=== PATIENT | male | born 1955 | race Caucasian/White ===

== ENCOUNTER 2016-10-10 14:49 | Emergency (ER) | payer MEDICARE, OTHER ==
[2016-10-10 14:50] VITALS: BMI 30.2
--- NOTE | 2016-10-10 15:25 | C.PDOC ---
History Of Present Illness 60 y/o male presents to the ED with complains of sudden onset lightheadedness and feeling like he needed to sleep today. Pt states he had eaten lunch, egg salad and iced tea and went to pray when symptoms onset. Pt denies associated chest pain, palpitations, visual disturbance, diaphoresis, nausea, vomiting, SOB or any other complaints. Pt feels better on arrival to ED but still has some dizziness. He is a dialysis patient and states that his last dialysis was 2 days ago. He did miss todays appointment due to transportation difficulty. Time Seen by Provider: 10/10/16 14:56 Chief Complaint (Nursing): Dizziness/Lightheaded History Per: Patient History/Exam Limitations: no limitations Onset/Duration Of Symptoms: Hrs Current Symptoms Are (Timing): Better Activity At Onset Of Symptoms: Sitting Fall Associated With With Symptoms: No Severity: Mild Recent travel outside of the [place]: No Past Medical History Reviewed: Historical Data, Nursing Documentation, Vital Signs Vital Signs: Last Vital Signs Temp 97.5 F L 10/10/16 14:59 Pulse 72 10/10/16 16:50 Resp 18 10/10/16 16:50 BP 175/81 H 10/10/16 16:50 Pulse Ox 99 10/10/16 18:24 - Medical History PMH: Anemia, CHF, Diabetes, Fractures (left leg 2 yrs ago), Gastritis, HTN, Hypercholesterolemia, End Stage Renal Disease (MWF), Chronic Kidney Disease - [facility] Procedures APPLICATION OF SPLINT (03/15/14) CATARAC PHACOEMULS/ASPIR (03/08/15) DIALYSIS ARTERIOVENOSTOM (06/21/14) EXCIS DEBRIDE OF WOUND, INFECT, OR BURN (06/21/14) HEMODIALYSIS (06/21/14) HOME MANAGEMENT TREATMENT USING ASSIST EQUIPMENT (08/15/16) INSERT LENS AT CATAR EXT (03/08/15) NONEXCIS DEBRID OF WOUND, INFECT, OR BURN (06/21/14) OTHER SKIN & SUBQ I D (06/21/14) PACKED CELL TRANSFUSION (06/21/14) PERFORMANCE OF URINARY FILTRATION, MULTIPLE (08/13/16) THERAPEUTIC EXERCISE TREATMENT OF MUSCULOSK LOW BACK/LE (08/15/16) VENOUS CATHETERIZATION FOR RENAL DIALYSIS (06/21/14) Family History: States: Unknown Family Hx - Social History Hx Tobacco Use: No Hx Alcohol Use: No Hx Substance Use: No - Immunization History Hx Tetanus Toxoid Vaccination: No Hx Influenza Vaccination: No Hx Pneumococcal Vaccination: No Review Of Systems Except As Marked, All Systems Reviewed And Found Negative. Constitutional: Negative for: Fever, Sweats Cardiovascular: Negative for: Chest Pain, Palpitations Respiratory: Negative for: Shortness of Breath Gastrointestinal: Negative for: Nausea, Vomiting Neurological: Positive for: Dizziness Physical Exam - Physical Exam Appears: Non-toxic, No Acute Distress Skin: Warm, Dry, No Rash Head: Atraumatic, Normacephalic Ear(s): Bilateral: Normal Neck: Normal ROM, Supple Chest: Symmetrical Cardiovascular: Rhythm Regular, No Murmur Respiratory: Normal Breath Sounds, No Rales, No Rhonchi, No Wheezing Gastrointestinal/Abdominal: Soft Extremity: Normal ROM Extremity: Bilateral: Atraumatic Neurological/Psych: Oriented x3, Normal Speech, Normal Cognition, Normal Cranial Nerves, Normal Motor, Normal Sensation, Other (no carotid bruit) ED Course And Treatment - Laboratory Results Result Diagrams: 10/10/16 17:23 10/10/16 17:23 Lab Interpretation: Abnormal (Mild anemia with Hgb 9.4, Hct 28.1, BUN 76,Cr 11.5 , HCO3 18, blood sugar 147.) ECG: Interpreted By Sd ECG Rhythm: Sinus Rhythm ECG Interpretation: Normal Rate From EC O2 Sat by Pulse Oximetry: 99 (on room air) Pulse Ox Interpretation: Normal - CT Scan/US CT head Other Rad Studies (CT/US): Read By Radiologist, Radiology Report Reviewed CT/US Interpretation: PROCEDURE: CT HEAD WITHOUT CONTRAST. HISTORY: R/O Bleed. COMPARISON: 09/27/2016. TECHNIQUE: Axial computed tomography images were obtained through the head/brain without intravenous contrast. Radiation dose: Total exam DLP = 1004.29 mGy-cm. FINDINGS: HEMORRHAGE: No intracranial hemorrhage. BRAIN: No mass effect or edema.No CT evidence of acute territorial infarct. Patchy and confluent hypodensities throughout the bilateral cerebral hemispheric white matter are most likely from chronic small vessel ischemic changes. VENTRICLES: Unremarkable. No hydrocephalus. CALVARIUM: Unremarkable. PARANASAL SINUSES: Unremarkable as visualized. No significant inflammatory changes. MASTOID AIR CELLS: Unremarkable as visualized. No inflammatory changes. OTHER FINDINGS: None. IMPRESSION: No CT evidence of acute intracranial hemorrhage or acute territorial infarct. Acute infarction may be CT occult within first 24 hours. If a focal deficit persists, consider followup CT or MRI for further evaluation. Other findings as above. Progress Note: Plan: CT head, EKG, labs, UA. Orthostatic vital signs normal without evidence of orthostasis. Reevaluation Time: 18:19 Reassessment Condition: Improved (Patient resting quietly. No continued dizziness.) - Physician Consult Information Time Consulting Physician Contacted: 18:19 Physician Contacted: Chino Carlos Outcome Of Conversation: Case discussed with Dr Kwon, patient does not require admission at this time. She advises he call the dialysis center tomorrow for a short treatment and then get his usual treatment on Saturday. Disposition Counseled Patient/Family Regarding: Studies Performed, Diagnosis, Need For Followup - Disposition Referrals: Chino Carlos MD [Staff Provider] - Disposition: HOME/ ROUTINE Disposition Time: 20:05 Condition: STABLE Additional Instructions: Call the dialysis center tomorrow for a short treatment and then go to your normal treatment on Saturday. It is extremely important that you are compliant with your dialysis sessions. Instructions: Lightheadedness (ED) - Clinical Impression Clinical Impression: Lightheadedness, ESRD (end stage renal disease) on dialysis - Scribe Statement The provider has reviewed the documentation as recorded by the Brenda Walker Provider Attestation: All medical record entries made by the Brenda were at my direction and personally dictated by me. I have reviewed the chart and agree that the record accurately reflects my personal performance of the history, physical exam, medical decision making, and the department course for this patient. I have also personally directed, reviewed, and agree with the discharge instructions and disposition.
--- NOTE | 2016-10-10 16:07 | CT ---
PROCEDURE: CT HEAD WITHOUT CONTRAST. HISTORY: R/O Bleed COMPARISON: 09/27/2016 TECHNIQUE: Axial computed tomography images were obtained through the head/brain without intravenous contrast. Radiation dose: Total exam DLP = 1004.29 mGy-cm. FINDINGS: HEMORRHAGE: No intracranial hemorrhage. BRAIN: No mass effect or edema.No CT evidence of acute territorial infarct. Patchy and confluent hypodensities throughout the bilateral cerebral hemispheric white matter are most likely from chronic small vessel ischemic changes. VENTRICLES: Unremarkable. No hydrocephalus. CALVARIUM: Unremarkable. PARANASAL SINUSES: Unremarkable as visualized. No significant inflammatory changes. MASTOID AIR CELLS: Unremarkable as visualized. No inflammatory changes. OTHER FINDINGS: None. IMPRESSION: No CT evidence of acute intracranial hemorrhage or acute territorial infarct. Acute infarction may be CT occult within first 24 hours. If a focal deficit persists, consider followup CT or MRI for further evaluation. Other findings as above.
[2016-10-10 17:29] LABS: BASO % 1.1 % (0.0-2.0); EOS # 0.3 K/uL (0.0-0.7); EOS % 6.1 % (0.0-4.0); HEMATOCRIT 28.1 % (35.0-51.0); LYMPH # 0.8 K/uL (1.0-4.3); LYMPH % 17.5 % (20.0-40.0); MEAN CORPUSCULAR HEMOGLOBIN 29.2 pg (27.0-31.0); MEAN CORPUSCULAR HGB CONC 33.3 g/dL (33.0-37.0); MEAN PLATELET VOLUME 6.7 fL (7.2-11.7); MONO # 0.3 K/uL (0.0-0.8); MONO % 7.3 % (0.0-10.0); NRBC % 0.1 % (0.0-2.0); WHITE BLOOD COUNT 4.4 K/uL (4.8-10.8)
[2016-10-10 17:32] LABS: MEAN CELL VOLUME 87.7 fL (80.0-94.0)
[2016-10-10 17:48] LABS: ALB/GLOB RATIO 1.3 (1.0-2.1); BILIRUBIN,TOTAL 0.6 mg/dL (0.2-1.3); CALCIUM 8.8 mg/dl (8.6-10.4)
[2016-10-10 17:49] LABS: MAGNESIUM 2.2 mg/dL (1.6-2.3)
[2016-10-10 17:57] LABS: POTASSIUM 4.9 mmol/L (3.6-5.2)
[2016-10-10 20:24] VITALS: BP 170/93; PULSE 74; RESP 20; TEMP 97.9; O2SAT 97
--- NOTE | 2016-10-11 16:12 | CARD ---
APPROVED REPORT EKG Measurement Heart [id number] <Conclusion> Normal sinus rhythm Normal ECG
== END 2016-10-10 21:09 | disposition home or self-care (01) ==
LOC: C.ER 14:49
DX: I12.0 Hypertensive chronic kidney disease with stage 5 chronic kidney disease or end stage renal disease (principal); E11.22 Type 2 diabetes mellitus with diabetic chronic kidney disease; N18.6 End stage renal disease; Z99.2 Dependence on renal dialysis; R42 Dizziness and giddiness

== ENCOUNTER 2016-10-11 16:25 | Observation (INO) | payer MEDICARE, OTHER ==
[2016-10-11 16:25] VITALS: BMI 30.2
--- NOTE | 2016-10-11 16:45 | C.PDOC ---
History Of Present Illness 60 yo male, hx of esrd, on hd, mwf, presents with "dizziness". pt reports missed hd m and w. pt states feels "dizzy" and weak. no fevers, c/o of pain, abd pain, n/v/d, adams Time Seen by Provider: 10/11/16 16:27 Chief Complaint (Nursing): Dizziness/Lightheaded Past Medical History Reviewed: Historical Data, Nursing Documentation, Vital Signs Vital Signs: Last Vital Signs Temp 98.5 F 10/12/16 08:02 Pulse 72 10/12/16 08:02 Resp 20 10/12/16 08:02 BP 164/75 H 10/12/16 08:02 Pulse Ox 96 10/12/16 08:02 - Medical History PMH: Anemia, CHF, Diabetes, Fractures (left leg 2 yrs ago), Gastritis, HTN, Hypercholesterolemia, End Stage Renal Disease (MWF), Chronic Kidney Disease - [facility] Procedures APPLICATION OF SPLINT (03/15/14) CATARAC PHACOEMULS/ASPIR (03/08/15) DIALYSIS ARTERIOVENOSTOM (06/21/14) EXCIS DEBRIDE OF WOUND, INFECT, OR BURN (06/21/14) HEMODIALYSIS (06/21/14) HOME MANAGEMENT TREATMENT USING ASSIST EQUIPMENT (08/15/16) INSERT LENS AT CATAR EXT (03/08/15) NONEXCIS DEBRID OF WOUND, INFECT, OR BURN (06/21/14) OTHER SKIN & SUBQ I D (06/21/14) PACKED CELL TRANSFUSION (06/21/14) PERFORMANCE OF URINARY FILTRATION, MULTIPLE (08/13/16) THERAPEUTIC EXERCISE TREATMENT OF MUSCULOSK LOW BACK/LE (08/15/16) VENOUS CATHETERIZATION FOR RENAL DIALYSIS (06/21/14) Family History: States: Unknown Family Hx - Social History Hx Tobacco Use: No Hx Alcohol Use: No Hx Substance Use: No - Immunization History Hx Tetanus Toxoid Vaccination: No Hx Influenza Vaccination: No Hx Pneumococcal Vaccination: No Review Of Systems Neurological: Positive for: Dizziness Physical Exam - Physical Exam Appears: Well, No Acute Distress Skin: Normal Color, Warm, Dry Eye(s): bilateral: Normal Inspection, PERRL, EOMI Nose: Normal Throat: Normal Neck: Normal Cardiovascular: Rhythm Regular Respiratory: Normal Breath Sounds Gastrointestinal/Abdominal: Normal Exam Back: Normal Inspection Extremity: Normal ROM, No Swelling ED Course And Treatment - Laboratory Results Result Diagrams: 10/11/16 18:38 10/11/16 18:38 O2 Sat by Pulse Oximetry: 96 Medical Decision Making Medical Decision Making: case discussed with dr santamaria. will arrange for hd today. 530: pt will receive hd. dr juan accepts for obs. results of labs imaging deferred to inpt, security installation technician calling for pt Disposition - Disposition Disposition: HOSPITALIZED Disposition Time: 17:54 Condition: FAIR - Clinical Impression Clinical Impression: ESRD (end stage renal disease) on dialysis, Dizziness
[2016-10-11 18:42] LABS: BASO % 0.9 % (0.0-2.0); EOS # 0.2 K/uL (0.0-0.7); EOS % 4.6 % (0.0-4.0); HEMATOCRIT 28.8 % (35.0-51.0); LYMPH % 22.1 % (20.0-40.0); MEAN CELL VOLUME 87.6 fL (80.0-94.0); MEAN CORPUSCULAR HEMOGLOBIN 29.2 pg (27.0-31.0); MEAN CORPUSCULAR HGB CONC 33.4 g/dL (33.0-37.0); MONO # 0.3 K/uL (0.0-0.8); NRBC % 0.1 % (0.0-2.0); RED CELL DISTRIBUTION WIDTH 19.5 % (11.5-14.5); WHITE BLOOD COUNT 4.5 K/uL (4.8-10.8)
[2016-10-11 18:48] LABS: ALB/GLOB RATIO 1.2 (1.0-2.1); TOTAL PROTEIN 7.3 g/dL (6.3-8.3)
[2016-10-11 18:49] LABS: CALCIUM 9.1 mg/dl (8.6-10.4)
[2016-10-11 19:00] LABS: INR 1.1
[2016-10-11 19:01] LABS: TROPONIN I 0.032 ng/mL (0.00-0.120)
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
--- NOTE | 2016-10-12 10:38 | RAD ---
HISTORY: Missed 2 hemodialysis sessions COMPARISON: 09/27/2016. FINDINGS: LUNGS: Hazy opacity in the lung bases. Mild increased pulmonary vascular congestion. PLEURA: Bilateral pleural effusions right greater than left. CARDIOVASCULAR: Enlarged cardiomediastinal silhouette. OSSEOUS STRUCTURES: The osseous structures demonstrate degenerative changes. VISUALIZED UPPER ABDOMEN: Upper abdomen is suboptimally evaluated. OTHER FINDINGS: None. IMPRESSION: Bilateral pleural effusions right greater than left. Mild pulmonary vascular congestion.
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
[2016-10-12 16:47] VITALS: BP 123/68; PULSE 74; RESP 20; TEMP 98.2; O2SAT 97
--- NOTE | 2016-10-12 18:10 | CP.PCM.DIS ---
Provider - Provider Date of Admission: 10/11/16 17:05 Attending physician: Aquiles Hoyos MD Consults: Nephro - Terrance Time Spent in preparation of Discharge (in minutes): 29 Hospital Course - Lab Results Lab Results: Most Recent Lab Values WBC 4.5 K/uL (4.8-10.8) L 10/11/16 18:38 RBC 3.29 Mil/uL (4.40-5.90) L 10/11/16 18:38 Hgb 9.6 g/dL (12.0-18.0) L 10/11/16 18:38 Hct 28.8 % (35.0-51.0) L 10/11/16 18:38 MCV 87.6 fL (80.0-94.0) 10/11/16 18:38 MCH 29.2 pg (27.0-31.0) 10/11/16 18:38 MCHC 33.4 g/dL (33.0-37.0) 10/11/16 18:38 RDW 19.5 % (11.5-14.5) H 10/11/16 18:38 Plt Count 187 K/uL (130-400) 10/11/16 18:38 MPV 7.0 fL (7.2-11.7) L 10/11/16 18:38 Neut % (Auto) 65.4 % (50.0-75.0) 10/11/16 18:38 Lymph % (Auto) 22.1 % (20.0-40.0) 10/11/16 18:38 [place] % (Auto) 7.0 % (0.0-10.0) 10/11/16 18:38 Eos % (Auto) 4.6 % (0.0-4.0) H 10/11/16 18:38 Baso % (Auto) 0.9 % (0.0-2.0) 10/11/16 18:38 Neut # 3.0 K/uL (1.8-7.0) 10/11/16 18:38 Lymph # 1.0 K/uL (1.0-4.3) 10/11/16 18:38 [place] # 0.3 K/uL (0.0-0.8) 10/11/16 18:38 Eos # 0.2 K/uL (0.0-0.7) 10/11/16 18:38 Baso # 0.0 K/uL (0.0-0.2) 10/11/16 18:38 PT 12.7 SECONDS (9.7-12.2) H 10/11/16 18:38 INR 1.1 10/11/16 18:38 APTT 34 SECONDS (21-34) 10/11/16 18:38 Sodium 141 mmol/L (132-148) 10/11/16 18:38 Potassium 5.0 mmol/L (3.6-5.2) 10/11/16 18:38 Chloride 98 mmol/L (98-107) 10/11/16 18:38 Carbon Dioxide 17 mmol/L (22-30) L 10/11/16 18:38 Anion Gap 31 (10-20) H 10/11/16 18:38 BUN 83 mg/dL (9-20) H 10/11/16 18:38 Creatinine 12.9 MG/DL (0.8-1.5) H* 10/11/16 18:38 Est GFR ( Amer) 5 10/11/16 18:38 Est GFR (Non-Af Amer) 4 10/11/16 18:38 POC Glucose (mg/dL) 148 mg/dL (65-110) H 10/11/16 19:46 Random Glucose 125 mg/dL (75-110) H 10/11/16 18:38 Calcium 9.1 mg/dl (8.6-10.4) 10/11/16 18:38 Total Bilirubin 1.0 mg/dL (0.2-1.3) 10/11/16 18:38 AST 7 U/L (17-59) L D 10/11/16 18:38 ALT 14 U/L (21-72) L D 10/11/16 18:38 Alkaline Phosphatase 67 U/L (38-126) 10/11/16 18:38 Troponin I 0.0320 ng/mL (0.00-0.120) 10/11/16 18:38 Total Protein 7.3 g/dL (6.3-8.3) 10/11/16 18:38 Albumin 4.0 g/dL (3.5-5.0) 10/11/16 18:38 Globulin 3.3 gm/dL (2.2-3.9) 10/11/16 18:38 Albumin/Globulin Ratio 1.2 (1.0-2.1) 10/11/16 18:38 - Hospital Course Hospital Course: On hospital admission This is a 60 yo M with PMH significant for Anemia, CHF, Diabetes, Fractures ( left leg 2 yrs ago), Gastritis, HTN, Hypercholesterolemia, End Stage Renal Disease (MWF) and Chronic Kidney Disease that presented to the ED with chief complaint of dizziness. Pt states that he missed his M/W dialysis and that this dizziness is normal for when he misses dialysis. He describes the dizziness as more of a light headedness. Pt denies any other symptoms. Denies any fevers, chills, chest pain, sob, palpitations, nausea, vomiting, diarrhea or pedal edema. Dr santamaria consulted from the ED and pt is to go to dialysis tonight. Hospital course Pt admitted for urgent dialysis. Pt went for dialysis on night of admission. Pt tolerated HD well and woke up feeling asymptomatic. Pt is MWF schedule and so had HD again and was cleared by nephro for discharge home On hospital discharge Pt medically stable for discharge. Instructed to resume taking all home medications except insulin, which he was instructed to discontinue by a primary care physician. Diagnoses Dizziness ESRD on dialysis Hypertension Diabetes mellitus This is a summary of the patient's hospital course, for further details please see the EMR Discharge Exam - Head Exam Head Exam: ATRAUMATIC, NORMOCEPHALIC - Eye Exam Eye Exam: Normal appearance Pupil Exam: PERRL - Respiratory Exam Respiratory Exam: Clear to PA & Lateral, UNREMARKABLE - Cardiovascular Exam Cardiovascular Exam: +S1, +S2 - GI/Abdominal Exam GI & Abdominal Exam: Normal Bowel Sounds, Unremarkable - Neurological Exam Neurological exam: Alert, Oriented x3 - Skin Skin Exam: Dry, Warm Discharge Plan - Follow Up Plan Condition: FAIR Disposition: HOME/ ROUTINE Instructions: Heart Failure (DC), Hemodialysis (DC), Dizziness (GEN) Referrals: Chino Santamaria MD [Staff Provider] -
--- NOTE | 2016-10-14 09:14 | CARD ---
APPROVED REPORT EKG Measurement Heart [id number] <Conclusion> Normal sinus rhythm Normal ECG
[2016-10-15] MEDS ORDERED: Epoetin Alfa 10,000 unit/ml Dialysis IV SCH (09:00)
[2016-10-16] MEDS ORDERED: Influenza Virus Vaccine 45 mcg/0.5 ml Syr IM ONE (10:30)
[2016-10-16] MEDS ORDERED: Pneumococcal 23-Valent Vaccine IM ONE (10:30)
== END 2016-10-12 17:49 | disposition home or self-care (01) ==
LOC: C.ER 16:25 → C.9E 17:05 → C.3T 17:35
PROVIDERS: ADMIT Internal Medicine Nephrology; ATTEND Internal Medicine Nephrology
DX: R42 Dizziness and giddiness (principal); I13.2 Hypertensive heart and chronic kidney disease with heart failure and with stage 5 chronic kidney disease, or end stage renal disease; E11.22 Type 2 diabetes mellitus with diabetic chronic kidney disease; N18.6 End stage renal disease; I50.9 Heart failure, unspecified; Z99.2 Dependence on renal dialysis; Z79.4 Long term (current) use of insulin; Z91.15 Patient's noncompliance with renal dialysis; E78.00 Pure hypercholesterolemia, unspecified; N25.81 Secondary hyperparathyroidism of renal origin; Z87.891 Personal history of nicotine dependence
CPT/HCPCS: 36415; 71010; 80053; 82948; 84484; 85025; 85610; 85730; 93005; 99285; G0257; G0378

== ENCOUNTER 2016-10-25 18:07 | Inpatient (IN) | payer MEDICARE, OTHER ==
[2016-10-25 18:16] VITALS: BMI 24.3
--- NOTE | 2016-10-25 18:21 | C.PDOC ---
History Of Present Illness 61 y/o male presents to ED with complaint of left hand pain for 1 hour, described as similar sensation to last stroke in July 2014. Patient states that pain has been getting better, noting it was initially at 8/10 and now 4/ 10. Denies headache, visual changes, nausea, vomiting, chest pain, SOB, weakness , numbness, or other associated symptoms. Time Seen by Provider: 10/25/16 18:15 Chief Complaint (Nursing): Weakness/Neurological Deficit History Per: Patient History/Exam Limitations: no limitations Onset/Duration Of Symptoms: Hrs Current Symptoms Are (Timing): Better Seizure Or Post-ictal Symptoms: None Fall Associated With With Symptoms: No Severity: Mild Pain Scale Rating Of: 4 Past Medical History Reviewed: Historical Data, Nursing Documentation, Vital Signs Vital Signs: Last Vital Signs Temp 97.9 F 10/25/16 22:30 Pulse 62 10/25/16 22:30 Resp 21 10/25/16 22:30 BP 155/70 H 10/25/16 22:30 Pulse Ox 96 10/25/16 22:30 - Medical History PMH: Anemia, CHF, Diabetes, Fractures (left leg 2 yrs ago), Gastritis, HTN, Hypercholesterolemia, End Stage Renal Disease (MWF), Chronic Kidney Disease, TIA - [facility] Procedures APPLICATION OF SPLINT (03/15/14) CATARAC PHACOEMULS/ASPIR (03/08/15) DIALYSIS ARTERIOVENOSTOM (06/21/14) EXCIS DEBRIDE OF WOUND, INFECT, OR BURN (06/21/14) HEMODIALYSIS (06/21/14) HOME MANAGEMENT TREATMENT USING ASSIST EQUIPMENT (08/15/16) INSERT LENS AT CATAR EXT (03/08/15) NONEXCIS DEBRID OF WOUND, INFECT, OR BURN (06/21/14) OTHER SKIN & SUBQ I D (06/21/14) PACKED CELL TRANSFUSION (06/21/14) PERFORMANCE OF URINARY FILTRATION, MULTIPLE (08/13/16) THERAPEUTIC EXERCISE TREATMENT OF MUSCULOSK LOW BACK/LE (08/15/16) VENOUS CATHETERIZATION FOR RENAL DIALYSIS (06/21/14) Family History: States: Unknown Family Hx - Social History Hx Tobacco Use: No Hx Alcohol Use: No Hx Substance Use: No - Immunization History Hx Tetanus Toxoid Vaccination: No Hx Influenza Vaccination: No Hx Pneumococcal Vaccination: No Review Of Systems Except As Marked, All Systems Reviewed And Found Negative. Constitutional: Negative for: Fever, Chills Cardiovascular: Negative for: Chest Pain Respiratory: Negative for: Shortness of Breath Gastrointestinal: Negative for: Vomiting Musculoskeletal: Positive for: Hand Pain (left ) Neurological: Negative for: Weakness, Numbness Physical Exam - Physical Exam Appears: Non-toxic, No Acute Distress Skin: Normal Color, Warm, Dry Head: Atraumatic, Normacephalic Neck: Supple Chest: Symmetrical Cardiovascular: Rhythm Regular Respiratory: Normal Breath Sounds, No Rales, No Rhonchi, No Wheezing Gastrointestinal/Abdominal: Soft, No Tenderness Back: Normal Inspection Extremity: Normal ROM, No Tenderness, Capillary Refill (< 2 sec. ), Other ( moving all extremities w/o difficulty) Extremity: Bilateral: Atraumatic Pulses: Left Radial: Normal, Right Radial: Normal Neurological/Psych: Oriented x3, Normal Speech, Normal Cognition, Normal Motor, Normal Sensation, Normal Reflexes ED Course And Treatment - Laboratory Results Result Diagrams: 10/25/16 19:02 10/25/16 19:02 Lab Interpretation: Abnormal (ESRD on HD, normal K+, trop 0.150H) ECG: Interpreted By Me ECG Rhythm: Sinus Rhythm ECG Interpretation: Normal Rate From EC O2 Sat by Pulse Oximetry: 97 (RA) Pulse Ox Interpretation: Normal - Radiology CXR: Interpreted by Me CXR Interpretation: Yes: No Acute Disease - Other Rad head CT X-Ray: Interpreted by Me, Read By Radiologist (neg) Progress Note: CT Head, EKG, CxR, bloodwork ordered and reviewed. Reevaluation Time: 19:30 Reassessment Condition: Improved (chest discomfort resolved) - Physician Consult Information Outcome Of Conversation: 1929: chest discomfort resolved. 1944: d/w Dr. Real - Hospitalist covering Dr. Rachel Chow's pts- ok to Tele Obs. Medical Decision Making Medical Decision Making: L arm discomfort is prob anginal equivalent, + trop, s/s resolved, normal EKG ESRD on HD- Dr. Carlos, M/W/F- due tomorrow (sat) Disposition Doctor Will See Patient In The: Hospital Counseled Patient/Family Regarding: Studies Performed, Diagnosis - Disposition Disposition: HOSPITALIZED Disposition Time: 19:54 Condition: GOOD - Clinical Impression Clinical Impression: Angina at rest, Troponin I above reference range - Scribe Statement The provider has reviewed the documentation as recorded by the Sparkleibnikky Denis Provider Scribe Attestation: All medical record entries made by the Brenda were at my direction and personally dictated by me. I have reviewed the chart and agree that the record accurately reflects my personal performance of the history, physical exam, medical decision making, and the department course for this patient. I have also personally directed, reviewed, and agree with the discharge instructions and disposition.
[2016-10-25 19:13] LABS: POTASSIUM 4.5 mmol/L (3.6-5.2)
[2016-10-25 19:15] LABS: ALB/GLOB RATIO 1.3 (1.0-2.1); BILIRUBIN,TOTAL 0.9 mg/dL (0.2-1.3); CALCIUM 8.7 mg/dl (8.6-10.4)
[2016-10-25 19:18] LABS: BASO # 0.1 K/uL (0.0-0.2); BASO % 1.1 % (0.0-2.0); EOS # 0.2 K/uL (0.0-0.7); EOS % 3.5 % (0.0-4.0); HEMATOCRIT 35.1 % (35.0-51.0); LYMPH # 1.2 K/uL (1.0-4.3); MEAN CELL VOLUME 90.8 fL (80.0-94.0); MEAN CORPUSCULAR HEMOGLOBIN 29.9 pg (27.0-31.0); MEAN CORPUSCULAR HGB CONC 32.9 g/dL (33.0-37.0); MEAN PLATELET VOLUME 7.5 fL (7.2-11.7); MONO # 0.4 K/uL (0.0-0.8); MONO % 7.6 % (0.0-10.0); NRBC % 0.1 % (0.0-2.0); RED CELL DISTRIBUTION WIDTH 18.1 % (11.5-14.5); WHITE BLOOD COUNT 5.4 K/uL (4.8-10.8)
[2016-10-25 19:25] LABS: INR 1.1
[2016-10-25 19:29] LABS: TROPONIN I 0.15 ng/mL (0.00-0.120)
[2016-10-25] MEDS ORDERED: Enoxaparin 40 mg Syringe SC STA (19:40)
[2016-10-25] MEDS ORDERED: Nitroglycerin 2% Ointment Foilpak UD TOP STA (19:44)
[2016-10-25] MEDS ORDERED: Nitroglycerin 2% Ointment Foilpak UD TOP ONE (20:05)
[2016-10-25] MEDS ORDERED: Enoxaparin 80 mg Syringe ONE (20:06)
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
[2016-10-26 04:00] LABS: BASO % 0.4 % (0.0-2.0); EOS # 0.2 K/uL (0.0-0.7); EOS % 4.8 % (0.0-4.0); HEMATOCRIT 28.3 % (35.0-51.0); LYMPH # 1.1 K/uL (1.0-4.3); LYMPH % 31.9 % (20.0-40.0); MEAN CORPUSCULAR HEMOGLOBIN 29.5 pg (27.0-31.0); MEAN CORPUSCULAR HGB CONC 32.4 g/dL (33.0-37.0); MEAN PLATELET VOLUME 7.1 fL (7.2-11.7); MONO # 0.3 K/uL (0.0-0.8); MONO % 8.6 % (0.0-10.0); RED CELL DISTRIBUTION WIDTH 17.9 % (11.5-14.5); WHITE BLOOD COUNT 3.5 K/uL (4.8-10.8)
[2016-10-26 04:02] LABS: POTASSIUM 4.4 mmol/L (3.6-5.2)
[2016-10-26 04:03] LABS: INR 1.2
[2016-10-26 04:04] LABS: ALB/GLOB RATIO 1.1 (1.0-2.1); BILIRUBIN,TOTAL 0.6 mg/dL (0.2-1.3); TOTAL PROTEIN 6.4 g/dL (6.3-8.3)
[2016-10-26 04:36] LABS: THYROID STIMULATING HORMONE 3.48 mIU/L (0.46-4.68)
[2016-10-26] MEDS ORDERED: (Novolin R) Insulin Human Regular 100 units/ml vial SC SCH (07:30)
[2016-10-26] MEDS: (Novolin R) Insulin Human Regular 100 units/ml vial SC SCH ×4 (07:40→22:05)
--- NOTE | 2016-10-26 07:50 | CT ---
PROCEDURE: CT HEAD WITHOUT CONTRAST. HISTORY: transient L hand weak/pain, h/o CVA with same COMPARISON: Comparison is made to the previous study dated 10/10/2016 TECHNIQUE: Axial computed tomography images were obtained through the head/brain without intravenous contrast. This CT exam was performed using one or more of the following dose reduction techniques: Automated exposure control, adjustment of the mA and/or kV according to patient size, and/or use of iterative reconstruction technique. Radiation dose: Total exam DLP = 970.5 mGy-cm. FINDINGS: HEMORRHAGE: No intracranial hemorrhage. BRAIN: No mass effect or edema. Mild atrophy and [id number]-efdmlzki chronic microvascular white matter ischemic disease are again seen. Again seen are small foci of hypodensity/encephalomalacia at the right basal ganglia suspicious for chronic lacunar infarcts. VENTRICLES: Unremarkable. No hydrocephalus. CALVARIUM: Unremarkable. PARANASAL SINUSES: Unremarkable as visualized. No significant inflammatory changes. MASTOID AIR CELLS: Unremarkable as visualized. No inflammatory changes. OTHER FINDINGS: None. IMPRESSION: No evidence of acute intracranial hemorrhage territorial infarct mass effect or midline shift. Re- demonstration of small foci of encephalomalacia at the right basal ganglia likely represent chronic lacunar infarct. If clinically warranted further assessment by MRI may be obtained. Mild atrophy and aslf-fk-cbnhnlsk chronic microvascular white matter ischemic disease. Preliminary report was submitted by [facility].
--- NOTE | 2016-10-26 08:20 | RAD ---
HISTORY: L arm weak COMPARISON: Comparison is made to the previous study dated 10/11/2016 FINDINGS: LUNGS: Persistent heterogeneous opacity at the right lower lung and to a less degree at the left lower lung. Prominent lung markings suspicious for pulmonary congestion. PLEURA: Right pleural effusion. CARDIOVASCULAR: The cardiac silhouette is prominent in size. OSSEOUS STRUCTURES: No significant abnormalities. VISUALIZED UPPER ABDOMEN: Normal. OTHER FINDINGS: None. IMPRESSION: Persistent reticular and reticulonodular opacities at the lower lobes right more than left associated with right pleural effusion. Nicolaides for CHF or fluid overload.
[2016-10-26] MEDS: Pantoprazole 40 mg EC Tab PO SCH (09:55)
[2016-10-26] MEDS ORDERED: Enoxaparin 40 mg Syringe SC SCH (10:00)
[2016-10-26] MEDS ORDERED: Enoxaparin 80 mg Syringe SC SCH (10:00)
--- NOTE | 2016-10-26 12:01 | CP.PCM.CON ---
History of Present Illness - History of Present Illness History of Present Illness: 61 Y/O MALE ADMITTED WITH SEVERE LUE PAIN X 5 HOURS. PT STATES THE PAIN GOES FROM THE LEFT SHOULDER DOWN TO THE HAND IT IS SHARP IN NATURE, LASTS HOURS ON END AND RESOLVES WITH ASA AT HOME. IT IS WORSE WITH PALPATION AND OR MOVEMENT OF LUE. DENIES LEFT CHEST OR LEFT NECK INVOLVEMENT. NO SOB OR PALP OR N/V ASSOCIATED. PT STATES HE HAD 2 CVA'S IN PAST BOTH TIMES HE HAD SYNCOPE. LAST ONE WAS DIAGNOSED AT [facility] [place]. HE STATES THAT AFTER HIS 2ND STROKE HE BEGAN HAVING THIS LUE PAIN. IT IS SPORADIC. DENIES WEAKNESS IN ARM. HAS A AV FISTULA IN ARM FOR HD, PLACED 1 YEAR AGO. PULSES NORMAL IN ARM, NO SWELLING OR ERYTHEMA. Review of Systems - Constitutional Constitutional: absent: As Per HPI, Anorexia, Chills, Daytime Sleepiness, Excessive Sweating, Fatigue, Fever, Frequent Falls, Headache, Increased Appetite , Lethargy, Malaise, Night Sweats, Snoring, Sleep Apnea, Weight Gain, Weight Loss, Weakness, Other - EENT Eyes: absent: As Per HPI, Blind Spots, Blurred Vision, Change in Vision, Decreased Night Vision, Diplopia, Discharge, Dry Eye, Exophthalmos, Floaters, Irritation, Itchy Eyes, Loss of Peripheral Vision, Pain, Photophobia, Requires Corrective Lenses, Sees Flashes, Spots in Vision, Tunnel Vision, Other Visual Disturbances, Loss of Vision, Other Ears: absent: As Per HPI, Decreased Hearing, Ear Discharge, Ear Pain, Tinnitus, Abnormal Hearing, Disequilibrium, Dizziness, Other Nose/Mouth/Throat: absent: As Per HPI, Epistaxis, Nasal Congestion, Nasal Discharge, Nasal Obstruction, Nasal Trauma, Nose Pain, Post Nasal Drip, Sinus Pain, Sinus Pressure, Bleeding Gums, Change in Voice, Dental Pain, Dry Mouth, Dysphagia, Halitosis, Hoarsness, Lip Swelling, Mouth Lesions, Mouth Pain, Odynophagia, Sore Throat, Throat Swelling, Tongue Swelling, Facial Pain, Neck Pain, Neck Mass, Other - Cardiovascular Cardiovascular: absent: As Per HPI, Acrocyanosis, Chest Pain, Chest Pain at Rest , Chest Pain with Activity, Claudication, Diaphoresis, Dyspnea, Dyspnea on Exertion, Edema, Irregular Heart Rhythm, Pain Radiating to Arm/Neck/Jaw, Leg Edema, Leg Ulcers, Lightheadedness, Orthopnea, Palpitations, Paroxysmal Nocturnal Dyspnea, Pedal Edema, Radiating Pain, Rapid Heart Rate, Slow Heart Rate, Syncope, Other - Respiratory Respiratory: absent: As Per HPI, Cough, Dyspnea, Hemoptysis, Dyspnea on Exertion , Wheezing, Snoring, Stridor, Pain on Inspiration, Chest Congestion, Excessive Mucous Production, Change in Mucous Color, Pain with Coughing, Other - Gastrointestinal Gastrointestinal: absent: As Per HPI, Abdominal Pain, Belching, Bloating, Change in Bowel Habits, Change in Stool Character, Coffee Ground Emesis, Constipation, Cramping, Diarrhea, Dyspepsia, Dysphagia, Early Satiety, Excessive Flatus, Fecal Incontinence, Heartburn, Hematemesis, Hematochezia, Loose Stools, Melena, Nausea, Odynophagia, Temesmus, Vomiting, Other - Genitourinary Genitourinary: absent: As Per HPI, Change in Urinary Stream, Difficulty Urinating, Dysuria, Flank Pain, Hematuria, Pyuria, Nocturia, Urinary Incontinence, Urinary Frequency, Urinary Hesitance, Urinary Urgency, Voiding Freq/Small Amts, Freq UTI, Hx Renal/Bladder Calculi, Hx /Renal Surgery, Bladder Distension, Other - Musculoskeletal Musculoskeletal: Other Additional comments: LUE PAIN. - Integumentary Integumentary: Wounds Additional comments: B/L LE WOUNDS INDICATIVE OF A FALL. ALSO OLD SCARS B/L LE SECONDARY TO PREVIOUS INFECTION. - Neurological Neurological: absent: As Per HPI, Abnormal Gait, Abnormal Hearing, Abnormal Movements, Abnormal Speech, Behavioral Changes, Burning Sensations, Confusion, Convulsions, Disequilibrium, Dizziness, Numbness, Focal Weakness, Frequent Falls , Headaches, Lack of Coordination, Loss of Vision, Memory Loss, Paresthesias, Radicular Pain, Restless Legs, Sensory Deficit, Syncope, Tingling, Tremor, Vertigo, Weakness, Other Visual Disturbances, Other - Psychiatric Psychiatric: absent: As Per HPI, Abnormal Sleep Pattern, Anhedonia, Anxiety, Auditory Hallucinations, Behavioral Changes, Change in Appetite, Change in Libido, Confusion, Depression, Difficulty Concentrating, Hallucinations, Homicidal Ideation, Hopelessness, Irritability, Memory Loss, Mood Swings, Panic Attacks, Paranoia, Suicidal Ideation, Visual Hallucinations, Tactile Hallucinations, Other - Endocrine Endocrine: absent: As Per HPI, Change in Body Appearance, Change in Libido, Cold Intolorance, Deepening of Voice, Excessive Sweating, Fatigue, Flushing, Heat Intolorance, Increase in Ring/Shoe/Hat Size, Palpitations, Polydipsia, Polyphagia, Polyuria, Other - Hematologic/Lymphatic Hematologic: absent: As Per HPI, Easy Bleeding, Easy Bruising, Lymphadenopathy, Other Past Patient History - Infectious Disease Hx of Infectious Diseases: None - Tetanus Immunizations Tetanus Immunization: Unknown - Past Medical History & Family History Past Medical History?: Yes - Past Social History Smoking Status: Former Smoker Alcohol: None Drugs: Denies - CARDIAC Hx Cardiac Disorders: No Hx Angina: No Hx Congestive Heart Failure: Yes Hx Hypercholesterolemia: Yes Hx Hypertension: Yes - PULMONARY Hx Asthma: No Hx Bronchitis: No Hx Chronic Obstructive Pulmonary Disease (COPD): No Hx Emphysema: No Hx Pneumonia: No Hx Pulmonary Embolism: No Hx Sleep Apnea: No - NEUROLOGICAL Hx Transient Ischemic Attacks (TIA): Yes - HEENT Hx HEENT Problems: Yes Hx Blind: No Hx Cataracts: Yes Hx Deafness: No Hx Difficulty Chewing: No Hx Epistaxis: No Hx Glaucoma: No Hx Macular Degeneration: No - RENAL Hx Chronic Kidney Disease: Yes Hx Dialysis: Yes - ENDOCRINE/METABOLIC Hx Diabetes Mellitus Type 2: Yes Hx Hyperthyroidism: No Hx Hypothyroidism: No - HEMATOLOGICAL/ONCOLOGICAL Hx Anemia: Yes - INTEGUMENTARY Hx Dermatological Problems: No Hx Basil Cell: No Hx Kwok: No Hx Cellulitis: No Hx Eczema: No Hx Melanoma: No Hx Psoriasis: No Hx Squamous Cell: No Other/Comment: noted with scars/dark dry spots over body - MUSCULOSKELETAL/RHEUMATOLOGICAL Hx Falls: Yes Hx Fractures: Yes (left leg 2 yrs ago) - GASTROINTESTINAL Hx Gastritis: Yes Hx Gastroesophageal Reflux: Yes - GENITOURINARY/GYNECOLOGICAL Hx Sexually Transmitted Disorders: No - PSYCHIATRIC Hx Substance Use: No - SURGICAL HISTORY Hx Appendectomy: No Hx Arteriovenous Shunt: Yes Hx Carotid Endarterectomy: No Hx Cholecystectomy: No Hx Coronary Artery Bypass Graft: No Hx Coronary Stent: No Hx Tonsillectomy: No - ANESTHESIA Hx Anesthesia: Yes Hx Anesthesia Reactions: No Hx Malignant Hyperthermia: No Meds Allergies/Adverse Reactions: Allergies Allergy/AdvReac Type Severity Reaction Status Date / Time Penicillins Allergy RASH Verified 10/10/16 15:01 - Medications Medications: Current Medications Amlodipine Besylate (Norvasc) 10 mg PO DAILY [facility] Aspirin (Aspirin Chewable) 81 mg PO DAILY [facility] Last Admin: 10/26/16 09:55 Dose: 81 mg Clopidogrel Bisulfate (Plavix) 75 mg PO DAILY [facility] Last Admin: 10/26/16 09:55 Dose: 75 mg Hydralazine HCl (Apresoline) 50 mg PO Q8 [facility] Last Admin: 10/26/16 06:42 Dose: 50 mg Insulin Human Regular (Novolin R) [address] [facility] PRN Reason: Protocol Last Admin: 10/26/16 07:40 Dose: Not Given Isosorbide Mononitrate (Imdur) 60 mg PO DAILY [facility] Labetalol HCl (Trandate) 100 mg PO Q8H [facility] Last Admin: 10/26/16 06:42 Dose: 100 mg Levetiracetam (Keppra) 500 mg PO BID [facility] Last Admin: 10/26/16 09:55 Dose: 500 mg Losartan Potassium (Cozaar) 25 mg PO DAILY [facility] Pantoprazole Sodium (Protonix Ec Tab) 40 mg PO DAILY [facility] Last Admin: 10/26/16 09:55 Dose: 40 mg Rosuvastatin Calcium (Crestor) 20 mg PO [facility] Sitagliptin Phosphate (Januvia) 25 mg PO DAILY [facility] Last Admin: 10/26/16 09:55 Dose: 25 mg Physical Exam - Constitutional Appears: Non-toxic, No Acute Distress - Head Exam Head Exam: ATRAUMATIC, NORMAL INSPECTION, NORMOCEPHALIC - Eye Exam Eye Exam: EOMI, Normal appearance, PERRL Pupil Exam: NORMAL ACCOMODATION, PERRL - ENT Exam ENT Exam: Mucous Membranes Moist, Normal Exam - Neck Exam Neck exam: Positive for: Normal Inspection - Respiratory Exam Respiratory Exam: Clear to Auscultation Bilateral, NORMAL BREATHING PATTERN - Cardiovascular Exam Cardiovascular Exam: Diastolic murmur, REGULAR RHYTHM, +S1, +S2, Systolic Murmur. absent: Bradycardia, Tachycardia, Clicks, Gallop, Irregular Rhythm, JVD , RRR, Rubs, +S4 - GI/Abdominal Exam GI & Abdominal Exam: Normal Bowel Sounds, Soft - Rectal Exam Rectal Exam: Deferred, NORMAL INSPECTION - Extremities Exam Extremities exam: Positive for: full ROM, normal capillary refill. Negative for : calf tenderness, joint swelling, normal inspection, pedal edema, tenderness, pedal pulses present Additional comments: B/L LE SCARS - Back Exam Back exam: NORMAL INSPECTION - Neurological Exam Neurological exam: Alert, CN II-XII Intact, Oriented x3, Reflexes Normal - Psychiatric Exam Psychiatric exam: Normal Affect, Normal Mood - Skin Skin Exam: Dry, Intact, Normal Color, Warm Additional comments: ABOVE Results - Vital Signs Recent Vital Signs: Last Vital Signs Temp 98.3 F 10/26/16 10:57 Pulse 67 10/26/16 10:57 Resp 16 10/26/16 10:57 BP 154/75 H 10/26/16 10:57 Pulse Ox 97 10/26/16 10:57 - Labs Result Diagrams: 10/26/16 03:50 10/26/16 03:50 Labs: Laboratory Results - last 24 hr 10/26/16 10/26/16 10/26/16 03:50 07:16 07:41 WBC 3.5 L RBC 3.11 L Hgb 9.2 L D Hct 28.3 L MCV 91.0 MCH 29.5 MCHC 32.4 L RDW 17.9 H Plt Count 169 MPV 7.1 L Neut % (Auto) 54.3 Lymph % (Auto) 31.9 [place] % (Auto) 8.6 Eos % (Auto) 4.8 H Baso % (Auto) 0.4 Neut # 1.9 Lymph # 1.1 [place] # 0.3 Eos # 0.2 Baso # 0.0 PT 13.3 H INR 1.2 APTT 39 H D Sodium 140 Potassium 4.4 Chloride 98 Carbon Dioxide 27 Anion Gap 20 BUN 46 H Creatinine 6.9 H Est GFR ( Amer) 10 Est GFR (Non-Af Amer) 8 POC Glucose (mg/dL) 119 H Random Glucose 181 H Hemoglobin A1c 4.7 Calcium 8.0 L Total Bilirubin 0.6 AST 8 L D ALT 18 L D Alkaline Phosphatase 52 Total Creatine Kinase 49 L 47 L CK-MB (Mass) 1.26 1.26 Troponin I, Quant 0.1140 0.1130 Total Protein 6.4 Albumin 3.4 L D Globulin 3.0 Albumin/Globulin Ratio 1.1 TSH 3rd Generation 3.48 Blood Type Antibody Screen 10/26/16 10:57 WBC RBC Hgb Hct MCV MCH MCHC RDW Plt Count MPV Neut % (Auto) Lymph % (Auto) [place] % (Auto) Eos % (Auto) Baso % (Auto) Neut # Lymph # [place] # Eos # Baso # PT INR APTT Sodium Potassium Chloride Carbon Dioxide Anion Gap BUN Creatinine Est GFR ( Amer) Est GFR (Non-Af Amer) POC Glucose (mg/dL) Random Glucose Hemoglobin A1c Calcium Total Bilirubin AST ALT Alkaline Phosphatase Total Creatine Kinase CK-MB (Mass) Troponin I, Quant Total Protein Albumin Globulin Albumin/Globulin Ratio TSH 3rd Generation Blood Type A POSITIVE Antibody Screen Negative - EKG Data EKG Interpreted by: Myself EKG shows normal: Sinus rhythm, ST-T waves - EKG Data EKG comments: NONSPEC TWAVE FLATTENING Assessment & Plan (1) Troponin I above reference range Status: Acute (2) ESRD (end stage renal disease) on dialysis Status: Chronic (3) HTN (hypertension) Status: Chronic (4) Hyperlipidemia Status: Chronic (5) TIA (transient ischemic attack) Status: Chronic (6) Type 2 diabetes mellitus with diabetic nephropathy Status: Chronic (7) Left upper arm pain Status: Acute (8) Left shoulder pain Status: Acute - Assessment and Plan (Free Text) Plan: LUE PAIN DOES NOT APPEAR CARDIAC IN NATURE. WOULD CONSIDER LUE VASCULAR DISEASE, AV FISTULA STEAL SYNDROME, OR RADICULOPATHY CERVICAL. LEFT HAD REPERFUSION AND PULSES NML MINIMAL TROP LIKELY DUE TO ESRD GIVEN HX OF CVA X 2 WOULD KEEP PT ON DUAL ANTIPLTS. ADDED DAILY ASA TO HOME PLAVIX ADDED IMDUR 60MG DAILY FOR BP CONTROL AFTER DISCUSSING WITH RESIDENT LAST NIGHT WE ORDERED LUE VASCULAR STUDIES AND CAROTID US TELE MONITOR TO R/O ARRYTHMIA. CHECK VIT D LEVEL START HEPARIN SQ FOR DVT PROPHYLAXIS TOMORROW PT RECIEVED FULL DOSE LOVENOX YESTERDAY IN ER. 70 MIN TOTAL CARE AND EVAL.
--- NOTE | 2016-10-26 14:24 | CP.PCM.CON ---
History of Present Illness - History of Present Illness History of Present Illness: 61 year old male with PMHx of ESRD on HD MWF, HTN, DM, HLD, CVA, anemia, presents to the ED via ambulance for pain in his right hand radiating to his left shoulder. Patient reports he was getting out of prayer at 5 pm when he began to experience 10/10 right hand pain. Pain came on all of a sudden and radiated to left shoulder. Patient reports associated numbness and tingling. He was afraid he was having another stroke. He denies any chest pain now or before. Pain at this time is 1/10 after nitro, ASA and Lovenox given in the ED. He denies any history of heart attacks. He reports having difficulty sleeping over the past couple of nights and feels tired. He denies SOB, changes in vision , diaphoresis, fevers, chills, dizziness, confusion, dysuria, leg or hand swelling. He was at HD yesterday as scheduled. Presented with left arm numbness. Hx as above Due for dialysis now- will arrange TNIs not significant Consult dictated Past Patient History - Infectious Disease Hx of Infectious Diseases: None - Tetanus Immunizations Tetanus Immunization: Unknown - Past Medical History & Family History Past Medical History?: Yes - Past Social History Smoking Status: Former Smoker Alcohol: None Drugs: Denies - CARDIAC Hx Cardiac Disorders: No Hx Angina: No Hx Congestive Heart Failure: Yes Hx Hypercholesterolemia: Yes Hx Hypertension: Yes - PULMONARY Hx Asthma: No Hx Bronchitis: No Hx Chronic Obstructive Pulmonary Disease (COPD): No Hx Emphysema: No Hx Pneumonia: No Hx Pulmonary Embolism: No Hx Sleep Apnea: No - NEUROLOGICAL Hx Transient Ischemic Attacks (TIA): Yes - HEENT Hx HEENT Problems: Yes Hx Blind: No Hx Cataracts: Yes Hx Deafness: No Hx Difficulty Chewing: No Hx Epistaxis: No Hx Glaucoma: No Hx Macular Degeneration: No - RENAL Hx Chronic Kidney Disease: Yes Hx Dialysis: Yes - ENDOCRINE/METABOLIC Hx Diabetes Mellitus Type 2: Yes Hx Hyperthyroidism: No Hx Hypothyroidism: No - HEMATOLOGICAL/ONCOLOGICAL Hx Anemia: Yes - INTEGUMENTARY Hx Dermatological Problems: No Hx Basil Cell: No Hx Kwok: No Hx Cellulitis: No Hx Eczema: No Hx Melanoma: No Hx Psoriasis: No Hx Squamous Cell: No Other/Comment: noted with scars/dark dry spots over body - MUSCULOSKELETAL/RHEUMATOLOGICAL Hx Falls: Yes Hx Fractures: Yes (left leg 2 yrs ago) - GASTROINTESTINAL Hx Gastritis: Yes Hx Gastroesophageal Reflux: Yes - GENITOURINARY/GYNECOLOGICAL Hx Sexually Transmitted Disorders: No - PSYCHIATRIC Hx Substance Use: No - SURGICAL HISTORY Hx Appendectomy: No Hx Arteriovenous Shunt: Yes Hx Carotid Endarterectomy: No Hx Cholecystectomy: No Hx Coronary Artery Bypass Graft: No Hx Coronary Stent: No Hx Tonsillectomy: No - ANESTHESIA Hx Anesthesia: Yes Hx Anesthesia Reactions: No Hx Malignant Hyperthermia: No Meds Allergies/Adverse Reactions: Allergies Allergy/AdvReac Type Severity Reaction Status Date / Time Penicillins Allergy RASH Verified 10/10/16 15:01 - Medications Medications: Current Medications Amlodipine Besylate (Norvasc) 10 mg PO DAILY [facility] Last Admin: 10/26/16 09:55 Dose: Not Given Aspirin (Aspirin Chewable) 81 mg PO DAILY [facility] Last Admin: 10/26/16 09:55 Dose: 81 mg Clopidogrel Bisulfate (Plavix) 75 mg PO DAILY [facility] Last Admin: 10/26/16 09:55 Dose: 75 mg Hydralazine HCl (Apresoline) 50 mg PO Q8 [facility] Last Admin: 10/26/16 13:36 Dose: Not Given Insulin Human Regular (Novolin R) 0 unit SC [facility] PRN Reason: Protocol Last Admin: 10/26/16 13:34 Dose: 3 unit Isosorbide Mononitrate (Imdur) 60 mg PO DAILY [facility] Labetalol HCl (Trandate) 100 mg PO Q8H [facility] Last Admin: 10/26/16 13:37 Dose: Not Given Levetiracetam (Keppra) 500 mg PO BID [facility] Last Admin: 10/26/16 09:55 Dose: 500 mg Losartan Potassium (Cozaar) 25 mg PO DAILY [facility] Last Admin: 10/26/16 09:55 Dose: Not Given Pantoprazole Sodium (Protonix Ec Tab) 40 mg PO DAILY [facility] Last Admin: 10/26/16 09:55 Dose: 40 mg Rosuvastatin Calcium (Crestor) 10 mg PO [facility] Sitagliptin Phosphate (Januvia) 25 mg PO DAILY [facility] Last Admin: 10/26/16 09:55 Dose: 25 mg Results - Vital Signs Recent Vital Signs: Last Vital Signs Temp 98.3 F 10/26/16 10:57 Pulse 67 10/26/16 10:57 Resp 16 10/26/16 10:57 BP 154/75 H 10/26/16 10:57 Pulse Ox 97 10/26/16 10:57 - Labs Result Diagrams: 10/26/16 03:50 10/26/16 03:50 Labs: Laboratory Results - last 24 hr 10/26/16 10/26/16 10/26/16 03:50 07:16 07:41 WBC 3.5 L RBC 3.11 L Hgb 9.2 L D Hct 28.3 L MCV 91.0 MCH 29.5 MCHC 32.4 L RDW 17.9 H Plt Count 169 MPV 7.1 L Neut % (Auto) 54.3 Lymph % (Auto) 31.9 [place] % (Auto) 8.6 Eos % (Auto) 4.8 H Baso % (Auto) 0.4 Neut # 1.9 Lymph # 1.1 [place] # 0.3 Eos # 0.2 Baso # 0.0 PT 13.3 H INR 1.2 APTT 39 H D Sodium 140 Potassium 4.4 Chloride 98 Carbon Dioxide 27 Anion Gap 20 BUN 46 H Creatinine 6.9 H Est GFR ( Amer) 10 Est GFR (Non-Af Amer) 8 POC Glucose (mg/dL) 119 H Random Glucose 181 H Hemoglobin A1c 4.7 Calcium 8.0 L Total Bilirubin 0.6 AST 8 L D ALT 18 L D Alkaline Phosphatase 52 Total Creatine Kinase 49 L 47 L CK-MB (Mass) 1.26 1.26 Troponin I, Quant 0.1140 0.1130 Total Protein 6.4 Albumin 3.4 L D Globulin 3.0 Albumin/Globulin Ratio 1.1 TSH 3rd Generation 3.48 Blood Type Antibody Screen 10/26/16 10/26/16 10:57 12:29 WBC RBC Hgb Hct MCV MCH MCHC RDW Plt Count MPV Neut % (Auto) Lymph % (Auto) [place] % (Auto) Eos % (Auto) Baso % (Auto) Neut # Lymph # [place] # Eos # Baso # PT INR APTT Sodium Potassium Chloride Carbon Dioxide Anion Gap BUN Creatinine Est GFR ( Amer) Est GFR (Non-Af Amer) POC Glucose (mg/dL) 249 H Random Glucose Hemoglobin A1c Calcium Total Bilirubin AST ALT Alkaline Phosphatase Total Creatine Kinase CK-MB (Mass) Troponin I, Quant Total Protein Albumin Globulin Albumin/Globulin Ratio TSH 3rd Generation Blood Type A POSITIVE Antibody Screen Negative
--- NOTE | 2016-10-26 14:52 | CON ---
DATE: 10/26/2016 The patient is a 61-year-old man with a past medical history of end-stage renal disease, been on main tenance hemodialysis for 2-1/2 years. He gets dialyzed 3 times weekly. PAST MEDICAL HISTORY: That of end-stage renal disease, hypertension, diabetes mellitus type 2, diabe tic nephropathy, dyslipidemia, status post cerebrovascular accident and chronic anemia. He presents to the ER with left hand numbness, which radiated down from the shoulder to the hand. He claims that he had a CVA in the past and these were the same symptoms. He is being admitted. Tropo nins so far negative for an acute myocardial infarction. He was given nitro, aspirin, Lovenox in the Emergency Department. REVIEW OF SYSTEMS: He has no dyspnea on exertion, no recent chest pain, no dizziness, no confusion, no new rashes, no visual disturbances, no hearing deficits recently. PAST SURGICAL HISTORY: That of a left arm AV fistula. He denies any cardiac history. Other review of systems are all negative. He does have GI reflux symptoms as well. SOCIAL HISTORY: Negative for smoking, alcohol abuse or illicit drug use. FAMILY HISTORY: Noncontributory. MEDICATIONS: At home included hydralazine, aspirin, losartan, Crestor, isosorbide, Januvia, Keppra, Norvasc, Plavix, Protonix, and labetalol. Not mentioned is he did have a history of seizures. PHYSICAL EXAMINATION: GENERAL: He is a well-developed man, in no acute distress. VITAL SIGNS: Blood pressure when seen 154/75, temperature 98.3, pulse 67, pulse ox is 97% on room ai r. HEENT: Anicteric. Mouth was clear. NECK: No JVD. CHEST: Lung randall were clear. HEART: Regular rhythm, no murmur. ABDOMEN: Soft, benign. No mass or organomegaly. NEUROLOGIC: There was no residual neurological findings. EXTREMITIES: He had a left arm AV fistula with a thrill and bruit. AV fistula appeared intact and i t was patent. There was no peripheral edema. BLOOD WORK: Shows potassium 4.4. Troponins were negative. Creatinine 6.9. Hemoglobin is 9.2. INR is 1.2. He had a chest x-ray, which showed maybe mild CHF, but otherwise negative. IMPRESSION: The patient has end-stage renal disease, mild fluid overload, dialysis noncompliance, hi story of diabetic nephropathy, diabetes mellitus type 2, hypertension, status post cerebrovascular ac cident. PLAN: Will be for immediate dialysis with adequate fluid removal and we will monitor his symptoms of left arm numbness, which is of unclear etiology. We will follow up. Chino Carlos MD cc: [id number] TT: 10/26/2016 14:51:34 Confirmation # [id number] Dictation # [id number]
[2016-10-26 16:08] VITALS: RESP 20
[2016-10-26] MEDS ORDERED: Pneumococcal 23-Valent Vaccine IM ONE (16:22)
[2016-10-26] MEDS ORDERED: Influenza Virus Vaccine 45 mcg/0.5 ml Syr IM ONE (16:22)
[2016-10-26 16:59] LABS: FOLATE 4.4 ng/mL
--- NOTE | 2016-10-26 18:21 | CP.PCM.PN ---
<Haley Tapia - Last Filed: 10/26/16 18:18> Subjective - Date & Time of Evaluation Date of Evaluation: 10/26/16 Time of Evaluation: 10:30 - Subjective Subjective: Internal medicine progress note for Hospitalist -Haley Tapia, PGY-1 Pt S & E at bedside Pt reports Left hand pain resolved, no problems over night except that he had to sleep in the ED. Tolerating a diet. Denies N/V/F/C, SOB, CP, abdominal pain. Admits to stress in his life. Objective - Vital Signs/Intake and Output Vital Signs (last 24 hours): Temp Pulse Resp BP Pulse Ox 98 F 68 20 159/69 H 96 10/26/16 18:01 10/26/16 18:01 10/26/16 18:01 10/26/16 18:01 10/26/16 18:01 - Medications Medications: Current Medications Amlodipine Besylate (Norvasc) 10 mg PO DAILY [facility] Last Admin: 10/26/16 09:55 Dose: Not Given Aspirin (Aspirin Chewable) 81 mg PO DAILY [facility] Last Admin: 10/26/16 09:55 Dose: 81 mg Clopidogrel Bisulfate (Plavix) 75 mg PO DAILY [facility] Last Admin: 10/26/16 09:55 Dose: 75 mg Heparin Sodium (Porcine) (Heparin) 5,000 units SC Q8 [facility] Hydralazine HCl (Apresoline) 50 mg PO Q8 [facility] Last Admin: 10/26/16 13:36 Dose: Not Given Insulin Human Regular (Novolin R) 0 unit SC ACHS [facility] PRN Reason: Protocol Last Admin: 10/26/16 18:09 Dose: Not Given Isosorbide Mononitrate (Imdur) 60 mg PO DAILY [facility] Labetalol HCl (Trandate) 100 mg PO Q8H [facility] Last Admin: 10/26/16 13:37 Dose: Not Given Levetiracetam (Keppra) 500 mg PO BID [facility] Last Admin: 10/26/16 09:55 Dose: 500 mg Losartan Potassium (Cozaar) 25 mg PO DAILY [facility] Last Admin: 10/26/16 09:55 Dose: Not Given Pantoprazole Sodium (Protonix Ec Tab) 40 mg PO DAILY [facility] Last Admin: 10/26/16 09:55 Dose: 40 mg Rosuvastatin Calcium (Crestor) 10 mg PO HS [facility] Sitagliptin Phosphate (Januvia) 25 mg PO DAILY [facility] Last Admin: 10/26/16 09:55 Dose: 25 mg - Labs Labs: 10/26/16 03:50 10/26/16 03:50 PT 13.3 SECONDS (9.7-12.2) H 10/26/16 03:50 INR 1.2 10/26/16 03:50 APTT 39 SECONDS (21-34) H D 10/26/16 03:50 - Constitutional Appears: Non-toxic, No Acute Distress - Head Exam Head Exam: ATRAUMATIC, NORMAL INSPECTION, NORMOCEPHALIC - Eye Exam Eye Exam: EOMI, Normal appearance, PERRL Pupil Exam: NORMAL ACCOMODATION, PERRL - ENT Exam ENT Exam: Mucous Membranes Moist, Normal Exam - Neck Exam Neck Exam: Full ROM, Normal Inspection - Respiratory Exam Respiratory Exam: Clear to Ausculation Bilateral, NORMAL BREATHING PATTERN - Cardiovascular Exam Cardiovascular Exam: REGULAR RHYTHM, +S1, +S2 - GI/Abdominal Exam GI & Abdominal Exam: Soft, Normal Bowel Sounds. absent: Tenderness - Extremities Exam Extremities Exam: Full ROM, Normal Inspection. absent: Pedal Edema, Tenderness Additional comments: LUE w/palpable thrill, audible bruit, non tender, full ROM - Back Exam Back Exam: Full ROM, NORMAL INSPECTION - Neurological Exam Neurological Exam: Alert, Awake, CN II-XII Intact, Oriented x3 - Psychiatric Exam Psychiatric exam: Normal Affect, Normal Mood - Skin Skin Exam: Dry, Intact, Normal Color, Warm Assessment and Plan - Assessment and Plan (Free Text) Assessment: Troponin I above reference range ELIZA: 0.1500, 0.114, 0.113- down trending Lipid Panel: Chol: 149, Tri, LDL:88, HDL:40 Hgb A1C: 4.7 TSH 3.48 Cont home meds: Crestor 20 mg PO HS (Lipitor not on formulary) Aspirin 81 mg PO daily Labetalol 100 mg PO Q8H O2 NC 2L Will hold anticoagulation at this time secondary to history of hemorrhagic stroke. f/u ECHO as per cardio Patient has a normal EF as per most recent ECHO. Status: Acute Cardio following- Imdur started, keep pt on dual antiplt therapy 2/2 hx CVA, started ASA daily, rec vit D level, heparin SC for DVT ppx on 10/27 Anemia Hgb 9.2 from 11.6 Type and crossed Transfuse 1 unit pRBCs FU Iron studies/anemia work up Retic ct 4.6 Fe 44- low TIBC 199- low %sat 22 Ferritin 671 B12 648 Folate 4.4 Left hand pain- Resolved. No trauma. Possible atypical CAD presentation, workup as above. f/u head CT official read. f/u carotid dopplers f/u arterial dupplex of UE Vascular surgery consulted- [place]- R/O Steel syndrome H/O: CVA (cerebrovascular accident) F/u head CT official read. Continue home meds: Plavix 75 mg PO daily BP control: Norvasc 10 mg PO daily Hydralazine 50 mg PO Q8H Labetalol 100 mg PO Q8H Losartan 25 mg PO daily PT/OT Patient has residual weakness and walks with cane. ESRD (end stage renal disease) on dialysis HD MWF FU CXR s/p HD Patient's last HD was Saturday10/24/16. Renal HD diet Nephro following Type 2 diabetes mellitus with diabetic nephropathy Hgb A1C 4.8, 4.7 ISS Resume Januvia 25 mg PO daily Accuchecks ACHS Diabetic renal diet Prophylactic measure Pt received therapeutic LVX in ED Rec to start Hep SQ on 10/27- order in Protonix 40 mg PO daily Dispo PT/OT FU vascular surgery recs Cont HD MWF FU FOB Monitor for bleeding Will recommmend colonoscopy outpatient upon discharge DW attending <Rosemarie Rivera V - Last Filed: 10/30/16 20:30> Objective - Vital Signs/Intake and Output Vital Signs (last 24 hours): Temp Pulse Resp BP Pulse Ox 97.9 F 71 20 155/73 H 95 10/28/16 08:10 10/28/16 08:10 10/28/16 08:10 10/28/16 08:10 10/28/16 08:10 - Labs Labs: 10/28/16 07:30 10/28/16 07:30 PT 13.3 SECONDS (9.7-12.2) H 10/26/16 03:50 INR 1.2 10/26/16 03:50 APTT 32 SECONDS (21-34) D 10/27/16 12:01 Attending/Attestation - Attestation I have personally seen and examined this patient.: Yes I have fully participated in the care of the patient.: Yes I have reviewed all pertinent clinical information, including history, physical exam and plan: Yes Notes (Text): This is a late computer entry for 10/26/16. Patient seen, examined, and case discussed in the ED, awaiting bed on the medical floor. Patient consented for blood products and dialysis, risks and benefits described to the patient who verbalized understanding and signed paperwork. Patient well- known to hospitalist service, history of hemorrhagic CVA, seizure disorder, ESRD , anemia likely chronic of disease, and diabetes. Patient reports he came to the hospital because he had left hand pain with associated numbness early in the morning, and was reminded by a friend to come to the hospital because it can be a symptom of stroke. Patient reports he is compliant on his medications. F/u Nephrology and Cardiology recommendations 1) Assessment/Plan Nonstemi ELIZA: 0.1500 (+) and downtrending Lipid Panel: Chol: 149, Tri, LDL:88, HDL:40 (on statin) Hgb A1C: 4.7 (controlled) TSH 3.48 Cont home meds: Crestor 20 mg PO HS (Lipitor not on formulary) Aspirin 81 mg PO daily Labetalol 100 mg PO Q8H O2 NC 2L Will hold DVT ppx at this time secondary to history of hemorrhagic stroke. f/u ECHO as per cardio Patient has a normal EF as per most recent ECHO. Cardiology (Dr. Nuñez) consulted-->help appreciated-->recommended for Imdur, keep on dual therapy, recommended vitamin D, DVT ppx in the AM 2) Anemia Hgb 9.2 from 11.6 Type and crossed 1 unit of PRBC FU Iron studies/anemia work up Retic ct 4.6 Fe 44- low TIBC 199- low %sat 22 Ferritin 671 B12 648 Folate 4.4 Likely anemia chronic disease secondary to ESRD Patient recommended for outpatient colonoscopy for complete anemia workup since he has not had one. 3) Left hand pain- Resolved. No trauma. Possible atypical CAD presentation, workup as above. f/u head CT official read. f/u carotid dopplers f/u arterial dupplex of UE Vascular surgery consulted- [place]- R/O Steel syndrome 4) H/O: CVA (cerebrovascular accident) F/u head CT official read. Continue home meds: Plavix 75 mg PO daily BP control: Norvasc 10 mg PO daily Hydralazine 50 mg PO Q8H Labetalol 100 mg PO Q8H Losartan 25 mg PO daily started on Imdur per cardiology PT/OT Patient has residual weakness and walks with cane. 5) ESRD (end stage renal disease) on dialysis HD MWF FU CXR s/p HD Patient's last HD was Saturday10/24/16. Renal HD diet Nephrology (Dr. Carlos) on board 6) Type 2 diabetes mellitus with diabetic nephropathy Hgb A1C 4.8, 4.7 ISS Resume Januvia 25 mg PO daily Accuchecks ACHS Diabetic renal diet controlled 5)Prophylactic measure Pt received therapeutic LVX in ED in light of positive troponin Per cardiology, to start Dvt ppxHep SQ on 10/27 GI ppx: Protonix 40 mg PO daily
--- NOTE | 2016-10-27 06:32 | CARD ---
APPROVED REPORT EKG Measurement Heart [id number] <Conclusion> Normal sinus rhythm Nonspecific T wave abnormality Abnormal ECG
[2016-10-27] MEDS: (Novolin R) Insulin Human Regular 100 units/ml vial SC SCH ×3 (07:35→23:13)
--- NOTE | 2016-10-27 07:42 | CP.PCM.PN ---
<Bianca Silver - Last Filed: 10/27/16 13:30> Subjective - Date & Time of Evaluation Date of Evaluation: 10/27/16 Time of Evaluation: 11:00 - Subjective Subjective: PGY1 Medicine Note for Dr. Rivera Patient seen and examined at bedside. Patient had no acute events overnight and continues complaining of left hand pain. Patient denied chest pain, palpitations , SOB, cough, abdominal pain, nausea, vomiting, bowel/bladder complaints, focal weakness. Patient reports hating the [facility] and doesn't want to return. Patient tolerated HD yesterday. Objective - Vital Signs/Intake and Output Vital Signs (last 24 hours): Temp Pulse Resp BP Pulse Ox 97.4 F L 70 20 161/73 H 95 10/26/16 22:05 10/27/16 06:05 10/26/16 22:05 10/27/16 06:05 10/26/16 22:05 Intake and Output: 10/27/16 10/27/16 06:59 18:59 Intake Total 120 Balance 120 - Medications Medications: Current Medications Amlodipine Besylate (Norvasc) 10 mg PO DAILY [facility] Last Admin: 10/26/16 09:55 Dose: Not Given Aspirin (Aspirin Chewable) 81 mg PO DAILY [facility] Last Admin: 10/26/16 09:55 Dose: 81 mg Clopidogrel Bisulfate (Plavix) 75 mg PO DAILY [facility] Last Admin: 10/26/16 09:55 Dose: 75 mg Heparin Sodium (Porcine) (Heparin) 5,000 units SC Q8 [facility] Hydralazine HCl (Apresoline) 50 mg PO Q8 [facility] Last Admin: 10/27/16 05:42 Dose: 50 mg Insulin Human Regular (Novolin R) 0 unit SC [facility] PRN Reason: Protocol Last Admin: 10/26/16 22:05 Dose: Not Given Isosorbide Mononitrate (Imdur) 60 mg PO DAILY [facility] Labetalol HCl (Trandate) 100 mg PO Q8H [facility] Last Admin: 10/27/16 05:42 Dose: 100 mg Levetiracetam (Keppra) 500 mg PO BID [facility] Last Admin: 10/26/16 18:33 Dose: 500 mg Losartan Potassium (Cozaar) 25 mg PO DAILY [facility] Last Admin: 10/26/16 09:55 Dose: Not Given Pantoprazole Sodium (Protonix Ec Tab) 40 mg PO DAILY [facility] Last Admin: 10/26/16 09:55 Dose: 40 mg Pneumococcal Polyvalent Vaccine (Pneumovax 23 Vaccine) 0.5 ml IM .ONCE ONE Stop: 10/28/16 10:01 Rosuvastatin Calcium (Crestor) 10 mg PO HS [facility] Last Admin: 10/26/16 21:56 Dose: 10 mg Sitagliptin Phosphate (Januvia) 25 mg PO DAILY [facility] Last Admin: 10/26/16 09:55 Dose: 25 mg - Labs Labs: 10/26/16 03:50 10/26/16 03:50 PT 13.3 SECONDS (9.7-12.2) H 10/26/16 03:50 INR 1.2 10/26/16 03:50 APTT 39 SECONDS (21-34) H D 10/26/16 03:50 - Constitutional Appears: Non-toxic, No Acute Distress - Head Exam Head Exam: NORMAL INSPECTION - Eye Exam Eye Exam: Normal appearance. absent: Conjunctival injection, Scleral icterus - ENT Exam ENT Exam: Mucous Membranes Moist - Neck Exam Neck Exam: Normal Inspection - Respiratory Exam Respiratory Exam: Clear to Ausculation Bilateral, NORMAL BREATHING PATTERN. absent: Rales, Rhonchi, Wheezes - Cardiovascular Exam Cardiovascular Exam: REGULAR RHYTHM, RRR, +S1, +S2 - GI/Abdominal Exam GI & Abdominal Exam: Soft, Normal Bowel Sounds. absent: Tenderness - Extremities Exam Extremities Exam: absent: Pedal Edema Additional comments: LUE w/palpable thrill, audible bruit, non tender, full ROM - Neurological Exam Neurological Exam: Alert, Awake, Oriented x3 - Psychiatric Exam Psychiatric exam: Normal Affect, Normal Mood - Skin Skin Exam: Dry, Intact, Normal Color, Warm Assessment and Plan - Assessment and Plan (Free Text) Plan: Troponin I above reference range ELIZA: 0.1500, 0.114, 0.113- down trending Lipid Panel: Chol: 149, Tri, LDL:88, HDL:40 Hgb A1C: 4.7 TSH 3.48 Cont home meds: Crestor 10 mg PO HS (Lipitor not on formulary) Aspirin 81 mg PO daily Plavix 75mg PO daily Labetalol 100 mg PO Q8H O2 NC 2L Will hold anticoagulation at this time secondary to history of hemorrhagic stroke. f/u ECHO as per cardio Patient has a normal EF as per most recent ECHO. Status: Acute Cardio following- Imdur started, keep pt on dual antiplt therapy 2/2 hx CVA, started ASA daily, rec vit D level, heparin SC for DVT ppx on 10/27 Anemia Hgb 9.2 from 11.6 Type and crossed Transfuse 1 unit pRBCs FU Iron studies/anemia work up Retic ct 4.6 Fe 44- low TIBC 199- low %sat 22 Ferritin 671 B12 648 Folate 4.4 Left hand pain- Resolved. No trauma. Possible atypical CAD presentation, workup as above. head CT: no evidence of acute intracranial hemorrhage territorial infarct mass effect or midline shift. Redemonstration of small foci of encephalomalacia at the basal ganglia representing chronic lacunar infarct. MIld atrophy and mild- moderate chronic microvascular white matter ischemic disease. f/u carotid dopplers f/u arterial dupplex of UE Vascular surgery consulted- [place]- R/O Steel syndrome H/O: CVA (cerebrovascular accident) head CT: no evidence of acute intracranial hemorrhage territorial infarct mass effect or midline shift. Redemonstration of small foci of encephalomalacia at the basal ganglia representing chronic lacunar infarct. MIld atrophy and mild- moderate chronic microvascular white matter ischemic disease. Continue home meds: Plavix 75 mg PO daily Norvasc 10 mg PO daily Hydralazine 50 mg PO Q8H Labetalol 100 mg PO Q8H Losartan 25 mg PO daily Crestor 10mg PO HS PT/OT Patient has residual weakness and walks with cane. ESRD (end stage renal disease) on dialysis HD MWF FU CXR s/p HD Patient's last HD was Saturday10/24/16. Renal HD diet Nephro following Type 2 diabetes mellitus with diabetic nephropathy Hgb A1C 4.8, 4.7 ISS Resume Januvia 25 mg PO daily Accuchecks ACHS Diabetic renal diet Prophylactic measure Pt received therapeutic LVX in ED Heparin 5000U SC Q8 Protonix 40 mg PO daily PT/OT FU vascular surgery recs Cont HD MWF Monitor for bleeding Will recommend colonoscopy outpatient upon discharge Podiatry consult DW attending Bianca Silver PGY1 <Rosemarie Rivera V - Last Filed: 10/30/16 20:41> Objective - Vital Signs/Intake and Output Vital Signs (last 24 hours): Temp Pulse Resp BP Pulse Ox 97.9 F 71 20 155/73 H 95 10/28/16 08:10 10/28/16 08:10 10/28/16 08:10 10/28/16 08:10 10/28/16 08:10 - Labs Labs: 10/28/16 07:30 10/28/16 07:30 PT 13.3 SECONDS (9.7-12.2) H 10/26/16 03:50 INR 1.2 10/26/16 03:50 APTT 32 SECONDS (21-34) D 10/27/16 12:01 Attending/Attestation - Attestation I have personally seen and examined this patient.: Yes I have fully participated in the care of the patient.: Yes I have reviewed all pertinent clinical information, including history, physical exam and plan: Yes Notes (Text): This is late computer entry for 10/27/16. Patient seen, examined and case discussed with day-time resident. Patient seen this morning. Discussed with cardiology, unlikely patient's left hand pain is cardiac nature, r/o steal syndrome, and possible related cervical radiculopathy. Patient given one time dose of Toradol for pain relief. Patient completed dopplers today. F/u Vascular surgery: unlikely steel syndrome Podiatry consult for poor nail hygiene. 1) Assessment/Plan Nonstemi ELIZA: 0.1500 (+) and downtrending Lipid Panel: Chol: 149, Tri, LDL:88, HDL:40 (on statin) Hgb A1C: 4.7 (controlled) TSH 3.48 Crestor 20 mg PO HS (Lipitor not on formulary) Aspirin 81 mg PO daily Plavix 75mg PO daily Norvasc 10 mg PO daily Hydralazine 50 mg PO Q8H Labetalol 100 mg PO Q8H Losartan 25 mg PO daily Imdur 60mg PO daily O2 NC 2L f/u ECHO as per cardio Patient has a normal EF as per most recent ECHO. Cardiology (Dr. Nuñez) consulted---> on board; help appreciated 2) Anemia Hgb 9.2 from 11.6 Type and crossed 1 unit of PRBC s/p 1 unit of PRBC during dialysis Retic ct 4.6 Fe 44- low TIBC 199- low %sat 22 Ferritin 671 B12 648 Folate 4.4 Likely anemia chronic disease secondary to ESRD Patient recommended for outpatient colonoscopy for complete anemia workup since he has not had one. 3) Left hand pain- Resolved. No trauma. Possible atypical CAD presentation, workup as above. head CT: no evidence of acute intracranial hemorrhage territorial infarct mass effect or midline shift. Redemonstration of small foci of encephalomalacia at the basal ganglia representing chronic lacunar infarct. MIld atrophy and mild- moderate chronic microvascular white matter ischemic disease. f/u carotid dopplers f/u arterial dupplex of UE Vascular surgery consulted- [place]- R/O Steel syndrome 4) H/O: CVA (cerebrovascular accident) head CT: no evidence of acute intracranial hemorrhage territorial infarct mass effect or midline shift. Redemonstration of small foci of encephalomalacia at the basal ganglia representing chronic lacunar infarct. MIld atrophy and mild- moderate chronic microvascular white matter ischemic disease. Continue home meds: Plavix 75 mg PO daily; Aspirin 81mg PO daily BP control: Norvasc 10 mg PO daily Hydralazine 50 mg PO Q8H Labetalol 100 mg PO Q8H Losartan 25 mg PO daily Imdur 60mg PO daily PT/OT Patient has residual weakness and walks with cane. 5) ESRD (end stage renal disease) on dialysis HD MWF FU CXR s/p HD Patient's last HD was Saturday10/24/16. Renal HD diet Nephrology (Dr. Carlos) on board 6) Type 2 diabetes mellitus with diabetic nephropathy Hgb A1C 4.8, 4.7 ISS Resume Januvia 25 mg PO daily Accuchecks ACHS Diabetic renal diet controlled 5)Prophylactic measure Pt received therapeutic LVX in ED on admission in light of positive troponin restart dvt pxx: Hep 5000 units SQ 8 h GI ppx: Protonix 40 mg PO daily PT/OT eval
[2016-10-27] MEDS: Pantoprazole 40 mg EC Tab PO SCH (10:34)
--- NOTE | 2016-10-27 10:57 | CP.PCM.PN ---
Subjective - Date & Time of Evaluation Date of Evaluation: 10/27/16 Time of Evaluation: 09:30 - Subjective Subjective: c/o persistent pain in left hand tolerated HD yesterday no chest pain not sob no nausea no vomiting no rash no focal weakness decreased u/o Objective - Vital Signs/Intake and Output Vital Signs (last 24 hours): Temp Pulse Resp BP Pulse Ox 97.9 F 68 20 156/74 H 94 L 10/27/16 07:58 10/27/16 07:58 10/27/16 07:58 10/27/16 07:58 10/27/16 07:58 Intake and Output: 10/27/16 10/27/16 06:59 18:59 Intake Total 120 Balance 120 - Medications Medications: Current Medications Amlodipine Besylate (Norvasc) 10 mg PO DAILY [facility] Last Admin: 10/27/16 10:34 Dose: 10 mg Aspirin (Aspirin Chewable) 81 mg PO DAILY [facility] Last Admin: 10/27/16 10:34 Dose: 81 mg Clopidogrel Bisulfate (Plavix) 75 mg PO DAILY [facility] Last Admin: 10/27/16 10:34 Dose: 75 mg Heparin Sodium (Porcine) (Heparin) 5,000 units SC Q8 [facility] Hydralazine HCl (Apresoline) 50 mg PO Q8 [facility] Last Admin: 10/27/16 05:42 Dose: 50 mg Insulin Human Regular (Novolin R) 0 unit SC [facility] PRN Reason: Protocol Last Admin: 10/27/16 07:35 Dose: Not Given Isosorbide Mononitrate (Imdur) 60 mg PO DAILY [facility] Last Admin: 10/27/16 10:34 Dose: 60 mg Labetalol HCl (Trandate) 100 mg PO Q8H [facility] Last Admin: 10/27/16 05:42 Dose: 100 mg Levetiracetam (Keppra) 500 mg PO BID [facility] Last Admin: 10/27/16 10:34 Dose: 500 mg Losartan Potassium (Cozaar) 25 mg PO DAILY [facility] Last Admin: 10/27/16 10:34 Dose: 25 mg Pantoprazole Sodium (Protonix Ec Tab) 40 mg PO DAILY [facility] Last Admin: 10/27/16 10:34 Dose: 40 mg Pneumococcal Polyvalent Vaccine (Pneumovax 23 Vaccine) 0.5 ml IM .ONCE ONE Stop: 10/28/16 10:01 Rosuvastatin Calcium (Crestor) 10 mg PO HS [facility] Last Admin: 10/26/16 21:56 Dose: 10 mg Sitagliptin Phosphate (Januvia) 25 mg PO DAILY [facility] Last Admin: 10/27/16 10:34 Dose: 25 mg - Labs Labs: 10/26/16 03:50 10/26/16 03:50 PT 13.3 SECONDS (9.7-12.2) H 10/26/16 03:50 INR 1.2 10/26/16 03:50 APTT 39 SECONDS (21-34) H D 10/26/16 03:50 - Constitutional Appears: Chronically Ill - Head Exam Head Exam: ATRAUMATIC - Eye Exam Eye Exam: EOMI - ENT Exam ENT Exam: Mucous Membranes Moist - Neck Exam Neck Exam: Full ROM. absent: Lymphadenopathy - Respiratory Exam Respiratory Exam: Clear to Ausculation Bilateral. absent: Accessory Muscle Use - Cardiovascular Exam Cardiovascular Exam: REGULAR RHYTHM. absent: Rubs - GI/Abdominal Exam GI & Abdominal Exam: Normal Bowel Sounds. absent: Tenderness - Extremities Exam Extremities Exam: absent: Pedal Edema Assessment and Plan - Assessment and Plan (Free Text) Assessment: ESRD with arm pain, receiving cardiac w/u for cardiology recommendations maint HD to be ordered
--- NOTE | 2016-10-27 12:04 | CP.PCM.PN ---
Subjective - Date & Time of Evaluation Date of Evaluation: 10/27/16 Time of Evaluation: 12:03 - Subjective Subjective: patient does not have steal syndeome had previous stroke strong pulse at wrist Objective - Vital Signs/Intake and Output Vital Signs (last 24 hours): Temp Pulse Resp BP Pulse Ox 97.9 F 68 20 156/74 H 94 L 10/27/16 07:58 10/27/16 07:58 10/27/16 07:58 10/27/16 07:58 10/27/16 07:58 Intake and Output: 10/27/16 10/27/16 06:59 18:59 Intake Total 120 Balance 120 - Medications Medications: Current Medications Amlodipine Besylate (Norvasc) 10 mg PO DAILY [facility] Last Admin: 10/27/16 10:34 Dose: 10 mg Aspirin (Aspirin Chewable) 81 mg PO DAILY [facility] Last Admin: 10/27/16 10:34 Dose: 81 mg Clopidogrel Bisulfate (Plavix) 75 mg PO DAILY [facility] Last Admin: 10/27/16 10:34 Dose: 75 mg Heparin Sodium (Porcine) (Heparin) 5,000 units SC Q8 [facility] Hydralazine HCl (Apresoline) 50 mg PO Q8 [facility] Last Admin: 10/27/16 05:42 Dose: 50 mg Insulin Human Regular (Novolin R) 0 unit SC [facility] PRN Reason: Protocol Last Admin: 10/27/16 11:56 Dose: Not Given Isosorbide Mononitrate (Imdur) 60 mg PO DAILY [facility] Last Admin: 10/27/16 10:34 Dose: 60 mg Labetalol HCl (Trandate) 100 mg PO Q8H [facility] Last Admin: 10/27/16 05:42 Dose: 100 mg Levetiracetam (Keppra) 500 mg PO BID [facility] Last Admin: 10/27/16 10:34 Dose: 500 mg Losartan Potassium (Cozaar) 25 mg PO DAILY [facility] Last Admin: 10/27/16 10:34 Dose: 25 mg Pantoprazole Sodium (Protonix Ec Tab) 40 mg PO DAILY [facility] Last Admin: 10/27/16 10:34 Dose: 40 mg Pneumococcal Polyvalent Vaccine (Pneumovax 23 Vaccine) 0.5 ml IM .ONCE ONE Stop: 10/28/16 10:01 Rosuvastatin Calcium (Crestor) 10 mg PO HS [facility] Last Admin: 10/26/16 21:56 Dose: 10 mg Sitagliptin Phosphate (Januvia) 25 mg PO DAILY [facility] Last Admin: 10/27/16 10:34 Dose: 25 mg - Labs Labs: 10/26/16 03:50 10/26/16 03:50 PT 13.3 SECONDS (9.7-12.2) H 10/26/16 03:50 INR 1.2 10/26/16 03:50 APTT 39 SECONDS (21-34) H D 10/26/16 03:50
[2016-10-27 12:13] LABS: BASO % 1.1 % (0.0-2.0); EOS # 0.2 K/uL (0.0-0.7); EOS % 5.1 % (0.0-4.0); HEMATOCRIT 29.4 % (35.0-51.0); LYMPH # 0.8 K/uL (1.0-4.3); LYMPH % 22.2 % (20.0-40.0); MEAN CELL VOLUME 90.4 fL (80.0-94.0); MEAN CORPUSCULAR HGB CONC 33.2 g/dL (33.0-37.0); MEAN PLATELET VOLUME 7.1 fL (7.2-11.7); MONO # 0.3 K/uL (0.0-0.8); MONO % 8.8 % (0.0-10.0); NRBC % 0.1 % (0.0-2.0); RED CELL DISTRIBUTION WIDTH 17.5 % (11.5-14.5); WHITE BLOOD COUNT 3.6 K/uL (4.8-10.8)
[2016-10-27 12:25] LABS: ALB/GLOB RATIO 1.2 (1.0-2.1); BILIRUBIN,TOTAL 0.6 mg/dL (0.2-1.3); TOTAL PROTEIN 6.4 g/dL (6.3-8.3)
[2016-10-27 12:26] LABS: CALCIUM 7.9 mg/dl (8.6-10.4); PHOSPHOROUS 4.3 mg/dL (2.5-4.5)
[2016-10-27 13:11] LABS: BASO % 1.1 % (0.0-2.0); EOS # 0.2 K/uL (0.0-0.7); HEMATOCRIT 31.2 % (35.0-51.0); LYMPH # 0.8 K/uL (1.0-4.3); LYMPH % 22.5 % (20.0-40.0); MEAN CELL VOLUME 89.9 fL (80.0-94.0); MEAN CORPUSCULAR HEMOGLOBIN 29.6 pg (27.0-31.0); MEAN CORPUSCULAR HGB CONC 32.9 g/dL (33.0-37.0); MEAN PLATELET VOLUME 7.1 fL (7.2-11.7); MONO # 0.3 K/uL (0.0-0.8); MONO % 9.5 % (0.0-10.0); NRBC % 0.1 % (0.0-2.0); RED CELL DISTRIBUTION WIDTH 17.7 % (11.5-14.5); WHITE BLOOD COUNT 3.4 K/uL (4.8-10.8)
[2016-10-27 13:32] LABS: POTASSIUM 4.1 mmol/L (3.6-5.2)
[2016-10-27 13:34] LABS: BILIRUBIN,TOTAL 0.7 mg/dL (0.2-1.3)
[2016-10-27 13:35] LABS: ALB/GLOB RATIO 1.2 (1.0-2.1); CALCIUM 7.8 mg/dl (8.6-10.4); PHOSPHOROUS 4.4 mg/dL (2.5-4.5); TOTAL PROTEIN 6.5 g/dL (6.3-8.3)
--- NOTE | 2016-10-27 21:21 | CP.PCM.PN ---
Subjective - Date & Time of Evaluation Date of Evaluation: 10/27/16 Time of Evaluation: 21:21 - Subjective Subjective: Continued LUE pain. no cp or sob. Objective - Vital Signs/Intake and Output Vital Signs (last 24 hours): Temp Pulse Resp BP Pulse Ox 97.3 F L 67 20 135/69 93 L 10/27/16 16:13 10/27/16 16:25 10/27/16 16:13 10/27/16 16:13 10/27/16 16:25 Intake and Output: 10/27/16 10/28/16 18:59 06:59 Intake Total 450 Balance 450 - Medications Medications: Current Medications Amlodipine Besylate (Norvasc) 10 mg PO DAILY [facility] Last Admin: 10/27/16 10:34 Dose: 10 mg Aspirin (Aspirin Chewable) 81 mg PO DAILY [facility] Last Admin: 10/27/16 10:34 Dose: 81 mg Clopidogrel Bisulfate (Plavix) 75 mg PO DAILY [facility] Last Admin: 10/27/16 10:34 Dose: 75 mg Heparin Sodium (Porcine) (Heparin) 5,000 units SC Q8 [facility] Hydralazine HCl (Apresoline) 50 mg PO Q8 [facility] Last Admin: 10/27/16 13:56 Dose: 50 mg Insulin Human Regular (Novolin R) 0 unit SC [facility] PRN Reason: Protocol Last Admin: 10/27/16 11:56 Dose: Not Given Isosorbide Mononitrate (Imdur) 60 mg PO DAILY [facility] Last Admin: 10/27/16 10:34 Dose: 60 mg Labetalol HCl (Trandate) 100 mg PO Q8H [facility] Last Admin: 10/27/16 13:56 Dose: 100 mg Levetiracetam (Keppra) 500 mg PO BID [facility] Last Admin: 10/27/16 17:22 Dose: 500 mg Losartan Potassium (Cozaar) 25 mg PO DAILY [facility] Last Admin: 10/27/16 10:34 Dose: 25 mg Pantoprazole Sodium (Protonix Ec Tab) 40 mg PO DAILY [facility] Last Admin: 10/27/16 10:34 Dose: 40 mg Pneumococcal Polyvalent Vaccine (Pneumovax 23 Vaccine) 0.5 ml IM .ONCE ONE Stop: 10/28/16 10:01 Rosuvastatin Calcium (Crestor) 10 mg PO [facility] Last Admin: 10/26/16 21:56 Dose: 10 mg Sitagliptin Phosphate (Januvia) 25 mg PO DAILY [facility] Last Admin: 10/27/16 10:34 Dose: 25 mg - Labs Labs: PT 13.3 SECONDS (9.7-12.2) H 10/26/16 03:50 INR 1.2 10/26/16 03:50 APTT 32 SECONDS (21-34) D 10/27/16 12:01 - Constitutional Appears: Well - Head Exam Head Exam: ATRAUMATIC, NORMAL INSPECTION, NORMOCEPHALIC - Eye Exam Eye Exam: EOMI, Normal appearance, PERRL Pupil Exam: NORMAL ACCOMODATION, PERRL - ENT Exam ENT Exam: Mucous Membranes Moist, Normal Exam - Neck Exam Neck Exam: Full ROM, Normal Inspection. absent: Lymphadenopathy - Respiratory Exam Respiratory Exam: Clear to Ausculation Bilateral, NORMAL BREATHING PATTERN - Cardiovascular Exam Cardiovascular Exam: REGULAR RHYTHM, +S1, +S2. absent: Murmur - GI/Abdominal Exam GI & Abdominal Exam: Soft, Normal Bowel Sounds. absent: Tenderness - Extremities Exam Extremities Exam: absent: Joint Swelling, Pedal Edema Additional comments: diffuse scars no edema pulses intact - Neurological Exam Neurological Exam: Alert, Awake, CN II-XII Intact, Oriented x3 - Psychiatric Exam Psychiatric exam: Normal Affect, Normal Mood - Skin Skin Exam: Dry, Intact, Normal Color, Warm Assessment and Plan (1) Troponin I above reference range Status: Acute (2) ESRD (end stage renal disease) on dialysis Status: Chronic (3) HTN (hypertension) Status: Chronic (4) Hyperlipidemia Status: Chronic (5) TIA (transient ischemic attack) Status: Chronic (6) Type 2 diabetes mellitus with diabetic nephropathy Status: Chronic (7) Left upper arm pain Status: Acute (8) Left shoulder pain Status: Acute - Assessment and Plan (Free Text) Plan: lue pain unlikely cardiac. pain is chronic and lasts hours on end. no associated sx. trop levels min elevated secondary to renal failure. ckmb neg. ef is normal. consider alternate etiology for pain continue antiplts. 35 min total care time
[2016-10-28 07:42] LABS: BASO % 0.9 % (0.0-2.0); EOS # 0.2 K/uL (0.0-0.7); EOS % 5.3 % (0.0-4.0); HEMATOCRIT 29.3 % (35.0-51.0); LYMPH # 1.1 K/uL (1.0-4.3); LYMPH % 28.4 % (20.0-40.0); MEAN CELL VOLUME 90.3 fL (80.0-94.0); MEAN CORPUSCULAR HEMOGLOBIN 30.4 pg (27.0-31.0); MEAN CORPUSCULAR HGB CONC 33.6 g/dL (33.0-37.0); MEAN PLATELET VOLUME 7.2 fL (7.2-11.7); MONO # 0.4 K/uL (0.0-0.8); MONO % 9.1 % (0.0-10.0); RED CELL DISTRIBUTION WIDTH 17.1 % (11.5-14.5)
[2016-10-28 07:53] LABS: POTASSIUM 4.2 mmol/L (3.6-5.2)
[2016-10-28 07:55] LABS: ALB/GLOB RATIO 1.2 (1.0-2.1); BILIRUBIN,TOTAL 0.5 mg/dL (0.2-1.3); TOTAL PROTEIN 6.4 g/dL (6.3-8.3)
[2016-10-28 07:56] LABS: CALCIUM 7.8 mg/dl (8.6-10.4); MAGNESIUM 2.1 mg/dL (1.6-2.3)
[2016-10-28 08:14] VITALS: BP 155/73; PULSE 71; TEMP 97.9; O2SAT 95
[2016-10-28] MEDS: (Novolin R) Insulin Human Regular 100 units/ml vial SC SCH ×2 (08:50→12:54)
--- NOTE | 2016-10-28 09:48 | CP.PCM.DIS ---
<Bianca Silver - Last Filed: 10/30/16 09:24> Provider - Provider Date of Admission: 10/27/16 13:07 Attending physician: Rosemarie Rivera DO Primary care physician: Dr. Horton Consults: Dr. Carlos nephrology Dr. Nuñez cardiology Dr. Lopez vascular surgery Dr. Bedoya podiatry Time Spent in preparation of Discharge (in minutes): 45 Hospital Course - Lab Results Lab Results: Most Recent Lab Values WBC 4.0 K/uL (4.8-10.8) L 10/28/16 07:30 RBC 3.25 Mil/uL (4.40-5.90) L 10/28/16 07:30 Hgb 9.9 g/dL (12.0-18.0) L 10/28/16 07:30 Hct 29.3 % (35.0-51.0) L 10/28/16 07:30 MCV 90.3 fL (80.0-94.0) 10/28/16 07:30 MCH 30.4 pg (27.0-31.0) 10/28/16 07:30 MCHC 33.6 g/dL (33.0-37.0) 10/28/16 07:30 RDW 17.1 % (11.5-14.5) H 10/28/16 07:30 Plt Count 179 K/uL (130-400) 10/28/16 07:30 MPV 7.2 fL (7.2-11.7) 10/28/16 07:30 Neut % (Auto) 56.3 % (50.0-75.0) 10/28/16 07:30 Lymph % (Auto) 28.4 % (20.0-40.0) 10/28/16 07:30 [place] % (Auto) 9.1 % (0.0-10.0) 10/28/16 07:30 Eos % (Auto) 5.3 % (0.0-4.0) H 10/28/16 07:30 Baso % (Auto) 0.9 % (0.0-2.0) 10/28/16 07:30 Neut # 2.3 K/uL (1.8-7.0) 10/28/16 07:30 Lymph # 1.1 K/uL (1.0-4.3) 10/28/16 07:30 [place] # 0.4 K/uL (0.0-0.8) 10/28/16 07:30 Eos # 0.2 K/uL (0.0-0.7) 10/28/16 07:30 Baso # 0.0 K/uL (0.0-0.2) 10/28/16 07:30 Differential Comment 10/25/16 19:02 Retic Count 4.6 % (0.5-1.5) H D 10/26/16 15:31 PT 13.3 SECONDS (9.7-12.2) H 10/26/16 03:50 INR 1.2 10/26/16 03:50 APTT 32 SECONDS (21-34) D 10/27/16 12:01 Sodium 138 mmol/L (132-148) 10/28/16 07:30 Potassium 4.2 mmol/L (3.6-5.2) 10/28/16 07:30 Chloride 94 mmol/L (98-107) L 10/28/16 07:30 Carbon Dioxide 26 mmol/L (22-30) 10/28/16 07:30 Anion Gap 23 (10-20) H 10/28/16 07:30 BUN 47 mg/dL (9-20) H 10/28/16 07:30 Creatinine 7.9 MG/DL (0.8-1.5) H* D 10/28/16 07:30 Est GFR ( Amer) 8 10/28/16 07:30 Est GFR (Non-Af Amer) 7 10/28/16 07:30 POC Glucose (mg/dL) 106 mg/dL (65-110) 10/28/16 06:22 Random Glucose 105 mg/dL (75-110) 10/28/16 07:30 Hemoglobin A1c 4.7 % (4.2-6.5) 10/26/16 03:50 Calcium 7.8 mg/dl (8.6-10.4) L 10/28/16 07:30 Phosphorus 5.0 mg/dL (2.5-4.5) H 10/28/16 07:30 Magnesium 2.1 mg/dL (1.6-2.3) 10/28/16 07:30 Iron 44 ug/dL (49-181) L 10/26/16 15:31 TIBC 199 ug/dL (250-450) L 10/26/16 15:31 % Saturation 22 (20-55) 10/26/16 15:31 Ferritin 671.0 ng/mL 10/26/16 15:31 Total Bilirubin 0.5 mg/dL (0.2-1.3) 10/28/16 07:30 AST 10 U/L (17-59) L 10/28/16 07:30 ALT 12 U/L (21-72) L 10/28/16 07:30 Alkaline Phosphatase 59 U/L (38-126) 10/28/16 07:30 Total Creatine Kinase 50 U/L (55-170) L 10/26/16 13:56 CK-MB (Mass) 1.47 ng/mL (0.0-3.38) 10/26/16 13:56 Troponin I 0.1500 ng/mL (0.00-0.120) H* 10/25/16 19:02 Troponin I, Quant 0.1010 ng/mL (0.00-0.120) 10/26/16 13:56 Total Protein 6.4 g/dL (6.3-8.3) 10/28/16 07:30 Albumin 3.6 g/dL (3.5-5.0) 10/28/16 07:30 Globulin 2.8 gm/dL (2.2-3.9) 10/28/16 07:30 Albumin/Globulin Ratio 1.2 (1.0-2.1) 10/28/16 07:30 Triglycerides 63 mg/dL (0-149) 10/25/16 19:02 Cholesterol 149 mg/dL (0-199) 10/25/16 19:02 LDL Cholesterol Direct 88 mg/dL (0-129) 10/25/16 19:02 HDL Cholesterol 40 mg/dL (30-70) 10/25/16 19:02 Vitamin B12 648 pg/mL (239-931) 10/26/16 15:31 Folate 4.4 ng/mL 10/26/16 15:31 TSH 3rd Generation 3.48 mIU/L (0.46-4.68) 10/26/16 03:50 Blood Type A POSITIVE 10/26/16 10:57 Antibody Screen Negative 10/26/16 10:57 - Hospital Course Hospital Course: Upon Admission: 61 year old male with PMHx of ESRD on HD MWF, HTN, DM, HLD, CVA, anemia, presents to the ED via ambulance for pain in his right hand radiating to his left shoulder. Patient reports he was getting out of prayer at 5 pm when he began to experience 10/10 right hand pain. Pain came on all of a sudden and radiated to left shoulder. Patient reports associated numbness and tingling and he was afraid he was having another stroke. Patient reported he did not miss dialysis. Patient was admitted to TELE. Dr. Nuñez cardiology and Dr. Carlos nephrology were consulted. Patient was admitted to rule out LUE vascular disease, AV fistula steal sydrome, or cervical radiculopathy. CT head showed no evidence of acute intracranial hemorrhage territorial infarct mass effect or midline shift. Redemonstration of small foci of encephalomalacia at the basal ganglia representing chronic lacunar infarct. Mild atrophy and mild-moderate chronic microvascular white matter ischemic disease. Patient had an elevated troponin which was deemed likely due to ESRD. Patient's echo was wnl. Patient was anemic likely secondary to chronic disease and was transfused 1U PRBC which improved. Dr. Lopez surgery was consulted regarding the possibility of steal sydnrome, however, patient's left hand perfusion and pulses were wnl and no surgical intervention was necessary. As per cardiology LUE pain was unlikely cardiac. On day of discharge patient was deemed medically stable for discharge. 1) Troponin I above reference range: likely secondary to ESRD. Monitor outpatient 2) Anemia: likely anemia of chronic disease- monitor outpatient 3) Left hand pain: resolved 4) Hx of CVA: continue medications and follow up outpatient 5) ESRD on HD: continue HD schedule 6) Type 2 DM with diabetic nephropathy: continue medications and follow up outpatient Upon Discharge: Patient stable for discharge home as per Dr. Rivera, nephrology Dr. Carlos, cardiology Dr. Nuñez, and vascular surgery Dr. Lopez. Patient to take medications as prescribed: Hydralazine 50mg PO Q8 Disp#90 ASA 81mg po daily Disp#30 Losartan 25mg po daily Disp#30 Imdur 60mg po daily Disp#30 Sitagliptin 25mg po daily Disp#30 Keppra 500mg po BID Disp#60 Lipitor 40mg po QHS Disp#30 Amlodipine 10mg po daily Disp#30 Labetalol 100mg po Q8H Disp#90 Patient is to resume his dialysis schedule of Saturday, Saturday, Saturday. Patient is to follow up with his primary medical doctor, Dr. Horton, within one week of discharge. Patient to also follow up with Dr. Carlos and resume HD schedule //Sat upon discharge. Patient should return to ED if symptoms reoccur or worsen. This was explained to the patient in detail who understands and agrees. Please note this is a discharge summary. For full hospital course please refer to medical records. Discharge Exam - Head Exam Head Exam: NORMAL INSPECTION - Eye Exam Eye Exam: Normal appearance - ENT Exam ENT Exam: Mucous Membranes Moist - Neck Exam Neck exam: Normal Inspection - Respiratory Exam Respiratory Exam: Clear to PA & Lateral, NORMAL BREATHING PATTERN. absent: Accessory Muscle Use, Rales, Rhonchi, Wheezes, Respiratory Distress - Cardiovascular Exam Cardiovascular Exam: REGULAR RHYTHM, RRR, +S1, +S2 - GI/Abdominal Exam GI & Abdominal Exam: Normal Bowel Sounds, Soft. absent: Firm, Tenderness - Extremities Exam Extremities exam: normal capillary refill, normal inspection, pedal pulses present Additional comments: LUE w/palpable thrill, audible bruit, non tender, full ROM - Neurological Exam Neurological exam: Alert, Oriented x3 - Psychiatric Exam Psychiatric exam: Normal Affect, Normal Mood - Skin Skin Exam: Dry, Intact, Normal Color, Warm Discharge Plan - Discharge Medications Prescriptions: RX: hydrALAZINE [Apresoline] 50 mg PO Q8 #90 tab RX: Aspirin [Aspirin Chewable] 81 mg PO DAILY #30 chew RX: Losartan [Cozaar] 25 mg PO DAILY #30 tab RX: Isosorbide Mononitrate [Imdur] 60 mg PO DAILY #30 tab RX: SITagliptin [Januvia] 25 mg PO DAILY #30 tab RX: levETIRAcetam [Keppra] 500 mg PO BID #60 tab RX: Atorvastatin [Lipitor] 40 mg PO HS #30 tab RX: amLODIPine [Norvasc] 10 mg PO DAILY #30 tab RX: Labetalol [Trandate] 100 mg PO Q8H #90 tab - Follow Up Plan Condition: STABLE Disposition: HOME/ ROUTINE Additional Instructions: Patient stable for discharge home as per Dr. Rivera, nephrology Dr. Carlos, cardiology Dr. Nuñez, and vascular surgery Dr. Lopez. Patient to take medications as prescribed: Hydralazine 50mg PO Q8 Disp#90 ASA 81mg po daily Disp#30 Losartan 25mg po daily Disp#30 Imdur 60mg po daily Disp#30 Sitagliptin 25mg po daily Disp#30 Keppra 500mg po BID Disp#60 Lipitor 40mg po QHS Disp#30 Amlodipine 10mg po daily Disp#30 Labetalol 100mg po Q8H Disp#90 Patient is to resume his dialysis schedule of Saturday, Saturday, Saturday. Patient is to follow up with his primary medical doctor, Dr. Horton, within one week of discharge. Patient to also follow up with Dr. Carlos and resume HD schedule //Sat upon discharge. Patient should return to ED if symptoms reoccur or worsen. This was explained to the patient in detail who understands and agrees. <Rosemarie Rivera V - Last Filed: 10/30/16 20:43> Provider - Provider Date of Admission: 10/27/16 13:07 Attending physician: Rosemarie Rivera, Hospital Course - Lab Results Lab Results: Most Recent Lab Values WBC 4.0 K/uL (4.8-10.8) L 10/28/16 07:30 RBC 3.25 Mil/uL (4.40-5.90) L 10/28/16 07:30 Hgb 9.9 g/dL (12.0-18.0) L 10/28/16 07:30 Hct 29.3 % (35.0-51.0) L 10/28/16 07:30 MCV 90.3 fL (80.0-94.0) 10/28/16 07:30 MCH 30.4 pg (27.0-31.0) 10/28/16 07:30 MCHC 33.6 g/dL (33.0-37.0) 10/28/16 07:30 RDW 17.1 % (11.5-14.5) H 10/28/16 07:30 Plt Count 179 K/uL (130-400) 10/28/16 07:30 MPV 7.2 fL (7.2-11.7) 10/28/16 07:30 Neut % (Auto) 56.3 % (50.0-75.0) 10/28/16 07:30 Lymph % (Auto) 28.4 % (20.0-40.0) 10/28/16 07:30 [place] % (Auto) 9.1 % (0.0-10.0) 10/28/16 07:30 Eos % (Auto) 5.3 % (0.0-4.0) H 10/28/16 07:30 Baso % (Auto) 0.9 % (0.0-2.0) 10/28/16 07:30 Neut # 2.3 K/uL (1.8-7.0) 10/28/16 07:30 Lymph # 1.1 K/uL (1.0-4.3) 10/28/16 07:30 [place] # 0.4 K/uL (0.0-0.8) 10/28/16 07:30 Eos # 0.2 K/uL (0.0-0.7) 10/28/16 07:30 Baso # 0.0 K/uL (0.0-0.2) 10/28/16 07:30 Differential Comment 10/25/16 19:02 Retic Count 4.6 % (0.5-1.5) H D 10/26/16 15:31 PT 13.3 SECONDS (9.7-12.2) H 10/26/16 03:50 INR 1.2 10/26/16 03:50 APTT 32 SECONDS (21-34) D 10/27/16 12:01 Sodium 138 mmol/L (132-148) 10/28/16 07:30 Potassium 4.2 mmol/L (3.6-5.2) 10/28/16 07:30 Chloride 94 mmol/L (98-107) L 10/28/16 07:30 Carbon Dioxide 26 mmol/L (22-30) 10/28/16 07:30 Anion Gap 23 (10-20) H 10/28/16 07:30 BUN 47 mg/dL (9-20) H 10/28/16 07:30 Creatinine 7.9 MG/DL (0.8-1.5) H* D 10/28/16 07:30 Est GFR ( Amer) 8 10/28/16 07:30 Est GFR (Non-Af Amer) 7 10/28/16 07:30 POC Glucose (mg/dL) 183 mg/dL (65-110) H 10/28/16 11:25 Random Glucose 105 mg/dL (75-110) 10/28/16 07:30 Hemoglobin A1c 4.7 % (4.2-6.5) 10/26/16 03:50 Calcium 7.8 mg/dl (8.6-10.4) L 10/28/16 07:30 Phosphorus 5.0 mg/dL (2.5-4.5) H 10/28/16 07:30 Magnesium 2.1 mg/dL (1.6-2.3) 10/28/16 07:30 Iron 44 ug/dL (49-181) L 10/26/16 15:31 TIBC 199 ug/dL (250-450) L 10/26/16 15:31 % Saturation 22 (20-55) 10/26/16 15:31 Ferritin 671.0 ng/mL 10/26/16 15:31 Total Bilirubin 0.5 mg/dL (0.2-1.3) 10/28/16 07:30 AST 10 U/L (17-59) L 10/28/16 07:30 ALT 12 U/L (21-72) L 10/28/16 07:30 Alkaline Phosphatase 59 U/L (38-126) 10/28/16 07:30 Total Creatine Kinase 50 U/L (55-170) L 10/26/16 13:56 CK-MB (Mass) 1.47 ng/mL (0.0-3.38) 10/26/16 13:56 Troponin I 0.1500 ng/mL (0.00-0.120) H* 10/25/16 19:02 Troponin I, Quant 0.1010 ng/mL (0.00-0.120) 10/26/16 13:56 Total Protein 6.4 g/dL (6.3-8.3) 10/28/16 07:30 Albumin 3.6 g/dL (3.5-5.0) 10/28/16 07:30 Globulin 2.8 gm/dL (2.2-3.9) 10/28/16 07:30 Albumin/Globulin Ratio 1.2 (1.0-2.1) 10/28/16 07:30 Triglycerides 63 mg/dL (0-149) 10/25/16 19:02 Cholesterol 149 mg/dL (0-199) 10/25/16 19:02 LDL Cholesterol Direct 88 mg/dL (0-129) 10/25/16 19:02 HDL Cholesterol 40 mg/dL (30-70) 10/25/16 19:02 Vitamin B12 648 pg/mL (239-931) 10/26/16 15:31 Folate 4.4 ng/mL 10/26/16 15:31 TSH 3rd Generation 3.48 mIU/L (0.46-4.68) 10/26/16 03:50 Blood Type A POSITIVE 10/26/16 10:57 Antibody Screen Negative 10/26/16 10:57 Attending/Attestation - Attestation I have personally seen and examined this patient.: Yes I have fully participated in the care of the patient.: Yes I have reviewed all pertinent clinical information, including history, physical exam and plan: Yes Notes (Text): This is late computer entry for 10/28/16. Patient seen, examined, and case discussed with day-time resident. Patient denies acute complaints. Patient does not have Steel syndrome per vascular surgery. Patient urged medication compliance and compliance on resume dialysis. Discharge order and discharge instructions discussed with day-resident. Patient medically stable for discharge. This is a summary of patient's hospitalization. Please see EMR for further details.
[2016-10-28] MEDS ORDERED: Pneumococcal 23-Valent Vaccine IM ONE (10:00)
[2016-10-28] MEDS: Pantoprazole 40 mg EC Tab PO SCH (10:05)
--- NOTE | 2016-10-28 12:11 | CP.PCM.CON ---
History of Present Illness - History of Present Illness History of Present Illness: 61 year old male patient was seen at bedside this morning after request for podiatry consultation concerning elongated, dystrophic toenails x10. Patient was resting comfortably in bed at the time of visit. AAO x3. Patient states that he is a diabetic patient and has pain to toenails. Patient denies of any problem to bilateral lower extremities. Patient denies of any N/V/F/C or SOB today Past Patient History - Infectious Disease Hx of Infectious Diseases: None - Tetanus Immunizations Tetanus Immunization: Unknown - Past Medical History & Family History Past Medical History?: Yes - Past Social History Smoking Status: Former Smoker - CARDIAC Hx Cardiac Disorders: No Hx Congestive Heart Failure: Yes Hx Hypercholesterolemia: Yes Hx Hypertension: Yes - PULMONARY Hx Chronic Obstructive Pulmonary Disease (COPD): No - NEUROLOGICAL HX Cerebrovascular Accident: Yes (TIA) - HEENT Hx HEENT Problems: Yes Hx Blind: No Hx Cataracts: Yes Hx Deafness: No Hx Difficulty Chewing: No Hx Epistaxis: No Hx Glaucoma: No Hx Macular Degeneration: No - RENAL Hx Renal Failure: Yes (ESRD, CKD) - ENDOCRINE/METABOLIC Hx Diabetes Mellitus Type 2: Yes Hx Hypothyroidism: No - HEMATOLOGICAL/ONCOLOGICAL Hx Anemia: Yes - INTEGUMENTARY Hx Dermatological Problems: No Hx Basil Cell: No Hx Kwok: No Hx Cellulitis: No Hx Eczema: No Hx Melanoma: No Hx Psoriasis: No Hx Squamous Cell: No Other/Comment: noted with scars/dark dry spots over body - MUSCULOSKELETAL/RHEUMATOLOGICAL Hx Falls: No Hx Fractures: Yes (left leg 2 yrs ago) - GASTROINTESTINAL Hx Gastritis: Yes Hx Gastroesophageal Reflux: Yes - GENITOURINARY/GYNECOLOGICAL Hx Sexually Transmitted Disorders: No - PSYCHIATRIC Hx Substance Use: No - SURGICAL HISTORY Hx Appendectomy: No Hx Arteriovenous Shunt: Yes Hx Carotid Endarterectomy: No Hx Cholecystectomy: No Hx Coronary Artery Bypass Graft: No Hx Coronary Stent: No Hx Tonsillectomy: No - ANESTHESIA Hx Anesthesia: Yes Hx Anesthesia Reactions: No Hx Malignant Hyperthermia: No Meds Home Medications: Home Medication List Medication Instructions Recorded Confirmed Type Aspirin [Aspirin Chewable] 81 mg PO DAILY #30 chew 10/28/16 Rx Atorvastatin [Lipitor] 40 mg PO HS #30 tab 10/28/16 Rx Isosorbide Mononitrate [Imdur] 60 mg PO DAILY #30 tab 10/28/16 Rx Labetalol [Trandate] 100 mg PO Q8H #90 tab 10/28/16 Rx Losartan [Cozaar] 25 mg PO DAILY #30 tab 10/28/16 Rx SITagliptin [Januvia] 25 mg PO DAILY #30 tab 10/28/16 Rx amLODIPine [Norvasc] 10 mg PO DAILY #30 tab 10/28/16 Rx hydrALAZINE [Apresoline] 50 mg PO Q8 #90 tab 10/28/16 Rx levETIRAcetam [Keppra] 500 mg PO BID #60 tab 10/28/16 Rx Allergies/Adverse Reactions: Allergies Allergy/AdvReac Type Severity Reaction Status Date / Time Penicillins Allergy RASH Verified 10/10/16 15:01 - Medications Medications: Current Medications Amlodipine Besylate (Norvasc) 10 mg PO DAILY [facility] Last Admin: 10/28/16 10:05 Dose: 10 mg Aspirin (Aspirin Chewable) 81 mg PO DAILY [facility] Last Admin: 10/28/16 10:05 Dose: 81 mg Clopidogrel Bisulfate (Plavix) 75 mg PO DAILY [facility] Last Admin: 10/28/16 10:05 Dose: 75 mg Heparin Sodium (Porcine) (Heparin) 5,000 units SC Q8 [facility] Last Admin: 10/27/16 21:55 Dose: 5,000 units Hydralazine HCl (Apresoline) 50 mg PO Q8 [facility] Last Admin: 10/28/16 05:42 Dose: 50 mg Insulin Human Regular (Novolin R) 0 unit SC [facility] PRN Reason: Protocol Last Admin: 10/28/16 08:50 Dose: Not Given Isosorbide Mononitrate (Imdur) 60 mg PO DAILY [facility] Last Admin: 10/28/16 10:05 Dose: 60 mg Labetalol HCl (Trandate) 100 mg PO Q8H [facility] Last Admin: 10/28/16 05:41 Dose: Not Given Levetiracetam (Keppra) 500 mg PO BID [facility] Last Admin: 10/28/16 10:05 Dose: 500 mg Losartan Potassium (Cozaar) 25 mg PO DAILY [facility] Last Admin: 10/28/16 10:05 Dose: 25 mg Pantoprazole Sodium (Protonix Ec Tab) 40 mg PO DAILY [facility] Last Admin: 10/28/16 10:05 Dose: 40 mg Rosuvastatin Calcium (Crestor) 10 mg PO HS [facility] Last Admin: 10/27/16 21:55 Dose: 10 mg Sitagliptin Phosphate (Januvia) 25 mg PO DAILY [facility] Last Admin: 10/28/16 10:05 Dose: 25 mg Physical Exam - Constitutional Appears: Well, Non-toxic, No Acute Distress - Extremities Exam Additional comments: Bilateral lower extremities exam DERM: No open wound noted. No erythema is noted. No sign of infection noted. Elongated, dystrophic, mycotic toenails noted to digits x10. VASC: Palpable DP noted bilaterally 2/4, non-palpable DP noted bilaterally. SADDLE [employer]KER less than 3 seconds to all digits noted NEURO: Gross sensation intact ORTHO: No pain on palpation, no pain on passive ROM of B/L ankle, MTPJs. Manual muscle testing 5/5 bilaterally. - Neurological Exam Neurological exam: Alert, Oriented x3 - Psychiatric Exam Psychiatric exam: Normal Affect, Normal Mood - Skin Skin Exam: Normal Color, Warm Results - Vital Signs Recent Vital Signs: Last Vital Signs Temp 97.9 F 10/28/16 08:10 Pulse 71 10/28/16 08:10 Resp 20 10/28/16 08:10 BP 155/73 H 10/28/16 08:10 Pulse Ox 95 10/28/16 08:10 - Labs Result Diagrams: 10/28/16 07:30 10/28/16 07:30 Labs: Laboratory Results - last 24 hr 10/27/16 10/27/16 10/28/16 17:07 21:00 06:22 WBC RBC Hgb Hct MCV MCH MCHC RDW Plt Count MPV Neut % (Auto) Lymph % (Auto) [place] % (Auto) Eos % (Auto) Baso % (Auto) Neut # Lymph # [place] # Eos # Baso # Sodium Potassium Chloride Carbon Dioxide Anion Gap BUN Creatinine Est GFR ( Amer) Est GFR (Non-Af Amer) POC Glucose (mg/dL) 176 H 83 106 Random Glucose Calcium Phosphorus Magnesium Total Bilirubin AST ALT Alkaline Phosphatase Total Protein Albumin Globulin Albumin/Globulin Ratio 10/28/16 10/28/16 07:30 11:25 WBC 4.0 L RBC 3.25 L Hgb 9.9 L Hct 29.3 L MCV 90.3 MCH 30.4 MCHC 33.6 RDW 17.1 H Plt Count 179 MPV 7.2 Neut % (Auto) 56.3 Lymph % (Auto) 28.4 [place] % (Auto) 9.1 Eos % (Auto) 5.3 H Baso % (Auto) 0.9 Neut # 2.3 Lymph # 1.1 [place] # 0.4 Eos # 0.2 Baso # 0.0 Sodium 138 Potassium 4.2 Chloride 94 L Carbon Dioxide 26 Anion Gap 23 H BUN 47 H Creatinine 7.9 H* D Est GFR ( Amer) 8 Est GFR (Non-Af Amer) 7 POC Glucose (mg/dL) 183 H Random Glucose 105 Calcium 7.8 L Phosphorus 5.0 H Magnesium 2.1 Total Bilirubin 0.5 AST 10 L ALT 12 L Alkaline Phosphatase 59 Total Protein 6.4 Albumin 3.6 Globulin 2.8 Albumin/Globulin Ratio 1.2 Assessment & Plan - Assessment and Plan (Free Text) Assessment: 73 year old diabetic male patient presents with elongated, dystrophic, mycotic toenails x10 Plan: Patient was seen, evaluated and treated with all questions and concerns addressed labs and vitals reviewed discussed in detail with Dr. Bedoya Elongated, dystrophic toenails were sharply cut with a large nail nipper up to level of normal length without any incident x10 Patient is stable from podiatry standpoint Podiatry signing off Please re-consult podiatry if any other lower extremity problems occur, thank you
--- NOTE | 2016-10-29 15:15 | CARD ---
APPROVED REPORT EXAM: Two-dimensional and M-mode echocardiogram with Doppler and color Doppler. Other Information Quality : GoodRhythm : INDICATION CVA/TIA Dyspnea dizziness RISK FACTORS Hyperlipidemia Diabetes M-Mode DIMENSIONS RVDd1.62 (2.1-3.2cm)Left Atrium (MM)4.45 (2.5-4.0cm) IVSd1.14 (0.7-1.1cm)Aortic Root3.12 (2.2-3.7cm) LVDd5.49 (4.0-5.6cm)Aortic Cusp Exc.1.76 (1.5-2.0cm) PWd1.11 (0.7-1.1cm)FS (%) 36 % LVDs3.50 (2.0-3.8cm)LVEF (%)65 (>50%) Mitral Valve MV E Jglqgafg066.7cm/sMV A Kwmoobas72.7cm/sE/A ratio2.1 TDI E/Lateral E'0.0E/Medial E'0.0 Tricuspid Valve TR Peak [id number]/sTR Peak Gr.[id number] LEFT VENTRICLE The left ventricle is normal size. There is normal left ventricular wall thickness. The left ventricular function is normal. The left ventricular ejection fraction is within the normal range. There is normal LV segmental wall motion. The left ventricular diastolic function is normal. RIGHT VENTRICLE The right ventricle is normal size. ATRIA The left atrium is mildly dilated. The right atrium size is normal. AORTIC VALVE There is trace aortic regurgitation. MITRAL VALVE Mitral regurgitation is trace. TRICUSPID VALVE There is trace tricuspid regurgitation. <Conclusion> Normal LV systolic function. Dilated LA. Trace AR. Trace MR. Trace TR.
--- NOTE | 2016-11-06 12:26 | CARD ---
APPROVED REPORT EKG Measurement Heart [id number] <Conclusion> Normal sinus rhythm Normal ECG
== END 2016-10-28 14:35 | disposition home or self-care (01) | DRG 682 ==
LOC: C.ER 18:07 → C.9E 19:49 → C.5T 10-26 10:44 → OBSVTOIN 10-27 13:07
PROVIDERS: ADMIT Family Medicine; ATTEND Hospitalist
PROC: 5A1D00Z (ICD-10-PCS; principal; 2016-10-26)
PROC: 30233N1 Transfusion of Nonautologous Red Blood Cells into Peripheral Vein, Percutaneous Approach (ICD-10-PCS; 2016-10-26)
DX: I13.11 Hypertensive heart and chronic kidney disease without heart failure, with stage 5 chronic kidney disease, or end stage renal disease (principal); N18.6 End stage renal disease; E11.21 Type 2 diabetes mellitus with diabetic nephropathy; D63.8 Anemia in other chronic diseases classified elsewhere; R79.89 Other specified abnormal findings of blood chemistry; M25.512 Pain in left shoulder; L60.3 Nail dystrophy; B35.1 Tinea unguium; M79.642 Pain in left hand; Z91.15 Patient's noncompliance with renal dialysis; Z99.2 Dependence on renal dialysis; Z86.73 Personal history of transient ischemic attack (TIA), and cerebral infarction without residual deficits; Z79.4 Long term (current) use of insulin; Z79.82 Long term (current) use of aspirin; Z87.81 Personal history of (healed) traumatic fracture

== ENCOUNTER 2016-10-31 10:32 | Emergency (ER) | payer MEDICARE, OTHER ==
[2016-10-31 10:38] VITALS: BMI 28.6
--- NOTE | 2016-10-31 11:11 | C.PDOC ---
History Of Present Illness 61 y/o male with PMHx of end stage renal disease (on hemodialysis M W F), is brought into the ED by ambulance for shortness of breath since this morning. He states last hemodialysis was Saturday and he is scheduled for hemodialysis at 3pm today. Patient reports that he was too short of breath and did not ant to wait until his scheduled diaylysis this afternoon. He admits to non productive cough. Patient denies chest pain, fever, abdominal pain, nausea/vomiting/ diarrhea. Patient given 3 SL nitro in the field, prior to arrival. Time Seen by Provider: 10/31/16 10:34 Chief Complaint (Nursing): Respiratory Distress History Per: Patient, EMS History/Exam Limitations: no limitations Onset/Duration Of Symptoms: Hrs, Persistent Current Symptoms Are (Timing): Still Present Current Respiratory Medications: See Home Med List Recent travel outside of the [place]: No Past Medical History Reviewed: Historical Data, Nursing Documentation, Vital Signs Vital Signs: Last Vital Signs Temp 98.0 F 10/31/16 13:40 Pulse 69 10/31/16 13:40 Resp 22 10/31/16 13:40 BP 150/98 H 10/31/16 13:40 Pulse Ox 96 10/31/16 13:40 - Medical History PMH: Anemia, CHF, Diabetes, Fractures (left leg 2 yrs ago), Gastritis, HTN, Hypercholesterolemia, End Stage Renal Disease (MWF), Chronic Kidney Disease, TIA Surgical History: No Surg Hx - [facility] Procedures APPLICATION OF SPLINT (03/15/14) CATARAC PHACOEMULS/ASPIR (03/08/15) DIALYSIS ARTERIOVENOSTOM (06/21/14) EXCIS DEBRIDE OF WOUND, INFECT, OR BURN (06/21/14) HEMODIALYSIS (06/21/14) HOME MANAGEMENT TREATMENT USING ASSIST EQUIPMENT (08/15/16) INSERT LENS AT CATAR EXT (03/08/15) NONEXCIS DEBRID OF WOUND, INFECT, OR BURN (06/21/14) OTHER SKIN & SUBQ I D (06/21/14) PACKED CELL TRANSFUSION (06/21/14) PERFORMANCE OF URINARY FILTRATION, MULTIPLE (08/13/16) PERFORMANCE OF URINARY FILTRATION, SINGLE (10/27/16) THERAPEUTIC EXERCISE TREATMENT OF MUSCULOSK LOW BACK/LE (08/15/16) TRANSFUSE NONAUT RED BLOOD CELLS IN PERIPH VEIN, PERC (10/27/16) VENOUS CATHETERIZATION FOR RENAL DIALYSIS (06/21/14) Family History: States: No Known Family Hx - Social History Hx Tobacco Use: No Hx Alcohol Use: No Hx Substance Use: No - Immunization History Hx Tetanus Toxoid Vaccination: No Hx Influenza Vaccination: No Hx Pneumococcal Vaccination: No Review Of Systems Except As Marked, All Systems Reviewed And Found Negative. Constitutional: Negative for: Fever Cardiovascular: Negative for: Chest Pain Respiratory: Positive for: Cough, Shortness of Breath. Negative for: Sputum Gastrointestinal: Negative for: Nausea, Vomiting, Abdominal Pain, Diarrhea Physical Exam - Physical Exam Appears: Non-toxic, No Acute Distress, Other (speaking in full sentences) Skin: Normal Color, Warm, Dry Head: Normacephalic Eye(s): bilateral: Normal Inspection Oral Mucosa: Moist Throat: Normal, No Erythema, No Exudate Neck: Normal, Normal ROM, Supple Chest: Symmetrical Cardiovascular: Rhythm Regular Respiratory: No Accessory Muscle Use, Rales (B/L bases), No Rhonchi, No Wheezing Gastrointestinal/Abdominal: Normal Exam, Bowel Sounds, Soft, No Tenderness Extremity: Normal ROM, No Calf Tenderness, Other (pitting edema of B/L LEs; left upper extremity, AV fistula with palpable thrill) Pulses: Left Dorsalis Pedis: Normal, Right Dorsalis Pedis: Normal Neurological/Psych: Oriented x3 ED Course And Treatment - Laboratory Results Result Diagrams: 10/31/16 11:06 10/31/16 11:06 ECG: Interpreted By Me, Viewed By Me (normal sinus rhythm at 76 bpm, normal axis , no acute ST or T wave changes) O2 Sat by Pulse Oximetry: 93 (ra) Pulse Ox Interpretation: Abnormal - Other Rad Chest X-Ray X-Ray: Viewed By Me, Read By Radiologist Interpretation: Accession No. : [id number]. Patient Name / ID : MARISA Valera / [id number]. Exam Date : 10/31/2016 10:43:16 ( Approved ). Study Comment : Sex / Age : M / 61Y. Creator : Gale Mike MD. Dictator : Gale Mike MD. Janitorial Manager : [place] Machine Operator : Gale Mike MD. Approver2 : Report Date : 10/31/2016 11:22:30. My Comment : . HISTORY: SOB. COMPARISON: Chest x-ray performed 10/25/16. TECHNIQUE: Chest, one view. FINDINGS: LUNGS: Pulmonary venous congestion. Patchy bilateral lower lobe opacities may reflect infection or edema. Small right pleural effusion. No definite pneumothorax. Please note that chest x-ray has limited sensitivity for the detection of pulmonary masses. CARDIOVASCULAR: Cardiomegaly. OSSEOUS STRUCTURES: Degenerative changes. VISUALIZED UPPER ABDOMEN: Unremarkable. OTHER FINDINGS: None. IMPRESSION: Pulmonary venous congestion. Patchy bilateral lower lobe opacities may reflect infection or edema. Small right pleural effusion. Progress Note: Blood work, EKG, CXR ordered and reviewed. Patient still makes urine, IV Lasix ordered. Reevaluation Time: 13:40 Reassessment Condition: Improved (Patient reassessed, states he feels better after meds (IV Lasix in ED and nitro in the field). Patient will be taking taxi to hemodialysis - charge nurse called center and confirmed he is scheduled and that the spot is still available for her. Patient instructed to go to hemodialysis immeidately. He understands he should return to ED if symptoms worsen.) - Physician Consult Information Physician Contacted: Chino Carlos Outcome Of Conversation: Discussed patient with Dr. Carlos, patient needs dialysis but not necessarily admission to hospital. Since he is due for dialysis at 3pm, nurse will call dialysis center in order to send him there. Disposition Counseled Patient/Family Regarding: Studies Performed, Diagnosis, Need For Followup - Disposition Referrals: Chino Carlos MD [Staff Provider] - Rachel Chow MD [Staff Provider] - Disposition: HOME/ ROUTINE Disposition Time: 13:40 Condition: STABLE Print Language: OCCITAN - Clinical Impression Clinical Impression: End-stage renal disease, Fluid overload, ESRD needing dialysis - Scribe Statement The provider has reviewed the documentation as recorded by the Scribe (Mery Low) Provider Attestation: All medical record entries made by the Scribe were at my direction and personally dictated by me. I have reviewed the chart and agree that the record accurately reflects my personal performance of the history, physical exam, medical decision making, and the department course for this patient. I have also personally directed, reviewed, and agree with the discharge instructions and disposition.
[2016-10-31 11:14] LABS: EOS # 0.2 K/uL (0.0-0.7); EOS % 4.5 % (0.0-4.0); HEMATOCRIT 29.9 % (35.0-51.0); LYMPH # 0.8 K/uL (1.0-4.3); LYMPH % 17.9 % (20.0-40.0); MEAN CELL VOLUME 91.8 fL (80.0-94.0); MEAN CORPUSCULAR HEMOGLOBIN 29.5 pg (27.0-31.0); MEAN CORPUSCULAR HGB CONC 32.1 g/dL (33.0-37.0); MEAN PLATELET VOLUME 7.6 fL (7.2-11.7); MONO # 0.3 K/uL (0.0-0.8); MONO % 7.4 % (0.0-10.0); NRBC % 0.1 % (0.0-2.0); RED CELL DISTRIBUTION WIDTH 16.4 % (11.5-14.5); WHITE BLOOD COUNT 4.7 K/uL (4.8-10.8)
--- NOTE | 2016-10-31 11:23 | RAD ---
HISTORY: SOB COMPARISON: Chest x-ray performed 10/25/16 TECHNIQUE: Chest, one view. FINDINGS: LUNGS: Pulmonary venous congestion. Patchy bilateral lower lobe opacities may reflect infection or edema. Small right pleural effusion. No definite pneumothorax. Please note that chest x-ray has limited sensitivity for the detection of pulmonary masses. CARDIOVASCULAR: Cardiomegaly. OSSEOUS STRUCTURES: Degenerative changes. VISUALIZED UPPER ABDOMEN: Unremarkable. OTHER FINDINGS: None. IMPRESSION: Pulmonary venous congestion. Patchy bilateral lower lobe opacities may reflect infection or edema. Small right pleural effusion.
[2016-10-31 11:38] LABS: POTASSIUM 4.5 mmol/L (3.6-5.2)
[2016-10-31 11:40] LABS: BILIRUBIN,TOTAL 0.8 mg/dL (0.2-1.3)
[2016-10-31 11:41] LABS: ALB/GLOB RATIO 1.4 (1.0-2.1); CALCIUM 7.6 mg/dl (8.6-10.4)
[2016-10-31 11:52] LABS: TROPONIN I 0.044 ng/mL (0.00-0.120)
[2016-10-31 13:41] VITALS: BP 150/98; PULSE 69; RESP 22; TEMP 98
--- NOTE | 2016-11-04 09:17 | CARD ---
APPROVED REPORT EKG Measurement Heart [id number] <Conclusion> Normal sinus rhythm Normal ECG
[2016-11-09 17:38] VITALS: O2SAT 93
== END 2016-10-31 14:04 | disposition home or self-care (01) ==
LOC: C.ER 10:32
DX: E87.79 Other fluid overload (principal); I12.0 Hypertensive chronic kidney disease with stage 5 chronic kidney disease or end stage renal disease; N18.6 End stage renal disease; Z99.2 Dependence on renal dialysis
CPT/HCPCS: 71010; 80053; 82550; 82553; 83880; 84484; 85025; 87040; 87149; 87205; 93005; 96374; 99284; J1940

== ENCOUNTER 2016-11-05 07:06 | Emergency (ER) | payer MEDICARE, OTHER ==
[2016-11-05 07:07] VITALS: BMI 28.6
[2016-11-05 07:21] VITALS: RESP 20
--- NOTE | 2016-11-05 07:28 | C.PDOC ---
History Of Present Illness 61-year-old male, PMHx includes Anemia, CHF, Diabetes, Gastritis, Hypertension, Hypercholesterolemia, End Stage Renal Disease (on HD: MWF), and TIA, is brought to the emergency department by EMS, with complaints of shortness of breath. Patient states he woke up at 06:00 this morning with shortness of breath. Patients last hemodialysis was on three days ago, and he is scheduled for 15:00 today. Patient reports that he was too short of breath and he could not wait until this afternoon, resulting in him calling 911. Admits to some chest pain at the time which resolved after aspirin on the field. Denies nausea/vomiting, diarrhea, fever, abdominal pain, or any other associated symptoms. Pt notes "this happens all the time". PT had evaluation for same complaint last week and then again in [facility] a few days ago. Time Seen by Provider: 11/05/16 07:18 Chief Complaint (Nursing): Chest Pain History Per: Patient History/Exam Limitations: no limitations Onset/Duration Of Symptoms: Days Current Symptoms Are (Timing): Still Present Severity: Moderate Past Medical History Reviewed: Historical Data, Nursing Documentation, Vital Signs Vital Signs: Last Vital Signs Temp 98.4 F 11/05/16 10:03 Pulse 74 11/05/16 10:03 Resp 20 11/05/16 10:03 BP 178/77 H 11/05/16 10:03 Pulse Ox 100 11/05/16 10:42 - Medical History PMH: Anemia, CHF, Diabetes, Fractures (left leg 2 yrs ago), Gastritis, HTN, Hypercholesterolemia, End Stage Renal Disease (MWF), Chronic Kidney Disease, TIA - [facility] Procedures APPLICATION OF SPLINT (03/15/14) CATARAC PHACOEMULS/ASPIR (03/08/15) DIALYSIS ARTERIOVENOSTOM (06/21/14) EXCIS DEBRIDE OF WOUND, INFECT, OR BURN (06/21/14) HEMODIALYSIS (06/21/14) HOME MANAGEMENT TREATMENT USING ASSIST EQUIPMENT (08/15/16) INSERT LENS AT CATAR EXT (03/08/15) NONEXCIS DEBRID OF WOUND, INFECT, OR BURN (06/21/14) OTHER SKIN & SUBQ I D (06/21/14) PACKED CELL TRANSFUSION (06/21/14) PERFORMANCE OF URINARY FILTRATION, MULTIPLE (08/13/16) PERFORMANCE OF URINARY FILTRATION, SINGLE (10/27/16) THERAPEUTIC EXERCISE TREATMENT OF MUSCULOSK LOW BACK/LE (08/15/16) TRANSFUSE NONAUT RED BLOOD CELLS IN PERIPH VEIN, PERC (10/27/16) VENOUS CATHETERIZATION FOR RENAL DIALYSIS (06/21/14) Family History: States: Unknown Family Hx - Social History Hx Tobacco Use: No Hx Alcohol Use: No Hx Substance Use: No - Immunization History Hx Tetanus Toxoid Vaccination: No Hx Influenza Vaccination: No Hx Pneumococcal Vaccination: No Review Of Systems Except As Marked, All Systems Reviewed And Found Negative. Constitutional: Negative for: Fever, Chills Cardiovascular: Positive for: Chest Pain. Negative for: Palpitations Respiratory: Positive for: Cough, Shortness of Breath Gastrointestinal: Negative for: Nausea, Vomiting Musculoskeletal: Negative for: Back Pain Skin: Negative for: Rash Neurological: Negative for: Weakness, Numbness, Headache, Dizziness Physical Exam - Physical Exam Appears: Non-toxic, No Acute Distress Skin: Warm, Dry, No Rash Head: Atraumatic, Normacephalic Eye(s): bilateral: Normal Inspection, EOMI Nose: Normal Oral Mucosa: Moist Lips: Normal Appearing Neck: Normal ROM Chest: Symmetrical Cardiovascular: Rhythm Regular Respiratory: No Accessory Muscle Use, Rales (MILD, B/L) Gastrointestinal/Abdominal: Soft, No Tenderness Extremity: Other (AV fistula in RUE w/ palpable thrill) Neurological/Psych: Oriented x3, Normal Speech Gait: Steady ED Course And Treatment - Laboratory Results Result Diagrams: 11/05/16 07:45 11/05/16 07:45 ECG: Interpreted By Me, Viewed By Me ECG Rhythm: Sinus Rhythm ECG Interpretation: No Acute Changes Rate From EC O2 Sat by Pulse Oximetry: 100 Progress Note: Prior Visits. Notes and records from previous visits were reviewed. Patient was seen in ED for similar symptoms on 10/31/16. NO change in CXR since last week. Plan: BNP, CK-MB, CMP, C Phos, Trop I. CBC. Chest X- Ray. O2 via NC. Reassess and Disposition. On re-evaluation, pt notes SOB is baseline. NO worsening symptoms pNo chest pain. Pt feels comfortable going outpt to dialysis. Case discussed and pt evalauted by Dr Abernathy, agreed upon plan and discharge. Case dsicussed with Dr Carlos, who instructs out pt dialysis. Pts PMD, Dr chow, called and message left, no call back. Disposition - Disposition Referrals: Rachel Chow MD [Staff Provider] - Disposition: HOME/ ROUTINE Disposition Time: 09:46 Condition: STABLE Additional Instructions: Go to dialysis today as scheduled! Return to ER if symtpoms persist or worsen. Instructions: Hemodialysis (ED) - Clinical Impression Clinical Impression: Chronic congestive heart failure, ESRD needing dialysis - Scribe Statement The provider has reviewed the documentation as recorded by the Brenda Benitez All medical record entries made by the Scribe were at my direction and personally dictated by me. I have reviewed the chart and agree that the record accurately reflects my personal performance of the history, physical exam, medical decision making, and the department course for this patient. I have also personally directed, reviewed, and agree with the discharge instructions and disposition.
[2016-11-05 07:51] LABS: BASO # 0.1 K/uL (0.0-0.2); BASO % 1.1 % (0.0-2.0); EOS # 0.3 K/uL (0.0-0.7); EOS % 5.7 % (0.0-4.0); LYMPH # 0.9 K/uL (1.0-4.3); LYMPH % 16.5 % (20.0-40.0); MEAN CELL VOLUME 91.8 fL (80.0-94.0); MEAN CORPUSCULAR HEMOGLOBIN 29.7 pg (27.0-31.0); MEAN CORPUSCULAR HGB CONC 32.4 g/dL (33.0-37.0); MEAN PLATELET VOLUME 7.1 fL (7.2-11.7); MONO # 0.4 K/uL (0.0-0.8); MONO % 6.8 % (0.0-10.0); NRBC % 0.1 % (0.0-2.0); RED CELL DISTRIBUTION WIDTH 16.3 % (11.5-14.5); WHITE BLOOD COUNT 5.2 K/uL (4.8-10.8)
[2016-11-05 08:08] LABS: POTASSIUM 4.7 mmol/L (3.6-5.2)
[2016-11-05 08:10] LABS: ALB/GLOB RATIO 1.5 (1.0-2.1); BILIRUBIN,TOTAL 0.5 mg/dL (0.2-1.3); TOTAL PROTEIN 6.5 g/dL (6.3-8.3)
[2016-11-05 08:11] LABS: CALCIUM 7.6 mg/dl (8.6-10.4)
[2016-11-05 08:23] LABS: TROPONIN I 0.028 ng/mL (0.00-0.120)
--- NOTE | 2016-11-05 08:57 | RAD ---
PROCEDURE: CHEST RADIOGRAPH, 1 VIEW HISTORY: SOB COMPARISON: 10/31/2016 FINDINGS: LUNGS: Extensive bibasilar opacity. PLEURA: Small right pleural effusion. No definite left pleural effusion. CARDIOVASCULAR: Normal. OSSEOUS STRUCTURES: No significant abnormalities. VISUALIZED UPPER ABDOMEN: Normal. OTHER FINDINGS: None. IMPRESSION: Bibasilar opacity and small right pleural effusion. Possible pulmonary edema. No significant change from 10/31/2016.
[2016-11-05 10:04] VITALS: BP 178/77; PULSE 74; TEMP 98.4
[2016-11-05 10:43] VITALS: O2SAT 100
== END 2016-11-05 11:40 | disposition home or self-care (01) ==
LOC: C.ER 07:06
DX: I50.9 Heart failure, unspecified (principal); N18.6 End stage renal disease; Z99.2 Dependence on renal dialysis

== ENCOUNTER 2016-11-22 04:30 | Inpatient (IN) | payer MEDICARE, OTHER ==
[2016-11-22 04:31] VITALS: BMI 28.6
--- NOTE | 2016-11-22 05:35 | C.PDOC ---
History Per: Patient <Deidra Velazquez - Last Filed: 11/22/16 06:33> <Dayan Ndiaye - Last Filed: 11/22/16 06:50> <OsbaldoCarlos green - Last Filed: 11/22/16 10:47> Time Seen by Provider: 11/22/16 05:23 Chief Complaint (Nursing): Finger,Hand,&Wrist Past Medical History Reviewed: Historical Data, Nursing Documentation, Vital Signs - Medical History PMH: Anemia, CHF, Diabetes, Fractures (left leg 2 yrs ago), Gastritis, HTN, Hypercholesterolemia, End Stage Renal Disease (MWF), Chronic Kidney Disease, TIA Family History: States: Unknown Family Hx - Social History Hx Tobacco Use: No Hx Alcohol Use: No Hx Substance Use: No - Immunization History Hx Tetanus Toxoid Vaccination: Yes Hx Influenza Vaccination: Yes Hx Pneumococcal Vaccination: Yes <Deidra Velazquez - Last Filed: 11/22/16 06:33> Review Of Systems Except As Marked, All Systems Reviewed And Found Negative. Constitutional: Negative for: Fever, Chills Eyes: Negative for: Vision Change Cardiovascular: Negative for: Chest Pain, Palpitations, Orthopnea, Edema, Light Headedness Respiratory: Negative for: Cough, Shortness of Breath, Wheezing Gastrointestinal: Negative for: Nausea, Vomiting, Diarrhea Musculoskeletal: Positive for: Hand Pain Skin: Negative for: Rash, Lesions Neurological: Negative for: Weakness, Numbness, Altered Mental Status, Headache , Dizziness <Deidra Velazquez - Last Filed: 11/22/16 06:33> Physical Exam - Physical Exam Appears: Non-toxic, No Acute Distress Skin: Normal Color, Warm, No Rash Head: Normacephalic Eye(s): bilateral: PERRL Throat: Normal Neck: Normal ROM, Trachea Midline, Supple Chest: Symmetrical Cardiovascular: Rhythm Regular Respiratory: No Decreased Breath Sounds, No Accessory Muscle Use, No Stridor, No Wheezing Gastrointestinal/Abdominal: Soft, No Tenderness, No Distention, No Guarding Extremity: Normal ROM, No Tenderness, Capillary Refill (less than 2sec), No Deformity, No Swelling Neurological/Psych: Oriented x3, Normal Speech, Normal Motor, Normal Sensation, Normal Reflexes <Deidra Velazquez - Last Filed: 11/22/16 06:33> ED Course And Treatment - Laboratory Results Result Diagrams: 11/22/16 06:19 ECG: Interpreted By Me ECG Rhythm: Sinus Rhythm Interpretation Of ECG: PVC, R BBB, T wave inversion III, aVF. No acute ST/T wave changes. Compared with previous on 11/03/15, appears abnormal. Rate From EC (bpm) O2 Sat by Pulse Oximetry: 94 Pulse Ox Interpretation: Abnormal Progress Note: On re-eval, pt added that he has also chest pain that started tonight. Diagnostics, EKG order. EKG review and appears abnormal compare to previous ones. <Deidra Velazquez - Last Filed: 11/22/16 06:33> - Laboratory Results Result Diagrams: 11/22/16 06:19 <Dayan Ndiaye - Last Filed: 11/22/16 06:50> - Laboratory Results Result Diagrams: 11/22/16 06:19 11/22/16 05:43 <Carlos Christian - Last Filed: 11/22/16 10:47> Disposition Counseled Patient/Family Regarding: Diagnosis, Need For Followup - Disposition Disposition Time: 05:35 <Deidra Velazquez - Last Filed: 11/22/16 06:33> <Dayan Ndiaye - Last Filed: 11/22/16 06:50> - Disposition Disposition Time: 10:45 <Carlos Christian - Last Filed: 11/22/16 10:47> - Disposition Disposition: HOSPITALIZED Condition: STABLE - Clinical Impression Clinical Impression: Chronic pain, Chest pain, Abnormal EKG Physician Patient Turnover Patient Signed Over To: Carlos Christian Handoff Comments: FU LABS, DISPO <Dayan Ndiaye - Last Filed: 11/22/16 06:50> Addendum <Deidra Velazquez - Last Filed: 11/22/16 06:33> <Carlos Christian - Last Filed: 11/22/16 10:47> Addendum: Pt remained stable in the ED Labs neg Ti, K ok, BUN/Creat elevated Todays EKG RBBB, prior NSR Case discussed with dr Rivera, Plan in view of the new changes pt will need observation and another cardiology evaluation (Carlos Christian)
[2016-11-22 06:24] LABS: BASO % 0.2 % (0.0-2.0); EOS # 0.2 K/uL (0.0-0.7); EOS % 5.5 % (0.0-4.0); HEMATOCRIT 38.1 % (35.0-51.0); LYMPH # 1.4 K/uL (1.0-4.3); LYMPH % 32.3 % (20.0-40.0); MEAN CELL VOLUME 88.8 fL (80.0-94.0); MEAN CORPUSCULAR HEMOGLOBIN 29.6 pg (27.0-31.0); MEAN CORPUSCULAR HGB CONC 33.3 g/dL (33.0-37.0); MEAN PLATELET VOLUME 7.8 fL (7.2-11.7); MONO # 0.4 K/uL (0.0-0.8); NRBC % 0.1 % (0.0-2.0); RED CELL DISTRIBUTION WIDTH 14.9 % (11.5-14.5); WHITE BLOOD COUNT 4.3 K/uL (4.8-10.8)
[2016-11-22 06:37] LABS: POTASSIUM 4.5 mmol/L (3.6-5.2)
[2016-11-22 06:39] LABS: ALB/GLOB RATIO 1.4 (1.0-2.1); BILIRUBIN,TOTAL 0.8 mg/dL (0.2-1.3); TOTAL PROTEIN 7.6 g/dL (6.3-8.3)
[2016-11-22 06:40] LABS: CALCIUM 8.3 mg/dl (8.6-10.4); MAGNESIUM 2.3 mg/dL (1.6-2.3)
[2016-11-22 06:50] LABS: TROPONIN I 0.035 ng/mL (0.00-0.120)
--- NOTE | 2016-11-22 08:59 | RAD ---
HISTORY: pain COMPARISON: 11/05/2016 FINDINGS: LUNGS: Moderate venous congestion with prominent bibasilar airspace consolidative changes and small bilateral pleural effusions. PLEURA: As above. CARDIOVASCULAR: Cardiomegaly. OSSEOUS STRUCTURES: No significant abnormalities. VISUALIZED UPPER ABDOMEN: Normal. OTHER FINDINGS: None. IMPRESSION: Moderate venous congestion with prominent bibasilar airspace consolidative changes and small bilateral pleural effusions.
--- NOTE | 2016-11-22 10:59 | CT ---
PROCEDURE: CT HEAD WITHOUT CONTRAST. HISTORY: lethargic, prior hx of stroke COMPARISON: Noncontrast head CT performed 10/25/16, MRI brain without contrast performed 09/27/16 TECHNIQUE: Axial computed tomography images were obtained through the head/brain without intravenous contrast. Radiation dose: Total exam DLP = 1244.01 mGy-cm. This CT exam was performed using one or more of the following dose reduction techniques: Automated exposure control, adjustment of the mA and/or kV according to patient size, and/or use of iterative reconstruction technique. FINDINGS: Streak artifact limits evaluation of the skullbase. HEMORRHAGE: No intracranial hemorrhage. BRAIN: Diffuse atrophy with prominence of the ventricles and sulci noted. No mass effect or edema. Intracranial atherosclerotic calcifications. Mild to moderate scattered periventricular and subcortical white matter hypodensities, which are nonspecific, but often seen with chronic microvascular ischemic disease. Small foci of encephalomalacia within the right basal ganglia compatible with prior ischemia/lacunar infarcts. Subtle hypodensity re-identified within the right thalamus compatible with prior infarction. Please note that MRI with diffusion imaging is more sensitive in the detection of acute ischemic event. VENTRICLES: No hydrocephalus. CALVARIUM: Unremarkable. PARANASAL SINUSES: Unremarkable as visualized. No significant inflammatory changes. MASTOID AIR CELLS: Unremarkable as visualized. No inflammatory changes. OTHER FINDINGS: Partial opacification of the right external auditory canal, likely cerumen. IMPRESSION: Generalized atrophy. Mild to moderate scattered nonspecific white matter changes. Subtle hypodensity re-identified within the right thalamus compatible with prior infarction. Small foci of encephalomalacia within the right basal ganglia compatible with prior ischemia/lacunar infarcts. Please note that MRI with diffusion imaging is more sensitive in the detection of acute ischemic event.
[2016-11-22] MEDS ORDERED: Azithromycin 500 MG in Sodium Chloride 0.9% 250 ML IVPB ONE (11:00)
[2016-11-22] MEDS ORDERED: Aztreonam 2 GM in Sodium Chloride 0.9% 100 ML IVPB ONE (11:00)
--- NOTE | 2016-11-22 11:45 | CON ---
DATE: 11/22/2016 The patient is a 61-year-old man who presents with vague chest pain and upper extremity pain. The pa kimmy olmedo was discharged 2 days ago from [facility]. He has had recurrent admission s weekly. PAST MEDICAL HISTORY: End-stage renal disease, been on maintenance hemodialysis for over 1 year, latrell betic nephropathy, diabetes mellitus type 2, hypertension, status post CVA and secondary hyperparathy roidism. SOCIAL HISTORY: He denies any alcohol abuse, illicit drug use or smoking history. PAST SURGICAL HISTORY: AV fistula. The patient cannot give details of any other history. REVIEW OF SYSTEMS: Could not be obtained. The patient is lethargic and very weak and cannot give an y history. FAMILY HISTORY: Unknown. The history is all obtained from the chart. PHYSICAL EXAMINATION: GENERAL: He is a well-developed, lethargic man, no acute distress. VITAL SIGNS: Blood pressure 158/68, pulse 58, temperature 98.7, pulse ox was 96% on room air. HEENT: He was anicteric. Mouth was clear. NECK: No JVD. LUNG ALBA: Clear anteriorly. HEART: Regular rhythm, no murmur. ABDOMEN: Soft, benign. No mass or organomegaly. EXTREMITIES: No peripheral edema. He had a left upper extremity AV fistula with a bruit. BLOOD WORK: Showed hemoglobin of 12.7, white count 4.3. Creatinine 9.2, calcium 8.3, phosphorus was 6.0. He had a chest x-ray done and the results show moderate congestion, similar to previous findings. He had a CAT scan of the head, which reportedly showed an old CVA, no hemorrhage, nonspecific white mat ter changes. The previous MRI approximately week ago had shown consistent with these findings of an old CVA. IMPRESSION: The patient has mild congestive heart failure, end-stage renal disease, diabetic nephrop athy, hypertension, status post cerebrovascular accident, secondary hyperparathyroidism. He had prev iously been on Coumadin, but is not taking this. That was because of the possible cerebrovascular ac cident, which is unclear whether that was new or not, but it appears to be old. Therefore, the patie nt now just has congestive heart failure, which is moderate and we will arrange for dialysis. Chino Carlos MD cc: [id number] TT: 11/22/2016 11:45:09 Confirmation # [id number] Dictation # [id number]
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
[2016-11-22] MEDS: Saccharomyces Boulardi 250 mg Cap PO SCH (19:02)
[2016-11-23] MEDS: Promethazine/Cod 6.25mg-10mg/5ml Syr UD PO PRN (05:58)
[2016-11-23 08:30] LABS: RBC URINE 2 /hpf (0-3); URINE BILIRUBIN NEGATIVE (NEGATIVE); URINE BLOOD NEGATIVE (NEGATIVE); URINE COLOR Yellow (YELLOW); URINE GLUCOSE (UA) 1+ mg/dL (Normal); URINE KETONE NEGATIVE (NEGATIVE); URINE LEUKOCYTE ESTERASE NEG Leu/uL (Negative); URINE UROBILINOGEN NORMAL mg/dL (0.2-1.0); WBC URINE 1 /hpf (0-5)
[2016-11-23 08:31] LABS: URINE PROTEIN 1+ mg/dL (NEGATIVE)
[2016-11-23 09:24] LABS: THYROID STIMULATING HORMONE 3.43 mIU/L (0.46-4.68)
[2016-11-23] MEDS ORDERED: Azithromycin 500 MG in Sodium Chloride 0.9% 250 ML IVPB SCH (10:00)
[2016-11-23 10:19] LABS: BASO % 1.3 % (0.0-2.0); EOS # 0.2 K/uL (0.0-0.7); EOS % 5.4 % (0.0-4.0); HEMATOCRIT 35.7 % (35.0-51.0); LYMPH # 1.2 K/uL (1.0-4.3); LYMPH % 32.7 % (20.0-40.0); MEAN CELL VOLUME 88.9 fL (80.0-94.0); MEAN CORPUSCULAR HEMOGLOBIN 29.5 pg (27.0-31.0); MEAN CORPUSCULAR HGB CONC 33.2 g/dL (33.0-37.0); MEAN PLATELET VOLUME 7.9 fL (7.2-11.7); MONO # 0.4 K/uL (0.0-0.8); MONO % 9.9 % (0.0-10.0); RED CELL DISTRIBUTION WIDTH 14.7 % (11.5-14.5); WHITE BLOOD COUNT 3.7 K/uL (4.8-10.8)
[2016-11-23 10:25] LABS: POTASSIUM 4.2 mmol/L (3.6-5.2)
[2016-11-23] MEDS: Saccharomyces Boulardi 250 mg Cap PO SCH ×2 (10:26→17:35)
[2016-11-23 10:27] LABS: ALB/GLOB RATIO 1.4 (1.0-2.1); BILIRUBIN,TOTAL 0.7 mg/dL (0.2-1.3); TOTAL PROTEIN 6.8 g/dL (6.3-8.3)
[2016-11-23 10:28] LABS: CALCIUM 8.2 mg/dl (8.6-10.4)
--- NOTE | 2016-11-23 11:29 | CP.PCM.PN ---
<Dale Hickey - Last Filed: 11/23/16 14:47> Subjective - Date & Time of Evaluation Date of Evaluation: 11/23/16 Time of Evaluation: 11:23 - Subjective Subjective: Cardiology Progress Note Dr. Bedoya Patient seen and examined at the bedside. The patient is in no acute distress. No acute events overnight. Nursing staff reports not issues. The patient went for nuclear stress test this morning. Nuclear imaging is pending at this point. The patient tolerated the pharmacologic stress test. The patient denies all cardiopulmonary complaints this morning. 12 point review of systems was completed and returned negative. Objective - Vital Signs/Intake and Output Vital Signs (last 24 hours): Temp Pulse Resp BP Pulse Ox 98.3 F 65 20 160/79 H 98 11/23/16 04:00 11/23/16 04:00 11/23/16 04:00 11/23/16 04:00 11/23/16 04:00 Intake and Output: 11/23/16 11/23/16 06:59 18:59 Intake Total 250 Balance 250 - Medications Medications: Current Medications Amlodipine Besylate (Norvasc) 10 mg PO DAILY [facility] Last Admin: 11/23/16 10:26 Dose: 10 mg Aspirin (Aspirin Chewable) 81 mg PO DAILY [facility] Last Admin: 11/23/16 10:26 Dose: 81 mg Famotidine (Pepcid) 20 mg PO DAILY [facility] Last Admin: 11/23/16 10:26 Dose: 20 mg Hydralazine HCl (Apresoline) 50 mg PO Q8 [facility] Last Admin: 11/23/16 05:54 Dose: 50 mg Aztreonam 1 gm/ Sodium (Chloride) 100 mls @ 200 mls/hr IVPB Q8H [facility] Azithromycin 500 mg/ Sodium (Chloride) 250 mls @ 250 mls/hr IVPB DAILY [facility] Last Admin: 11/23/16 10:31 Dose: 250 mls/hr Isosorbide Mononitrate (Imdur) 60 mg PO DAILY [facility] Last Admin: 11/23/16 10:26 Dose: 60 mg Labetalol HCl (Trandate) 100 mg PO Q8 [facility] Last Admin: 11/23/16 05:55 Dose: 100 mg Levetiracetam (Keppra) 500 mg PO BID [facility] Last Admin: 11/23/16 10:26 Dose: 500 mg Promethazine HCl/Codeine (Phenergan/Codeine Oral Syrup) 5 ml PO Q4 PRN PRN Reason: Cough Last Admin: 11/23/16 05:58 Dose: 5 ml Rosuvastatin Calcium (Crestor) 10 mg PO HS [facility] Last Admin: 11/22/16 22:12 Dose: 10 mg Saccharomyces Boulardii (Florastor) 250 mg PO BID [facility] Last Admin: 11/23/16 10:26 Dose: 250 mg Sitagliptin Phosphate (Januvia) 25 mg PO DAILY [facility] Last Admin: 11/23/16 10:26 Dose: 25 mg - Labs Labs: 11/23/16 10:13 11/23/16 08:29 - Additional Findings Additional findings: - Constitutional Appears: Well, No Acute Distress, Chronically Ill - Head Exam Head Exam: ATRAUMATIC, NORMAL INSPECTION, NORMOCEPHALIC - Eye Exam Eye Exam: EOMI, Normal appearance Pupil Exam: NORMAL ACCOMODATION - ENT Exam ENT Exam: Mucous Membranes Moist - Neck Exam Neck exam: Positive for: Full Rom, Normal Inspection - Respiratory Exam Respiratory Exam: Rales (scattered bibasilar), NORMAL BREATHING PATTERN. absent : Accessory Muscle Use, Chest Wall Tenderness, Clear to Auscultation Bilateral, Rhonchi, Wheezes - Cardiovascular Exam Cardiovascular Exam: REGULAR RHYTHM, RRR, +S1, +S2. absent: Diastolic murmur, Systolic Murmur - GI/Abdominal Exam GI & Abdominal Exam: Normal Bowel Sounds, Soft. absent: Distended, Firm, Guarding, Tenderness - Extremities Exam Extremities exam: Positive for: normal inspection. Negative for: calf tenderness, joint swelling, pedal edema, tenderness - Neurological Exam Neurological exam: Alert, CN II-XII Intact, Oriented x3 - Psychiatric Exam Psychiatric exam: Normal Affect, Normal Mood - Skin Skin Exam: Dry, Intact, Normal Color, Warm Assessment and Plan (1) Atypical chest pain Assessment & Plan: New onset R. bundle branch block Echo ordered- pending Nuclear Stress Test- normal/physiologic response to lexiscan stress test. Nuclear imaging pending. Official read pending Continue current management Troponins Negative x # (0.0350 > 0.0390 > 0.0320) CK-MB negative- 1.36 Continue Aspirin 81mg PO daily Continue Lipitor 40mg PO HS Continue home BP meds to maintain normotension 11/22/2016 EKG - Physiological axis, Normal OH interval, widened QRS duration and prolonged QTc Interval, with new onset Right bundle branch block, and T wave abnormalities. 10/31/16 EKG- normal sinus rhythm physiological axis, normal OH interval and QRS duration, and prolonged QTc interval. 10/25/16 Echo- normal systolic function (EF 65%) and diastolic function. 12/09/15 Echo- normal systolic function 77% EF, grade I relaxation abnormality Case Discussed with Dr. Elke Hickey PGY1 Status: Resolved (2) Abnormal EKG Assessment & Plan: Sinus Rhythm 61bpm with new onset right bundle branch block and inferior lead T wave abnormalities Echo- pending Nuclear Stress Test- imaging pending 11/22/2016 EKG - Physiological axis, Normal OH interval, widened QRS duration and prolonged QTc Interval, with new onset Right bundle branch block, and T wave abnormalities. 10/31/16 EKG- normal sinus rhythm physiological axis, normal OH interval and QRS duration, and prolonged QTc interval. Status: Acute (3) SOB (shortness of breath) Assessment & Plan: O2 via nasal cannula as needed Status: Chronic <Brian Bedoya - Last Filed: 12/21/16 10:47> Objective - Vital Signs/Intake and Output Vital Signs (last 24 hours): Temp Pulse Resp BP Pulse Ox 97.7 F 70 20 156/80 H 97 11/24/16 12:40 11/24/16 12:40 11/24/16 12:40 11/24/16 12:40 11/24/16 12:40 - Labs Labs: 11/24/16 08:01 11/24/16 08:01 Attending/Attestation - Attestation I have personally seen and examined this patient.: Yes I have fully participated in the care of the patient.: Yes I have reviewed all pertinent clinical information, including history, physical exam and plan: Yes Notes (Text): 12/21/16 10:46 Continue meds nuclear pending
--- NOTE | 2016-11-23 12:04 | CARD ---
APPROVED REPORT EKG Measurement Heart [id number] <Conclusion> Sinus rhythm with premature ventricular complexes or fusion complexes Right bundle branch block T wave abnormality, consider inferior ischemia Abnormal ECG
--- NOTE | 2016-11-23 12:25 | RAD ---
HISTORY: possible pneumonia COMPARISON: 11/22/2016 FINDINGS: LUNGS: Right basilar opacity. Slightly improved compared to prior examination. No definite left-sided opacity appreciated. PLEURA: Small right pleural effusion. No evidence of left pleural effusion. No pneumothorax. CARDIOVASCULAR: Normal. OSSEOUS STRUCTURES: No significant abnormalities. VISUALIZED UPPER ABDOMEN: Normal. OTHER FINDINGS: None. IMPRESSION: Right basilar opacity. Small right pleural effusion.
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
--- NOTE | 2016-11-23 13:22 | CP.PCM.PN ---
<Olaf Milian - Last Filed: 11/23/16 23:28> Subjective - Date & Time of Evaluation Date of Evaluation: 11/23/16 Time of Evaluation: 07:00 - Subjective Subjective: 61M who is known to this hospital with pmh of CVA, Seizures, DM, HTN, ESRD brought in by ambulance for left hand pain. Further cardiac and neuro work up did not find any acute pathology consistent with ACS or stroke. There is still concern over his persistent cough and concerning repeat chest xray, which showed right basilar opacity and right pleural effusion. IV antibiotics were continued. Today, he was markedly improved and able to have a complete interview without falling asleep and the pain in his left hand is gone. He denies headache, fever, chills, chest pain difficulty breathing, nausea, vomiting, or diarrhea. Objective - Vital Signs/Intake and Output Vital Signs (last 24 hours): Temp Pulse Resp BP Pulse Ox 98.3 F 64 20 160/79 H 98 11/23/16 04:00 11/23/16 12:30 11/23/16 04:00 11/23/16 04:00 11/23/16 04:00 Intake and Output: 11/23/16 11/23/16 06:59 18:59 Intake Total 250 Balance 250 - Medications Medications: Current Medications Amlodipine Besylate (Norvasc) 10 mg PO DAILY [facility] Last Admin: 11/23/16 10:26 Dose: 10 mg Aspirin (Aspirin Chewable) 81 mg PO DAILY [facility] Last Admin: 11/23/16 10:26 Dose: 81 mg Famotidine (Pepcid) 20 mg PO DAILY [facility] Last Admin: 11/23/16 10:26 Dose: 20 mg Hydralazine HCl (Apresoline) 50 mg PO Q8 [facility] Last Admin: 11/23/16 12:59 Dose: 50 mg Aztreonam 1 gm/ Sodium (Chloride) 100 mls @ 200 mls/hr IVPB Q8H [facility] Azithromycin 500 mg/ Sodium (Chloride) 250 mls @ 250 mls/hr IVPB DAILY [facility] Last Admin: 11/23/16 10:31 Dose: 250 mls/hr Isosorbide Mononitrate (Imdur) 60 mg PO DAILY [facility] Last Admin: 11/23/16 10:26 Dose: 60 mg Labetalol HCl (Trandate) 100 mg PO Q8 [facility] Last Admin: 11/23/16 12:59 Dose: 100 mg Levetiracetam (Keppra) 500 mg PO BID [facility] Last Admin: 11/23/16 10:26 Dose: 500 mg Promethazine HCl/Codeine (Phenergan/Codeine Oral Syrup) 5 ml PO Q4 PRN PRN Reason: Cough Last Admin: 11/23/16 05:58 Dose: 5 ml Rosuvastatin Calcium (Crestor) 10 mg PO HS [facility] Last Admin: 11/22/16 22:12 Dose: 10 mg Saccharomyces Boulardii (Florastor) 250 mg PO BID [facility] Last Admin: 11/23/16 10:26 Dose: 250 mg Sitagliptin Phosphate (Januvia) 25 mg PO DAILY [facility] Last Admin: 11/23/16 10:26 Dose: 25 mg - Labs Labs: 11/23/16 10:13 11/23/16 08:29 - Constitutional Appears: Non-toxic, No Acute Distress - Head Exam Head Exam: ATRAUMATIC, NORMOCEPHALIC - Eye Exam Eye Exam: EOMI - ENT Exam ENT Exam: Mucous Membranes Moist - Neck Exam Neck Exam: Full ROM - Respiratory Exam Respiratory Exam: Clear to Ausculation Bilateral, NORMAL BREATHING PATTERN - Cardiovascular Exam Cardiovascular Exam: RRR, +S1, +S2, Murmur - GI/Abdominal Exam GI & Abdominal Exam: Soft, Normal Bowel Sounds. absent: Tenderness - Extremities Exam Extremities Exam: absent: Joint Swelling, Pedal Edema - Neurological Exam Neurological Exam: Alert, Awake, Oriented x3 - Psychiatric Exam Psychiatric exam: Normal Affect, Normal Mood - Skin Skin Exam: Dry, Intact, Normal Color, Warm Additional comments: healed wounds on legs Assessment and Plan - Assessment and Plan (Free Text) Plan: 1. Left Hand Pain -pulses intact, Str 5/5 bl, dermatomes intact, ROM intact -possibly atypical chest pain -humerous and forearm xray - negative -pt. no longer complained of left hand pain 2. Atypical Chest Pain -EKG: new RBBB in V2,V3 compared to previous -Chelsea x3 negative -CXR mild cardiomegaly w/ moderate venous congestion -risk factors: -Male -HTN -ESRD -Prior CVA -ECHO from 10/25/16 shows normal EF -nuclear stress test completed, will follow up for results 3. Lethargy -hx of CVA's and sepsis -CT Head -No intracranial hemorrhage - (please see full report) -mild to mod scattered non specific white matter changes -Start Crestor 10mg at night -Pt. alert and awake on exam today 4. Cough x3 weeks -CXR mild cardiomegaly w/ moderate venous congestion -repeat CXR - right basilar opacity and right pleural effusion. -Start Azithromycin 500mg in NaCl -Start Aztreonam -Pt. allergic to PCN 5. Hypertension -Start Norvasc 10mg daily -Start Imdur 6. End State Renal Disease on Hemodialysis -Dr. Carlos, nephrology, consulted- help appreciated -Increase UF with HD -increase BP meds -Dialysis consented obtained -Patient to have dialysis today 7. Diabetes -Januvia 25mg, renally dosed 8. History of Seizures -continue keppra 500mg PO BID -seizure precautions 9. Prophylactic measure -Pepcid 20mg PO daily -PT/ OT -Aspirin 81mg PO daily -Seizure precautions <Rosemarie Rivera V - Last Filed: 11/24/16 22:59> Objective - Vital Signs/Intake and Output Vital Signs (last 24 hours): Temp Pulse Resp BP Pulse Ox 97.7 F 70 20 156/80 H 97 11/24/16 12:40 11/24/16 12:40 11/24/16 12:40 11/24/16 12:40 11/24/16 12:40 - Labs Labs: 11/24/16 08:01 11/24/16 08:01 Attending/Attestation - Attestation I have personally seen and examined this patient.: Yes I have fully participated in the care of the patient.: Yes I have reviewed all pertinent clinical information, including history, physical exam and plan: Yes Notes (Text): This is a late computer entry for 11/23/16. Patient seen, examined, and case discussed with day-time resident. Patient seen in between parts of nuclear stress test. Patient reports pain is gone from left arm. Patient is more awake and alert, and reporting cough, productive. Patient due for dialysis tomorrow. Patient to complete stress test this afternoon. Will follow-up when tests are completed. Patient completed radiographs of the arm which showed no fracture. Patient to continue IV antibiotics to cover for hospital acquired pneumonia. Repeat chest xray shows opacity. Patient status changed to inpatient given patient will need IV abx to cover for hospital acquired pneumonia. Assessment/Plan 1. Abnormal EKG Changes * Admit to telemetry * CHELSEA: negative * Cardiology (Dr. Bedoya) correctional medicine physician-->help appreciated * Echocardiogram (10/29/16): Normal LV systolic function, Dilated LA, Trace AR, Trace MR, Trace TR * Risk factors: ESRD, HTN, DM, Male, Prior hx of CVAs * Completed stress tests today-->follow-up results 2. Left-sided hand pain * possible sign of atypical chest pain * Patient has worked up for Steal syndrome in prior hospitalizations. Patient has strong palpable strong. * denies pain today * radiographs negative for fracture 3. Cough * possible hospital acquired pneumonia * Chest xray (11/22) showed moderate venous congestion with prominent bibasilar airspace consolidative changes and small bilateral pleural effusions. * Aztreonam 2gram IV X1, Azithromycin 500mg IV X1 in the ED * Abx: Aztreonam 1gram IV Q 8houts and Azithromycin 500mg IV daily (active since 11/23/16) * Florastor 250mg PO bid * Monitor blood and urine cultures 4. History of Seizures * continue keppra 500mg PO BID * seizure precautions 5. End State Renal Disease on Hemodialysis * Dr. Carlos, nephrology, consulted- help appreciated * Dialysis consented obtained * Completed dialysis yesterday * Patient is on //Sat schedule 6. Hypertension * will continue home medications: * hydralazine 50mg q8h * labetalol 100mg PO Q8h * norvasc 10mg PO daily * Imdur 60mg PO daily * Cozaar 25mg Po daily * will monitor and titrate blood pressure medications * patient received dialysis yesterday * monitor vital signs 7. Diabetes * ISS with accuchecks ACHS * will verify home dose of levemir from patient's pharmacy and continue-->held; patient has been controlled * will continue home medication Januvia 25mg PO daily (renal dosed) * Hgba1c: 4.7 (controlled) 8. Lethargy * CT head (11/22/16) Mild to moderate scattered nonspecific white matter changes. Subtle hypodensity re-identified within the right thalamus compatible with prior infarction. Small foci of encephalomalacia within right basal ganglia compatible with prior ischemia/lacunar infarcts * Aspirin 81mg PO daily * Crestor 10mg POqHS * Blood pressure control: Hydralazine, Labteolol, Norvasc, Imdur, Cozaar 9. Prophylactic measure * Pepcid 20mg PO daily * PT/ OT * Aspirin 81mg PO daily * Seizure precautions
--- NOTE | 2016-11-23 14:46 | RAD ---
PROCEDURE: Radiographs of bilateral humeri. HISTORY: arm pain left COMPARISON: None. FINDINGS: BONES: Right humerus: Normal. No fracture or focal lesion. Left humerus: Normal. No fracture or focal lesion. SOFT TISSUES: Right humerus: Normal. Left humerus: Normal. OTHER FINDINGS: None. IMPRESSION: Normal radiographs of both humeri.
--- NOTE | 2016-11-23 14:47 | RAD ---
PROCEDURE: Bilateral forearm x-ray HISTORY: arm pain COMPARISON: Not available TECHNIQUE: AP and lateral radiographs of the right and left forearm FINDINGS: There is no fracture. There is no lytic or blastic osseous lesion. No soft tissue abnormality is appreciated. IMPRESSION: Normal examination.
[2016-11-23] MEDS: Aztreonam 1 GM in Sodium Chloride 0.9% 100 ML IVPB SCH ×2 (14:56→17:35)
[2016-11-23 17:15] VITALS: RESP 20
[2016-11-24] MEDS: Aztreonam 1 GM in Sodium Chloride 0.9% 100 ML IVPB SCH ×2 (00:41→13:14)
[2016-11-24] MEDS: Promethazine/Cod 6.25mg-10mg/5ml Syr UD PO PRN (02:20)
--- NOTE | 2016-11-24 02:22 | CP.PCM.PN ---
<Delfino Lyons - Last Filed: 11/24/16 02:20> Subjective - Date & Time of Evaluation Date of Evaluation: 11/24/16 Time of Evaluation: 02:20 - Subjective Subjective: PGY-1 Medicine Progress note for Dr. Rivera Patient seen and examined at bedside. No acute vent overnight. Patient is feeling better. Breathing/cough have improved. The pain in his left hand has resolved. Denies headache, fever/chills, cp, sob, abd pain, n/v/d. Objective - Vital Signs/Intake and Output Vital Signs (last 24 hours): Temp Pulse Resp BP Pulse Ox 98.2 F 62 20 126/64 96 11/23/16 23:10 11/23/16 23:10 11/23/16 23:10 11/23/16 23:10 11/23/16 23:10 Intake and Output: 11/23/16 11/24/16 18:59 06:59 Intake Total 520 Output Total 650 Balance -130 - Medications Medications: Current Medications Amlodipine Besylate (Norvasc) 10 mg PO DAILY [facility] Last Admin: 11/23/16 10:26 Dose: 10 mg Aspirin (Aspirin Chewable) 81 mg PO DAILY [facility] Last Admin: 11/23/16 10:26 Dose: 81 mg Famotidine (Pepcid) 20 mg PO DAILY [facility] Last Admin: 11/23/16 10:26 Dose: 20 mg Hydralazine HCl (Apresoline) 50 mg PO Q8 [facility] Last Admin: 11/23/16 21:22 Dose: 50 mg Aztreonam 1 gm/ Sodium (Chloride) 100 mls @ 200 mls/hr IVPB Q8H [facility] Last Admin: 11/24/16 00:41 Dose: 200 mls/hr Azithromycin 500 mg/ Sodium (Chloride) 250 mls @ 250 mls/hr IVPB DAILY [facility] Last Admin: 11/23/16 10:31 Dose: 250 mls/hr Isosorbide Mononitrate (Imdur) 60 mg PO DAILY [facility] Last Admin: 11/23/16 10:26 Dose: 60 mg Labetalol HCl (Trandate) 200 mg PO BID [facility] Last Admin: 11/23/16 17:35 Dose: 200 mg Levetiracetam (Keppra) 500 mg PO BID [facility] Last Admin: 11/23/16 17:36 Dose: 500 mg Promethazine HCl/Codeine (Phenergan/Codeine Oral Syrup) 5 ml PO Q4 PRN PRN Reason: Cough Last Admin: 11/23/16 05:58 Dose: 5 ml Rosuvastatin Calcium (Crestor) 10 mg PO HS [facility] Last Admin: 11/23/16 21:22 Dose: 10 mg Saccharomyces Boulardii (Florastor) 250 mg PO BID [facility] Last Admin: 11/23/16 17:35 Dose: 250 mg Sitagliptin Phosphate (Januvia) 25 mg PO DAILY [facility] Last Admin: 11/23/16 10:26 Dose: 25 mg - Constitutional Appears: Non-toxic, No Acute Distress - Head Exam Head Exam: ATRAUMATIC, NORMOCEPHALIC - Eye Exam Eye Exam: EOMI, Normal appearance Pupil Exam: PERRL - ENT Exam ENT Exam: Mucous Membranes Moist - Neck Exam Neck Exam: Normal Inspection - Respiratory Exam Respiratory Exam: Clear to Ausculation Bilateral, NORMAL BREATHING PATTERN - Cardiovascular Exam Cardiovascular Exam: REGULAR RHYTHM, +S1, +S2 - GI/Abdominal Exam GI & Abdominal Exam: Soft, Normal Bowel Sounds. absent: Tenderness - Extremities Exam Extremities Exam: Normal Capillary Refill. absent: Calf Tenderness - Back Exam Back Exam: absent: CVA tenderness (L), CVA tenderness (R) - Neurological Exam Neurological Exam: Alert, Awake, CN II-XII Intact, Oriented x3 - Psychiatric Exam Psychiatric exam: Normal Affect, Normal Mood - Skin Skin Exam: Dry, Intact, Warm Assessment and Plan - Assessment and Plan (Free Text) Plan: 1. Pneumonia -CXR mild cardiomegaly w/ moderate venous congestion -repeat CXR - right basilar opacity and right pleural effusion. -Start Azithromycin 500mg in NaCl -Start Aztreonam -Pt. allergic to PCN 2. Atypical Chest Pain -EKG: new RBBB in V2,V3 compared to previous -Chelsea x3 negative -CXR mild cardiomegaly w/ moderate venous congestion -risk factors: -Male -HTN -ESRD -Prior CVA -ECHO from 10/25/16 shows normal EF -nuclear stress test completed, will follow up for results 3. Lethargy -hx of CVA's and sepsis -CT Head -No intracranial hemorrhage - (please see full report) -mild to mod scattered non specific white matter changes -Start Crestor 10mg at night -Pt. alert and awake on exam today 4. Left Hand Pain - Resolved -pulses intact, Str 5/5 bl, dermatomes intact, ROM intact -possibly atypical chest pain -humerous and forearm xray - negative -pt. no longer complained of left hand pain 5. Hypertension -Start Norvasc 10mg daily -Start Imdur 6. End State Renal Disease on Hemodialysis -Dr. Carlos, nephrology, consulted- help appreciated -Increase UF with HD -increase BP meds -Dialysis consented obtained -Patient to have dialysis today 7. Diabetes -Januvia 25mg, renally dosed 8. History of Seizures -continue keppra 500mg PO BID -seizure precautions 9. Prophylactic measure -Pepcid 20mg PO daily -PT/ OT -Aspirin 81mg PO daily -Seizure precautions <Roberto Holden H - Last Filed: 11/24/16 08:49> Objective - Vital Signs/Intake and Output Vital Signs (last 24 hours): Temp Pulse Resp BP Pulse Ox 98.6 F 67 20 158/75 H 96 11/24/16 08:35 11/24/16 08:35 11/24/16 08:35 11/24/16 08:35 11/24/16 08:35 Intake and Output: 11/24/16 11/24/16 06:59 18:59 Intake Total 770 Output Total 650 Balance 120 - Medications Medications: Current Medications Amlodipine Besylate (Norvasc) 10 mg PO DAILY [facility] Last Admin: 11/23/16 10:26 Dose: 10 mg Aspirin (Aspirin Chewable) 81 mg PO DAILY [facility] Last Admin: 11/23/16 10:26 Dose: 81 mg Famotidine (Pepcid) 20 mg PO DAILY [facility] Last Admin: 11/23/16 10:26 Dose: 20 mg Hydralazine HCl (Apresoline) 50 mg PO Q8 [facility] Last Admin: 11/24/16 05:21 Dose: 50 mg Aztreonam 1 gm/ Sodium (Chloride) 100 mls @ 200 mls/hr IVPB Q8H [facility] Last Admin: 11/24/16 00:41 Dose: 200 mls/hr Azithromycin 500 mg/ Sodium (Chloride) 250 mls @ 250 mls/hr IVPB DAILY [facility] Last Admin: 11/23/16 10:31 Dose: 250 mls/hr Isosorbide Mononitrate (Imdur) 60 mg PO DAILY [facility] Last Admin: 11/23/16 10:26 Dose: 60 mg Labetalol HCl (Trandate) 200 mg PO BID [facility] Last Admin: 11/23/16 17:35 Dose: 200 mg Levetiracetam (Keppra) 500 mg PO BID [facility] Last Admin: 11/23/16 17:36 Dose: 500 mg Promethazine HCl/Codeine (Phenergan/Codeine Oral Syrup) 5 ml PO Q4 PRN PRN Reason: Cough Last Admin: 11/24/16 02:20 Dose: 5 ml Rosuvastatin Calcium (Crestor) 10 mg PO HS [facility] Last Admin: 11/23/16 21:22 Dose: 10 mg Saccharomyces Boulardii (Florastor) 250 mg PO BID [facility] Last Admin: 11/23/16 17:35 Dose: 250 mg Sitagliptin Phosphate (Januvia) 25 mg PO DAILY [facility] Last Admin: 11/23/16 10:26 Dose: 25 mg - Labs Labs: 11/24/16 08:01 11/24/16 08:01 Attending/Attestation - Attestation I have personally seen and examined this patient.: Yes I have fully participated in the care of the patient.: Yes I have reviewed all pertinent clinical information, including history, physical exam and plan: Yes Notes (Text): 11/24/16 08:45 Medical Attending: Patient was seen and examined by me. Agree with the above note by the resident. The patient explains he feels well. He is S/P stress test yesterday, the results of which are still pending at the moment. He denied having chest pain and denied shortness of breath, denied palpitations. He reports he occasionally has the left hand and arm numbess, which went away. He is for HD later today. He is currently on Azithromycin and Aztreonmam for pneumonia. He wants to go today, however the blood cultures are not 24 hrs yet and the stress test results are not back yet. thank you Roberto Holden
[2016-11-24 08:06] LABS: BASO % 0.7 % (0.0-2.0); EOS # 0.3 K/uL (0.0-0.7); EOS % 7.2 % (0.0-4.0); HEMATOCRIT 34.1 % (35.0-51.0); LYMPH # 1.2 K/uL (1.0-4.3); LYMPH % 31.4 % (20.0-40.0); MEAN CELL VOLUME 88.5 fL (80.0-94.0); MEAN CORPUSCULAR HEMOGLOBIN 29.3 pg (27.0-31.0); MEAN CORPUSCULAR HGB CONC 33.1 g/dL (33.0-37.0); MEAN PLATELET VOLUME 7.8 fL (7.2-11.7); MONO # 0.4 K/uL (0.0-0.8); NRBC % 0.1 % (0.0-2.0); RED CELL DISTRIBUTION WIDTH 14.7 % (11.5-14.5); WHITE BLOOD COUNT 3.9 K/uL (4.8-10.8)
[2016-11-24 08:24] LABS: POTASSIUM 4.5 mmol/L (3.6-5.2)
[2016-11-24 08:26] LABS: ALB/GLOB RATIO 1.4 (1.0-2.1); BILIRUBIN,TOTAL 0.6 mg/dL (0.2-1.3); TOTAL PROTEIN 6.7 g/dL (6.3-8.3)
--- NOTE | 2016-11-24 08:33 | CP.PCM.PN ---
Subjective - Date & Time of Evaluation Date of Evaluation: 11/24/16 Time of Evaluation: 07:50 - Subjective Subjective: No cp tolerating PO Objective - Vital Signs/Intake and Output Vital Signs (last 24 hours): Temp Pulse Resp BP Pulse Ox 98.2 F 80 20 156/78 H 96 11/23/16 23:10 11/24/16 08:00 11/23/16 23:10 11/24/16 05:17 11/23/16 23:10 Intake and Output: 11/24/16 11/24/16 06:59 18:59 Intake Total 770 Output Total 650 Balance 120 - Medications Medications: Current Medications Amlodipine Besylate (Norvasc) 10 mg PO DAILY [facility] Last Admin: 11/23/16 10:26 Dose: 10 mg Aspirin (Aspirin Chewable) 81 mg PO DAILY [facility] Last Admin: 11/23/16 10:26 Dose: 81 mg Famotidine (Pepcid) 20 mg PO DAILY [facility] Last Admin: 11/23/16 10:26 Dose: 20 mg Hydralazine HCl (Apresoline) 50 mg PO Q8 [facility] Last Admin: 11/24/16 05:21 Dose: 50 mg Aztreonam 1 gm/ Sodium (Chloride) 100 mls @ 200 mls/hr IVPB Q8H [facility] Last Admin: 11/24/16 00:41 Dose: 200 mls/hr Azithromycin 500 mg/ Sodium (Chloride) 250 mls @ 250 mls/hr IVPB DAILY [facility] Last Admin: 11/23/16 10:31 Dose: 250 mls/hr Isosorbide Mononitrate (Imdur) 60 mg PO DAILY [facility] Last Admin: 11/23/16 10:26 Dose: 60 mg Labetalol HCl (Trandate) 200 mg PO BID [facility] Last Admin: 11/23/16 17:35 Dose: 200 mg Levetiracetam (Keppra) 500 mg PO BID [facility] Last Admin: 11/23/16 17:36 Dose: 500 mg Promethazine HCl/Codeine (Phenergan/Codeine Oral Syrup) 5 ml PO Q4 PRN PRN Reason: Cough Last Admin: 11/24/16 02:20 Dose: 5 ml Rosuvastatin Calcium (Crestor) 10 mg PO HS [facility] Last Admin: 11/23/16 21:22 Dose: 10 mg Saccharomyces Boulardii (Florastor) 250 mg PO BID [facility] Last Admin: 11/23/16 17:35 Dose: 250 mg Sitagliptin Phosphate (Januvia) 25 mg PO DAILY [facility] Last Admin: 11/23/16 10:26 Dose: 25 mg - Labs Labs: 11/24/16 08:01 11/24/16 08:01 - Constitutional Appears: Well - Head Exam Head Exam: ATRAUMATIC - Eye Exam Eye Exam: Normal appearance - ENT Exam ENT Exam: Mucous Membranes Moist - Respiratory Exam Respiratory Exam: NORMAL BREATHING PATTERN - Cardiovascular Exam Cardiovascular Exam: REGULAR RHYTHM - GI/Abdominal Exam GI & Abdominal Exam: Normal Bowel Sounds - Exam External exam: NORMAL EXTERNAL EXAM - Extremities Exam Extremities Exam: Normal Inspection - Neurological Exam Neurological Exam: Alert, Awake - Psychiatric Exam Psychiatric exam: Normal Affect, Normal Mood - Skin Skin Exam: Dry Assessment and Plan (1) Abnormal EKG Assessment & Plan: nl echo nl enzymes will review nuclear if negative D/C with follow up Status: Acute (2) Chronic congestive heart failure Status: Acute
--- NOTE | 2016-11-24 09:57 | CP.PCM.PN ---
Subjective - Date & Time of Evaluation Date of Evaluation: 11/24/16 Time of Evaluation: 09:55 - Subjective Subjective: feels fine no complaints on dialysis at present ROS- 10 point ROS negative Objective - Vital Signs/Intake and Output Vital Signs (last 24 hours): Temp Pulse Resp BP Pulse Ox 98.6 F 67 20 158/75 H 96 11/24/16 08:35 11/24/16 08:35 11/24/16 08:35 11/24/16 08:35 11/24/16 08:35 Intake and Output: 11/24/16 11/24/16 06:59 18:59 Intake Total 770 Output Total 650 Balance 120 - Medications Medications: Current Medications Amlodipine Besylate (Norvasc) 10 mg PO DAILY [facility] Last Admin: 11/23/16 10:26 Dose: 10 mg Aspirin (Aspirin Chewable) 81 mg PO DAILY [facility] Last Admin: 11/23/16 10:26 Dose: 81 mg Famotidine (Pepcid) 20 mg PO DAILY [facility] Last Admin: 11/23/16 10:26 Dose: 20 mg Hydralazine HCl (Apresoline) 50 mg PO Q8 [facility] Last Admin: 11/24/16 05:21 Dose: 50 mg Aztreonam 1 gm/ Sodium (Chloride) 100 mls @ 200 mls/hr IVPB Q8H [facility] Last Admin: 11/24/16 00:41 Dose: 200 mls/hr Azithromycin 500 mg/ Sodium (Chloride) 250 mls @ 250 mls/hr IVPB DAILY [facility] Last Admin: 11/23/16 10:31 Dose: 250 mls/hr Isosorbide Mononitrate (Imdur) 60 mg PO DAILY [facility] Last Admin: 11/23/16 10:26 Dose: 60 mg Labetalol HCl (Trandate) 200 mg PO BID [facility] Last Admin: 11/23/16 17:35 Dose: 200 mg Levetiracetam (Keppra) 500 mg PO BID [facility] Last Admin: 11/23/16 17:36 Dose: 500 mg Promethazine HCl/Codeine (Phenergan/Codeine Oral Syrup) 5 ml PO Q4 PRN PRN Reason: Cough Last Admin: 11/24/16 02:20 Dose: 5 ml Rosuvastatin Calcium (Crestor) 10 mg PO HS [facility] Last Admin: 11/23/16 21:22 Dose: 10 mg Saccharomyces Boulardii (Florastor) 250 mg PO BID [facility] Last Admin: 11/23/16 17:35 Dose: 250 mg Sitagliptin Phosphate (Januvia) 25 mg PO DAILY [facility] Last Admin: 11/23/16 10:26 Dose: 25 mg - Labs Labs: 11/24/16 08:01 11/24/16 08:01 - Constitutional Appears: Well, Non-toxic - Head Exam Head Exam: ATRAUMATIC, NORMOCEPHALIC - Eye Exam Eye Exam: EOMI, PERRL - ENT Exam ENT Exam: Mucous Membranes Moist - Respiratory Exam Respiratory Exam: Clear to Ausculation Bilateral. absent: Rhonchi, Wheezes - Cardiovascular Exam Cardiovascular Exam: REGULAR RHYTHM, +S1, +S2 - GI/Abdominal Exam GI & Abdominal Exam: Soft. absent: Tenderness - Extremities Exam Extremities Exam: Full ROM. absent: Pedal Edema - Neurological Exam Neurological Exam: Alert, Awake, Oriented x3 - Psychiatric Exam Psychiatric exam: Normal Affect, Normal Mood - Skin Skin Exam: Dry, Warm Assessment and Plan (1) Atypical chest pain Status: Resolved (2) CVA (cerebrovascular accident) Status: Acute (3) Chronic congestive heart failure Status: Acute (4) ESRD needing dialysis Status: Acute (5) Fluid overload Status: Acute - Assessment and Plan (Free Text) Plan: hd today supportive care
[2016-11-24 13:05] VITALS: BP 156/80; PULSE 70; TEMP 97.7; O2SAT 97
[2016-11-24] MEDS: Saccharomyces Boulardi 250 mg Cap PO SCH (13:11)
--- NOTE | 2016-11-24 21:12 | CP.PCM.DIS ---
Provider - Provider Date of Admission: 11/23/16 19:50 Attending physician: Dr. Holden Primary care physician: Clifford Consults: Dr. Bedoya (cardio) Dr. Carlos (nephro) Time Spent in preparation of Discharge (in minutes): 45 Diagnosis - Discharge Diagnosis (1) Chest pain Status: Acute (2) Chronic congestive heart failure Status: Acute (3) ESRD needing dialysis Status: Acute Hospital Course - Lab Results Lab Results: Most Recent Lab Values WBC 3.9 K/uL (4.8-10.8) L 11/24/16 08:01 RBC 3.86 Mil/uL (4.40-5.90) L 11/24/16 08:01 Hgb 11.3 g/dL (12.0-18.0) L 11/24/16 08:01 Hct 34.1 % (35.0-51.0) L 11/24/16 08:01 MCV 88.5 fL (80.0-94.0) 11/24/16 08:01 MCH 29.3 pg (27.0-31.0) 11/24/16 08:01 MCHC 33.1 g/dL (33.0-37.0) 11/24/16 08:01 RDW 14.7 % (11.5-14.5) H 11/24/16 08:01 Plt Count 183 K/uL (130-400) 11/24/16 08:01 MPV 7.8 fL (7.2-11.7) 11/24/16 08:01 Neut % (Auto) 50.7 % (50.0-75.0) 11/24/16 08:01 Lymph % (Auto) 31.4 % (20.0-40.0) 11/24/16 08:01 [place] % (Auto) 10.0 % (0.0-10.0) 11/24/16 08:01 Eos % (Auto) 7.2 % (0.0-4.0) H 11/24/16 08:01 Baso % (Auto) 0.7 % (0.0-2.0) 11/24/16 08:01 Neut # 2.0 K/uL (1.8-7.0) 11/24/16 08:01 Lymph # 1.2 K/uL (1.0-4.3) 11/24/16 08:01 [place] # 0.4 K/uL (0.0-0.8) 11/24/16 08:01 Eos # 0.3 K/uL (0.0-0.7) 11/24/16 08:01 Baso # 0.0 K/uL (0.0-0.2) 11/24/16 08:01 Sodium 138 mmol/L (132-148) 11/24/16 08:01 Potassium 4.5 mmol/L (3.6-5.2) 11/24/16 08:01 Chloride 96 mmol/L (98-107) L 11/24/16 08:01 Carbon Dioxide 20 mmol/L (22-30) L 11/24/16 08:01 Anion Gap 27 (10-20) H 11/24/16 08:01 BUN 60 mg/dL (9-20) H 11/24/16 08:01 Creatinine 8.9 MG/DL (0.8-1.5) H* 11/24/16 08:01 Est GFR ( Amer) 7 11/24/16 08:01 Est GFR (Non-Af Amer) 6 11/24/16 08:01 POC Glucose (mg/dL) 121 mg/dL (65-110) H 11/24/16 11:32 Random Glucose 81 mg/dL (75-110) 11/24/16 08:01 Hemoglobin A1c 4.6 % (4.2-6.5) 11/23/16 08:29 Calcium 8.0 mg/dl (8.6-10.4) L 11/24/16 08:01 Phosphorus 6.0 mg/dL (2.5-4.5) H 11/22/16 05:43 Magnesium 2.3 mg/dL (1.6-2.3) 11/22/16 05:43 Total Bilirubin 0.6 mg/dL (0.2-1.3) 11/24/16 08:01 AST 17 U/L (17-59) D 11/24/16 08:01 ALT 11 U/L (21-72) L D 11/24/16 08:01 Alkaline Phosphatase 55 U/L (38-126) 11/24/16 08:01 Total Creatine Kinase 57 U/L (55-170) 04/27/17 17:30 CK-MB (Mass) 1.21 ng/mL (0.0-3.38) 11/22/16 17:30 Troponin I 0.0350 ng/mL (0.00-0.120) 11/22/16 05:43 Troponin I, Quant 0.0320 ng/mL (0.00-0.120) 11/22/16 17:30 Total Protein 6.7 g/dL (6.3-8.3) 11/24/16 08:01 Albumin 3.9 g/dL (3.5-5.0) 11/24/16 08:01 Globulin 2.8 gm/dL (2.2-3.9) 11/24/16 08:01 Albumin/Globulin Ratio 1.4 (1.0-2.1) 11/24/16 08:01 Triglycerides 66 mg/dL (0-149) 11/23/16 08:29 Cholesterol 101 mg/dL (0-199) 11/23/16 08:29 LDL Cholesterol Direct 51 mg/dL (0-129) 11/23/16 08:29 HDL Cholesterol 33 mg/dL (30-70) 11/23/16 08:29 TSH 3rd Generation 3.43 mIU/L (0.46-4.68) 11/23/16 08:29 Urine Color Yellow (YELLOW) 11/23/16 05:06 Urine Clarity Clear (Clear) 11/23/16 05:06 Urine pH 9.0 (5.0-8.0) 11/23/16 05:06 Ur Specific [place] 1.009 (1.003-1.030) 11/23/16 05:06 Urine Protein 1+ mg/dL (NEGATIVE) H 11/23/16 05:06 Urine Glucose (UA) 1+ mg/dL (Normal) H 11/23/16 05:06 Urine Ketones Negative mg/dL (NEGATIVE) 11/23/16 05:06 Urine Blood Negative (NEGATIVE) 11/23/16 05:06 Urine Nitrate Negative (NEGATIVE) 11/23/16 05:06 Urine Bilirubin Negative (NEGATIVE) 11/23/16 05:06 Urine Urobilinogen Normal mg/dL (0.2-1.0) 11/23/16 05:06 Ur Leukocyte Esterase Neg Tena/uL (Negative) 11/23/16 05:06 Urine WBC (Auto) 1 /hpf (0-5) 11/23/16 05:06 Urine RBC (Auto) 2 /hpf (0-3) 11/23/16 05:06 Ur Squamous Epith Cells 3 /hpf (0-5) 11/23/16 05:06 Ur L.pneumophila Ag Negative (NEGATIVE) 11/23/16 06:00 Mycoplasma pneumon IgM Negative (NEGATIVE) 11/23/16 08:29 - Hospital Course Hospital Course: 61M who is known to this hospital with pmh of CVA, Seizures, DM, HTN, ESRD brought in by ambulance for left hand pain. Patient reported left arm pain, since 2am day of admission, limited between the wrist and the elbow, describes pain as sharp. Patient denies associated chest pain, denied palptiations, shortness of breathe, associated sweats. Patient reported he took his aspirin this morning. Discussed with nephrology, patient recently discharged from [facility] ago, wherein he was treated for possible atrial fibrillation where he was given heparin and coumadin. Patient appeared very lethargic on exam, and given this history, patient ordered for CT head stat, ruled out hemorrhagic stroke. Patient has had multiple strokes in the past including hemorrrhagic stroke this year in Jul. Patient comes in with EKG changes showing RBBB, changed from prior EKG, discussed with ED attending. Consult Dr. Landon (cardiology) for a nuclear stress test. New onset R. bundle branch block diagnosed. Echo ordered. Nuclear Stress Test done and showed normal/physiologic response to lexiscan stress test. Nuclear imaging pending. Official read pending. Patient also reported cough X3 weeks duration, unproductive, non-bloody. Chest xray showed moderate venous congestion with prominent bibasilar airspace consolidative changes and small bilateral pleural effusions. Patient was admitted to telemetry. ELIZA panel ordered and negative. Patient was treated with Aztreonam 1gram IV Q 8hours and Azithromycin 500mg IV daily. Patient was continued on keppra 500mg PO BID for Hx of seizure. Dr. Carlos, nephrology, consulted for ESRD and dialysis. Home medications were restarted for HTN, hydralazine 50mg q8h, labetalol 100mg PO Q8, norvasc 10mg PO daily, Imdur 60mg PO daily, Cozaar 25mg Po daily. For patient's Lethargy, CT head (11/22/16) Mild to moderate scattered nonspecific white matter changes. Subtle hypodensity re-identified within the right thalamus compatible with prior infarction. Small foci of encephalomalacia within right basal ganglia compatible with prior ischemia/lacunar infarcts. Patient was placed n Aspirin 81mg PO daily and Crestor 10mg POqHS Patient left AMA hospital day #3. Risks of leaving AMA explained to patient who was able to make own medical decisions. See chart for full details. Discharge Exam - Head Exam Additional comments: Refused physical exam. Left AMA. Discharge Plan - Follow Up Plan Condition: STABLE Disposition: AGAINST MEDICAL ADVICE
--- NOTE | 2016-11-25 08:28 | CARD ---
APPROVED REPORT Protocol: PHARMACOLOGICAL STRESS Test Type: LEXISCAN Test Indications: CHEST PAIN Medications: LIST SCAN Medical History: CHEST PAIN,CHANGE IN EKG Target HR: 158 bpm Resting ECG: normal Resting Heart Rate: 64 bpm Resting Blood Pressure: 170/60mmHg submaximum (85%): 134 bpm PROCEDURE Pharmacologic stress testing was performed using 0.4mg per 5ml of regadenoson given intravenously over 7-10 seconds. Reversal agent aminophyline 100 mg, given intravenously for Chest Pain. POST EXERCISE Reason for Termination: LEXISCAN COMPLETED Target HR: No Max HR: 64 bpm 47% of Maximum Predicted HR: 158 bpm Exercise duration: 00:30 min:sec, 0 Stage Exercise capacity: 1.0METs Max Blood Pressure: 170/60mmHg Blood Pressure response to exercise: normal resting BP - appropriate response Heart Rate response to exercise: appropriate Chest Pain: No, none Angina index: 0 Arrhythmia: No, none ST Change: No, none Deviation: 0 mm INTERPRETATION Stress EKG Conclusion: NL LEXISCAN NUCLEAR PENDING EXAM: Myocardial Perfusion STRESS/REST Imaging Protocol The imaging protocol used to acquire images was Stress Tc-99m/rest Tc-99m 1 day Stress Spect myocardial perfusion imaging was performed in supine position 38 minutes following the injection of 12.7 mCi of Tc-99 Myoview.. Gated Rest Spect was performed 40 minutes after intravenous 32.6 mCi Tc-99 Myoview injection. The images were gated to evaluate regional wall motion and calculate ventricular ejection fraction.Images were reconstructed using backfilter projection method in short horizontal and verticle long axis. Spect slices were generated. RESTING DATA TLH311.11bcQS5.20L/min ESV45.00mlMyocardial Ubog271.00g Av. Heart Rate66.00bpm EF63.50% STRESS DATA CPV133.10ajIV8.30L/min ESV69.50mlMyocardial Yusq361.00g EF52.50% Regional WT score at stress:2.00 Regional WM score at stress:0.00 Summed WT score at stress:13.50 Av. Heart Rate69.00bpmSummed WM score at stress:11.50 LV Perf. Quant 17 Seg. SSS7.00 17 Seg. SRS6.00 17 Seg. SDS1.00 Stress Defect Extent (% LAD)1.30Rest Defect Extent (% LAD)0.95Rev. Defect Extent (% LAD)0.30 Stress Defect Extent (% LCX)35.00Rest Defect Extent (% LCX)36.90Rev. Defect Extent (% LCX)0.65 Stress Defect Extent (% RCA)0.00Rest Defect Extent (% RCA)0.00Rev. Defect Extent (% RCA)0.00 Stress Defect Extent (% ADRIAN)13.70Rest Defect Extent (% ADRIAN)12.10Rev. Defect Extent (% ADRIAN)2.30 Other Information Quality:Good Overall Exercise Capacity: Normal IMPRESSION Abnormal Myocardial Perfusion exercise stress study Global LV Function: Mildy reduced Stress Test Summary: Normal LV Perfusion Summary: Normal Metabolism/Perfusion Defects: There is a defect in the Apical anterior wall. Reversible/Irreversible: There is a small reversible perfusion/metabolism defect in the Apical anterior wall. Conclusion 1. Cardiac Catheterization recommendation.
[2016-11-25] MEDS ORDERED: Pneumococcal 23-Valent Vaccine IM ONE (10:00)
== END 2016-11-24 14:30 | disposition left against medical advice (07) | DRG 313 ==
LOC: C.ER 04:30 → C.9E 08:38 → C.6T 17:16 → OBSVTOIN 11-23 19:50
PROVIDERS: ADMIT Hospitalist; ATTEND Hospitalist
PROC: 5A1D00Z (ICD-10-PCS; principal; 2016-11-24)
DX: R07.89 Other chest pain (principal); I13.2 Hypertensive heart and chronic kidney disease with heart failure and with stage 5 chronic kidney disease, or end stage renal disease; E11.22 Type 2 diabetes mellitus with diabetic chronic kidney disease; N18.6 End stage renal disease; I50.9 Heart failure, unspecified; I45.10 Unspecified right bundle-branch block; E78.00 Pure hypercholesterolemia, unspecified; R06.02 Shortness of breath; R94.31 Abnormal electrocardiogram [ECG] [EKG]; M79.642 Pain in left hand; G40.909 Epilepsy, unspecified, not intractable, without status epilepticus; Z99.2 Dependence on renal dialysis; Z79.4 Long term (current) use of insulin; Z86.73 Personal history of transient ischemic attack (TIA), and cerebral infarction without residual deficits; Z87.891 Personal history of nicotine dependence

== ENCOUNTER 2016-12-28 18:37 | Inpatient (IN) | payer MEDICARE, OTHER ==
[2016-12-28 18:38] VITALS: BMI 28.6
--- NOTE | 2016-12-28 21:15 | C.PDOC ---
History Of Present Illness 61 y/o male presents to the emergency department with complains of left arm pain and weakness s/p dialysis today. Pt states he went to buy Tylenol at the [email or web address] afterward and had them call an ambulance. BGL [employer]. Pain resolved prior to evaluation. Denies headache, SOB, chest pain, vomiting or any other complaints. Past medical history CVA Time Seen by Provider: 12/28/16 20:34 Chief Complaint (Nursing): Weakness/Neurological Deficit History Per: Patient History/Exam Limitations: no limitations Onset/Duration Of Symptoms: Mins Current Symptoms Are (Timing): Gone Fall Associated With With Symptoms: No Severity: Mild Recent travel outside of the [place]: No - Symptoms Of CVA Recent Head Trauma: No Past Medical History Reviewed: Historical Data, Nursing Documentation, Vital Signs Vital Signs: Last Vital Signs Temp 98.4 F 12/28/16 21:55 Pulse 62 12/28/16 23:19 Resp 20 12/28/16 23:19 BP 140/66 12/28/16 23:19 Pulse Ox 97 12/29/16 00:00 - Medical History PMH: Anemia, CHF, Diabetes, Fractures, Gastritis, HTN, Hypercholesterolemia, End Stage Renal Disease (MWF), Chronic Kidney Disease, TIA - [facility] Procedures APPLICATION OF SPLINT (03/15/14) CATARAC PHACOEMULS/ASPIR (03/08/15) DIALYSIS ARTERIOVENOSTOM (06/21/14) EXCIS DEBRIDE OF WOUND, INFECT, OR BURN (06/21/14) HEMODIALYSIS (06/21/14) HOME MANAGEMENT TREATMENT USING ASSIST EQUIPMENT (08/15/16) INSERT LENS AT CATAR EXT (03/08/15) NONEXCIS DEBRID OF WOUND, INFECT, OR BURN (06/21/14) OTHER SKIN & SUBQ I D (06/21/14) PACKED CELL TRANSFUSION (06/21/14) PERFORMANCE OF URINARY FILTRATION, MULTIPLE (08/13/16) PERFORMANCE OF URINARY FILTRATION, SINGLE (11/23/16) THERAPEUTIC EXERCISE TREATMENT OF MUSCULOSK LOW BACK/LE (08/15/16) TRANSFUSE NONAUT RED BLOOD CELLS IN PERIPH VEIN, PERC (10/27/16) VENOUS CATHETERIZATION FOR RENAL DIALYSIS (06/21/14) Family History: States: Unknown Family Hx - Social History Hx Tobacco Use: No Hx Alcohol Use: No Hx Substance Use: No - Immunization History Hx Tetanus Toxoid Vaccination: Yes Hx Influenza Vaccination: Yes Hx Pneumococcal Vaccination: Yes Review Of Systems Except As Marked, All Systems Reviewed And Found Negative. Constitutional: Negative for: Fever, Chills Cardiovascular: Negative for: Chest Pain Respiratory: Negative for: Shortness of Breath Gastrointestinal: Negative for: Vomiting Musculoskeletal: Positive for: Arm Pain (left arm pain and weakness) Neurological: Negative for: Numbness Physical Exam - Physical Exam Appears: Non-toxic, No Acute Distress Skin: Warm, Dry, No Rash Head: Atraumatic, Normacephalic Neck: Normal, Normal ROM, Supple Chest: Symmetrical Cardiovascular: Rhythm Regular, No Murmur Respiratory: Normal Breath Sounds, No Rales, No Rhonchi, No Wheezing Gastrointestinal/Abdominal: Normal Exam, Soft, No Tenderness Extremity: Normal ROM Extremity: Bilateral: Atraumatic Neurological/Psych: Oriented x3, Normal Speech, No Normal Motor (4/5 strength to left arm and leg), Normal Sensation ED Course And Treatment - Laboratory Results Result Diagrams: 12/28/16 21:17 12/28/16 21:17 Lab Interpretation: Normal (trop neg.) ECG: Interpreted By Ca ECG Rhythm: Sinus Rhythm ECG Interpretation: Normal Rate From EC O2 Sat by Pulse Oximetry: 97 (room air) Pulse Ox Interpretation: Normal - Radiology CXR: Interpreted by Ca CXR Interpretation: Yes: No Acute Disease - Other Rad head CT X-Ray: Read By Radiologist (no acute findings.) Progress Note: Plan: CT head, EKG, labs, CXR, IV fluids, BGL Reevaluation Time: 23:56 Reassessment Condition: Unchanged (remains asymptomatic.) - Physician Consult Information Outcome Of Conversation: 2300: d/w Dr. Hernandez- pt with prior evals for same symptoms with AMA d/c. OK to tele obs. Medical Decision Making Medical Decision Making: ? if L hand/arm pain from HD AV fistula access or referred cardiac pain vs musculoskeletal Mild neurological deficits of L arm/leg are baseline. HD usually 6-10 AM so pt prob not hypotensive immediatly after HD- a typical complaint. Disposition Doctor Will See Patient In The: Hospital Counseled Patient/Family Regarding: Studies Performed, Diagnosis - Disposition Disposition: HOSPITALIZED Disposition Time: 23:59 Condition: GOOD - Clinical Impression Clinical Impression: Near syncope - Scribe Statement The provider has reviewed the documentation as recorded by the Brenda Walker Provider Attestation: All medical record entries made by the Brenda were at my direction and personally dictated by me. I have reviewed the chart and agree that the record accurately reflects my personal performance of the history, physical exam, medical decision making, and the department course for this patient. I have also personally directed, reviewed, and agree with the discharge instructions and disposition.
[2016-12-28 21:20] LABS: BASO % 1.5 % (0.0-2.0); EOS # 0.2 K/uL (0.0-0.7); EOS % 6.9 % (0.0-4.0); HEMATOCRIT 35.9 % (35.0-51.0); LYMPH # 0.8 K/uL (1.0-4.3); LYMPH % 24.3 % (20.0-40.0); MEAN CELL VOLUME 85.8 fL (80.0-94.0); MEAN CORPUSCULAR HEMOGLOBIN 28.6 pg (27.0-31.0); MEAN CORPUSCULAR HGB CONC 33.3 g/dL (33.0-37.0); MEAN PLATELET VOLUME 7.9 fL (7.2-11.7); MONO # 0.3 K/uL (0.0-0.8); MONO % 10.6 % (0.0-10.0); NRBC % 0.1 % (0.0-2.0); RED CELL DISTRIBUTION WIDTH 14.6 % (11.5-14.5); WHITE BLOOD COUNT 3.2 K/uL (4.8-10.8)
[2016-12-28 21:28] LABS: INR 1.2
[2016-12-28 21:34] LABS: POTASSIUM 5.2 mmol/L (3.6-5.2)
[2016-12-28 21:35] LABS: ALB/GLOB RATIO 1.3 (1.0-2.1); BILIRUBIN,TOTAL 0.7 mg/dL (0.2-1.3); CALCIUM 8.5 mg/dl (8.6-10.4); TOTAL PROTEIN 7.6 g/dL (6.3-8.3)
[2016-12-28 21:45] LABS: TROPONIN I 0.02 ng/mL (0.00-0.120)
--- NOTE | 2016-12-28 22:05 | CT ---
EXAM: CT Head Without Intravenous Contrast CLINICAL HISTORY: 61 years old, male; Pain; Other: Left arm tingling; Patient HX: CVA; Additional info: L arm pain, h/o CVA with l arm/leg weak (mild) TECHNIQUE: Axial computed tomography images of the head/brain without intravenous contrast. This CT exam was performed using one or more of the following dose reduction techniques: automated exposure control, adjustment of the mA and/or kV according to patient size, and/or use of iterative reconstruction technique. COMPARISON: CT - HEAD W/O CONTRAST 10/25/2016 7:25:57 PM FINDINGS: Brain: No hemorrhage. No edema. Bilateral white matter changes. This is nonspecific and may include microangiopathic disease, small lacunae of indeterminate chronicity, chronic infarcts and/or encephalomalacia. Old right lacunae. Atrophy. Vascular calcification. Ventricles: No hydrocephalus. Bones: Skull is intact. Sinuses: Trace paranasal sinus mucosal thickening. No acute sinusitis. Mastoid air cells: No mastoid effusion. IMPRESSION: No CT evidence of acute intracranial abnormality. Chronic changes as above. Acute infarcts/early ischemic changes may not be detectable by this modality; MRI is more sensitive in detecting acute ischemia.
[2016-12-28] MEDS ORDERED: Aspirin 325 mg EC Tablets PO STA (22:57)
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
[2016-12-29 07:31] LABS: BASO # 0.1 K/uL (0.0-0.2); BASO % 2.2 % (0.0-2.0); EOS # 0.3 K/uL (0.0-0.7); EOS % 7.1 % (0.0-4.0); HEMATOCRIT 33.8 % (35.0-51.0); LYMPH # 1.4 K/uL (1.0-4.3); LYMPH % 38.8 % (20.0-40.0); MEAN CELL VOLUME 84.6 fL (80.0-94.0); MEAN CORPUSCULAR HEMOGLOBIN 28.4 pg (27.0-31.0); MEAN CORPUSCULAR HGB CONC 33.6 g/dL (33.0-37.0); MEAN PLATELET VOLUME 7.7 fL (7.2-11.7); MONO # 0.3 K/uL (0.0-0.8); MONO % 9.8 % (0.0-10.0); NRBC % 0.1 % (0.0-2.0); WHITE BLOOD COUNT 3.5 K/uL (4.8-10.8)
[2016-12-29] MEDS: (Novolin R) Insulin Human Regular 100 units/ml vial SC SCH ×2 (07:39→12:00)
[2016-12-29 08:10] LABS: POTASSIUM 5.2 mmol/L (3.6-5.2)
[2016-12-29 08:12] LABS: ALB/GLOB RATIO 1.2 (1.0-2.1); BILIRUBIN,TOTAL 0.6 mg/dL (0.2-1.3); CALCIUM 8.2 mg/dl (8.6-10.4); TOTAL PROTEIN 6.9 g/dL (6.3-8.3)
[2016-12-29 08:13] LABS: MAGNESIUM 2.3 mg/dL (1.6-2.3)
--- NOTE | 2016-12-29 15:01 | CP.PCM.DIS ---
Provider - Provider Date of Admission: 12/29/16 00:04 Attending physician: Dr. Trenton Hernandez Consults: Cardio- Dr. Bedoya Time Spent in preparation of Discharge (in minutes): 45 Hospital Course - Lab Results Lab Results: Most Recent Lab Values WBC 3.5 K/uL (4.8-10.8) L 12/29/16 07:11 RBC 4.00 Mil/uL (4.40-5.90) L 12/29/16 07:11 Hgb 11.3 g/dL (12.0-18.0) L 12/29/16 07:11 Hct 33.8 % (35.0-51.0) L 12/29/16 07:11 MCV 84.6 fL (80.0-94.0) 12/29/16 07:11 MCH 28.4 pg (27.0-31.0) 12/29/16 07:11 MCHC 33.6 g/dL (33.0-37.0) 12/29/16 07:11 RDW 15.0 % (11.5-14.5) H 12/29/16 07:11 Plt Count 195 K/uL (130-400) 12/29/16 07:11 MPV 7.7 fL (7.2-11.7) 12/29/16 07:11 Neut % (Auto) 42.1 % (50.0-75.0) L 12/29/16 07:11 Lymph % (Auto) 38.8 % (20.0-40.0) 12/29/16 07:11 [place] % (Auto) 9.8 % (0.0-10.0) 12/29/16 07:11 Eos % (Auto) 7.1 % (0.0-4.0) H 12/29/16 07:11 Baso % (Auto) 2.2 % (0.0-2.0) H 12/29/16 07:11 Neut # 1.5 K/uL (1.8-7.0) L 12/29/16 07:11 Lymph # 1.4 K/uL (1.0-4.3) 12/29/16 07:11 [place] # 0.3 K/uL (0.0-0.8) 12/29/16 07:11 Eos # 0.3 K/uL (0.0-0.7) 12/29/16 07:11 Baso # 0.1 K/uL (0.0-0.2) 12/29/16 07:11 PT 13.2 SECONDS (9.7-12.2) H 12/28/16 21:17 INR 1.2 12/28/16 21:17 APTT 35 SECONDS (21-34) H 12/28/16 21:17 Sodium 136 mmol/L (132-148) 12/29/16 07:11 Potassium 5.2 mmol/L (3.6-5.2) 12/29/16 07:11 Chloride 95 mmol/L (98-107) L 12/29/16 07:11 Carbon Dioxide 28 mmol/L (22-30) 12/29/16 07:11 Anion Gap 18 (10-20) 12/29/16 07:11 BUN 42 mg/dL (9-20) H 12/29/16 07:11 Creatinine 6.7 MG/DL (0.8-1.5) H 12/29/16 07:11 Est GFR ( Amer) 10 12/29/16 07:11 Est GFR (Non-Af Amer) 8 12/29/16 07:11 POC Glucose (mg/dL) 101 mg/dL (65-110) 12/29/16 11:29 Random Glucose 87 mg/dL (75-110) 12/29/16 07:11 Hemoglobin A1c 5.5 % (4.2-6.5) 12/28/16 21:17 Calcium 8.2 mg/dl (8.6-10.4) L 12/29/16 07:11 Phosphorus 4.0 mg/dL (2.5-4.5) 12/29/16 07:11 Magnesium 2.3 mg/dL (1.6-2.3) 12/29/16 07:11 Total Bilirubin 0.6 mg/dL (0.2-1.3) 12/29/16 07:11 AST 20 U/L (17-59) 12/29/16 07:11 ALT 17 U/L (21-72) L 12/29/16 07:11 Alkaline Phosphatase 64 U/L (38-126) 12/29/16 07:11 Total Creatine Kinase 56 U/L (55-170) 12/29/16 14:05 CK-MB (Mass) 1.45 ng/mL (0.0-3.38) 12/29/16 14:05 Troponin I 0.0200 ng/mL (0.00-0.120) 12/28/16 21:17 Troponin I, Quant 0.0190 ng/mL (0.00-0.120) 12/29/16 14:05 NT-Pro-B Natriuret Pep 43696 pg/mL (0-900) H 12/28/16 21:17 Total Protein 6.9 g/dL (6.3-8.3) 12/29/16 07:11 Albumin 3.8 g/dL (3.5-5.0) 12/29/16 07:11 Globulin 3.1 gm/dL (2.2-3.9) 12/29/16 07:11 Albumin/Globulin Ratio 1.2 (1.0-2.1) 12/29/16 07:11 Triglycerides 65 mg/dL (0-149) 12/28/16 21:17 Cholesterol 123 mg/dL (0-199) 12/28/16 21:17 LDL Cholesterol Direct 66 mg/dL (0-129) 12/28/16 21:17 HDL Cholesterol 36 mg/dL (30-70) 12/28/16 21:17 - Hospital Course Hospital Course: As per admission documentation: HPI - 61M who is known to this hospital with pmh of CVA, Seizures, DM, HTN, ESRD brought in by ambulance for left hand pain which he stated started after dialysis today. HE says he always gets this pain in his pain after dialysis but he came in because he stated "I thought I was having a stroke". On his last admission EKG ordered in the ED demonstrated a new RBBB and chest xray showed cardiomegaly with prominent bibasilar airspace consolidation changes small BL pleural effusions. Due to the pt's significant past medical history he was admitted for further workup. He had a stress test done which was abnormal and a cardiac cath was recommended. Patient left AMA before receiving these results. Today he said he did not know these results but stated "I do not need a cardiac cath". Pt. only complained of his left hand pain which had resolved when we examined him and denied headache, fever, chills, chest pain, or difficulty breathing. He denies numbness or tingling,. He has residual left sided weakness from a previous stroke. Patient was admitted to rule out ACS. ROMIs are negative x 3. Patient was seen by cardiology, jeffery Galaviz to be discharged for followup. Patient is refusing cardiac cath at this time but has agreed to followup. Similarly, patient has agreed to followup with his vascular surgeon to evaluate the AV fistula for possible steal syndrome. Patient reported resolution of all symptoms. Patient is to followup with his PMD . Discharge Exam - Head Exam Head Exam: ATRAUMATIC, NORMAL INSPECTION - Eye Exam Pupil Exam: NORMAL ACCOMODATION, PERRL - ENT Exam ENT Exam: Mucous Membranes Moist - Respiratory Exam Respiratory Exam: Clear to PA & Lateral, NORMAL BREATHING PATTERN, UNREMARKABLE. absent: Rales, Rhonchi, Wheezes - Cardiovascular Exam Cardiovascular Exam: REGULAR RHYTHM, +S1, +S2 - GI/Abdominal Exam GI & Abdominal Exam: Normal Bowel Sounds, Soft. absent: Distended, Firm, Tenderness - Extremities Exam Extremities exam: normal capillary refill, pedal pulses present - Neurological Exam Neurological exam: Alert, CN II-XII Intact, Oriented x3 - Psychiatric Exam Psychiatric exam: Normal Affect, Normal Mood - Skin Skin Exam: Dry, Intact, Normal Color, Warm Discharge Plan - Follow Up Plan Condition: GOOD Disposition: HOME/ ROUTINE Instructions: Near Syncope (ED) Additional Instructions: Please discharge patient home, as per Dr. Hernandez. Patient is to continue home medications as instructed. Patient is to followup with his PMD in 1 week. Patient has agreed to followup with his buttonhole marker for discussions for a cardiac cath and his vascular surgeon for evaluation of his AV fistula for steal syndrome. If symptoms worsen, patient is to return to the hospital for further evaluation and treatment. Referrals: Brian Bedoya MD [Staff Provider] - Anatoly Lopez Jr., MD [Staff Provider] -
[2016-12-29 16:42] VITALS: BP 149/74; PULSE 60; RESP 20; TEMP 98.2; O2SAT 99
--- NOTE | 2016-12-29 19:49 | RAD ---
HISTORY: adm COMPARISON: Comparison chest dated 11/23/2016 FINDINGS: LUNGS: Right lower lobe infiltrate again noted. Small right-sided effusion. Poor inspiration with low lung volumes and crowded bronchovascular markings. Questionable left basilar atelectasis PLEURA: No apparent pneumothorax. CARDIOVASCULAR: Cardiomegaly. OSSEOUS STRUCTURES: No significant abnormalities. VISUALIZED UPPER ABDOMEN: Normal. OTHER FINDINGS: None. IMPRESSION: Right lower lobe infiltrate again noted. Small right-sided effusion. Poor inspiration with low lung volumes and crowded bronchovascular markings. Questionable left basilar atelectasis
== END 2016-12-29 16:30 | disposition home or self-care (01) | DRG 555 ==
LOC: C.ER 18:37 → C.6T 23:45 → OBSVTOIN 12-29 00:04
PROVIDERS: ADMIT Internal Medicine; ATTEND Internal Medicine
DX: M79.642 Pain in left hand (principal); N18.6 End stage renal disease; R53.1 Weakness; I13.2 Hypertensive heart and chronic kidney disease with heart failure and with stage 5 chronic kidney disease, or end stage renal disease; E11.22 Type 2 diabetes mellitus with diabetic chronic kidney disease; I69.354 Hemiplegia and hemiparesis following cerebral infarction affecting left non-dominant side; E78.00 Pure hypercholesterolemia, unspecified; E78.5 Hyperlipidemia, unspecified; I50.9 Heart failure, unspecified; Z79.899 Other long term (current) drug therapy; Z82.49 Family history of ischemic heart disease and other diseases of the circulatory system; Z83.3 Family history of diabetes mellitus; Z87.891 Personal history of nicotine dependence; Z99.2 Dependence on renal dialysis

== ENCOUNTER 2017-01-04 22:01 | Observation (INO) | payer MEDICARE, OTHER ==
[2017-01-04 22:02] VITALS: BMI 28.6
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
[2017-01-05 05:16] VITALS: O2SAT 98
[2017-01-05 05:55] VITALS: BP 137/69; PULSE 80; RESP 20; TEMP 98
== END 2017-01-05 05:15 | disposition home or self-care (01) ==
LOC: C.ER 22:01 → C.9OBSV 01-05 00:57
PROVIDERS: ADMIT Emergency Medicine; ATTEND Emergency Medicine
DX: M79.602 Pain in left arm (principal); E11.22 Type 2 diabetes mellitus with diabetic chronic kidney disease; I12.0 Hypertensive chronic kidney disease with stage 5 chronic kidney disease or end stage renal disease; N18.6 End stage renal disease; Z99.2 Dependence on renal dialysis; E78.00 Pure hypercholesterolemia, unspecified
CPT/HCPCS: 99284; G0378

== ENCOUNTER 2017-01-08 00:26 | Inpatient (IN) | payer MEDICARE, OTHER ==
[2017-01-08 00:27] VITALS: BMI 28.6
--- NOTE | 2017-01-08 01:18 | C.PDOC ---
History Of Present Illness Patient presents to the ER with a complaint of dizziness. Patient had dialysis today as scheduled every Saturday, Saturday and Saturday; after he went to the candy store, had some candy and felt dizzy afterwards. Patient reports he slipped and fell to the floor, states people helped him up. Patient remembers the incident and is currently speaking in complete sentences. Denies chest pain , palpitations, SOB or LOC. Time Seen by Provider: 01/08/17 01:17 Chief Complaint (Nursing): Dizziness/Lightheaded History Per: Patient History/Exam Limitations: no limitations Onset/Duration Of Symptoms: Hrs Current Symptoms Are (Timing): Still Present Activity At Onset Of Symptoms: Standing Associated Symptoms Preceding Syncopal Episode: Lightheadedness, Vertigo Seizure Or Post-ictal Symptoms: None Fall Associated With With Symptoms: Yes, No Injury As Result Of Fall Recent travel outside of the [place]: No - Symptoms Of CVA Associated Symptoms: denies: Impaired Speech, Seizure Activity, New Vision Deficit(Left), New Vision Deficit(Right), Decreased Ability To Walk, New Confusion, Other Recent Aspirin Use: Unknown Current Coumadin Use?: Unknown Recent Head Trauma: No Past Medical History Reviewed: Historical Data, Nursing Documentation, Vital Signs Vital Signs: Last Vital Signs Temp 98.8 F 01/08/17 05:00 Pulse 65 01/08/17 05:00 Resp 14 01/08/17 05:00 BP 139/67 01/08/17 05:00 Pulse Ox 97 01/08/17 05:00 - Medical History PMH: Anemia, CHF, Diabetes, Fractures, Gastritis, HTN, Hypercholesterolemia, End Stage Renal Disease (MWF), Chronic Kidney Disease, TIA - [facility] Procedures APPLICATION OF SPLINT (03/15/14) CATARAC PHACOEMULS/ASPIR (03/08/15) DIALYSIS ARTERIOVENOSTOM (06/21/14) EXCIS DEBRIDE OF WOUND, INFECT, OR BURN (06/21/14) HEMODIALYSIS (06/21/14) HOME MANAGEMENT TREATMENT USING ASSIST EQUIPMENT (08/15/16) INSERT LENS AT CATAR EXT (03/08/15) NONEXCIS DEBRID OF WOUND, INFECT, OR BURN (06/21/14) OTHER SKIN & SUBQ I D (06/21/14) PACKED CELL TRANSFUSION (06/21/14) PERFORMANCE OF URINARY FILTRATION, MULTIPLE (08/13/16) PERFORMANCE OF URINARY FILTRATION, SINGLE (11/23/16) THERAPEUTIC EXERCISE TREATMENT OF MUSCULOSK LOW BACK/LE (08/15/16) TRANSFUSE NONAUT RED BLOOD CELLS IN PERIPH VEIN, PERC (10/27/16) VENOUS CATHETERIZATION FOR RENAL DIALYSIS (06/21/14) Family History: States: No Known Family Hx - Social History Hx Tobacco Use: No Hx Alcohol Use: Yes (12 yrs ago) Hx Substance Use: No - Immunization History Hx Tetanus Toxoid Vaccination: Yes Hx Influenza Vaccination: Yes Hx Pneumococcal Vaccination: Yes Review Of Systems Constitutional: Negative for: Fever, Chills Eyes: Negative for: Redness ENT: Negative for: Throat Pain Cardiovascular: Negative for: Chest Pain, Palpitations Respiratory: Negative for: Shortness of Breath Gastrointestinal: Negative for: Nausea, Vomiting, Abdominal Pain Genitourinary: Negative for: Dysuria Musculoskeletal: Negative for: Back Pain Skin: Negative for: Rash, Lesions, Jaundice Neurological: Positive for: Dizziness. Negative for: Weakness Psych: Negative for: Anxiety Physical Exam - Physical Exam Appears: Non-toxic Skin: Warm, Dry Head: Normacephalic Oral Mucosa: Moist Neck: Trachea Midline, Supple Chest: Symmetrical, No Tenderness Cardiovascular: Rhythm Regular, No Murmur Respiratory: No Rales, No Rhonchi, No Wheezing Gastrointestinal/Abdominal: Soft, No Tenderness Back: No CVA Tenderness Extremity: No Pedal Edema, Other (Dialysis graft to left arm with good thrill and bruit) Extremity: Bilateral: Atraumatic Neurological/Psych: Oriented x3, Normal Speech, Normal Cognition Gait: With Assistance (Walk with cane) ED Course And Treatment - Laboratory Results Result Diagrams: 01/08/17 01:36 01/08/17 01:36 ECG: Interpreted By Me, Viewed By Me ECG Rhythm: Sinus Rhythm (66), R BBB, ST/T Changes (inf lat slioghly changed fom 12/29/16), Nonspecific Changes O2 Sat by Pulse Oximetry: 95 (Room air) Pulse Ox Interpretation: Normal - Radiology CXR: Interpreted by Me, Viewed By Me CXR Interpretation: Yes: Cardiomegaly, Other (mild increased vasc changes, poor inspiratio, ?rll infiltrate all unchanged form 12/28/16) Progress Note: Head CT w/o contrast, EKG, blood work and CXR ordered. Disposition Discussed With Dr.: Gloria Giron Comment: accepted the pt on his service and took over the care at 5:41 AM Doctor Will See Patient In The: Hospital Counseled Patient/Family Regarding: Studies Performed, Diagnosis - Disposition Disposition: HOSPITALIZED Disposition Time: 01:17 Condition: FAIR - POA Present On Arrival: None - Clinical Impression Clinical Impression: Near syncope, ST segment changes on electrocardiogram - Scribe Statement The provider has reviewed the documentation as recorded by the Scribe Rayray Del Valle All medical record entries made by the Scribe were at my direction and personally dictated by me. I have reviewed the chart and agree that the record accurately reflects my personal performance of the history, physical exam, medical decision making, and the department course for this patient. I have also personally directed, reviewed, and agree with the discharge instructions and disposition. Decision To Admit - Pt Status Changed To: Hospital Disposition Of: Observation - . Bed Request Type: Telemetry Admitting Physician: Gloria Giron Patient Diagnosis: Near syncope, ST segment changes on electrocardiogram
[2017-01-08 01:39] LABS: BASO # 0.1 K/uL (0.0-0.2); EOS # 0.2 K/uL (0.0-0.7); MEAN CORPUSCULAR HGB CONC 33.4 g/dL (33.0-37.0); NRBC % 0.1 % (0.0-2.0); RED CELL DISTRIBUTION WIDTH 15.3 % (11.5-14.5)
[2017-01-08 01:53] LABS: BASO % 1.4 % (0.0-2.0); EOS % 4.8 % (0.0-4.0); HEMATOCRIT 31.9 % (35.0-51.0); LYMPH # 1.4 K/uL (1.0-4.3); LYMPH % 29.4 % (20.0-40.0); MEAN CELL VOLUME 84.1 fL (80.0-94.0); MEAN CORPUSCULAR HEMOGLOBIN 28.1 pg (27.0-31.0); MEAN PLATELET VOLUME 7.4 fL (7.2-11.7); MONO # 0.5 K/uL (0.0-0.8); MONO % 11.1 % (0.0-10.0); WHITE BLOOD COUNT 4.9 K/uL (4.8-10.8)
[2017-01-08 01:56] LABS: CHLORIDE 95 mmol/L (98-107); POTASSIUM 4.5 mmol/L (3.6-5.2); SODIUM 139 mmol/L (132-148)
[2017-01-08 01:58] LABS: ALB/GLOB RATIO 1.3 (1.0-2.1); ALKALINE PHOSPHATASE 59 U/L (38-126); AST/SGOT 24 U/L (17-59); BILIRUBIN,TOTAL 0.9 mg/dL (0.2-1.3); BLOOD UREA NITROGEN 41 mg/dL (9-20); CARBON DIOXIDE 27 mmol/L (22-30); GFR AFRICAN-AMERICAN 10; TOTAL PROTEIN 7.4 g/dL (6.3-8.3)
[2017-01-08 01:59] LABS: ALT/SGPT 17 U/L (21-72); CALCIUM 8.3 mg/dl (8.6-10.4); GLUCOSE,RANDOM 155 mg/dL (75-110)
[2017-01-08 02:03] LABS: INR 1.3
--- NOTE | 2017-01-08 07:28 | CT ---
PROCEDURE: CT HEAD WITHOUT CONTRAST. HISTORY: R/O Bleed/dizziness. Headache. COMPARISON: None available. TECHNIQUE: Axial computed tomography images were obtained through the head/brain without intravenous contrast. Radiation dose: Total exam DLP = 968 mGy-cm. This CT exam was performed using one or more of the following dose reduction techniques: Automated exposure control, adjustment of the mA and/or kV according to patient size, and/or use of iterative reconstruction technique. FINDINGS: HEMORRHAGE: No intracranial hemorrhage. BRAIN: No mass effect or edema. Scattered focal lucencies in the subcortical and periventricular white matter suggestive for chronic microvascular ischemic change. Focal area of low attenuation in the right periventricular white matter at the junction of the gutierrez radiata and basal ganglia measuring approximately 1 centimeter which may be the sequelae of a prior infarct versus lacunar infarct versus the sequelae of demyelination versus additional etiology. This is unchanged since the prior study. VENTRICLES: Unremarkable. No hydrocephalus. CALVARIUM: Unremarkable. PARANASAL SINUSES: Unremarkable as visualized. No significant inflammatory changes. MASTOID AIR CELLS: Unremarkable as visualized. No inflammatory changes. OTHER FINDINGS: None. IMPRESSION: No acute intracranial abnormality. Chronic microvascular ischemic change. Focal area of low attenuation in the right periventricular white matter at the junction of the gutierrez radiata and basal ganglia measuring approximately 1 centimeter which may be the sequelae of a prior infarct versus lacunar infarct versus sequela of demyelination versus additional etiology. This is unchanged since prior study. If focal neurologic deficit persists, consider MRI. These findings were preliminarily reported at 2:12 a.m. on 01/08/[address] Shalom Rosas of [facility].
[2017-01-08] MEDS: (Novolin R) Insulin Human Regular 100 units/ml vial SC SCH ×4 (08:47→23:47)
[2017-01-08] MEDS ORDERED: Sevelamer Carb 0.8 gm/Packet PO SCH (10:00)
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
[2017-01-08] MEDS: Sevelamer Carb 0.8 gm/Packet PO SCH ×2 (14:43→17:19)
--- NOTE | 2017-01-08 15:07 | RAD ---
HISTORY: SOB COMPARISON: Chest x-ray performed 12/28/16 TECHNIQUE: Chest, one view. FINDINGS: Examination limited by habitus. LUNGS: Small bilateral pleural effusions and associated lower lobe atelectasis/ infiltrates. Biapical pleural thickening. No definite pneumothorax. Please note that chest x-ray has limited sensitivity for the detection of pulmonary masses. CARDIOVASCULAR: Cardiomegaly. OSSEOUS STRUCTURES: Degenerative changes of the spine. VISUALIZED UPPER ABDOMEN: Unremarkable. OTHER FINDINGS: None. IMPRESSION: Small bilateral pleural effusions and associated lower lobe atelectasis/ infiltrates. Biapical pleural thickening. Cardiomegaly.
[2017-01-08] MEDS ORDERED: LACOSAMIDE 50 MG PO SCH ×2 (22:00)
[2017-01-09] MEDS: (Novolin R) Insulin Human Regular 100 units/ml vial SC SCH ×4 (07:41→21:40)
[2017-01-09] MEDS: Sevelamer Carb 0.8 gm/Packet PO SCH ×3 (08:13→17:05)
--- NOTE | 2017-01-09 11:32 | CP.PCM.PN ---
Subjective - Date & Time of Evaluation Date of Evaluation: 01/09/17 Time of Evaluation: 11:30 - Subjective Subjective: D/W PT THE DIFFERENT OPTIONS OF TREATMENT OF CAD. PT HAS AGREED FOR CARDIAC CATH D/W PT IN DETAIL ALL THE COMPLICATION PT SIGHNED INFORMED CONSENT Objective - Vital Signs/Intake and Output Vital Signs (last 24 hours): Temp Pulse Resp BP Pulse Ox 98.1 F 63 18 127/71 96 01/08/17 23:23 01/09/17 06:40 01/08/17 23:23 01/09/17 06:40 01/08/17 23:23 Intake and Output: 01/08/17 01/09/17 23:59 11:59 Intake Total 200 Balance 200 - Medications Medications: Current Medications Acetaminophen (Tylenol 325mg Tab) 650 mg PO Q6 PRN PRN Reason: Pain, moderate (4-7) Last Admin: 01/08/17 17:18 Dose: 650 mg Amlodipine Besylate (Norvasc) 10 mg PO DAILY [facility] Last Admin: 01/09/17 09:32 Dose: 10 mg Aspirin (Aspirin Chewable) 81 mg PO DAILY [facility] Last Admin: 01/09/17 09:35 Dose: Not Given Heparin Sodium (Porcine) (Heparin) 5,000 units SC Q12 [facility] Last Admin: 01/08/17 21:41 Dose: 5,000 units Home Med (Lacosamide [Vimpat]) 50 mg PO HS [facility] Hydralazine HCl (Apresoline) 50 mg PO Q8 [facility] Last Admin: 01/09/17 05:58 Dose: 50 mg Insulin Human Regular (Novolin R) 0 unit SC ACHS [facility] PRN Reason: Protocol Last Admin: 01/09/17 07:41 Dose: Not Given Isosorbide Mononitrate (Imdur) 60 mg PO DAILY [facility] Last Admin: 01/09/17 09:32 Dose: 60 mg Labetalol HCl (Trandate) 100 mg PO Q8H [facility] Last Admin: 01/09/17 06:51 Dose: 100 mg Levetiracetam (Keppra) 500 mg PO BID [facility] Last Admin: 01/09/17 09:32 Dose: 500 mg Losartan Potassium (Cozaar) 25 mg PO DAILY [facility] Last Admin: 01/09/17 09:32 Dose: 25 mg Rosuvastatin Calcium (Crestor) 20 mg PO HS [facility] Last Admin: 01/08/17 21:40 Dose: 20 mg Sevelamer Carbonate (Renvela) 0.8 gm PO TIDCC [facility] Last Admin: 01/09/17 08:13 Dose: 0.8 gm Sitagliptin Phosphate (Januvia) 25 mg PO DAILY [facility] Last Admin: 01/09/17 09:32 Dose: 25 mg - Labs Labs: PT 14.4 SECONDS (9.7-12.2) H 01/08/17 01:36 INR 1.3 01/08/17 01:36 APTT 33 SECONDS (21-34) 01/08/17 01:36
[2017-01-09] MEDS ORDERED: (Novolin R) Insulin Human Regular 100 units/ml vial SC ONE (13:00)
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
[2017-01-09] MEDS ORDERED: Dextrose 50% SYRINGE Inj (50 ml) ONE (15:08)
[2017-01-09] MEDS ORDERED: Iodixanol 320 MG/ML 100 ML BOTTLE IV ONE (16:04)
[2017-01-09] MEDS ORDERED: Nitroglycerin 50mg in D5W 50 MG/250 ML BOTTLE IV ONE (16:06)
--- NOTE | 2017-01-09 18:47 | CARDCATH ---
PROCEDURE DATE: 01/09/2017 The patient was admitted for atypical chest pain. The patient has renal failure on hemodialysis. Pr eviously, patient was admitted a month ago and had a positive IV Lexiscan Myoview in the apical regio n, anterolateral. The patient underwent a left heart catheterization, left heart catheterization was done through the right femoral artery and Angio-Seal was used post cath. A Benny was used for rig ht and left and pigtail for LV angiogram. Left main is a short vessel gives a large LAD. In the mid LAD, there is a long segment of sign ificant blockage of about 85%. The first diagonal, at the takeoff, there is a lesion and also in the mid there is a lesion about 80-85%. The circumflex has about 30-40% in the main trunk lesion. The OM appears normal. Right coronary is slightly atherosclerotic, but no definite lesions, and which is dominant. On LV gram, the EF appears normal, but the apex appears to be hypokinetic. ASSESSMENT: Two-vessel disease with one significant LAD main trunk and also its branch of diagonal, with normal left ventricular ejection fraction with a mild hypokinetic apex. PLAN: We will discuss with interventional cardiology for possible angioplasty stenting of the LAD. Gloria Giron MD cc: [id number] TT: 01/09/2017 18:46:19 [email or web address]
--- NOTE | 2017-01-09 19:21 | CON ---
DATE: 01/09/2017 HISTORY OF PRESENT ILLNESS: The patient is a 61-year-old man [facility] and near syncope. He had dialysis today and is scheduled every Saturday, Saturday, . After he got out of dialysis, he felt dizzy, had a near syncopal episode, found on floor. He had no definite loss of consciousness. He denied chest pain. No dyspnea or present palpitations. Because of his symptoms and possibly EKG changes, he is scheduled for cardiac catheterization now. H e will have dialysis arranged as needed post cardiac catheterization. PAST MEDICAL HISTORY: End-stage renal disease, diabetes mellitus 2, diabetic nephropathy, secondary hyperparathyroidism, hypertension, history of calciphylaxis, status post CVA. PAST SURGICAL HISTORY: AV fistula. MEDICATIONS: Include hydralazine, aspirin, losartan, isosorbide, Keppra, he does have a history of s eizures as well, amlodipine, insulin, labetalol. FAMILY HISTORY: Noncontributory. SOCIAL HISTORY: Negative for smoking, alcohol abuse or illicit drug use. REVIEW OF SYSTEMS: The patient has also been dizzy. After his CVA, he has been unsteady. He has an unsteady gait, but no recent syncope and no recent chest pain. He has dyspnea on exertion 2-3 block s. No new rashes, no visual disturbances, hearing deficits. Other review of systems were negative. PHYSICAL EXAMINATION: GENERAL: He is a well-developed man in no acute distress when seen. VITAL SIGNS: Blood pressure 131/80, temperature 97.7, pulse 88, pulse ox is 97% on room air. HEENT: He is anicteric. Mouth was clear. NECK: No JVD. LUNGS: Lung randall were clear. HEART: Regular rhythm, no murmur. ABDOMEN: Soft, benign. No mass or organomegaly. EXTREMITIES: No peripheral edema. He had upper extremity fistula in place. LABORATORY DATA: Blood work, his last blood sugar was 118. His BUN is 41, creatinine 7.1, calcium 8 .3. Troponins available are negative. Chest x-ray did not show any congestive heart failure. IMPRESSION: Near syncope, end-stage renal disease, diabetic nephropathy, secondary hyperparathyroidi sm, history of cerebrovascular accident. PLAN: Will be for cardiac cath and will do dialysis as needed. Chino Carlos MD cc: [id number] TT: 01/09/2017 19:21:26 Confirmation # [id number] Dictation # [id number] rn
[2017-01-10] MEDS: (Novolin R) Insulin Human Regular 100 units/ml vial SC SCH ×4 (07:44→18:51)
[2017-01-10] MEDS: Sevelamer Carb 0.8 gm/Packet PO SCH ×3 (08:00→18:56)
[2017-01-10 09:07] LABS: HEMATOCRIT 31.1 % (35.0-51.0); MEAN CELL VOLUME 84.1 fL (80.0-94.0); MEAN CORPUSCULAR HEMOGLOBIN 28.6 pg (27.0-31.0); MEAN PLATELET VOLUME 7.5 fL (7.2-11.7); RED CELL DISTRIBUTION WIDTH 15.5 % (11.5-14.5); WHITE BLOOD COUNT 4.8 K/uL (4.8-10.8)
[2017-01-10 09:49] LABS: POTASSIUM 4.7 mmol/L (3.6-5.2)
[2017-01-10 09:51] LABS: BILIRUBIN,TOTAL 0.5 mg/dL (0.2-1.3); TOTAL PROTEIN 6.7 g/dL (6.3-8.3)
[2017-01-10 09:52] LABS: CALCIUM 7.9 mg/dl (8.6-10.4); PHOSPHOROUS 4.3 mg/dL (2.5-4.5)
--- NOTE | 2017-01-10 10:04 | CP.PCM.PN ---
Subjective - Date & Time of Evaluation Date of Evaluation: 01/10/17 Time of Evaluation: 10:01 - Subjective Subjective: s/p cardiac cath- await results s/p dialysis 01/09 Feels better- no CPs, SOB, n, v,d, fevers, chills Objective - Vital Signs/Intake and Output Vital Signs (last 24 hours): Temp Pulse Resp BP Pulse Ox 98.3 F 69 18 149/69 95 01/10/17 08:00 01/10/17 08:00 01/10/17 08:00 01/10/17 08:00 01/10/17 08:00 Intake and Output: 01/10/17 01/10/17 06:59 18:59 Intake Total 240 Balance 240 - Medications Medications: Current Medications Acetaminophen (Tylenol 325mg Tab) 650 mg PO Q6 PRN PRN Reason: Pain, moderate (4-7) Last Admin: 01/08/17 17:18 Dose: 650 mg Amlodipine Besylate (Norvasc) 10 mg PO DAILY [facility] Last Admin: 01/10/17 09:43 Dose: Not Given Aspirin (Aspirin Chewable) 81 mg PO DAILY [facility] Last Admin: 01/10/17 09:38 Dose: 81 mg Heparin Sodium (Porcine) (Heparin) 5,000 units SC Q12 [facility] Last Admin: 01/10/17 09:38 Dose: 5,000 units Home Med (Lacosamide [Vimpat]) 50 mg PO HS [facility] Hydralazine HCl (Apresoline) 50 mg PO Q8 [facility] Last Admin: 01/10/17 06:07 Dose: Not Given Insulin Human Regular (Novolin R) 0 unit SC ACHS [facility] PRN Reason: Protocol Last Admin: 01/10/17 07:44 Dose: Not Given Isosorbide Mononitrate (Imdur) 60 mg PO DAILY [facility] Last Admin: 01/10/17 09:43 Dose: Not Given Labetalol HCl (Trandate) 100 mg PO Q8H [facility] Last Admin: 01/10/17 06:07 Dose: Not Given Levetiracetam (Keppra) 500 mg PO BID [facility] Last Admin: 01/10/17 09:38 Dose: 500 mg Losartan Potassium (Cozaar) 25 mg PO DAILY [facility] Last Admin: 01/10/17 09:43 Dose: Not Given Rosuvastatin Calcium (Crestor) 10 mg PO HS [facility] Last Admin: 01/09/17 21:16 Dose: 10 mg Sevelamer Carbonate (Renvela) 0.8 gm PO TIDCC [facility] Last Admin: 01/10/17 08:00 Dose: 0.8 gm Sitagliptin Phosphate (Januvia) 25 mg PO DAILY [facility] Last Admin: 01/10/17 09:38 Dose: 25 mg - Labs Labs: 01/10/17 08:54 PT 14.4 SECONDS (9.7-12.2) H 01/08/17 01:36 INR 1.3 01/08/17 01:36 APTT 33 SECONDS (21-34) 01/08/17 01:36 - Constitutional Appears: No Acute Distress, Chronically Ill - Head Exam Head Exam: ATRAUMATIC, NORMAL INSPECTION - Eye Exam Eye Exam: EOMI, Normal appearance - Neck Exam Neck Exam: Normal Inspection. absent: Tenderness - Respiratory Exam Respiratory Exam: Clear to Ausculation Bilateral, NORMAL BREATHING PATTERN - Cardiovascular Exam Cardiovascular Exam: REGULAR RHYTHM, +S1 - GI/Abdominal Exam GI & Abdominal Exam: Soft. absent: Tenderness - Extremities Exam Extremities Exam: Pedal Edema. absent: Tenderness - Neurological Exam Neurological Exam: Alert, CN II-XII Intact - Skin Skin Exam: Dry, Warm Assessment and Plan (1) Near syncope Status: Acute (2) ST segment changes on electrocardiogram Status: Acute (3) CVA (cerebrovascular accident) Status: Acute (4) Calciphylaxis Status: Acute (5) ESRD needing dialysis Status: Acute (6) Type 2 diabetes mellitus with diabetic nephropathy Status: Chronic - Assessment and Plan (Free Text) Plan: Dialysis MWF Same dialysis, meds otherwise Await cardio recs
[2017-01-10 11:00] LABS: ALB/GLOB RATIO 1.1 (1.0-2.1)
--- NOTE | 2017-01-10 13:27 | CP.PCM.PN ---
Subjective - Date & Time of Evaluation Date of Evaluation: 01/10/17 Time of Evaluation: 13:26 - Subjective Subjective: left arm pain CATH : SIGNIFICANT LAD/DIAG DISEASE . WILL NEED STENT DR. SANTA ON BOARD RENAL STATUS STABLE GROIN STABLE Objective - Vital Signs/Intake and Output Vital Signs (last 24 hours): Temp Pulse Resp BP Pulse Ox 98.3 F 69 18 149/69 95 01/10/17 08:00 01/10/17 08:00 01/10/17 08:00 01/10/17 08:00 01/10/17 08:00 Intake and Output: 01/10/17 01/10/17 11:59 23:59 Intake Total 240 Balance 240 - Medications Medications: Current Medications Acetaminophen (Tylenol 325mg Tab) 650 mg PO Q6 PRN PRN Reason: Pain, moderate (4-7) Last Admin: 01/08/17 17:18 Dose: 650 mg Amlodipine Besylate (Norvasc) 10 mg PO DAILY [facility] Last Admin: 01/10/17 09:43 Dose: Not Given Aspirin (Aspirin Chewable) 81 mg PO DAILY [facility] Last Admin: 01/10/17 09:38 Dose: 81 mg Heparin Sodium (Porcine) (Heparin) 5,000 units SC Q12 [facility] Last Admin: 01/10/17 09:38 Dose: 5,000 units Home Med (Lacosamide [Vimpat]) 50 mg PO [facility] Hydralazine HCl (Apresoline) 50 mg PO Q8 [facility] Last Admin: 01/10/17 06:07 Dose: Not Given Insulin Human Regular (Novolin R) 0 unit SC ACHS [facility] PRN Reason: Protocol Last Admin: 01/10/17 12:11 Dose: Not Given Isosorbide Mononitrate (Imdur) 60 mg PO DAILY [facility] Last Admin: 01/10/17 09:43 Dose: Not Given Labetalol HCl (Trandate) 100 mg PO Q8H [facility] Last Admin: 01/10/17 06:07 Dose: Not Given Levetiracetam (Keppra) 500 mg PO BID [facility] Last Admin: 01/10/17 09:38 Dose: 500 mg Losartan Potassium (Cozaar) 25 mg PO DAILY [facility] Last Admin: 01/10/17 09:43 Dose: Not Given Rosuvastatin Calcium (Crestor) 10 mg PO HS [facility] Last Admin: 01/09/17 21:16 Dose: 10 mg Sevelamer Carbonate (Renvela) 0.8 gm PO TIDCC [facility] Last Admin: 01/10/17 08:00 Dose: 0.8 gm Sitagliptin Phosphate (Januvia) 25 mg PO DAILY [facility] Last Admin: 01/10/17 09:38 Dose: 25 mg - Labs Labs: 01/10/17 08:54 01/10/17 08:54 PT 14.4 SECONDS (9.7-12.2) H 01/08/17 01:36 INR 1.3 01/08/17 01:36 APTT 33 SECONDS (21-34) 01/08/17 01:36
[2017-01-11 08:51] LABS: HEMATOCRIT 30.1 % (35.0-51.0); MEAN CELL VOLUME 85.1 fL (80.0-94.0); MEAN CORPUSCULAR HEMOGLOBIN 28.7 pg (27.0-31.0); MEAN CORPUSCULAR HGB CONC 33.8 g/dL (33.0-37.0); MEAN PLATELET VOLUME 7.4 fL (7.2-11.7); RED CELL DISTRIBUTION WIDTH 15.1 % (11.5-14.5); WHITE BLOOD COUNT 4.5 K/uL (4.8-10.8)
[2017-01-11 08:52] LABS: INR 1.2
[2017-01-11 09:49] LABS: CALCIUM 8.2 mg/dl (8.6-10.4)
[2017-01-11] MEDS: (Novolin R) Insulin Human Regular 100 units/ml vial SC SCH ×4 (10:07→22:50)
[2017-01-11] MEDS: Sevelamer Carb 0.8 gm/Packet PO SCH ×3 (10:07→22:50)
--- NOTE | 2017-01-11 13:35 | CP.PCM.PN ---
Subjective - Date & Time of Evaluation Date of Evaluation: 01/11/17 Time of Evaluation: 13:34 - Subjective Subjective: PT IS IN [facility] FOR [facility]GIOPLASTY AND STENT NO CP D/W WITH INT. CARD Objective - Vital Signs/Intake and Output Vital Signs (last 24 hours): Temp Pulse Resp BP Pulse Ox 98 F 64 20 150/75 97 01/11/17 08:00 01/11/17 08:09 01/11/17 08:00 01/11/17 08:00 01/11/17 08:00 Intake and Output: 01/11/17 01/11/17 11:59 23:59 Intake Total 240 Balance 240 - Medications Medications: Current Medications Acetaminophen (Tylenol 325mg Tab) 650 mg PO Q6 PRN PRN Reason: Pain, moderate (4-7) Last Admin: 01/10/17 21:50 Dose: 650 mg Amlodipine Besylate (Norvasc) 10 mg PO DAILY [facility] Last Admin: 01/11/17 10:08 Dose: 10 mg Aspirin (Aspirin Chewable) 81 mg PO DAILY [facility] Last Admin: 01/11/17 10:08 Dose: 81 mg Heparin Sodium (Porcine) (Heparin) 5,000 units SC Q12 [facility] Last Admin: 01/11/17 10:09 Dose: Not Given Home Med (Lacosamide [Vimpat]) 50 mg PO [facility] Hydralazine HCl (Apresoline) 50 mg PO Q8 [facility] Last Admin: 01/11/17 05:16 Dose: Not Given Insulin Human Regular (Novolin R) 0 unit SC ACHS [facility] PRN Reason: Protocol Last Admin: 01/11/17 10:07 Dose: Not Given Isosorbide Mononitrate (Imdur) 60 mg PO DAILY [facility] Last Admin: 01/11/17 11:20 Dose: 60 mg Labetalol HCl (Trandate) 100 mg PO Q8H [facility] Last Admin: 01/11/17 10:07 Dose: 100 mg Levetiracetam (Keppra) 500 mg PO BID [facility] Last Admin: 01/10/17 18:56 Dose: 500 mg Losartan Potassium (Cozaar) 25 mg PO DAILY [facility] Last Admin: 01/11/17 11:20 Dose: 25 mg Rosuvastatin Calcium (Crestor) 10 mg PO HS [facility] Last Admin: 01/10/17 21:52 Dose: 10 mg Sevelamer Carbonate (Renvela) 0.8 gm PO TIDCC [facility] Last Admin: 01/11/17 10:07 Dose: Not Given Sitagliptin Phosphate (Januvia) 25 mg PO DAILY [facility] Last Admin: 01/11/17 10:09 Dose: Not Given - Labs Labs: 01/11/17 08:36 01/11/17 08:36 PT 13.7 SECONDS (9.7-12.2) H 01/11/17 08:36 INR 1.2 01/11/17 08:36 APTT 33 SECONDS (21-34) 01/08/17 01:36
--- NOTE | 2017-01-11 14:40 | CP.PCM.PN ---
Subjective - Date & Time of Evaluation Date of Evaluation: 01/11/17 Time of Evaluation: 14:38 - Subjective Subjective: Patient s/p Successful LAD intervention with [facility] after 6pm tonight HD tonight DAP for 1 year ASA 81, Statins and B blockers for life OP follow up with Dr. Giron for cardiology Thank you Objective - Vital Signs/Intake and Output Vital Signs (last 24 hours): Temp Pulse Resp BP Pulse Ox 98 F 64 20 150/75 97 01/11/17 08:00 01/11/17 08:09 01/11/17 08:00 01/11/17 08:00 01/11/17 08:00 Intake and Output: 01/11/17 01/11/17 06:59 18:59 Intake Total 240 Balance 240 - Medications Medications: Current Medications Acetaminophen (Tylenol 325mg Tab) 650 mg PO Q6 PRN PRN Reason: Pain, moderate (4-7) Last Admin: 01/10/17 21:50 Dose: 650 mg Amlodipine Besylate (Norvasc) 10 mg PO DAILY [facility] Last Admin: 01/11/17 10:08 Dose: 10 mg Aspirin (Aspirin Chewable) 81 mg PO DAILY [facility] Last Admin: 01/11/17 10:08 Dose: 81 mg Heparin Sodium (Porcine) (Heparin) 5,000 units SC Q12 [facility] Last Admin: 01/11/17 10:09 Dose: Not Given Home Med (Lacosamide [Vimpat]) 50 mg PO HS [facility] Hydralazine HCl (Apresoline) 50 mg PO Q8 [facility] Last Admin: 01/11/17 14:27 Dose: Not Given Insulin Human Regular (Novolin R) 0 unit SC [facility] PRN Reason: Protocol Last Admin: 01/11/17 11:30 Dose: Not Given Isosorbide Mononitrate (Imdur) 60 mg PO DAILY [facility] Last Admin: 01/11/17 11:20 Dose: 60 mg Labetalol HCl (Trandate) 100 mg PO Q8H [facility] Last Admin: 01/11/17 14:28 Dose: Not Given Levetiracetam (Keppra) 500 mg PO BID [facility] Last Admin: 01/10/17 18:56 Dose: 500 mg Losartan Potassium (Cozaar) 25 mg PO DAILY [facility] Last Admin: 01/11/17 11:20 Dose: 25 mg Rosuvastatin Calcium (Crestor) 10 mg PO HS [facility] Last Admin: 01/10/17 21:52 Dose: 10 mg Sevelamer Carbonate (Renvela) 0.8 gm PO TIDCC [facility] Last Admin: 01/11/17 14:28 Dose: Not Given Sitagliptin Phosphate (Januvia) 25 mg PO DAILY [facility] Last Admin: 01/11/17 10:09 Dose: Not Given - Labs Labs: 01/11/17 08:36 01/11/17 08:36 PT 13.7 SECONDS (9.7-12.2) H 01/11/17 08:36 INR 1.2 01/11/17 08:36 APTT 33 SECONDS (21-34) 01/08/17 01:36
--- NOTE | 2017-01-11 15:31 | CP.PCM.PN ---
Subjective - Date & Time of Evaluation Date of Evaluation: 01/11/17 Time of Evaluation: 15:29 - Subjective Subjective: s/p cardiac cath- [facility] in [facility] For dialysis now Weak post procedure, no new complaint Objective - Vital Signs/Intake and Output Vital Signs (last 24 hours): Temp Pulse Resp BP Pulse Ox 98 F 64 20 150/75 97 01/11/17 08:00 01/11/17 08:09 01/11/17 08:00 01/11/17 08:00 01/11/17 08:00 Intake and Output: 01/11/17 01/11/17 06:59 18:59 Intake Total 240 Balance 240 - Medications Medications: Current Medications Acetaminophen (Tylenol 325mg Tab) 650 mg PO Q6 PRN PRN Reason: Pain, moderate (4-7) Last Admin: 01/10/17 21:50 Dose: 650 mg Amlodipine Besylate (Norvasc) 10 mg PO DAILY [facility] Last Admin: 01/11/17 10:08 Dose: 10 mg Aspirin (Aspirin Chewable) 81 mg PO DAILY [facility] Last Admin: 01/11/17 10:08 Dose: 81 mg Clopidogrel Bisulfate (Plavix) 75 mg PO DAILY [facility] Heparin Sodium (Porcine) (Heparin) 5,000 units SC Q12 [facility] Last Admin: 01/11/17 10:09 Dose: Not Given Home Med (Lacosamide [Vimpat]) 50 mg PO HS [facility] Hydralazine HCl (Apresoline) 50 mg PO Q8 [facility] Last Admin: 01/11/17 14:27 Dose: Not Given Insulin Human Regular (Novolin R) 0 unit SC ACHS [facility] PRN Reason: Protocol Last Admin: 01/11/17 11:30 Dose: Not Given Isosorbide Mononitrate (Imdur) 60 mg PO DAILY [facility] Last Admin: 01/11/17 11:20 Dose: 60 mg Labetalol HCl (Trandate) 100 mg PO Q8H [facility] Last Admin: 01/11/17 14:28 Dose: Not Given Levetiracetam (Keppra) 500 mg PO BID [facility] Last Admin: 01/10/17 18:56 Dose: 500 mg Losartan Potassium (Cozaar) 25 mg PO DAILY [facility] Last Admin: 01/11/17 11:20 Dose: 25 mg Rosuvastatin Calcium (Crestor) 10 mg PO HS [facility] Last Admin: 01/10/17 21:52 Dose: 10 mg Sevelamer Carbonate (Renvela) 0.8 gm PO TIDCC [facility] Last Admin: 01/11/17 14:28 Dose: Not Given Sitagliptin Phosphate (Januvia) 25 mg PO DAILY [facility] Last Admin: 01/11/17 10:09 Dose: Not Given - Labs Labs: 01/11/17 08:36 01/11/17 08:36 PT 13.7 SECONDS (9.7-12.2) H 01/11/17 08:36 INR 1.2 01/11/17 08:36 APTT 33 SECONDS (21-34) 01/08/17 01:36 - Constitutional Appears: No Acute Distress, Chronically Ill - Head Exam Head Exam: ATRAUMATIC, NORMAL INSPECTION - Eye Exam Eye Exam: EOMI, Normal appearance - Neck Exam Neck Exam: Normal Inspection. absent: Tenderness - Respiratory Exam Respiratory Exam: Clear to Ausculation Bilateral, NORMAL BREATHING PATTERN - Cardiovascular Exam Cardiovascular Exam: REGULAR RHYTHM, +S1 - GI/Abdominal Exam GI & Abdominal Exam: Soft. absent: Tenderness - Extremities Exam Extremities Exam: Normal Inspection. absent: Tenderness - Neurological Exam Neurological Exam: Awake, CN II-XII Intact - Skin Skin Exam: Dry, Warm Assessment and Plan (1) Near syncope Status: Acute (2) ST segment changes on electrocardiogram Status: Acute (3) CVA (cerebrovascular accident) Status: Acute (4) Calciphylaxis Status: Acute (5) ESRD needing dialysis Status: Acute (6) Type 2 diabetes mellitus with diabetic nephropathy Status: Chronic - Assessment and Plan (Free Text) Plan: s/p cardiac cath Dialysis to follow Same meds- adjusted by cardio post cath
[2017-01-12] MEDS: (Novolin R) Insulin Human Regular 100 units/ml vial SC SCH ×4 (07:41→23:54)
[2017-01-12] MEDS: Sevelamer Carb 0.8 gm/Packet PO SCH ×3 (08:46→17:51)
--- NOTE | 2017-01-12 09:49 | CP.PCM.PN ---
Subjective - Date & Time of Evaluation Date of Evaluation: 01/12/17 Time of Evaluation: 08:30 - Subjective Subjective: s/p stent no chest pain or sob no headache no rash no nausea no sinus tenderness no increased thirst tolerated HD last night possible d/c today Objective - Vital Signs/Intake and Output Vital Signs (last 24 hours): Temp Pulse Resp BP Pulse Ox 97.6 F 76 17 152/72 H 95 01/12/17 07:15 01/12/17 07:15 01/12/17 07:15 01/12/17 07:15 01/12/17 07:15 Intake and Output: 01/12/17 01/12/17 06:59 18:59 Intake Total 360 Balance 360 - Medications Medications: Current Medications Acetaminophen (Tylenol 325mg Tab) 650 mg PO Q6 PRN PRN Reason: Pain, moderate (4-7) Last Admin: 01/10/17 21:50 Dose: 650 mg Amlodipine Besylate (Norvasc) 10 mg PO DAILY [facility] Last Admin: 01/11/17 10:08 Dose: 10 mg Aspirin (Aspirin Chewable) 81 mg PO DAILY [facility] Last Admin: 01/11/17 10:08 Dose: 81 mg Clopidogrel Bisulfate (Plavix) 75 mg PO DAILY [facility] Heparin Sodium (Porcine) (Heparin) 5,000 units SC Q12 [facility] Last Admin: 01/11/17 22:49 Dose: Not Given Home Med (Lacosamide [Vimpat]) 50 mg PO HS [facility] Hydralazine HCl (Apresoline) 50 mg PO Q8 [facility] Last Admin: 01/12/17 05:38 Dose: 50 mg Insulin Human Regular (Novolin R) 0 unit SC [facility] PRN Reason: Protocol Last Admin: 01/12/17 07:41 Dose: Not Given Isosorbide Mononitrate (Imdur) 60 mg PO DAILY [facility] Last Admin: 01/11/17 11:20 Dose: 60 mg Labetalol HCl (Trandate) 100 mg PO Q8H [facility] Last Admin: 01/12/17 05:38 Dose: 100 mg Levetiracetam (Keppra) 500 mg PO BID [facility] Last Admin: 01/10/17 18:56 Dose: 500 mg Losartan Potassium (Cozaar) 25 mg PO DAILY [facility] Last Admin: 01/11/17 11:20 Dose: 25 mg Rosuvastatin Calcium (Crestor) 10 mg PO HS [facility] Last Admin: 01/11/17 22:49 Dose: 10 mg Sevelamer Carbonate (Renvela) 0.8 gm PO TIDCC [facility] Last Admin: 01/12/17 08:46 Dose: 0.8 gm Sitagliptin Phosphate (Januvia) 25 mg PO DAILY [facility] Last Admin: 01/11/17 10:09 Dose: Not Given - Labs Labs: 01/11/17 08:36 01/11/17 08:36 PT 13.7 SECONDS (9.7-12.2) H 01/11/17 08:36 INR 1.2 01/11/17 08:36 APTT 33 SECONDS (21-34) 01/08/17 01:36 - Constitutional Appears: Non-toxic - Head Exam Head Exam: ATRAUMATIC - Eye Exam Eye Exam: EOMI - ENT Exam ENT Exam: Mucous Membranes Moist - Neck Exam Neck Exam: Full ROM. absent: Lymphadenopathy - Respiratory Exam Respiratory Exam: absent: Accessory Muscle Use, Chest Wall Tenderness - Cardiovascular Exam Cardiovascular Exam: REGULAR RHYTHM. absent: Rubs - GI/Abdominal Exam GI & Abdominal Exam: Soft. absent: Tenderness - Extremities Exam Extremities Exam: absent: Pedal Edema Assessment and Plan - Assessment and Plan (Free Text) Assessment: esrd post cardiac stent on HD schedule stable from Renal for discharge
[2017-01-12 11:35] LABS: HEMATOCRIT 28.8 % (35.0-51.0); MEAN CELL VOLUME 84.4 fL (80.0-94.0); MEAN CORPUSCULAR HEMOGLOBIN 28.3 pg (27.0-31.0); MEAN CORPUSCULAR HGB CONC 33.5 g/dL (33.0-37.0); MEAN PLATELET VOLUME 7.6 fL (7.2-11.7); RED CELL DISTRIBUTION WIDTH 15.5 % (11.5-14.5); WHITE BLOOD COUNT 4.4 K/uL (4.8-10.8)
[2017-01-12 11:48] LABS: POTASSIUM 4.6 mmol/L (3.6-5.2)
--- NOTE | 2017-01-12 14:35 | CP.PCM.DIS ---
Provider - Provider Date of Admission: 01/08/17 05:52 Attending physician: Gloria Giron MD Time Spent in preparation of Discharge (in minutes): 30 Hospital Course - Lab Results Lab Results: Most Recent Lab Values WBC 4.4 K/uL (4.8-10.8) L 01/12/17 11:26 RBC 3.41 Mil/uL (4.40-5.90) L 01/12/17 11:26 Hgb 9.6 g/dL (12.0-18.0) L 01/12/17 11:26 Hct 28.8 % (35.0-51.0) L 01/12/17 11:26 MCV 84.4 fL (80.0-94.0) 01/12/17 11:26 MCH 28.3 pg (27.0-31.0) 01/12/17 11:26 MCHC 33.5 g/dL (33.0-37.0) 01/12/17 11:26 RDW 15.5 % (11.5-14.5) H 01/12/17 11:26 Plt Count 160 K/uL (130-400) 01/12/17 11:26 MPV 7.6 fL (7.2-11.7) 01/12/17 11:26 Neut % (Auto) 53.3 % (50.0-75.0) 01/08/17 01:36 Lymph % (Auto) 29.4 % (20.0-40.0) 01/08/17 01:36 Butler % (Auto) 11.1 % (0.0-10.0) H 01/08/17 01:36 Eos % (Auto) 4.8 % (0.0-4.0) H 01/08/17 01:36 Baso % (Auto) 1.4 % (0.0-2.0) 01/08/17 01:36 Neut # 2.6 K/uL (1.8-7.0) 01/08/17 01:36 Lymph # 1.4 K/uL (1.0-4.3) 01/08/17 01:36 Butler # 0.5 K/uL (0.0-0.8) 01/08/17 01:36 Eos # 0.2 K/uL (0.0-0.7) 01/08/17 01:36 Baso # 0.1 K/uL (0.0-0.2) 01/08/17 01:36 PT 13.7 SECONDS (9.7-12.2) H 01/11/17 08:36 INR 1.2 01/11/17 08:36 APTT 33 SECONDS (21-34) 01/08/17 01:36 Sodium 134 mmol/L (132-148) 01/12/17 11:26 Potassium 4.6 mmol/L (3.6-5.2) 01/12/17 11:26 Chloride 95 mmol/L (98-107) L 01/12/17 11:26 Carbon Dioxide 27 mmol/L (22-30) 01/12/17 11:26 Anion Gap 17 (10-20) 01/12/17 11:26 BUN 33 mg/dL (9-20) H 01/12/17 11:26 Creatinine 6.8 MG/DL (0.8-1.5) H 01/12/17 11:26 Est GFR ( Amer) 10 01/12/17 11:26 Est GFR (Non-Af Amer) 8 01/12/17 11:26 POC Glucose (mg/dL) 111 mg/dL (65-110) H 01/12/17 11:31 Random Glucose 121 mg/dL (75-110) H 01/12/17 11:26 Calcium 8.0 mg/dl (8.6-10.4) L 01/12/17 11:26 Phosphorus 4.3 mg/dL (2.5-4.5) 01/10/17 08:54 Total Bilirubin 0.5 mg/dL (0.2-1.3) 01/10/17 08:54 AST 13 U/L (17-59) L D 01/10/17 08:54 ALT 22 U/L (21-72) 01/10/17 08:54 Alkaline Phosphatase 65 U/L (38-126) 01/10/17 08:54 Total Creatine Kinase 73 U/L (55-170) 01/09/17 06:24 CK-MB (Mass) 1.36 ng/mL (0.0-3.38) 01/09/17 06:24 Troponin I 0.0310 ng/mL (0.00-0.120) 01/08/17 04:45 Troponin I, Quant 0.0250 ng/mL (0.00-0.120) 01/09/17 06:24 Total Protein 6.7 g/dL (6.3-8.3) 01/10/17 08:54 Albumin 3.4 g/dL (3.5-5.0) L 01/10/17 08:54 Globulin 3.2 gm/dL (2.2-3.9) 01/10/17 08:54 Albumin/Globulin Ratio 1.1 (1.0-2.1) 01/10/17 08:54 Serum Ketones Negative (NEGATIVE) 01/08/17 01:36 - Hospital Course Hospital Course: PT PRESENTED TO ER WITH CP RADIATING TO LEFT ARM FOR FEW HRS PT HAD RBBB WITH NEG TNI 1ST SET PAST HIST. IN 11/12 PT WAS ADMITTED WITH CP AND DIZZINESS AND NEW RBBB. HAD IV LEXISCAN AND SHOWED SCAR IN DISTAL FAWN-LATERAL WITH MILD REPERFUSSION. PT WAS DISCHARGED WITHOUT ANY FURTHER W/U HAS CRF ON HD TNI WERE NEG PT UNDERWENT CARD. CATH SHOWED SIG. MID LAD AND DIAG WITH MILD ATHEROSLEROTIC RCA/CX. EF WAS 50 % [facility] ST[facility] AFTER DIALYSIS D/C , LEFE STYLE INSTRUCTIONS GIVEN TO PREVENT FURTHER PROGRESSION OF CAD Discharge Exam - Head Exam Head Exam: ATRAUMATIC Discharge Plan - Follow Up Plan Condition: FAIR Disposition: HOME/ ROUTINE
[2017-01-12 16:48] VITALS: RESP 20
[2017-01-12] MEDS ORDERED: POLYETHYLENE GLYCOL 3350 17 GM/Dose PACKET PO ONE (21:45)
[2017-01-13] MEDS: (Novolin R) Insulin Human Regular 100 units/ml vial SC SCH ×4 (07:24→22:25)
[2017-01-13] MEDS: Sevelamer Carb 0.8 gm/Packet PO SCH ×3 (07:52→17:21)
[2017-01-13 08:46] LABS: BASO # 0.1 K/uL (0.0-0.2); BASO % 1.2 % (0.0-2.0); EOS # 0.3 K/uL (0.0-0.7); EOS % 5.4 % (0.0-4.0); HEMATOCRIT 31.1 % (35.0-51.0); LYMPH # 1.3 K/uL (1.0-4.3); MEAN CELL VOLUME 85.2 fL (80.0-94.0); MEAN CORPUSCULAR HEMOGLOBIN 28.5 pg (27.0-31.0); MEAN CORPUSCULAR HGB CONC 33.5 g/dL (33.0-37.0); MEAN PLATELET VOLUME 7.9 fL (7.2-11.7); MONO # 0.5 K/uL (0.0-0.8); MONO % 7.7 % (0.0-10.0); NRBC % 0.1 % (0.0-2.0); RED CELL DISTRIBUTION WIDTH 15.6 % (11.5-14.5)
--- NOTE | 2017-01-13 14:29 | CP.PCM.PN ---
Subjective - Date & Time of Evaluation Date of Evaluation: 01/13/17 Time of Evaluation: 14:27 - Subjective Subjective: AT THE TIME OF DISCHARGE ,PT CLAIMS HE HAS WEAKNESS AND CAN NOT WALK HAS OLD INJURY IN LEG WILL HOLD D/C EVALUATE PHY THERAPY ANN Objective - Vital Signs/Intake and Output Vital Signs (last 24 hours): Temp Pulse Resp BP Pulse Ox 98.6 F 74 20 146/69 95 01/13/17 07:00 01/13/17 08:00 01/13/17 07:00 01/13/17 07:00 01/13/17 07:00 Intake and Output: 01/13/17 01/13/17 11:59 23:59 Output Total 200 Balance -200 - Medications Medications: Current Medications Acetaminophen (Tylenol 325mg Tab) 650 mg PO Q6 PRN PRN Reason: Pain, moderate (4-7) Last Admin: 01/13/17 14:04 Dose: 650 mg Amlodipine Besylate (Norvasc) 10 mg PO DAILY [facility] Last Admin: 01/13/17 10:12 Dose: 10 mg Aspirin (Aspirin Chewable) 81 mg PO DAILY [facility] Last Admin: 01/13/17 10:12 Dose: 81 mg Clopidogrel Bisulfate (Plavix) 75 mg PO DAILY [facility] Last Admin: 01/13/17 10:12 Dose: 75 mg Heparin Sodium (Porcine) (Heparin) 5,000 units SC Q12 [facility] Last Admin: 01/13/17 10:13 Dose: 5,000 units Home Med (Lacosamide [Vimpat]) 50 mg PO HS [facility] Hydralazine HCl (Apresoline) 50 mg PO Q8 [facility] Last Admin: 01/13/17 14:04 Dose: 50 mg Insulin Human Regular (Novolin R) 0 unit SC ACHS [facility] PRN Reason: Protocol Last Admin: 01/13/17 12:49 Dose: 2 unit Isosorbide Mononitrate (Imdur) 60 mg PO DAILY [facility] Last Admin: 01/13/17 10:12 Dose: 60 mg Labetalol HCl (Trandate) 100 mg PO Q8H [facility] Last Admin: 01/13/17 14:04 Dose: 100 mg Levetiracetam (Keppra) 500 mg PO BID [facility] Last Admin: 01/13/17 10:15 Dose: 500 mg Losartan Potassium (Cozaar) 25 mg PO DAILY [facility] Last Admin: 01/13/17 10:12 Dose: 25 mg Rosuvastatin Calcium (Crestor) 10 mg PO HS [facility] Last Admin: 01/12/17 22:05 Dose: 10 mg Sevelamer Carbonate (Renvela) 0.8 gm PO TIDCC [facility] Last Admin: 01/13/17 12:49 Dose: 0.8 gm Sitagliptin Phosphate (Januvia) 25 mg PO DAILY [facility] Last Admin: 01/13/17 10:12 Dose: 25 mg - Labs Labs: 01/13/17 08:22 01/12/17 11:26 PT 13.7 SECONDS (9.7-12.2) H 01/11/17 08:36 INR 1.2 01/11/17 08:36 APTT 33 SECONDS (21-34) 01/08/17 01:36
[2017-01-14] MEDS: Sevelamer Carb 0.8 gm/Packet PO SCH ×3 (08:40→17:47)
[2017-01-14] MEDS: (Novolin R) Insulin Human Regular 100 units/ml vial SC SCH ×3 (08:48→17:19)
--- NOTE | 2017-01-14 11:04 | CP.PCM.PN ---
Subjective - Date & Time of Evaluation Date of Evaluation: 01/14/17 Time of Evaluation: 11:04 - Subjective Subjective: seen on hd stable no complaints Objective - Vital Signs/Intake and Output Vital Signs (last 24 hours): Temp Pulse Resp BP Pulse Ox 97.8 F 69 20 131/66 97 01/14/17 09:15 01/14/17 09:15 01/14/17 09:15 01/14/17 10:15 01/14/17 07:44 - Medications Medications: Current Medications Acetaminophen (Tylenol 325mg Tab) 650 mg PO Q6 PRN PRN Reason: Pain, moderate (4-7) Last Admin: 01/14/17 07:01 Dose: 650 mg Amlodipine Besylate (Norvasc) 10 mg PO DAILY [facility] Last Admin: 01/13/17 10:12 Dose: 10 mg Aspirin (Aspirin Chewable) 81 mg PO DAILY [facility] Last Admin: 01/13/17 10:12 Dose: 81 mg Clopidogrel Bisulfate (Plavix) 75 mg PO DAILY [facility] Last Admin: 01/13/17 10:12 Dose: 75 mg Heparin Sodium (Porcine) (Heparin) 5,000 units SC Q12 [facility] Last Admin: 01/13/17 22:15 Dose: 5,000 units Home Med (Lacosamide [Vimpat]) 50 mg PO HS [facility] Hydralazine HCl (Apresoline) 50 mg PO Q8 [facility] Last Admin: 01/14/17 06:56 Dose: 50 mg Insulin Human Regular (Novolin R) 0 unit SC ACHS [facility] PRN Reason: Protocol Last Admin: 01/14/17 08:48 Dose: Not Given Isosorbide Mononitrate (Imdur) 60 mg PO DAILY [facility] Last Admin: 01/13/17 10:12 Dose: 60 mg Labetalol HCl (Trandate) 100 mg PO Q8H [facility] Last Admin: 01/14/17 06:56 Dose: 100 mg Levetiracetam (Keppra) 500 mg PO BID [facility] Last Admin: 01/13/17 17:21 Dose: 500 mg Losartan Potassium (Cozaar) 25 mg PO DAILY [facility] Last Admin: 01/13/17 10:12 Dose: 25 mg Rosuvastatin Calcium (Crestor) 10 mg PO HS [facility] Last Admin: 01/13/17 22:15 Dose: 10 mg Sevelamer Carbonate (Renvela) 0.8 gm PO TIDCC [facility] Last Admin: 01/13/17 17:21 Dose: 0.8 gm Sitagliptin Phosphate (Januvia) 25 mg PO DAILY [facility] Last Admin: 01/13/17 10:12 Dose: 25 mg - Labs Labs: 01/13/17 08:22 01/12/17 11:26 PT 13.7 SECONDS (9.7-12.2) H 01/11/17 08:36 INR 1.2 01/11/17 08:36 APTT 33 SECONDS (21-34) 01/08/17 01:36 - Constitutional Appears: Non-toxic, No Acute Distress, Chronically Ill - Head Exam Head Exam: NORMAL INSPECTION - Eye Exam Eye Exam: Normal appearance - ENT Exam ENT Exam: Mucous Membranes Moist, Normal Exam, TM's Normal Bilaterally - Neck Exam Neck Exam: Normal Inspection - Respiratory Exam Respiratory Exam: Clear to Ausculation Bilateral, NORMAL BREATHING PATTERN - Cardiovascular Exam Cardiovascular Exam: REGULAR RHYTHM, RRR - GI/Abdominal Exam GI & Abdominal Exam: Distended, Soft, Normal Bowel Sounds - Extremities Exam Extremities Exam: Normal Inspection Assessment and Plan (1) Near syncope Status: Acute (2) CVA (cerebrovascular accident) Status: Acute (3) Chest pain Status: Acute (4) End-stage renal disease Status: Acute - Assessment and Plan (Free Text) Assessment: esrd post cardiac stent on HD schedule stable from Renal for discharge
--- NOTE | 2017-01-14 12:46 | CP.PCM.PN ---
Subjective - Date & Time of Evaluation Date of Evaluation: 01/14/17 Time of Evaluation: 12:45 - Subjective Subjective: PT FOR ANN CARDIAC STATUS STABLE Objective - Vital Signs/Intake and Output Vital Signs (last 24 hours): Temp Pulse Resp BP Pulse Ox 97.8 F 69 20 146/72 97 01/14/17 09:15 01/14/17 09:15 01/14/17 09:15 01/14/17 11:45 01/14/17 07:44 - Medications Medications: Current Medications Acetaminophen (Tylenol 325mg Tab) 650 mg PO Q6 PRN PRN Reason: Pain, moderate (4-7) Last Admin: 01/14/17 07:01 Dose: 650 mg Amlodipine Besylate (Norvasc) 10 mg PO DAILY [facility] Last Admin: 01/14/17 11:57 Dose: Not Given Aspirin (Aspirin Chewable) 81 mg PO DAILY [facility] Last Admin: 01/13/17 10:12 Dose: 81 mg Clopidogrel Bisulfate (Plavix) 75 mg PO DAILY [facility] Last Admin: 01/13/17 10:12 Dose: 75 mg Heparin Sodium (Porcine) (Heparin) 5,000 units SC Q12 [facility] Last Admin: 01/14/17 11:57 Dose: Not Given Home Med (Lacosamide [Vimpat]) 50 mg PO HS [facility] Hydralazine HCl (Apresoline) 50 mg PO Q8 [facility] Last Admin: 01/14/17 06:56 Dose: 50 mg Insulin Human Regular (Novolin R) 0 unit SC ACHS [facility] PRN Reason: Protocol Last Admin: 01/14/17 11:57 Dose: Not Given Isosorbide Mononitrate (Imdur) 60 mg PO DAILY [facility] Last Admin: 01/14/17 11:57 Dose: Not Given Labetalol HCl (Trandate) 100 mg PO Q8H [facility] Last Admin: 01/14/17 06:56 Dose: 100 mg Levetiracetam (Keppra) 500 mg PO BID [facility] Last Admin: 01/13/17 17:21 Dose: 500 mg Losartan Potassium (Cozaar) 25 mg PO DAILY [facility] Last Admin: 01/14/17 11:56 Dose: Not Given Rosuvastatin Calcium (Crestor) 10 mg PO HS [facility] Last Admin: 01/13/17 22:15 Dose: 10 mg Sevelamer Carbonate (Renvela) 0.8 gm PO TIDCC [facility] Last Admin: 01/13/17 17:21 Dose: 0.8 gm Sitagliptin Phosphate (Januvia) 25 mg PO DAILY [facility] Last Admin: 01/14/17 11:57 Dose: Not Given - Labs Labs: 01/13/17 08:22 01/12/17 11:26 PT 13.7 SECONDS (9.7-12.2) H 01/11/17 08:36 INR 1.2 01/11/17 08:36 APTT 33 SECONDS (21-34) 01/08/17 01:36
--- NOTE | 2017-01-14 16:23 | CP.PCM.PN ---
Subjective - Date & Time of Evaluation Date of Evaluation: 01/14/17 Time of Evaluation: 16:11 - Subjective Subjective: 61 Y/O MALE SEEN AND EXAMINED TODAY BY DR DELGADO, WITH PMHX CVA, ESRD, ON HD, ADMITTED FOR NEAR SYNCOPE, CVA, CHEST PAIN, ESRD, PT AAOX3, DENIES ANY CP, SOB, RESP EASY AND UNLABORED. NAD. PT CLEARED FOR D/C PER DR DELGADO, CONTINUE HOME MEDS AND HD SCHEDULE. Objective - Vital Signs/Intake and Output Vital Signs (last 24 hours): Temp Pulse Resp BP Pulse Ox 96.7 F L 71 20 147/73 98 01/14/17 12:45 01/14/17 12:45 01/14/17 12:45 01/14/17 12:45 01/14/17 12:45 - Medications Medications: Current Medications Acetaminophen (Tylenol 325mg Tab) 650 mg PO Q6 PRN PRN Reason: Pain, moderate (4-7) Last Admin: 01/14/17 07:01 Dose: 650 mg Amlodipine Besylate (Norvasc) 10 mg PO DAILY [facility] Last Admin: 01/14/17 11:57 Dose: Not Given Aspirin (Aspirin Chewable) 81 mg PO DAILY [facility] Last Admin: 01/13/17 10:12 Dose: 81 mg Clopidogrel Bisulfate (Plavix) 75 mg PO DAILY [facility] Last Admin: 01/13/17 10:12 Dose: 75 mg Heparin Sodium (Porcine) (Heparin) 5,000 units SC Q12 [facility] Last Admin: 01/14/17 11:57 Dose: Not Given Home Med (Lacosamide [Vimpat]) 50 mg PO [facility] Hydralazine HCl (Apresoline) 50 mg PO Q8 [facility] Last Admin: 01/14/17 14:05 Dose: Not Given Insulin Human Regular (Novolin R) 0 unit SC ACHS [facility] PRN Reason: Protocol Last Admin: 01/14/17 11:57 Dose: Not Given Isosorbide Mononitrate (Imdur) 60 mg PO DAILY [facility] Last Admin: 01/14/17 11:57 Dose: Not Given Labetalol HCl (Trandate) 100 mg PO Q8H [facility] Last Admin: 01/14/17 15:31 Dose: Not Given Levetiracetam (Keppra) 500 mg PO BID [facility] Last Admin: 01/14/17 10:10 Dose: Not Given Losartan Potassium (Cozaar) 25 mg PO DAILY [facility] Last Admin: 01/14/17 11:56 Dose: Not Given Rosuvastatin Calcium (Crestor) 10 mg PO HS [facility] Last Admin: 01/13/17 22:15 Dose: 10 mg Sevelamer Carbonate (Renvela) 0.8 gm PO TIDCC [facility] Last Admin: 01/14/17 12:05 Dose: Not Given Sitagliptin Phosphate (Januvia) 25 mg PO DAILY [facility] Last Admin: 01/14/17 11:57 Dose: Not Given - Labs Labs: 01/13/17 08:22 01/12/17 11:26 PT 13.7 SECONDS (9.7-12.2) H 01/11/17 08:36 INR 1.2 01/11/17 08:36 APTT 33 SECONDS (21-34) 01/08/17 01:36
[2017-01-14 16:24] VITALS: BP 152/68; PULSE 74; TEMP 98; O2SAT 97
[2017-01-14] MEDS ORDERED: guaiFENesin 100 mg/5 ml Syrup UD PO STA (16:52)
--- NOTE | 2017-01-16 09:12 | CARD ---
APPROVED REPORT EKG Measurement Heart [id number] <Conclusion> Poor data quality, interpretation may be adversely affected Normal sinus rhythm Right bundle branch block Abnormal ECG
== END 2017-01-14 19:45 | DRG 246 ==
LOC: C.ER 00:26 → C.5T 05:39 → OBSVTOIN 05:52 → C.6T 01-12 06:24
PROVIDERS: ADMIT Internal Medicine Cardiovascular Disease; ATTEND Internal Medicine Cardiovascular Disease
PROC: 4A023N7 Measurement of Cardiac Sampling and Pressure, Left Heart, Percutaneous Approach (ICD-10-PCS; principal; 2017-01-09)
PROC: B2151ZZ Fluoroscopy of Left Heart using Low Osmolar Contrast (ICD-10-PCS; 2017-01-09)
PROC: B2111ZZ Fluoroscopy of Multiple Coronary Arteries using Low Osmolar Contrast (ICD-10-PCS; 2017-01-09)
PROC: 027034Z Dilation of Coronary Artery, One Artery with Drug-eluting Intraluminal Device, Percutaneous Approach (ICD-10-PCS; 2017-01-11)
PROC: 5A1D60Z (ICD-10-PCS; 2017-01-11)
DX: I25.110 Atherosclerotic heart disease of native coronary artery with unstable angina pectoris (principal); N18.6 End stage renal disease; I24.9 Acute ischemic heart disease, unspecified; I12.0 Hypertensive chronic kidney disease with stage 5 chronic kidney disease or end stage renal disease; I25.84 Coronary atherosclerosis due to calcified coronary lesion; E11.22 Type 2 diabetes mellitus with diabetic chronic kidney disease; R55 Syncope and collapse; Z99.2 Dependence on renal dialysis; Z79.4 Long term (current) use of insulin

== ENCOUNTER 2017-04-06 16:06 | Inpatient (IN) | payer MEDICARE, OTHER ==
[2017-04-06 16:06] VITALS: BMI 28.6
[2017-04-06 16:40] LABS: BASO # 0.1 K/uL (0.0-0.2); BASO % 1.5 % (0.0-2.0); EOS # 0.1 K/uL (0.0-0.7); EOS % 2.7 % (0.0-4.0); LYMPH # 1.1 K/uL (1.0-4.3); LYMPH % 19.8 % (20.0-40.0); MEAN CELL VOLUME 88.8 fL (80.0-94.0); MEAN CORPUSCULAR HEMOGLOBIN 30.7 pg (27.0-31.0); MEAN CORPUSCULAR HGB CONC 34.6 g/dL (33.0-37.0); MEAN PLATELET VOLUME 6.9 fL (7.2-11.7); MONO # 0.5 K/uL (0.0-0.8); MONO % 8.5 % (0.0-10.0); NRBC % 0.1 % (0.0-2.0); RED CELL DISTRIBUTION WIDTH 13.1 % (11.5-14.5); WHITE BLOOD COUNT 5.4 K/uL (4.8-10.8)
[2017-04-06 16:46] LABS: INR 1.4
--- NOTE | 2017-04-06 16:47 | C.PDOC ---
History Of Present Illness 61 y/o male hx of CAD, HTN, Hyperlipidemia, Renal disease with hemodialysis patient presents to the ED c/o chest pain that started 2 hours ago at the [facility]. The pain has improved and is now radiating down to the left arm. The patient denies fever, chills, cough, shortness of breathe and no further complaints. Time Seen by Provider: 04/06/17 16:18 Chief Complaint (Nursing): Chest Pain History Per: Patient History/Exam Limitations: no limitations Onset/Duration Of Symptoms: Hrs Current Symptoms Are (Timing): Still Present Past Medical History Reviewed: Historical Data, Nursing Documentation, Vital Signs Vital Signs: Last Vital Signs Temp 97.8 F 04/06/17 16:13 Pulse 66 04/06/17 16:13 Resp BP 129/54 L 04/06/17 16:13 Pulse Ox 99 04/06/17 17:15 - Medical History PMH: Anemia, CHF, Diabetes, Fractures, Gastritis, HTN, Hypercholesterolemia, End Stage Renal Disease (MWF), Chronic Kidney Disease, TIA Surgical History: Coronary Stent (12/2016) - [facility] Procedures APPLICATION OF SPLINT (03/15/14) CATARAC PHACOEMULS/ASPIR (03/08/15) DIALYSIS ARTERIOVENOSTOM (06/21/14) DILATION OF 1 COR ART WITH DRUG-ELUT INTRA, PERC APPROACH (01/08/17) EXCIS DEBRIDE OF WOUND, INFECT, OR BURN (06/21/14) FLUOROSCOPY OF LEFT HEART USING LOW OSMOLAR CONTRAST (01/08/17) FLUOROSCOPY OF MULT COR ART USING L OSM CONTRAST (01/08/17) HEMODIALYSIS (06/21/14) HOME MANAGEMENT TREATMENT USING ASSIST EQUIPMENT (08/15/16) INSERT LENS AT CATAR EXT (03/08/15) MEASURE OF CARDIAC SAMPL & PRESSURE, L HEART, PERC APPROACH (01/08/17) NONEXCIS DEBRID OF WOUND, INFECT, OR BURN (06/21/14) OTHER SKIN & SUBQ I D (06/21/14) PACKED CELL TRANSFUSION (06/21/14) PERFORMANCE OF URINARY FILTRATION, MULTIPLE (01/08/17) PERFORMANCE OF URINARY FILTRATION, SINGLE (11/23/16) THERAPEUTIC EXERCISE TREATMENT OF MUSCULOSK LOW BACK/LE (08/15/16) TRANSFUSE NONAUT RED BLOOD CELLS IN PERIPH VEIN, PERC (10/27/16) VENOUS CATHETERIZATION FOR RENAL DIALYSIS (06/21/14) Family History: States: Unknown Family Hx - Social History Hx Tobacco Use: No Hx Alcohol Use: Yes (12 yrs ago) Hx Substance Use: No - Immunization History Hx Tetanus Toxoid Vaccination: Yes Hx Influenza Vaccination: Yes Hx Pneumococcal Vaccination: Yes Review Of Systems Except As Marked, All Systems Reviewed And Found Negative. Constitutional: Negative for: Fever, Chills Cardiovascular: Positive for: Chest Pain. Negative for: Palpitations Respiratory: Negative for: Cough, Shortness of Breath Gastrointestinal: Negative for: Nausea, Vomiting Physical Exam - Physical Exam Appears: Non-toxic, No Acute Distress Skin: Warm, Dry Head: Atraumatic, Normacephalic Oral Mucosa: Moist Neck: Supple Gastrointestinal/Abdominal: Soft, No Tenderness, No Guarding, No Rebound Extremity: Normal ROM, Capillary Refill (<2sec.) Neurological/Psych: Oriented x3, Normal Speech, Normal Cognition Gait: Steady ED Course And Treatment - Laboratory Results Result Diagrams: 04/06/17 16:26 04/06/17 16:26 ECG Rhythm: Sinus Rhythm (67) O2 Sat by Pulse Oximetry: 99 (RA) Progress Note: The patient received EKG, bloodwork, IV fluids ,and a Chest X- ray. Medical Decision Making Medical Decision Making: cp r/o acs - pt already got asa. ekg no changes. pain free. cxr shows atelecatsis vs infiltrate (Stable since 01/12). pt afebrile no leukocytsis. no cough, defered managment to inpt. dr agustin accepts Disposition - Disposition Disposition: HOSPITALIZED Disposition Time: 17:14 Condition: STABLE - Clinical Impression Clinical Impression: Chest pain - Scribe Statement The provider has reviewed the documentation as recorded by the Scribe Kori Grant All medical record entries made by the Sparkleibnikky were at my direction and personally dictated by me. I have reviewed the chart and agree that the record accurately reflects my personal performance of the history, physical exam, medical decision making, and the department course for this patient. I have also personally directed, reviewed, and agree with the discharge instructions and disposition. Decision To Admit - Pt Status Changed To: Hospital Disposition Of: Observation - . Bed Request Type: Telemetry Admitting Physician: Umair Harmon Patient Diagnosis: Chest pain
[2017-04-06 16:52] LABS: ALB/GLOB RATIO 1.4 (1.0-2.1); BILIRUBIN,TOTAL 0.4 mg/dL (0.2-1.3); CALCIUM 9.2 mg/dl (8.6-10.4); POTASSIUM 4.7 mmol/L (3.6-5.2); TOTAL PROTEIN 6.8 g/dL (6.3-8.3)
[2017-04-06 17:02] LABS: TROPONIN I 0.02 ng/mL (0.00-0.120)
--- NOTE | 2017-04-06 17:39 | RAD ---
PROCEDURE: CHEST RADIOGRAPH, 1 VIEW HISTORY: chest pain COMPARISON: 01/08/2017 FINDINGS: LUNGS: Patchy right basilar opacity, similar to prior examination. Rule out pneumonia. There is minimal hazy left perihilar opacity as well. PLEURA: Small right pleural effusion. No left pleural effusion. No pneumothorax. CARDIOVASCULAR: Normal. OSSEOUS STRUCTURES: No significant abnormalities. VISUALIZED UPPER ABDOMEN: Normal. OTHER FINDINGS: None. IMPRESSION: Right basilar opacity. Minimal hazy left perihilar opacity. Rule out pneumonia. Small right pleural effusion.
[2017-04-06] MEDS: (Novolin R) Insulin Human Regular 100 units/ml vial SC SCH (21:57)
[2017-04-07] MEDS: Sevelamer Carb 0.8 gm/Packet PO SCH ×3 (09:43→17:31)
[2017-04-07] MEDS: (Novolin R) Insulin Human Regular 100 units/ml vial SC SCH ×4 (09:43→21:31)
--- NOTE | 2017-04-07 13:11 | CP.PCM.PN ---
Subjective - Date & Time of Evaluation Date of Evaluation: 04/07/17 Time of Evaluation: 12:00 - Subjective Subjective: H&P dictated #[id number] Objective - Vital Signs/Intake and Output Vital Signs (last 24 hours): Temp Pulse Resp BP Pulse Ox 98.3 F 68 20 150/75 98 04/07/17 07:45 04/07/17 07:45 04/07/17 07:45 04/07/17 07:45 04/07/17 07:45 Intake and Output: 04/07/17 04/07/17 06:59 18:59 Intake Total 150 Balance 150 - Medications Medications: Current Medications Acetaminophen (Tylenol 325mg Tab) 650 mg PO Q6 PRN PRN Reason: Pain, moderate (4-7) Amlodipine Besylate (Norvasc) 10 mg PO DAILY [facility] Last Admin: 04/07/17 09:42 Dose: 10 mg Aspirin (Aspirin Chewable) 81 mg PO DAILY [facility] Last Admin: 04/07/17 09:42 Dose: 81 mg Clopidogrel Bisulfate (Plavix) 75 mg PO DAILY [facility] Last Admin: 04/07/17 09:46 Dose: 75 mg Hydralazine HCl (Apresoline) 50 mg PO Q8 [facility] Last Admin: 04/07/17 06:19 Dose: 50 mg Insulin Human Regular (Novolin R) 1 unit SC ACHS [facility] PRN Reason: Protocol Last Admin: 04/07/17 09:43 Dose: Not Given Isosorbide Mononitrate (Imdur) 60 mg PO DAILY [facility] Last Admin: 04/07/17 09:42 Dose: 60 mg Labetalol HCl (Trandate) 100 mg PO Q8H [facility] Last Admin: 04/07/17 04:20 Dose: 100 mg Levetiracetam (Keppra) 500 mg PO BID [facility] Last Admin: 04/07/17 09:43 Dose: 500 mg Losartan Potassium (Cozaar) 25 mg PO DAILY [facility] Last Admin: 04/07/17 09:42 Dose: 25 mg Rosuvastatin Calcium (Crestor) 20 mg PO HS [facility] Last Admin: 04/06/17 21:25 Dose: 20 mg Sevelamer Carbonate (Renvela) 0.8 gm PO TID [facility] Last Admin: 04/07/17 09:43 Dose: 0.8 gm Sitagliptin Phosphate (Januvia) 25 mg PO DAILY [facility] Last Admin: 04/07/17 09:42 Dose: 25 mg - Labs Labs: PT 15.6 SECONDS (9.7-12.2) H 04/06/17 16:45 INR 1.4 04/06/17 16:45 APTT 33 SECONDS (21-34) 04/06/17 16:45
--- NOTE | 2017-04-07 16:34 | CP.PCM.CON ---
History of Present Illness - History of Present Illness History of Present Illness: 61 y/o male hx of CAD, HTN, Hyperlipidemia, Renal disease with hemodialysis patient presents to the ED c/o chest pain that started 2 hours ago at the [facility]. The pain has improved and is now radiating down to the left arm. The patient denies fever, chills, cough, shortness of breathe and no further complaints. Last HD on Saturday. No chest pain at present. Past Patient History - Infectious Disease Hx of Infectious Diseases: None - Tetanus Immunizations Tetanus Immunization: Unknown - Past Medical History & Family History Past Medical History?: Yes - Past Social History Smoking Status: Former Smoker - CARDIAC Hx Congestive Heart Failure: Yes Hx Hypercholesterolemia: Yes Hx Hypertension: Yes - PULMONARY Hx Respiratory Disorders: No Hx Lung Cancer: No Hx Pulmonary Edema: No Hx Respiratory Aspiration: No Hx Respiratory Tract Infection: No Hx Tuberculosis: No - NEUROLOGICAL Hx Transient Ischemic Attacks (TIA): Yes - HEENT Hx HEENT Problems: Yes Hx Cataracts: Yes - RENAL Hx Chronic Kidney Disease: Yes - ENDOCRINE/METABOLIC Hx Endocrine Disorders: Yes Hx Diabetes Mellitus Type 2: Yes - HEMATOLOGICAL/ONCOLOGICAL Hx Anemia: Yes - INTEGUMENTARY Other/Comment: noted with scars/dark dry spots over body - MUSCULOSKELETAL/RHEUMATOLOGICAL Hx Falls: No - GASTROINTESTINAL Hx Gastritis: Yes - GENITOURINARY/GYNECOLOGICAL Hx Genitourinary Disorders: No - PSYCHIATRIC Hx Substance Use: No - SURGICAL HISTORY Hx Coronary Stent: Yes (12/2016) - ANESTHESIA Hx Anesthesia: Yes Hx Anesthesia Reactions: No Hx Malignant Hyperthermia: No Meds Allergies/Adverse Reactions: Allergies Allergy/AdvReac Type Severity Reaction Status Date / Time Penicillins Allergy Mild RASH Verified 01/08/17 00:30 - Medications Medications: Current Medications Acetaminophen (Tylenol 325mg Tab) 650 mg PO Q6 PRN PRN Reason: Pain, moderate (4-7) Amlodipine Besylate (Norvasc) 10 mg PO DAILY [facility] Last Admin: 04/07/17 09:42 Dose: 10 mg Aspirin (Aspirin Chewable) 81 mg PO DAILY [facility] Last Admin: 04/07/17 09:42 Dose: 81 mg Clopidogrel Bisulfate (Plavix) 75 mg PO DAILY [facility] Last Admin: 04/07/17 09:46 Dose: 75 mg Hydralazine HCl (Apresoline) 50 mg PO Q8 [facility] Last Admin: 04/07/17 13:37 Dose: 50 mg Insulin Human Regular (Novolin R) 0 unit SC ACHS [facility] PRN Reason: Protocol Isosorbide Mononitrate (Imdur) 60 mg PO DAILY [facility] Last Admin: 04/07/17 09:42 Dose: 60 mg Labetalol HCl (Trandate) 100 mg PO Q8H [facility] Last Admin: 04/07/17 13:37 Dose: 100 mg Levetiracetam (Keppra) 500 mg PO BID [facility] Last Admin: 04/07/17 09:43 Dose: 500 mg Losartan Potassium (Cozaar) 25 mg PO DAILY [facility] Last Admin: 04/07/17 09:42 Dose: 25 mg Rosuvastatin Calcium (Crestor) 20 mg PO HS [facility] Last Admin: 04/06/17 21:25 Dose: 20 mg Sevelamer Carbonate (Renvela) 0.8 gm PO TID [facility] Last Admin: 04/07/17 13:37 Dose: 0.8 gm Sitagliptin Phosphate (Januvia) 25 mg PO DAILY [facility] Last Admin: 04/07/17 09:42 Dose: 25 mg Physical Exam - Constitutional Appears: No Acute Distress - Head Exam Head Exam: ATRAUMATIC - Eye Exam Eye Exam: EOMI - ENT Exam ENT Exam: Mucous Membranes Moist - Neck Exam Neck exam: Positive for: Full Rom. Negative for: Lymphadenopathy - Respiratory Exam Respiratory Exam: Clear to Auscultation Bilateral. absent: Accessory Muscle Use - Cardiovascular Exam Cardiovascular Exam: REGULAR RHYTHM. absent: Rubs - GI/Abdominal Exam GI & Abdominal Exam: Normal Bowel Sounds. absent: Rebound - Extremities Exam Extremities exam: Negative for: pedal edema - Neurological Exam Neurological exam: Alert, Oriented x3 Results - Vital Signs Recent Vital Signs: Last Vital Signs Temp 98.3 F 04/07/17 07:45 Pulse 70 04/07/17 15:56 Resp 20 04/07/17 07:45 BP 150/75 04/07/17 07:45 Pulse Ox 98 04/07/17 07:45 - Labs Result Diagrams: 04/06/17 16:26 04/06/17 16:26 Labs: Laboratory Results - last 24 hr 04/06/17 04/06/17 04/07/17 20:35 21:56 03:56 POC Glucose (mg/dL) 106 Troponin I 0.0280 0.0300 04/07/17 04/07/17 04/07/17 06:32 11:28 13:53 POC Glucose (mg/dL) 90 159 H Troponin I 0.0210 Assessment & Plan - Assessment and Plan (Free Text) Assessment: esrd cad atypical chest pain, romi_ cardiology f/u HD in am via [facility] wants to switch to [facility]
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
--- NOTE | 2017-04-07 22:08 | HP ---
CHIEF COMPLAINT: Eleanor dizzy with left-sided chest pain and hand pain radiating to the left while he was at a [employer] yesterday. HISTORY OF PRESENT ILLNESS: The patient is a 61-year-old male with past medical history of hypertension; hyperlipidemia; diabetes mellitus; end-stage renal disease, on hemodialysis since 2013; coronary artery disease, status post LAD stent placement in December [address] Lassiter, has been following up with Dr. Yazan Cruz and Dr. Carlos for renal, came into the ED, brought by EMS for chest pain and left arm pain lasting for 2 hours prior to arrival. As per the patient, he was in a [employer] yesterday, he felt very dizzy associated with left-sided chest pain and hand pain and tingling with mild shortness of breath, pain. He did not have any nausea or vomiting, but very dizzy, lightheaded. He went to the pharmacy, took Tylenol, he felt better for a little while and then the pain came back on and was continuous at which point, the patient called 911 and the patient was brought into the ED. In the ED, the patient received aspirin and nitroglycerin with which his symptoms improved and the patient is being admitted for further management. When I examined, he denies any headache, dizziness. Denies any chest pain, shortness of breath, or wheezing. Denies nausea, vomiting, abdominal pain, diarrhea or constipation. Denies any other urinary complaints. Denies any leg pains or leg cramps. PAST MEDICAL HISTORY: As described hypertension; hyperlipidemia; coronary artery disease, status post stent placement; end-stage renal disease, on hemodialysis. PAST SURGICAL HISTORY: Stent placement. FAMILY HISTORY: Mother from coronary artery disease. PERSONAL HISTORY: He lives alone, he is , no children. SOCIAL HISTORY: He is an ex-smoker, smoked 1 pack per day until 2001, quit for 15 years. Denies any alocohol or drug abuse. ALLERGIES: HE IS ALLERGIC TO PENICILLIN, DEVELOPED RASH. HOME MEDICATIONS: Include Keppra 500 mg p.o. b.i.d., hydralazine 50 p.o. q. 8 hours, famotidine 10 mg daily, Renvela 800 mg p.o. t.i.d., Januvia 25 mg daily, Cozaar 25 mg daily, Vimpat 50 mg p.o. at bedtime, Labetalol 100 mg p.o. q. 8 hours, Imdur 60 mg daily, Plavix 75 mg daily, Lipitor 40 mg at bedtime, aspirin mg daily and Tylenol as needed. REVIEW OF SYSTEMS: As described in history of present illness. PHYSICAL EXAMINATION GENERAL: A middle-aged male lying in bed, in no acute distress. VITAL SIGNS: Blood pressure 150/75, pulse 68, respirations 20, temperature 98.3 degrees Fahrenheit, and O2 saturations 98% on room air. HEENT: Pupils are equal, round and reactive to light and accommodation. Extraocular muscles are intact. No icterus. Positive pallor. No oral thrush. No pharyngeal congestion. NECK: Supple. No JVD. LUNGS: Bilateral vesicular breath sounds. No wheezing. No rhonchi. CARDIOVASCULAR SYSTEM: S1 and S2 present, regular. ABDOMEN: Soft and nontender. Bowel sounds present. No guarding. No rigidity. No rebound tenderness noted. CENTRAL NERVOUS SYSTEM: Alert, awake, and oriented x3. No focal deficits noted. EXTREMITIES: No edema. Palpable peripheral pulses. LABORATORY DATA: Labs done from ED; WBC 5.4, hemoglobin 10.4, hematocrit 30, and platelets 232. PT 15.6, INR 1.4, PTT 33. Sodium 144, potassium 4.7, chloride 94, bicarbonate 33, BUN 44, creatinine 7.8, glucose 106, calcium 9.2. Total bilirubin 0.4, AST 13, ALT 25, alkaline phosphatase 70, cardiac enzymes x3 negative, total protein 6.8, albumin 3.9. Chest x-ray, right basilar opacity, minimal hazy left perihilar opacity, small right pleural effusion. EKG consistent with normal sinus rhythm at 67 beats per minute, no acute ST-T changes. ASSESSMENT AND PLAN: Middle-aged male with history of hypertension; diabetes mellitus; hyperlipidemia; end-stage renal disease, on hemodialysis since 2013, three times a week Saturday, Saturday, Saturday, last dialysis treatment was last Saturday; coronary artery disease, status post stent placement to left anterior descending in December 2014, admitted for chest pain with left arm pain associated with dizziness and mild shortness of breath. 1. Left-sided chest pain in a patient with multiple risk factors, rule out acute coronary syndrome, rule out restenosis of the stent. 2. End-stage renal disease, on hemodialysis 3 times a week, Saturday, Saturday, Saturday. 3. Hypertension. 4. Diabetes mellitus. 5. Hyperlipidemia. The patient is on Keppra for unclear etiology. PLAN: The patient is being admitted to telemetry, serial cardiac enzymes were done, negative. EKG, no acute changes. Echo was ordered. We will obtain cardiology consult with Dr. Lassiter, who had seen the patient earlier and did the stenting. I will continue with his home medications. We will obtain renal consult with Dr. Carlos for hemodialysis in a.m. Repeat labs in a.m. We will request health and social care teacher as the patient is claiming that he does not have a placed to go. We will repeat labs in the morning. We will add further recommendation as his clinical course progresses. Umair Harmon MD
[2017-04-08] MEDS: (Novolin R) Insulin Human Regular 100 units/ml vial SC SCH ×4 (07:00→22:30)
[2017-04-08 07:53] LABS: BASO # 0.1 K/uL (0.0-0.2); BASO % 2.7 % (0.0-2.0); EOS # 0.2 K/uL (0.0-0.7); EOS % 5.8 % (0.0-4.0); HEMATOCRIT 32.6 % (35.0-51.0); LYMPH % 25.2 % (20.0-40.0); MEAN CELL VOLUME 89.8 fL (80.0-94.0); MEAN CORPUSCULAR HGB CONC 34.5 g/dL (33.0-37.0); MONO # 0.3 K/uL (0.0-0.8); MONO % 8.1 % (0.0-10.0); RED CELL DISTRIBUTION WIDTH 13.5 % (11.5-14.5); WHITE BLOOD COUNT 4.1 K/uL (4.8-10.8)
[2017-04-08 08:31] LABS: POTASSIUM 5.1 mmol/L (3.6-5.2)
[2017-04-08 08:33] LABS: BILIRUBIN,TOTAL 0.6 mg/dL (0.2-1.3)
[2017-04-08 08:34] LABS: ALB/GLOB RATIO 1.4 (1.0-2.1); CALCIUM 9.3 mg/dl (8.6-10.4)
[2017-04-08 08:46] LABS: THYROID STIMULATING HORMONE 4.15 mIU/L (0.46-4.68)
[2017-04-08] MEDS ORDERED: Aminophylline 25 mg/ml Inj ONE (08:54)
[2017-04-08] MEDS: Sevelamer Carb 0.8 gm/Packet PO SCH ×3 (10:08→18:08)
--- NOTE | 2017-04-08 12:44 | CARD ---
APPROVED REPORT EKG Measurement Heart [id number] CA 160P30 [id number] <Conclusion> Sinus rhythm with fusion complexes Otherwise normal ECG
--- NOTE | 2017-04-08 13:17 | CP.PCM.PN ---
Subjective - Date & Time of Evaluation Date of Evaluation: 04/08/17 Time of Evaluation: 12:30 - Subjective Subjective: Progress note dictated #[id number] Objective - Vital Signs/Intake and Output Vital Signs (last 24 hours): Temp Pulse Resp BP Pulse Ox 98.8 F 66 20 142/70 97 04/07/17 23:31 04/08/17 00:00 04/07/17 23:31 04/08/17 04:44 04/07/17 23:31 Intake and Output: 04/08/17 04/08/17 06:59 18:59 Intake Total 50 Output Total 200 Balance -150 - Medications Medications: Current Medications Acetaminophen (Tylenol 325mg Tab) 650 mg PO Q6 PRN PRN Reason: Pain, moderate (4-7) Last Admin: 04/07/17 23:58 Dose: 650 mg Amlodipine Besylate (Norvasc) 10 mg PO DAILY [facility] Last Admin: 04/08/17 10:07 Dose: 10 mg Aspirin (Aspirin Chewable) 81 mg PO DAILY [facility] Last Admin: 04/08/17 10:07 Dose: 81 mg Clopidogrel Bisulfate (Plavix) 75 mg PO DAILY [facility] Last Admin: 04/08/17 10:07 Dose: 75 mg Hydralazine HCl (Apresoline) 50 mg PO Q8 [facility] Last Admin: 04/08/17 06:22 Dose: 50 mg Insulin Human Regular (Novolin R) 0 unit SC [facility] PRN Reason: Protocol Last Admin: 04/08/17 12:16 Dose: Not Given Isosorbide Mononitrate (Imdur) 60 mg PO DAILY [facility] Last Admin: 04/08/17 10:07 Dose: 60 mg Labetalol HCl (Trandate) 100 mg PO Q8H [facility] Last Admin: 04/08/17 12:45 Dose: Not Given Levetiracetam (Keppra) 500 mg PO BID [facility] Last Admin: 04/08/17 10:07 Dose: 500 mg Losartan Potassium (Cozaar) 25 mg PO DAILY [facility] Last Admin: 04/08/17 10:07 Dose: 25 mg Rosuvastatin Calcium (Crestor) 20 mg PO HS [facility] Last Admin: 04/07/17 21:14 Dose: 20 mg Sevelamer Carbonate (Renvela) 0.8 gm PO TID [facility] Last Admin: 04/08/17 10:08 Dose: Not Given Sitagliptin Phosphate (Januvia) 25 mg PO DAILY [facility] Last Admin: 04/08/17 10:08 Dose: Not Given - Labs Labs: 04/08/17 07:45 04/08/17 07:45 PT 15.6 SECONDS (9.7-12.2) H 04/06/17 16:45 INR 1.4 04/06/17 16:45 APTT 33 SECONDS (21-34) 04/06/17 16:45
--- NOTE | 2017-04-08 13:53 | CP.PCM.PN ---
Subjective - Date & Time of Evaluation Date of Evaluation: 04/08/17 Time of Evaluation: 13:50 - Subjective Subjective: undergoing nuclear stress test less CPs earlier no n, v, d, f, chill, SOB Objective - Vital Signs/Intake and Output Vital Signs (last 24 hours): Temp Pulse Resp BP Pulse Ox 98.8 F 66 20 142/70 97 04/07/17 23:31 04/08/17 00:00 04/07/17 23:31 04/08/17 04:44 04/07/17 23:31 Intake and Output: 04/08/17 04/08/17 06:59 18:59 Intake Total 50 Output Total 200 Balance -150 - Medications Medications: Current Medications Acetaminophen (Tylenol 325mg Tab) 650 mg PO Q6 PRN PRN Reason: Pain, moderate (4-7) Last Admin: 04/07/17 23:58 Dose: 650 mg Amlodipine Besylate (Norvasc) 10 mg PO DAILY [facility] Last Admin: 04/08/17 10:07 Dose: 10 mg Aspirin (Aspirin Chewable) 81 mg PO DAILY [facility] Last Admin: 04/08/17 10:07 Dose: 81 mg Clopidogrel Bisulfate (Plavix) 75 mg PO DAILY [facility] Last Admin: 04/08/17 10:07 Dose: 75 mg Hydralazine HCl (Apresoline) 50 mg PO Q8 [facility] Last Admin: 04/08/17 06:22 Dose: 50 mg Insulin Human Regular (Novolin R) 0 unit SC ACHS [facility] PRN Reason: Protocol Last Admin: 04/08/17 12:16 Dose: Not Given Isosorbide Mononitrate (Imdur) 60 mg PO DAILY [facility] Last Admin: 04/08/17 10:07 Dose: 60 mg Labetalol HCl (Trandate) 100 mg PO Q8H [facility] Last Admin: 04/08/17 12:45 Dose: Not Given Levetiracetam (Keppra) 500 mg PO BID [facility] Last Admin: 04/08/17 10:07 Dose: 500 mg Losartan Potassium (Cozaar) 25 mg PO DAILY [facility] Last Admin: 04/08/17 10:07 Dose: 25 mg Rosuvastatin Calcium (Crestor) 20 mg PO HS [facility] Last Admin: 04/07/17 21:14 Dose: 20 mg Sevelamer Carbonate (Renvela) 0.8 gm PO TID [facility] Last Admin: 04/08/17 10:08 Dose: Not Given Sitagliptin Phosphate (Januvia) 25 mg PO DAILY [facility] Last Admin: 04/08/17 10:08 Dose: Not Given - Labs Labs: 04/08/17 07:45 04/08/17 07:45 PT 15.6 SECONDS (9.7-12.2) H 04/06/17 16:45 INR 1.4 04/06/17 16:45 APTT 33 SECONDS (21-34) 04/06/17 16:45 - Constitutional Appears: No Acute Distress, Chronically Ill - Head Exam Head Exam: ATRAUMATIC, NORMAL INSPECTION - Eye Exam Eye Exam: EOMI, Normal appearance - Neck Exam Neck Exam: Normal Inspection. absent: Tenderness - Respiratory Exam Respiratory Exam: Clear to Ausculation Bilateral, NORMAL BREATHING PATTERN - Cardiovascular Exam Cardiovascular Exam: REGULAR RHYTHM, +S1 - GI/Abdominal Exam GI & Abdominal Exam: Soft. absent: Tenderness - Extremities Exam Extremities Exam: Normal Inspection. absent: Tenderness - Neurological Exam Neurological Exam: Alert, CN II-XII Intact - Skin Skin Exam: Dry, Warm Assessment and Plan (1) Chest pain Status: Acute (2) Chronic congestive heart failure Status: Acute (3) End-stage renal disease Status: Acute (4) Fluid overload Status: Acute - Assessment and Plan (Free Text) Plan: Stress test Dialysis MWF Same meds
--- NOTE | 2017-04-08 16:52 | CARD ---
APPROVED REPORT Protocol: PHARMACOLOGICAL STRESS Test Type: LEXISCAN Test Indications: CHEST PAIN Medications: LIST SCAN Medical History: CHEST PAIN Target HR: 158 bpm Resting ECG: normal Resting Heart Rate: 64 bpm Resting Blood Pressure: 130/60mmHg submaximum (85%): 134 bpm TEST SUMMARY [id number]/60.0. INFUSIONDOSE 100:300.00.01.063/.0. [id number]/60.0. PROCEDURE Pharmacologic stress testing was performed using 0.4mg per 5ml of regadenoson given intravenously over 7-10 seconds. POST EXERCISE Reason for Termination: Lexiscan protocol completed Target HR: No Max HR: 63 bpm 47% of Maximum Predicted HR: 158 bpm Exercise duration: 00:30 min:sec, 0 Stage Exercise capacity: 1.0METs Max Blood Pressure: 130/60mmHg Blood Pressure response to exercise: normal resting BP - appropriate response Heart Rate response to exercise: appropriate Chest Pain: No, none Angina index: 0 Arrhythmia: No, none ST Change: No, none Deviation: 0 mm INTERPRETATION Stress EKG Conclusion: Nuclear report to follow EXAM: Myocardial Perfusion REST/STRESS Imaging Protocol The imaging protocol used to acquire images was Rest Tc-99m/stress Tc-99m 1 day Rest Spect myocardial perfusion imaging was performed in supine position 45 minutes following the injection of 13.1 mCi of Tc-99 Myoview. Gated Stress Spect was performed 45 minutes after intravenous 32.3 mCi Tc-99 Myoview injection. The images were gated to evaluate regional wall motion and calculate ventricular ejection fraction.Images were reconstructed using backfilter projection method in short horizontal and verticle long axis. Spect slices were generated. RESTING DATA CYY923.34ylQC5.80L/min ESV63.00mlMyocardial Yglh438.00g Av. Heart Rate65.00bpm EF54.00% STRESS DATA NXA597.77rjBJ9.60L/min ESV43.00mlMyocardial Cbyv253.00g EF69.00% Regional WT score at stress:1.00 Regional WM score at stress:0.00 Summed WT score at stress:8.00 Av. Heart Rate68.00bpmSummed WM score at stress:2.00 LV Perf. Quant 17 Seg. SSS13.00 17 Seg. SRS5.00 17 Seg. SDS8.00 Stress Defect Extent (% LAD)27.50Rest Defect Extent (% LAD)0.00Rev. Defect Extent (% LAD)25.00 Stress Defect Extent (% LCX)53.80Rest Defect Extent (% LCX)37.50Rev. Defect Extent (% LCX)42.50 Stress Defect Extent (% RCA)1.10Rest Defect Extent (% RCA)0.00Rev. Defect Extent (% RCA)0.00 Stress Defect Extent (% ADRIAN)29.80Rest Defect Extent (% ADRIAN)10.20Rev. Defect Extent (% ADRIAN)25.00 Other Information Quality:Good IMPRESSION Abnormal Myocardial Perfusion exercise stress study Left Ventricle LV Size/Shape: The left ventricle is normal size. LV Function:Left ventricle systolic function is normal. The Ejection Fraction is >55%. Conclusion 1. There is moderate to large sized reversible anterior and lateral perfusion defect suggestive of stress induced ischemia. Recommend Cardiac cath
--- NOTE | 2017-04-08 23:59 | PN ---
SUBJECTIVE: The patient is seen and examined in stress lab. The patient denies any headache, dizziness. Denies any chest pain, shortness of breath, or wheezing. Denies any nausea, vomiting, abdominal pain, diarrhea, or constipation. Denies any urinary complaint. Denies any leg pains or leg cramps. Denies any other neurologic symptoms. PHYSICAL EXAMINATION: GENERAL: Middle-aged male lying in bed, in no acute distress. VITAL SIGNS: Blood pressure 142/70, pulse 94, respirations 66, temperature 98.8 degrees Fahrenheit, O2 sat 97% on room air. HEENT: Pupils equal, round, and reacting to light and accommodation. Extraocular muscles intact. No icterus. No pallor. No oral thrush. No pharyngeal congestion. No nasal congestion. NECK: Supple, no JVD. No thyromegaly. CHEST: Moving equally bilaterally on respiration. LUNGS: Bilateral vesicular breath sounds. No wheezing. No rhonchi. CARDIOVASCULAR: S1 and S2 present, regular. ABDOMEN: Soft, nontender. Bowel sounds present. No guarding. No rigidity. No rebound tenderness noted. CENTRAL NERVOUS SYSTEM: Alert, awake, oriented x3. No focal deficits noted. EXTREMITIES: No edema. Palpable peripheral pulses. MEDICATIONS: Include Tylenol as needed, Norvasc 10 mg daily, aspirin 81 mg daily, Plavix 75 mg daily, hydralazine 50 mg p.o. q. 8 hours, Imdur 60 mg daily, labetalol 100 mg daily, Keppra 500 mg p.o. b.i.d, losartan 25 mg p.o. daily, Crestor 20 mg p.o. at bedtime, Renvela 0.8 g p.o. t.i.d., Januvia 25 mg daily. LABORATORY DATA: Labs from this morning, WBC 4.1, hemoglobin 11.2, hematocrit 32.6, platelets 327. Sodium 139, potassium 5.1, chloride 95, bicarbonate 25, BUN 80, creatinine 10.6, glucose 99, hemoglobin A1c 4.8, calcium 9.3. Total bilirubin 0.6, AST 9, ALT 17, alkaline phosphatase 82. Triglycerides 72, cholesterol 89, LDL 47, HDL 30. TSH 4.15. Stress test results pending. ASSESSMENT AND PLAN: Middle-aged male with hypertension; hyperlipidemia; coronary artery disease, status post stent placement; end-stage renal disease, on hemodialysis 3 times a week, Saturday, Saturday, Saturday; admitted for chest pain. The patient was seen by cardiology, scheduled for stress test, cardiac enzymes negative, no new EKG changes. Stress test results are pending. The patient is evaluated by renal. He is scheduled for dialysis today. If the patient's stress test is negative and cleared by cardiology, after the patient receives hemodialysis, the patient may be discharged home. The patient is cleared by licensed clinical social worker. Advised the patient to follow up with primary medical doctor, follow up with cardiology and follow up with renal as outpatient for dialysis services. Advised the patient to come to emergency department if any recurrent symptoms. Umair Harmon MD
[2017-04-09] MEDS: (Novolin R) Insulin Human Regular 100 units/ml vial SC SCH ×4 (07:23→21:55)
[2017-04-09] MEDS: Sevelamer Carb 0.8 gm/Packet PO SCH ×3 (09:15→18:08)
--- NOTE | 2017-04-09 11:26 | CP.PCM.PN ---
Subjective - Date & Time of Evaluation Date of Evaluation: 04/09/17 Time of Evaluation: 11:10 - Subjective Subjective: Progress note dictated #[id number] Objective - Vital Signs/Intake and Output Vital Signs (last 24 hours): Temp Pulse Resp BP Pulse Ox 97.7 F 75 20 153/77 H 98 04/09/17 08:03 04/09/17 08:03 04/09/17 08:03 04/09/17 08:03 04/09/17 08:03 Intake and Output: 04/09/17 04/09/17 06:59 18:59 Intake Total 250 Output Total 100 Balance 150 - Medications Medications: Current Medications Acetaminophen (Tylenol 325mg Tab) 650 mg PO Q6 PRN PRN Reason: Pain, moderate (4-7) Last Admin: 04/08/17 19:42 Dose: 650 mg Amlodipine Besylate (Norvasc) 10 mg PO DAILY [facility] Last Admin: 04/09/17 09:14 Dose: 10 mg Aspirin (Aspirin Chewable) 81 mg PO DAILY [facility] Last Admin: 04/09/17 09:14 Dose: 81 mg Clopidogrel Bisulfate (Plavix) 75 mg PO DAILY [facility] Last Admin: 04/09/17 09:14 Dose: 75 mg Heparin Sodium (Porcine) (Heparin) 5,000 units SC Q12 [facility] Last Admin: 04/09/17 09:17 Dose: Not Given Hydralazine HCl (Apresoline) 50 mg PO Q8 [facility] Last Admin: 04/09/17 05:37 Dose: 50 mg Insulin Human Regular (Novolin R) 0 unit SC ACHS [facility] PRN Reason: Protocol Last Admin: 04/09/17 11:12 Dose: Not Given Isosorbide Mononitrate (Imdur) 60 mg PO DAILY [facility] Last Admin: 04/09/17 09:14 Dose: 60 mg Labetalol HCl (Trandate) 100 mg PO Q8H [facility] Last Admin: 04/09/17 03:35 Dose: 100 mg Levetiracetam (Keppra) 500 mg PO BID [facility] Last Admin: 04/09/17 09:14 Dose: 500 mg Losartan Potassium (Cozaar) 25 mg PO DAILY [facility] Last Admin: 04/09/17 09:14 Dose: 25 mg Rosuvastatin Calcium (Crestor) 20 mg PO HS [facility] Last Admin: 04/08/17 23:46 Dose: 20 mg Sevelamer Carbonate (Renvela) 0.8 gm PO TID [facility] Last Admin: 04/09/17 09:15 Dose: Not Given Sitagliptin Phosphate (Januvia) 25 mg PO DAILY [facility] Last Admin: 04/09/17 09:14 Dose: Not Given - Labs Labs: PT 15.6 SECONDS (9.7-12.2) H 04/06/17 16:45 INR 1.4 04/06/17 16:45 APTT 33 SECONDS (21-34) 04/06/17 16:45
--- NOTE | 2017-04-09 11:36 | CP.PCM.PN ---
Subjective - Date & Time of Evaluation Date of Evaluation: 04/09/17 Time of Evaluation: 11:35 - Subjective Subjective: seen and examined denies any chest pain for cardiac cath today Objective - Vital Signs/Intake and Output Vital Signs (last 24 hours): Temp Pulse Resp BP Pulse Ox 97.7 F 75 20 153/77 H 98 04/09/17 08:03 04/09/17 08:03 04/09/17 08:03 04/09/17 08:03 04/09/17 08:03 Intake and Output: 04/09/17 04/09/17 06:59 18:59 Intake Total 250 Output Total 100 Balance 150 - Medications Medications: Current Medications Acetaminophen (Tylenol 325mg Tab) 650 mg PO Q6 PRN PRN Reason: Pain, moderate (4-7) Last Admin: 04/08/17 19:42 Dose: 650 mg Amlodipine Besylate (Norvasc) 10 mg PO DAILY [facility] Last Admin: 04/09/17 09:14 Dose: 10 mg Aspirin (Aspirin Chewable) 81 mg PO DAILY [facility] Last Admin: 04/09/17 09:14 Dose: 81 mg Clopidogrel Bisulfate (Plavix) 75 mg PO DAILY [facility] Last Admin: 04/09/17 09:14 Dose: 75 mg Heparin Sodium (Porcine) (Heparin) 5,000 units SC Q12 [facility] Last Admin: 04/09/17 09:17 Dose: Not Given Hydralazine HCl (Apresoline) 50 mg PO Q8 [facility] Last Admin: 04/09/17 05:37 Dose: 50 mg Insulin Human Regular (Novolin R) 0 unit SC ACHS [facility] PRN Reason: Protocol Last Admin: 04/09/17 11:12 Dose: Not Given Isosorbide Mononitrate (Imdur) 60 mg PO DAILY [facility] Last Admin: 04/09/17 09:14 Dose: 60 mg Labetalol HCl (Trandate) 100 mg PO Q8H [facility] Last Admin: 04/09/17 03:35 Dose: 100 mg Levetiracetam (Keppra) 500 mg PO BID [facility] Last Admin: 04/09/17 09:14 Dose: 500 mg Losartan Potassium (Cozaar) 25 mg PO DAILY [facility] Last Admin: 04/09/17 09:14 Dose: 25 mg Rosuvastatin Calcium (Crestor) 20 mg PO HS [facility] Last Admin: 04/08/17 23:46 Dose: 20 mg Sevelamer Carbonate (Renvela) 0.8 gm PO TID [facility] Last Admin: 04/09/17 09:15 Dose: Not Given Sitagliptin Phosphate (Januvia) 25 mg PO DAILY [facility] Last Admin: 04/09/17 09:14 Dose: Not Given - Labs Labs: PT 15.6 SECONDS (9.7-12.2) H 04/06/17 16:45 INR 1.4 04/06/17 16:45 APTT 33 SECONDS (21-34) 04/06/17 16:45 - Constitutional Appears: Non-toxic, No Acute Distress - Head Exam Head Exam: NORMAL INSPECTION - Eye Exam Eye Exam: Normal appearance - ENT Exam ENT Exam: Mucous Membranes Moist, Normal Exam - Neck Exam Neck Exam: Normal Inspection - Respiratory Exam Respiratory Exam: Clear to Ausculation Bilateral, NORMAL BREATHING PATTERN - Cardiovascular Exam Cardiovascular Exam: REGULAR RHYTHM, RRR - GI/Abdominal Exam GI & Abdominal Exam: Soft, Normal Bowel Sounds - Extremities Exam Extremities Exam: Normal Inspection Assessment and Plan (1) Chest pain Status: Acute (2) CVA (cerebrovascular accident) Status: Acute (3) ESRD needing dialysis Status: Acute (4) HTN (hypertension) Status: Chronic - Assessment and Plan (Free Text) Assessment: maintain hd mwf
[2017-04-09] MEDS ORDERED: Midazolam 2 MG/2 ML VIAL ONE (15:44)
[2017-04-09] MEDS ORDERED: Iodixanol 320 MG/ML 100 ML BOTTLE IV ONE (15:45)
--- NOTE | 2017-04-09 17:30 | CARD ---
APPROVED REPORT EKG Measurement Heart [id number] [id number] <Conclusion> Normal sinus rhythm Normal ECG
--- NOTE | 2017-04-10 01:41 | PN ---
DATE: 04/09/2017 SUBJECTIVE: The patient was seen and examined at bedside this morning. The patient is lying in bed, in no acute distress, offers no new complaints. PHYSICAL EXAMINATION: VITAL SIGNS: Blood pressure 153/77, pulse 75, respirations 20, temperature 97.7 degrees Fahrenheit, and O2 sat 99% on room air. HEENT: Pupils are equal, round, and reacting to light and accommodation. Extraocular muscles intact. No icterus. No pallor. No oral thrush. No pharyngeal congestion. NECK: Supple. No JVD. No thyromegaly. CHEST: Moving equally bilaterally on respiration. LUNGS: Bilateral vesicular breath sounds. No wheezing. No rhonchi. CARDIOVASCULAR: S1 and S2 present and regular. ABDOMEN: Soft and nontender. Bowel sounds present. No guarding. No rigidity. No rebound tenderness noted. CENTRAL NERVOUS SYSTEM: Alert, awake and oriented x3. No focal deficits noted. EXTREMITIES: No edema. MEDICATIONS: Include Tylenol as needed, Norvasc 10 mg daily, aspirin 81 mg daily, Plavix 75 mg daily, heparin 5000 units subcu q. 12 hours, hydralazine 50 mg p.o. q. 8 hours, Imdur 60 mg daily, labetalol 100 mg p.o. q. 8 hours, Keppra 500 mg b.i.d., Cozaar 25 mg daily, Crestor 20 mg p.o. at bedtime, Renvela 0.8 mg daily, Januvia 25 mg daily. LABORATORY DATA: Accu-Chek 136, 107, 140, 150. ASSESSMENT AND PLAN: Middle-aged male with history of coronary artery disease, status post stent placement; hypertension; hyperlipidemia; end-stage renal disease, on hemodialysis; diabetes mellitus; admitted for chest pain, underwent stress test which was abnormal. The patient is scheduled for cath today. We will follow up with Cardiology for further cardiac care. The patient received HD yesterday and suppose to get hemodialysis tomorrow if cleared by Cardiology. After the procedure, we will plan discharging patient after the hemodialysis tomorrow. Umair Harmon MD [facility] # [id number]
--- NOTE | 2017-04-10 05:45 | CP.PCM.PN ---
Subjective - Date & Time of Evaluation Date of Evaluation: 04/08/17 Time of Evaluation: 17:40 - Subjective Subjective: Patient with abonrmal stress test For cath in am Objective - Vital Signs/Intake and Output Vital Signs (last 24 hours): Temp Pulse Resp BP Pulse Ox 98.2 F 88 20 144/64 96 04/10/17 04:10 04/10/17 04:10 04/10/17 04:10 04/10/17 04:10 04/10/17 04:10 Intake and Output: 04/09/17 04/10/17 18:59 06:59 Intake Total 10 240 Balance 10 240 - Medications Medications: Current Medications Acetaminophen (Tylenol 325mg Tab) 650 mg PO Q6 PRN PRN Reason: Pain, moderate (4-7) Last Admin: 04/08/17 19:42 Dose: 650 mg Amlodipine Besylate (Norvasc) 10 mg PO DAILY [facility] Last Admin: 04/09/17 09:14 Dose: 10 mg Aspirin (Aspirin Chewable) 81 mg PO DAILY [facility] Last Admin: 04/09/17 09:14 Dose: 81 mg Benzonatate (Tessalon Perles) 100 mg PO Q6 PRN PRN Reason: Cough Last Admin: 04/09/17 22:28 Dose: 100 mg Clopidogrel Bisulfate (Plavix) 75 mg PO DAILY [facility] Last Admin: 04/09/17 09:14 Dose: 75 mg Heparin Sodium (Porcine) (Heparin) 5,000 units SC Q12 [facility] Last Admin: 04/09/17 22:27 Dose: 5,000 units Hydralazine HCl (Apresoline) 50 mg PO Q8 [facility] Last Admin: 04/09/17 22:27 Dose: 50 mg Insulin Human Regular (Novolin R) 0 unit SC ACHS [facility] PRN Reason: Protocol Last Admin: 04/09/17 21:55 Dose: Not Given Isosorbide Mononitrate (Imdur) 60 mg PO DAILY [facility] Last Admin: 04/09/17 09:14 Dose: 60 mg Labetalol HCl (Trandate) 100 mg PO Q8H [facility] Last Admin: 04/10/17 04:32 Dose: 100 mg Levetiracetam (Keppra) 500 mg PO BID [facility] Last Admin: 04/09/17 18:08 Dose: 500 mg Losartan Potassium (Cozaar) 25 mg PO DAILY [facility] Last Admin: 04/09/17 09:14 Dose: 25 mg Rosuvastatin Calcium (Crestor) 20 mg PO HS [facility] Last Admin: 04/09/17 22:27 Dose: 20 mg Sevelamer Carbonate (Renvela) 0.8 gm PO TID [facility] Last Admin: 04/09/17 18:08 Dose: 0.8 gm Sitagliptin Phosphate (Januvia) 25 mg PO DAILY [facility] Last Admin: 04/09/17 09:14 Dose: Not Given - Labs Labs: PT 15.6 SECONDS (9.7-12.2) H 04/06/17 16:45 INR 1.4 04/06/17 16:45 APTT 33 SECONDS (21-34) 04/06/17 16:45
--- NOTE | 2017-04-10 05:47 | CP.PCM.PN ---
Subjective - Date & Time of Evaluation Date of Evaluation: 04/09/17 Time of Evaluation: 17:20 - Subjective Subjective: Patient s/p cath Severe LAD disease 95% stenosis For PCI on in [facility] ASA, Plavix, Statins and B blockers Objective - Vital Signs/Intake and Output Vital Signs (last 24 hours): Temp Pulse Resp BP Pulse Ox 98.2 F 88 20 135/68 96 04/10/17 04:10 04/10/17 04:10 04/10/17 04:10 04/10/17 05:45 04/10/17 04:10 Intake and Output: 04/09/17 04/10/17 18:59 06:59 Intake Total 10 240 Balance 10 240 - Medications Medications: Current Medications Acetaminophen (Tylenol 325mg Tab) 650 mg PO Q6 PRN PRN Reason: Pain, moderate (4-7) Last Admin: 04/08/17 19:42 Dose: 650 mg Amlodipine Besylate (Norvasc) 10 mg PO DAILY [facility] Last Admin: 04/09/17 09:14 Dose: 10 mg Aspirin (Aspirin Chewable) 81 mg PO DAILY [facility] Last Admin: 04/09/17 09:14 Dose: 81 mg Benzonatate (Tessalon Perles) 100 mg PO Q6 PRN PRN Reason: Cough Last Admin: 04/09/17 22:28 Dose: 100 mg Clopidogrel Bisulfate (Plavix) 75 mg PO DAILY [facility] Last Admin: 04/09/17 09:14 Dose: 75 mg Heparin Sodium (Porcine) (Heparin) 5,000 units SC Q12 [facility] Last Admin: 04/09/17 22:27 Dose: 5,000 units Hydralazine HCl (Apresoline) 50 mg PO Q8 [facility] Last Admin: 04/10/17 05:44 Dose: 50 mg Insulin Human Regular (Novolin R) 0 unit SC ACHS [facility] PRN Reason: Protocol Last Admin: 04/09/17 21:55 Dose: Not Given Isosorbide Mononitrate (Imdur) 60 mg PO DAILY [facility] Last Admin: 04/09/17 09:14 Dose: 60 mg Labetalol HCl (Trandate) 100 mg PO Q8H [facility] Last Admin: 04/10/17 04:32 Dose: 100 mg Levetiracetam (Keppra) 500 mg PO BID [facility] Last Admin: 04/09/17 18:08 Dose: 500 mg Losartan Potassium (Cozaar) 25 mg PO DAILY [facility] Last Admin: 04/09/17 09:14 Dose: 25 mg Rosuvastatin Calcium (Crestor) 20 mg PO HS [facility] Last Admin: 04/09/17 22:27 Dose: 20 mg Sevelamer Carbonate (Renvela) 0.8 gm PO TID [facility] Last Admin: 04/09/17 18:08 Dose: 0.8 gm Sitagliptin Phosphate (Januvia) 25 mg PO DAILY [facility] Last Admin: 04/09/17 09:14 Dose: Not Given - Labs Labs: PT 15.6 SECONDS (9.7-12.2) H 04/06/17 16:45 INR 1.4 04/06/17 16:45 APTT 33 SECONDS (21-34) 04/06/17 16:45
[2017-04-10] MEDS: (Novolin R) Insulin Human Regular 100 units/ml vial SC SCH ×4 (07:34→21:42)
[2017-04-10 07:48] LABS: BASO # 0.1 K/uL (0.0-0.2); BASO % 1.3 % (0.0-2.0); EOS # 0.2 K/uL (0.0-0.7); EOS % 4.3 % (0.0-4.0); HEMATOCRIT 29.2 % (35.0-51.0); LYMPH % 23.8 % (20.0-40.0); MEAN CELL VOLUME 88.5 fL (80.0-94.0); MEAN CORPUSCULAR HEMOGLOBIN 31.8 pg (27.0-31.0); MEAN PLATELET VOLUME 7.1 fL (7.2-11.7); MONO # 0.4 K/uL (0.0-0.8); RED CELL DISTRIBUTION WIDTH 13.7 % (11.5-14.5); WHITE BLOOD COUNT 4.3 K/uL (4.8-10.8)
[2017-04-10 08:12] LABS: POTASSIUM 5.1 mmol/L (3.6-5.2)
[2017-04-10 08:15] LABS: CALCIUM 8.5 mg/dl (8.6-10.4)
[2017-04-10] MEDS: Sevelamer Carb 0.8 gm/Packet PO SCH ×4 (09:02→18:48)
--- NOTE | 2017-04-10 10:23 | CP.PCM.PN ---
Subjective - Date & Time of Evaluation Date of Evaluation: 04/10/17 Time of Evaluation: 10:20 - Subjective Subjective: Progress note dictated #[id number] Objective - Vital Signs/Intake and Output Vital Signs (last 24 hours): Temp Pulse Resp BP Pulse Ox 98.8 F 70 20 151/68 H 98 04/10/17 07:58 04/10/17 07:58 04/10/17 07:58 04/10/17 07:58 04/10/17 07:58 Intake and Output: 04/10/17 04/10/17 06:59 18:59 Intake Total 480 Output Total 100 Balance 380 - Medications Medications: Current Medications Acetaminophen (Tylenol 325mg Tab) 650 mg PO Q6 PRN PRN Reason: Pain, moderate (4-7) Last Admin: 04/08/17 19:42 Dose: 650 mg Amlodipine Besylate (Norvasc) 10 mg PO DAILY [facility] Last Admin: 04/10/17 09:01 Dose: 10 mg Aspirin (Aspirin Chewable) 81 mg PO DAILY [facility] Last Admin: 04/10/17 09:01 Dose: 81 mg Benzonatate (Tessalon Perles) 100 mg PO Q6 PRN PRN Reason: Cough Last Admin: 04/09/17 22:28 Dose: 100 mg Clopidogrel Bisulfate (Plavix) 75 mg PO DAILY [facility] Last Admin: 04/10/17 09:01 Dose: 75 mg Heparin Sodium (Porcine) (Heparin) 5,000 units SC Q12 [facility] Last Admin: 04/10/17 09:02 Dose: 5,000 units Hydralazine HCl (Apresoline) 50 mg PO Q8 [facility] Last Admin: 04/10/17 05:44 Dose: 50 mg Insulin Human Regular (Novolin R) 0 unit SC ACHS [facility] PRN Reason: Protocol Last Admin: 04/10/17 07:34 Dose: Not Given Isosorbide Mononitrate (Imdur) 60 mg PO DAILY [facility] Last Admin: 04/10/17 09:02 Dose: 60 mg Labetalol HCl (Trandate) 100 mg PO Q8H [facility] Last Admin: 04/10/17 04:32 Dose: 100 mg Levetiracetam (Keppra) 500 mg PO BID [facility] Last Admin: 04/10/17 09:01 Dose: 500 mg Losartan Potassium (Cozaar) 25 mg PO DAILY [facility] Last Admin: 04/10/17 09:01 Dose: 25 mg Rosuvastatin Calcium (Crestor) 20 mg PO HS [facility] Last Admin: 04/09/17 22:27 Dose: 20 mg Sevelamer Carbonate (Renvela) 0.8 gm PO TID [facility] Last Admin: 04/10/17 09:02 Dose: 0.8 gm Sitagliptin Phosphate (Januvia) 25 mg PO DAILY [facility] Last Admin: 04/10/17 09:01 Dose: 25 mg - Labs Labs: 04/10/17 07:40 04/10/17 07:40 PT 15.6 SECONDS (9.7-12.2) H 04/06/17 16:45 INR 1.4 04/06/17 16:45 APTT 33 SECONDS (21-34) 04/06/17 16:45
--- NOTE | 2017-04-10 15:54 | CP.PCM.PN ---
Subjective - Date & Time of Evaluation Date of Evaluation: 04/10/17 Time of Evaluation: 15:15 - Subjective Subjective: tolerated HD today, 2 kg uf no chest pain for transfer for PCI in am no sob, wearing nasal cannula no changes in urination no rash no headache no fever appetite good no abdominal pain muscle aches - Objective - Vital Signs/Intake and Output Vital Signs (last 24 hours): Temp Pulse Resp BP Pulse Ox 98 F 95 H 18 113/54 L 96 04/10/17 09:50 04/10/17 13:25 04/10/17 09:50 04/10/17 13:25 04/10/17 13:25 Intake and Output: 04/10/17 04/10/17 06:59 18:59 Intake Total 480 Output Total 100 Balance 380 - Medications Medications: Current Medications Acetaminophen (Tylenol 325mg Tab) 650 mg PO Q6 PRN PRN Reason: Pain, moderate (4-7) Last Admin: 04/08/17 19:42 Dose: 650 mg Amlodipine Besylate (Norvasc) 10 mg PO DAILY [facility] Last Admin: 04/10/17 09:01 Dose: 10 mg Aspirin (Aspirin Chewable) 81 mg PO DAILY [facility] Last Admin: 04/10/17 09:01 Dose: 81 mg Benzonatate (Tessalon Perles) 100 mg PO Q6 PRN PRN Reason: Cough Last Admin: 04/09/17 22:28 Dose: 100 mg Clopidogrel Bisulfate (Plavix) 75 mg PO DAILY [facility] Last Admin: 04/10/17 09:01 Dose: 75 mg Heparin Sodium (Porcine) (Heparin) 5,000 units SC Q12 [facility] Last Admin: 04/10/17 09:02 Dose: 5,000 units Hydralazine HCl (Apresoline) 50 mg PO Q8 [facility] Last Admin: 04/10/17 14:42 Dose: 50 mg Insulin Human Regular (Novolin R) 0 unit SC ACHS [facility] PRN Reason: Protocol Last Admin: 04/10/17 12:05 Dose: Not Given Isosorbide Mononitrate (Imdur) 60 mg PO DAILY [facility] Last Admin: 04/10/17 09:02 Dose: 60 mg Labetalol HCl (Trandate) 100 mg PO Q8H [facility] Last Admin: 04/10/17 11:05 Dose: Not Given Levetiracetam (Keppra) 500 mg PO BID [facility] Last Admin: 04/10/17 09:01 Dose: 500 mg Losartan Potassium (Cozaar) 25 mg PO DAILY [facility] Last Admin: 04/10/17 09:01 Dose: 25 mg Rosuvastatin Calcium (Crestor) 20 mg PO HS [facility] Last Admin: 04/09/17 22:27 Dose: 20 mg Sevelamer Carbonate (Renvela) 0.8 gm PO TID [facility] Last Admin: 04/10/17 14:42 Dose: 0.8 gm Sitagliptin Phosphate (Januvia) 25 mg PO DAILY [facility] Last Admin: 04/10/17 09:01 Dose: 25 mg - Labs Labs: 04/10/17 07:40 04/10/17 07:40 PT 15.6 SECONDS (9.7-12.2) H 04/06/17 16:45 INR 1.4 04/06/17 16:45 APTT 33 SECONDS (21-34) 04/06/17 16:45 - Constitutional Appears: Non-toxic, No Acute Distress - Eye Exam Eye Exam: EOMI - ENT Exam ENT Exam: Mucous Membranes Dry, Mucous Membranes Moist - Neck Exam Neck Exam: Full ROM. absent: Lymphadenopathy - Respiratory Exam Respiratory Exam: NORMAL BREATHING PATTERN. absent: Accessory Muscle Use - GI/Abdominal Exam GI & Abdominal Exam: Soft. absent: Tenderness - Extremities Exam Extremities Exam: absent: Pedal Edema - Neurological Exam Neurological Exam: Alert, Oriented x3 Assessment and Plan - Assessment and Plan (Free Text) Assessment: esrd cad for pci in am maint HD director social for homelessness
--- NOTE | 2017-04-10 22:52 | PN ---
DATE: 04/10/2017 SUBJECTIVE: The patient was seen and examined at bedside this morning. The patient is undergoing hemodialysis, offers no new complaints. PHYSICAL EXAMINATION: GENERAL: On examination, middle-aged male in no acute distress. VITAL SIGNS: Blood pressure 113/54, pulse 95, respirations 20, temperature 98 degrees Fahrenheit, O2 sats 98% on room air. HEENT: Pupils equal, round and reacting to light and accommodation. Extraocular muscles intact. No icterus. No pallor. No oral thrush. No pharyngeal congestion. NECK: Supple. No JVD. LUNGS: Bilateral vesicular breath sounds. No wheezing. No rhonchi. CARDIOVASCULAR SYSTEM: S1 and S2 present, regular. ABDOMEN: Soft, nontender. Bowel sounds present. No guarding. No rigidity. No rebound tenderness noted. CENTRAL NERVOUS SYSTEM: Alert, awake, oriented x3. No focal deficits noted. EXTREMITIES: No edema. Palpable peripheral pulses. MEDICATIONS: Include Tylenol, Norvasc 10 mg daily, aspirin 81 mg daily, Tessalon 100 mg p.o. q. 6 hours p.r.n., Plavix 75 mg daily, hydralazine 50 mg p.o. q. 8 hours, Imdur 60 mg daily, labetalol 100 mg p.o. q. 8 hours, Keppra 500 mg p.o. b.i.d., Cozaar 25 mg daily, Crestor 20 mg at bedtime, Renvela 0.8 mg p.o. t.i.d., Januvia 25 mg p.o. daily. LABORATORY DATA: Labs from this morning; WBC 4.3, hemoglobin 10.5, hematocrit 39.2, platelets 224. Sodium 140, potassium 5.1, chloride 97, bicarb 26, BUN 51, creatinine 8, glucose 98, calcium 8.5. ASSESSMENT AND PLAN: Middle-aged male with history of hypertension; hyperlipidemia; diabetes mellitus; coronary artery disease, status post left anterior descending stent placement; admitted with chest pain; found to be having abnormal stress test, status post cardiac catheterization consistent with 95% stenosis of left anterior descending. He is scheduled for percutaneous coronary intervention at [facility] for tomorrow. The patient is undergoing hemodialysis today. We will continue with his current blood pressure medications. We will follow up with cardiology after the procedure is done. Umair Harmon MD [facility] # [id number]
--- NOTE | 2017-04-10 23:29 | CP.PCM.PN ---
Subjective - Date & Time of Evaluation Date of Evaluation: 04/10/17 Time of Evaluation: 16:20 - Subjective Subjective: Patient seen and evaluated For PCI tomorrow Objective - Vital Signs/Intake and Output Vital Signs (last 24 hours): Temp Pulse Resp BP Pulse Ox 98.2 F 71 20 140/62 95 04/10/17 15:00 04/10/17 22:00 04/10/17 15:00 04/10/17 22:00 04/10/17 15:00 Intake and Output: 04/10/17 04/11/17 18:59 06:59 Intake Total 350 360 Balance 350 360 - Medications Medications: Current Medications Acetaminophen (Tylenol 325mg Tab) 650 mg PO Q6 PRN PRN Reason: Pain, moderate (4-7) Last Admin: 04/10/17 22:01 Dose: 650 mg Amlodipine Besylate (Norvasc) 10 mg PO DAILY [facility] Last Admin: 04/10/17 09:01 Dose: 10 mg Aspirin (Aspirin Chewable) 81 mg PO DAILY [facility] Last Admin: 04/10/17 09:01 Dose: 81 mg Benzonatate (Tessalon Perles) 100 mg PO Q6 PRN PRN Reason: Cough Last Admin: 04/09/17 22:28 Dose: 100 mg Clopidogrel Bisulfate (Plavix) 75 mg PO DAILY [facility] Last Admin: 04/10/17 09:01 Dose: 75 mg Heparin Sodium (Porcine) (Heparin) 5,000 units SC Q12 [facility] Last Admin: 04/10/17 22:01 Dose: 5,000 units Hydralazine HCl (Apresoline) 50 mg PO Q8 [facility] Last Admin: 04/10/17 22:01 Dose: 50 mg Insulin Human Regular (Novolin R) 0 unit SC ACHS [facility] PRN Reason: Protocol Last Admin: 04/10/17 21:42 Dose: Not Given Isosorbide Mononitrate (Imdur) 60 mg PO DAILY [facility] Last Admin: 04/10/17 09:02 Dose: 60 mg Labetalol HCl (Trandate) 100 mg PO Q8H [facility] Last Admin: 04/10/17 18:48 Dose: 100 mg Levetiracetam (Keppra) 500 mg PO BID [facility] Last Admin: 04/10/17 18:48 Dose: 500 mg Losartan Potassium (Cozaar) 25 mg PO DAILY [facility] Last Admin: 04/10/17 09:01 Dose: 25 mg Rosuvastatin Calcium (Crestor) 20 mg PO HS [facility] Last Admin: 04/10/17 22:01 Dose: 20 mg Sevelamer Carbonate (Renvela) 0.8 gm PO TID [facility] Last Admin: 04/10/17 18:48 Dose: 0.8 gm Sitagliptin Phosphate (Januvia) 25 mg PO DAILY [facility] Last Admin: 04/10/17 09:01 Dose: 25 mg - Labs Labs: 04/10/17 07:40 04/10/17 07:40 PT 15.6 SECONDS (9.7-12.2) H 04/06/17 16:45 INR 1.4 04/06/17 16:45 APTT 33 SECONDS (21-34) 04/06/17 16:45
[2017-04-11] MEDS: (Novolin R) Insulin Human Regular 100 units/ml vial SC SCH (09:39)
[2017-04-11] MEDS: Sevelamer Carb 0.8 gm/Packet PO SCH (09:40)
--- NOTE | 2017-04-11 11:37 | CP.PCM.PN ---
Subjective - Date & Time of Evaluation Date of Evaluation: 04/11/17 Time of Evaluation: 11:30 - Subjective Subjective: Patient was taken to [place] for cardiac cath this am. Objective - Vital Signs/Intake and Output Vital Signs (last 24 hours): Temp Pulse Resp BP Pulse Ox 97.5 F L 72 20 133/65 96 04/11/17 08:18 04/11/17 08:18 04/11/17 08:18 04/11/17 08:18 04/11/17 08:18 Intake and Output: 04/11/17 04/11/17 06:59 18:59 Intake Total 410 Output Total 200 Balance 210 - Medications Medications: Current Medications Acetaminophen (Tylenol 325mg Tab) 650 mg PO Q6 PRN PRN Reason: Pain, moderate (4-7) Last Admin: 04/10/17 22:01 Dose: 650 mg Amlodipine Besylate (Norvasc) 10 mg PO DAILY [facility] Last Admin: 04/11/17 09:32 Dose: Not Given Aspirin (Aspirin Chewable) 81 mg PO DAILY [facility] Last Admin: 04/11/17 09:31 Dose: Not Given Benzonatate (Tessalon Perles) 100 mg PO Q6 PRN PRN Reason: Cough Last Admin: 04/09/17 22:28 Dose: 100 mg Clopidogrel Bisulfate (Plavix) 75 mg PO DAILY [facility] Last Admin: 04/11/17 09:39 Dose: Not Given Heparin Sodium (Porcine) (Heparin) 5,000 units SC Q12 [facility] Last Admin: 04/11/17 09:31 Dose: Not Given Hydralazine HCl (Apresoline) 50 mg PO Q8 [facility] Last Admin: 04/11/17 06:01 Dose: 50 mg Insulin Human Regular (Novolin R) 0 unit SC ACHS [facility] PRN Reason: Protocol Last Admin: 04/11/17 09:39 Dose: Not Given Isosorbide Mononitrate (Imdur) 60 mg PO DAILY [facility] Last Admin: 04/11/17 09:31 Dose: Not Given Labetalol HCl (Trandate) 100 mg PO Q8H [facility] Last Admin: 04/11/17 03:31 Dose: 100 mg Levetiracetam (Keppra) 500 mg PO BID [facility] Last Admin: 04/11/17 09:32 Dose: Not Given Losartan Potassium (Cozaar) 25 mg PO DAILY [facility] Last Admin: 04/11/17 09:31 Dose: Not Given Rosuvastatin Calcium (Crestor) 20 mg PO HS [facility] Last Admin: 04/10/17 22:01 Dose: 20 mg Sevelamer Carbonate (Renvela) 0.8 gm PO TID [facility] Last Admin: 04/11/17 09:40 Dose: Not Given Sitagliptin Phosphate (Januvia) 25 mg PO DAILY [facility] Last Admin: 04/11/17 09:32 Dose: Not Given - Labs Labs: 04/10/17 07:40 04/10/17 07:40 PT 15.6 SECONDS (9.7-12.2) H 04/06/17 16:45 INR 1.4 04/06/17 16:45 APTT 33 SECONDS (21-34) 04/06/17 16:45 Assessment and Plan - Assessment and Plan (Free Text) Assessment: Middle aged male with CAD, S/P cath for LAD with JOSE, HTN,DM2,Hyperlipidemia, ESRD on HD admitted for chest pain, found to be having abnormal stress test and abnormal cath c/w restenosis of LAD stent. For PCI of LAD at [facility] today. Follow up with cardiology after the procedure. FOr HD in AM. If hemo dynamically stable, plan D/C home tomorrow after HD. Continue with current meds as ordered.
--- NOTE | 2017-04-11 19:32 | CP.PCM.PN ---
Subjective - Date & Time of Evaluation Date of Evaluation: 04/11/17 Time of Evaluation: 19:30 - Subjective Subjective: Patient s/p LAD Drug eluting stent Uneventful Resume diet Ambulate HD tomorrow check labs ASA/Statins.MORRO I and b blockers for life Plavic for one year F/U with for cardiology Objective - Vital Signs/Intake and Output Vital Signs (last 24 hours): Temp Pulse Resp BP Pulse Ox 97.5 F L 72 20 133/65 96 04/11/17 08:18 04/11/17 08:18 04/11/17 08:18 04/11/17 08:18 04/11/17 08:18 - Medications Medications: Current Medications Acetaminophen (Tylenol 325mg Tab) 650 mg PO Q6 PRN PRN Reason: Pain, moderate (4-7) Last Admin: 04/10/17 22:01 Dose: 650 mg Amlodipine Besylate (Norvasc) 10 mg PO DAILY [facility] Last Admin: 04/11/17 09:32 Dose: Not Given Aspirin (Aspirin Chewable) 81 mg PO DAILY [facility] Last Admin: 04/11/17 09:31 Dose: Not Given Benzonatate (Tessalon Perles) 100 mg PO Q6 PRN PRN Reason: Cough Last Admin: 04/09/17 22:28 Dose: 100 mg Clopidogrel Bisulfate (Plavix) 75 mg PO DAILY [facility] Last Admin: 04/11/17 09:39 Dose: Not Given Heparin Sodium (Porcine) (Heparin) 5,000 units SC Q12 [facility] Last Admin: 04/11/17 09:31 Dose: Not Given Hydralazine HCl (Apresoline) 50 mg PO Q8 [facility] Last Admin: 04/11/17 06:01 Dose: 50 mg Insulin Human Regular (Novolin R) 0 unit SC ACHS [facility] PRN Reason: Protocol Last Admin: 04/11/17 09:39 Dose: Not Given Isosorbide Mononitrate (Imdur) 60 mg PO DAILY [facility] Last Admin: 04/11/17 09:31 Dose: Not Given Labetalol HCl (Trandate) 100 mg PO Q8H [facility] Last Admin: 04/11/17 03:31 Dose: 100 mg Levetiracetam (Keppra) 500 mg PO BID [facility] Last Admin: 04/11/17 09:32 Dose: Not Given Losartan Potassium (Cozaar) 25 mg PO DAILY [facility] Last Admin: 04/11/17 09:31 Dose: Not Given Rosuvastatin Calcium (Crestor) 20 mg PO HS [facility] Last Admin: 04/10/17 22:01 Dose: 20 mg Sevelamer Carbonate (Renvela) 0.8 gm PO TID [facility] Last Admin: 04/11/17 09:40 Dose: Not Given Sitagliptin Phosphate (Januvia) 25 mg PO DAILY [facility] Last Admin: 04/11/17 09:32 Dose: Not Given - Labs Labs: 04/10/17 07:40 04/10/17 07:40 PT 15.6 SECONDS (9.7-12.2) H 04/06/17 16:45 INR 1.4 04/06/17 16:45 APTT 33 SECONDS (21-34) 04/06/17 16:45
--- NOTE | 2017-04-11 20:08 | CP.PCM.PN ---
Subjective - Date & Time of Evaluation Date of Evaluation: 04/11/17 Time of Evaluation: 20:07 - Subjective Subjective: PT. IS S/P JOSE IN LAD FEW MONTHS AGO PT HAD STENT IN LAD STABLE CR 8, FOR DIALYSIS IN AM Objective - Vital Signs/Intake and Output Vital Signs (last 24 hours): Temp Pulse Resp BP Pulse Ox 97.5 F L 72 20 133/65 96 04/11/17 08:18 04/11/17 08:18 04/11/17 08:18 04/11/17 08:18 04/11/17 08:18 Intake and Output: 04/11/17 04/11/17 11:59 23:59 Intake Total 50 Output Total 200 Balance -150 - Medications Medications: Current Medications Acetaminophen (Tylenol 325mg Tab) 650 mg PO Q6 PRN PRN Reason: Pain, moderate (4-7) Last Admin: 04/10/17 22:01 Dose: 650 mg Amlodipine Besylate (Norvasc) 10 mg PO DAILY [facility] Last Admin: 04/11/17 09:32 Dose: Not Given Aspirin (Aspirin Chewable) 81 mg PO DAILY [facility] Last Admin: 04/11/17 09:31 Dose: Not Given Benzonatate (Tessalon Perles) 100 mg PO Q6 PRN PRN Reason: Cough Last Admin: 04/09/17 22:28 Dose: 100 mg Clopidogrel Bisulfate (Plavix) 75 mg PO DAILY [facility] Last Admin: 04/11/17 09:39 Dose: Not Given Heparin Sodium (Porcine) (Heparin) 5,000 units SC Q12 [facility] Last Admin: 04/11/17 09:31 Dose: Not Given Hydralazine HCl (Apresoline) 50 mg PO Q8 [facility] Last Admin: 04/11/17 06:01 Dose: 50 mg Insulin Human Regular (Novolin R) 0 unit SC ACHS [facility] PRN Reason: Protocol Last Admin: 04/11/17 09:39 Dose: Not Given Isosorbide Mononitrate (Imdur) 60 mg PO DAILY [facility] Last Admin: 04/11/17 09:31 Dose: Not Given Labetalol HCl (Trandate) 100 mg PO Q8H [facility] Last Admin: 04/11/17 03:31 Dose: 100 mg Levetiracetam (Keppra) 500 mg PO BID [facility] Last Admin: 04/11/17 09:32 Dose: Not Given Losartan Potassium (Cozaar) 25 mg PO DAILY [facility] Last Admin: 04/11/17 09:31 Dose: Not Given Rosuvastatin Calcium (Crestor) 20 mg PO HS [facility] Last Admin: 04/10/17 22:01 Dose: 20 mg Sevelamer Carbonate (Renvela) 0.8 gm PO TID [facility] Last Admin: 04/11/17 09:40 Dose: Not Given Sitagliptin Phosphate (Januvia) 25 mg PO DAILY [facility] Last Admin: 04/11/17 09:32 Dose: Not Given - Labs Labs: 04/10/17 07:40 04/10/17 07:40 PT 15.6 SECONDS (9.7-12.2) H 04/06/17 16:45 INR 1.4 04/06/17 16:45 APTT 33 SECONDS (21-34) 04/06/17 16:45
[2017-04-12 06:43] LABS: HEMATOCRIT 30.4 % (35.0-51.0); MEAN CELL VOLUME 88.3 fL (80.0-94.0); MEAN CORPUSCULAR HEMOGLOBIN 31.4 pg (27.0-31.0); MEAN CORPUSCULAR HGB CONC 35.5 g/dL (33.0-37.0); MEAN PLATELET VOLUME 6.8 fL (7.2-11.7); RED CELL DISTRIBUTION WIDTH 13.7 % (11.5-14.5); WHITE BLOOD COUNT 3.6 K/uL (4.8-10.8)
[2017-04-12 06:52] LABS: POTASSIUM 4.7 mmol/L (3.6-5.2)
[2017-04-12] MEDS: (Novolin R) Insulin Human Regular 100 units/ml vial SC SCH ×4 (07:45→22:08)
[2017-04-12] MEDS: Sevelamer Carb 0.8 gm/Packet PO SCH ×3 (10:00→18:06)
--- NOTE | 2017-04-12 10:59 | CP.PCM.PN ---
Subjective - Date & Time of Evaluation Date of Evaluation: 04/12/17 Time of Evaluation: 10:30 - Subjective Subjective: Progress note dictated #[id number] Objective - Vital Signs/Intake and Output Vital Signs (last 24 hours): Temp Pulse Resp BP Pulse Ox 97.6 F 70 16 140/68 97 04/12/17 09:22 04/12/17 09:22 04/12/17 09:22 04/12/17 10:00 04/12/17 09:15 Intake and Output: 04/12/17 04/12/17 06:59 18:59 Output Total 100 Balance -100 - Medications Medications: Current Medications Acetaminophen (Tylenol 325mg Tab) 650 mg PO Q6 PRN PRN Reason: Pain, moderate (4-7) Last Admin: 04/10/17 22:01 Dose: 650 mg Amlodipine Besylate (Norvasc) 10 mg PO DAILY [facility] Last Admin: 04/11/17 09:32 Dose: Not Given Aspirin (Aspirin Chewable) 81 mg PO DAILY [facility] Last Admin: 04/11/17 09:31 Dose: Not Given Benzonatate (Tessalon Perles) 100 mg PO Q6 PRN PRN Reason: Cough Last Admin: 04/09/17 22:28 Dose: 100 mg Clopidogrel Bisulfate (Plavix) 75 mg PO DAILY [facility] Last Admin: 04/11/17 09:39 Dose: Not Given Hydralazine HCl (Apresoline) 50 mg PO Q8 [facility] Last Admin: 04/12/17 06:40 Dose: 50 mg Insulin Human Regular (Novolin R) 0 unit SC [facility] PRN Reason: Protocol Last Admin: 04/11/17 09:39 Dose: Not Given Isosorbide Mononitrate (Imdur) 60 mg PO DAILY [facility] Last Admin: 04/11/17 09:31 Dose: Not Given Labetalol HCl (Trandate) 100 mg PO Q8H [facility] Last Admin: 04/12/17 04:27 Dose: 100 mg Levetiracetam (Keppra) 500 mg PO BID [facility] Last Admin: 04/11/17 09:32 Dose: Not Given Losartan Potassium (Cozaar) 25 mg PO DAILY [facility] Last Admin: 04/11/17 09:31 Dose: Not Given Rosuvastatin Calcium (Crestor) 20 mg PO HS [facility] Last Admin: 04/10/17 22:01 Dose: 20 mg Sevelamer Carbonate (Renvela) 0.8 gm PO TID [facility] Last Admin: 04/11/17 09:40 Dose: Not Given Sitagliptin Phosphate (Januvia) 25 mg PO DAILY [facility] Last Admin: 04/11/17 09:32 Dose: Not Given - Labs Labs: 04/12/17 06:28 04/12/17 06:28 PT 15.6 SECONDS (9.7-12.2) H 04/06/17 16:45 INR 1.4 04/06/17 16:45 APTT 33 SECONDS (21-34) 04/06/17 16:45
--- NOTE | 2017-04-12 14:19 | CP.PCM.CON ---
History of Present Illness - History of Present Illness History of Present Illness: COMPREHENSIVE HISTORY & PHYSICAL EXAM HPI PT WAS ADMITTED WITH TYPICAL CP . W/U SHOWED REVERSIBLE PERFUSION DEFECT ON IV LEXISCAN AND CATH SHOWED IN-STENT STENOSIS IN LAD LAD STENT WAS RESTENTED WITH CAROL III FLOW PAST HIST. CRF ON HD HTN HAD STENT DONE IN [place] IN11/12 PERSONAL HIST: Smoking. N Alcohol. N Allergy N Travel_- . FAMILY HIST : ROS : Constitutional: Negative for weight change, chills, night sweats, fatigue and usage of assist device. Eyes: Negative for redness, swelling, itching, discharge, vision changes, blurry vision, double vision, glaucoma, cataracts, Ears: Negative for hearing loss, ringing, , tinnitus, vertigo Nose: Negative for rhinorrhea, stuffiness, sniffing, itching, postnasal drip, discoloration, nasal congestion and epistaxis. Throat: Negative for throat clearing, sore throat, hoarseness, difficulty swallowing and difficulty speaking. Respiratory: Negative for cough, , sputum production, chest tightness, wheezing, pleuritic chest pain ,daytime somnolence, chronic cough, hemoptysis, snoring at night, Cardiovascular: Negative for chest pain, palpitations, orthopnea, PND, Edema of legs, leg cramps, angina, claudication, , irregular heartbeat, Neurology: Negative for irritability, muscle weakness, numbness and tingling, seizures, tremors, migraines, slurred speech, syncope, memory loss, mood changes , recurrent headaches Gastrointestinal: Negative for difficulty swallowing, diarrhea, constipation, black stools, rectal bleeding, nausea, flatulence, reflux, poor appetite, changes in bowel habits, abdominal pain Genitourinary: Negative for frequent urination, hematuria, discharge, incontinence, urinary retention, frequent UTI, Psychiatric: Negative for depression, anxiety/panic, suicidal tendencies, Musculoskeletal: Negative for swollen joints, back pain, , neck pain, morning stiffness of joints, . Skin: Negative for rash, ulcers, itching, dry skin and pigmented lesions. P/E: Constitutional: Appears stated age and in no apparent distress. Head: Normocephalic. Ears: External ear canals patent without inflammation. Tympanic membranes intact with normal light reflex and landmark. Eyes: Pupils are central, bilaterally equal, symmetrical and reacts to light with normal movements and no icterus or pallor. Nose: External nares are patent. Mucosa is pink Mouth-Throat: Good general appearance and condition. No post-pharyngeal/oropharyngeal erythema and tonsillar hypertrophy. Good dental hygiene. Neck-Lymphatic: Neck is supple with normal ROM, no thyromegaly, lymph nodes or masses. JVD is normal with no carotid bruit. Lungs: Clear to percussion and auscultation with bilateral normal air entry. Cardiovascular: S1 and S2 are normal with no murmurs, gallops and rub. GI Exam: No hepatomegaly. Abdomen is soft and non-tender. No Organomegaly , masses or hernias are evident and bowel sounds are normal and active. Neurology: Higher function and all cranial nerves intact, with no gross motor or sensory deficit. Superficial and deep reflexes are normal with downwards planters. No cerebellar deficit with normal gait. Musculoskeletal: No tender spots with normal curvature of the spine with no swelling or restricted ROM of the small and large joints. Extremities: Homans sign absent. Intact pulses with no pitting edema, calf tenderness or skin color changes. L ARM SHUNT Skin: No rash, eruptions or abnormal skin pigmentation LAB/RADIOLOGY: ASSESMENT : RECURRENT STENOSIS OF LAD WITH SUCCESSFUL STENTING CRF ON HD PLAN: D/W PT. WILL NEED EXTENSIVE CLOSE F/U ON MEDS Past Patient History - Infectious Disease Hx of Infectious Diseases: None - Tetanus Immunizations Tetanus Immunization: Unknown - Past Medical History & Family History Past Medical History?: Yes - Past Social History Smoking Status: Former Smoker - CARDIAC Hx Congestive Heart Failure: Yes Hx Hypercholesterolemia: Yes Hx Hypertension: Yes - PULMONARY Hx Respiratory Disorders: No Hx Lung Cancer: No Hx Pulmonary Edema: No Hx Respiratory Aspiration: No Hx Respiratory Tract Infection: No Hx Tuberculosis: No - NEUROLOGICAL Hx Transient Ischemic Attacks (TIA): Yes - HEENT Hx HEENT Problems: Yes Hx Cataracts: Yes - RENAL Hx Chronic Kidney Disease: Yes - ENDOCRINE/METABOLIC Hx Endocrine Disorders: Yes Hx Diabetes Mellitus Type 2: Yes - HEMATOLOGICAL/ONCOLOGICAL Hx Anemia: Yes - INTEGUMENTARY Other/Comment: noted with scars/dark dry spots over body - MUSCULOSKELETAL/RHEUMATOLOGICAL Hx Falls: No - GASTROINTESTINAL Hx Gastritis: Yes - GENITOURINARY/GYNECOLOGICAL Hx Genitourinary Disorders: No - PSYCHIATRIC Hx Substance Use: No - SURGICAL HISTORY Hx Coronary Stent: Yes (12/2016) - ANESTHESIA Hx Anesthesia: Yes Hx Anesthesia Reactions: No Hx Malignant Hyperthermia: No Meds Allergies/Adverse Reactions: Allergies Allergy/AdvReac Type Severity Reaction Status Date / Time Penicillins Allergy Mild RASH Verified 01/08/17 00:30 - Medications Medications: Current Medications Acetaminophen (Tylenol 325mg Tab) 650 mg PO Q6 PRN PRN Reason: Pain, moderate (4-7) Last Admin: 04/10/17 22:01 Dose: 650 mg Amlodipine Besylate (Norvasc) 10 mg PO DAILY [facility] Last Admin: 04/11/17 09:32 Dose: Not Given Aspirin (Aspirin Chewable) 81 mg PO DAILY [facility] Last Admin: 04/11/17 09:31 Dose: Not Given Benzonatate (Tessalon Perles) 100 mg PO Q6 PRN PRN Reason: Cough Last Admin: 04/09/17 22:28 Dose: 100 mg Clopidogrel Bisulfate (Plavix) 75 mg PO DAILY [facility] Last Admin: 04/11/17 09:39 Dose: Not Given Hydralazine HCl (Apresoline) 50 mg PO Q8 [facility] Last Admin: 04/12/17 06:40 Dose: 50 mg Insulin Human Regular (Novolin R) 0 unit SC [facility] PRN Reason: Protocol Last Admin: 04/11/17 09:39 Dose: Not Given Isosorbide Mononitrate (Imdur) 60 mg PO DAILY [facility] Last Admin: 04/11/17 09:31 Dose: Not Given Labetalol HCl (Trandate) 100 mg PO Q8H [facility] Last Admin: 04/12/17 04:27 Dose: 100 mg Levetiracetam (Keppra) 500 mg PO BID [facility] Last Admin: 04/12/17 14:13 Dose: 500 mg Losartan Potassium (Cozaar) 25 mg PO DAILY [facility] Last Admin: 04/11/17 09:31 Dose: Not Given Rosuvastatin Calcium (Crestor) 20 mg PO HS [facility] Last Admin: 04/10/17 22:01 Dose: 20 mg Sevelamer Carbonate (Renvela) 0.8 gm PO TID [facility] Last Admin: 04/11/17 09:40 Dose: Not Given Sitagliptin Phosphate (Januvia) 25 mg PO DAILY [facility] Last Admin: 04/11/17 09:32 Dose: Not Given Results - Vital Signs Recent Vital Signs: Last Vital Signs Temp 97.7 F 04/12/17 13:00 Pulse 67 04/12/17 13:00 Resp 16 04/12/17 13:00 BP 142/60 04/12/17 13:00 Pulse Ox 98 04/12/17 13:00 - Labs Result Diagrams: 04/12/17 06:28 04/12/17 06:28 Labs: Laboratory Results - last 24 hr 04/12/17 04/12/17 04/12/17 06:09 06:28 06:28 WBC 3.6 L RBC 3.44 L Hgb 10.8 L Hct 30.4 L MCV 88.3 MCH 31.4 H MCHC 35.5 RDW 13.7 Plt Count 198 MPV 6.8 L Sodium 136 Potassium 4.7 Chloride 94 L Carbon Dioxide 26 Anion Gap 21 H BUN 43 H Creatinine 8.0 H* Est GFR ( Amer) 8 Est GFR (Non-Af Amer) 7 POC Glucose (mg/dL) 88 Random Glucose 83 Calcium 9.0 04/12/17 11:30 WBC RBC Hgb Hct MCV MCH MCHC RDW Plt Count MPV Sodium Potassium Chloride Carbon Dioxide Anion Gap BUN Creatinine Est GFR ( Amer) Est GFR (Non-Af Amer) POC Glucose (mg/dL) 133 H Random Glucose Calcium
--- NOTE | 2017-04-12 14:27 | CP.PCM.PN ---
Subjective - Date & Time of Evaluation Date of Evaluation: 04/12/17 Time of Evaluation: 14:25 - Subjective Subjective: s/p LAD stent placement feels better s/p dialysis now- UF 2100ml BP controlled no new complaint Objective - Vital Signs/Intake and Output Vital Signs (last 24 hours): Temp Pulse Resp BP Pulse Ox 97.7 F 67 16 142/60 98 04/12/17 13:00 04/12/17 13:00 04/12/17 13:00 04/12/17 13:00 04/12/17 13:00 Intake and Output: 04/12/17 04/12/17 06:59 18:59 Output Total 100 Balance -100 - Medications Medications: Current Medications Acetaminophen (Tylenol 325mg Tab) 650 mg PO Q6 PRN PRN Reason: Pain, moderate (4-7) Last Admin: 04/10/17 22:01 Dose: 650 mg Amlodipine Besylate (Norvasc) 10 mg PO DAILY [facility] Last Admin: 04/12/17 14:17 Dose: 10 mg Aspirin (Aspirin Chewable) 81 mg PO DAILY [facility] Last Admin: 04/12/17 14:15 Dose: 81 mg Benzonatate (Tessalon Perles) 100 mg PO Q6 PRN PRN Reason: Cough Last Admin: 04/09/17 22:28 Dose: 100 mg Clopidogrel Bisulfate (Plavix) 75 mg PO DAILY [facility] Last Admin: 04/12/17 14:18 Dose: 75 mg Hydralazine HCl (Apresoline) 50 mg PO Q8 [facility] Last Admin: 04/12/17 14:17 Dose: 50 mg Insulin Human Regular (Novolin R) 0 unit SC [facility] PRN Reason: Protocol Last Admin: 04/12/17 11:35 Dose: Not Given Isosorbide Mononitrate (Imdur) 60 mg PO DAILY [facility] Last Admin: 04/12/17 14:14 Dose: 60 mg Labetalol HCl (Trandate) 100 mg PO Q8H [facility] Last Admin: 04/12/17 14:21 Dose: 100 mg Levetiracetam (Keppra) 500 mg PO BID [facility] Last Admin: 04/12/17 14:13 Dose: 500 mg Losartan Potassium (Cozaar) 25 mg PO DAILY [facility] Last Admin: 04/12/17 14:15 Dose: 25 mg Rosuvastatin Calcium (Crestor) 20 mg PO HS [facility] Last Admin: 04/10/17 22:01 Dose: 20 mg Sevelamer Carbonate (Renvela) 0.8 gm PO TID [facility] Last Admin: 04/12/17 14:19 Dose: 0.8 gm Sitagliptin Phosphate (Januvia) 25 mg PO DAILY [facility] Last Admin: 04/12/17 14:14 Dose: 25 mg - Labs Labs: 04/12/17 06:28 04/12/17 06:28 PT 15.6 SECONDS (9.7-12.2) H 04/06/17 16:45 INR 1.4 04/06/17 16:45 APTT 33 SECONDS (21-34) 04/06/17 16:45 - Constitutional Appears: No Acute Distress, Chronically Ill - Head Exam Head Exam: ATRAUMATIC, NORMAL INSPECTION - Eye Exam Eye Exam: EOMI, Normal appearance - Neck Exam Neck Exam: Normal Inspection. absent: Tenderness - Respiratory Exam Respiratory Exam: Clear to Ausculation Bilateral, NORMAL BREATHING PATTERN - Cardiovascular Exam Cardiovascular Exam: REGULAR RHYTHM, +S1 - GI/Abdominal Exam GI & Abdominal Exam: Soft. absent: Tenderness - Extremities Exam Extremities Exam: Normal Inspection. absent: Pedal Edema - Neurological Exam Neurological Exam: Alert, CN II-XII Intact - Skin Skin Exam: Dry, Warm Assessment and Plan (1) Chest pain Status: Acute (2) Chronic congestive heart failure Status: Acute (3) End-stage renal disease Status: Acute (4) Fluid overload Status: Acute (5) CAD (coronary artery disease), [place] coronary artery Status: Acute - Assessment and Plan (Free Text) Plan: Continue dialysis MWF Same meds needs new HD placement
--- NOTE | 2017-04-12 20:05 | PN ---
DATE: 04/12/2017 SUBJECTIVE: The patient was seen and examined at bedside while getting dialysis, offers no new complaints. PHYSICAL EXAMINATION: GENERAL: Middle-aged male, lying in bed, in no acute distress. VITAL SIGNS: Blood pressure 142/60, pulse 87, respirations 16, temperature 97.7 degrees Fahrenheit, O2 sat is 98% on room air. HEENT: Pupils equal, round and reacting to light and accommodation. Extraocular muscles intact. No icterus. No pallor. No oral thrush. No pharyngeal congestion. NECK: Supple. No JVD. LUNGS: Bilateral vesicular breath sounds. No wheezing. No rhonchi. CVS: S1 and S2 present, regular. ABDOMEN: Soft and nontender. Bowel sounds present. No guarding. No rigidity. No rebound tenderness noted. SUPERVISOR INSPECTION: Alert, awake and oriented x3. No focal deficits noted. EXTREMITIES: No edema. Palpable peripheral pulses. MEDICATIONS: Include Tylenol, Norvasc 10 mg daily, aspirin 81 mg daily, Tessalon 100 mg p.o. q. 6 hours p.r.n., Plavix 75 mg daily, hydralazine 50 mg p.o. q. 8 hours, isosorbide 60 mg daily, labetalol 100 mg p.o. q. 8 hours, Keppra 500 mg p.o. b.i.d., Losartan 25 mg daily, Crestor 20 mg p.o. at bedtime, Renvela 0.8 g p.o. t.i.d. and Januvia 25 mg p.o. daily. LABORATORY DATA: Labs from this morning; WBC 3.6, hemoglobin 10.8, hematocrit 30.4, and platelets 198. Sodium 136, potassium 4.2, chloride 94, bicarb 26, BUN 43, creatinine 8.0, glucose 88, and calcium 9.0. ASSESSMENT AND PLAN: Middle-aged male with history of coronary artery disease, status post stent placement with restenosis, underwent cardiac catheterization, had drug-eluting stent to left anterior descending; hypertension; hyperlipidemia; end-stage renal disease, on hemodialysis, undergoing hemodialysis. Discussed with transition social worker. The patient does not have a placed to go and the patient is requesting to switch to different dialysis facility as an outpatient. 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 The patient is otherwise medically stable and can be discharged to [facility], cleared by transition social worker after the outpatient dialysis placement arrangements made. We will continue with current medication. Umair Harmon MD
[2017-04-13] MEDS: (Novolin R) Insulin Human Regular 100 units/ml vial SC SCH ×4 (07:30→22:05)
--- NOTE | 2017-04-13 08:01 | CP.PCM.PN ---
Subjective - Date & Time of Evaluation Date of Evaluation: 04/12/17 Time of Evaluation: 16:50 - Subjective Subjective: Patient seen and evaluated S/P LAD stent No cardiac symptoms Objective - Vital Signs/Intake and Output Vital Signs (last 24 hours): Temp Pulse Resp BP Pulse Ox 98.1 F 68 20 125/59 L 98 04/12/17 23:20 04/13/17 01:48 04/12/17 23:20 04/12/17 23:20 04/12/17 23:20 - Medications Medications: Current Medications Acetaminophen (Tylenol 325mg Tab) 650 mg PO Q6 PRN PRN Reason: Pain, moderate (4-7) Last Admin: 04/10/17 22:01 Dose: 650 mg Amlodipine Besylate (Norvasc) 10 mg PO DAILY [facility] Last Admin: 04/12/17 14:17 Dose: 10 mg Aspirin (Aspirin Chewable) 81 mg PO DAILY [facility] Last Admin: 04/12/17 14:15 Dose: 81 mg Benzonatate (Tessalon Perles) 100 mg PO Q6 PRN PRN Reason: Cough Last Admin: 04/12/17 18:06 Dose: 100 mg Clopidogrel Bisulfate (Plavix) 75 mg PO DAILY [facility] Last Admin: 04/12/17 14:18 Dose: 75 mg Hydralazine HCl (Apresoline) 50 mg PO Q8 [facility] Last Admin: 04/13/17 06:09 Dose: 50 mg Insulin Human Regular (Novolin R) 0 unit SC [facility] PRN Reason: Protocol Last Admin: 04/12/17 22:08 Dose: Not Given Isosorbide Mononitrate (Imdur) 60 mg PO DAILY [facility] Last Admin: 04/12/17 14:14 Dose: 60 mg Labetalol HCl (Trandate) 100 mg PO Q8H [facility] Last Admin: 04/13/17 03:27 Dose: 100 mg Levetiracetam (Keppra) 500 mg PO BID [facility] Last Admin: 04/12/17 18:06 Dose: 500 mg Losartan Potassium (Cozaar) 25 mg PO DAILY [facility] Last Admin: 04/12/17 14:15 Dose: 25 mg Rosuvastatin Calcium (Crestor) 20 mg PO HS [facility] Last Admin: 04/12/17 22:11 Dose: 20 mg Sevelamer Carbonate (Renvela) 0.8 gm PO TID [facility] Last Admin: 04/12/17 18:06 Dose: 0.8 gm Sitagliptin Phosphate (Januvia) 25 mg PO DAILY [facility] Last Admin: 04/12/17 14:14 Dose: 25 mg - Labs Labs: 04/12/17 06:28 04/12/17 06:28 PT 15.6 SECONDS (9.7-12.2) H 04/06/17 16:45 INR 1.4 04/06/17 16:45 APTT 33 SECONDS (21-34) 04/06/17 16:45 - Head Exam Head Exam: ATRAUMATIC, NORMAL INSPECTION - Eye Exam Eye Exam: EOMI, PERRL Pupil Exam: NORMAL ACCOMODATION - ENT Exam ENT Exam: Mucous Membranes Moist - Neck Exam Neck Exam: Full ROM, Normal Inspection - Respiratory Exam Respiratory Exam: Clear to Ausculation Bilateral, NORMAL BREATHING PATTERN - Cardiovascular Exam Cardiovascular Exam: REGULAR RHYTHM, +S1, +S2 - GI/Abdominal Exam GI & Abdominal Exam: Soft, Normal Bowel Sounds - Extremities Exam Extremities Exam: Full ROM - Neurological Exam Neurological Exam: Alert, Awake, Oriented x3 - Psychiatric Exam Psychiatric exam: Normal Mood - Skin Skin Exam: Warm Assessment and Plan - Assessment and Plan (Free Text) Assessment: 1. CAD s/p PAD Drug eluting stent 2. HTN 3. Hyperlipidemia 4. CKD on HD Plavix for 1 year ASA, Statins, B blockers and MORRO I for life Further mgt as per Dr. Giron, Primary associate professor of kinesiology
[2017-04-13] MEDS: Sevelamer Carb 0.8 gm/Packet PO SCH ×3 (09:35→19:00)
--- NOTE | 2017-04-13 11:18 | CP.PCM.PN ---
Subjective - Date & Time of Evaluation Date of Evaluation: 04/13/17 Time of Evaluation: 11:16 - Subjective Subjective: feels fine no chest pain had HD yesterday ROS- 10 point ros negative Objective - Vital Signs/Intake and Output Vital Signs (last 24 hours): Temp Pulse Resp BP Pulse Ox 98.2 F 70 18 136/67 97 04/13/17 07:25 04/13/17 07:30 04/13/17 07:25 04/13/17 07:25 04/13/17 07:25 - Medications Medications: Current Medications Acetaminophen (Tylenol 325mg Tab) 650 mg PO Q6 PRN PRN Reason: Pain, moderate (4-7) Last Admin: 04/10/17 22:01 Dose: 650 mg Amlodipine Besylate (Norvasc) 10 mg PO DAILY [facility] Last Admin: 04/12/17 14:17 Dose: 10 mg Aspirin (Aspirin Chewable) 81 mg PO DAILY [facility] Last Admin: 04/13/17 09:23 Dose: 81 mg Benzonatate (Tessalon Perles) 100 mg PO Q6 PRN PRN Reason: Cough Last Admin: 04/12/17 18:06 Dose: 100 mg Clopidogrel Bisulfate (Plavix) 75 mg PO DAILY [facility] Last Admin: 04/13/17 09:23 Dose: 75 mg Hydralazine HCl (Apresoline) 50 mg PO Q8 [facility] Last Admin: 04/13/17 06:09 Dose: 50 mg Insulin Human Regular (Novolin R) 0 unit SC A[facility]S [facility] PRN Reason: Protocol Last Admin: 04/13/17 07:30 Dose: Not Given Isosorbide Mononitrate (Imdur) 60 mg PO DAILY [facility] Last Admin: 04/13/17 09:28 Dose: 60 mg Labetalol HCl (Trandate) 100 mg PO Q8H [facility] Last Admin: 04/13/17 03:27 Dose: 100 mg Levetiracetam (Keppra) 500 mg PO BID [facility] Last Admin: 04/13/17 09:28 Dose: 500 mg Losartan Potassium (Cozaar) 25 mg PO DAILY [facility] Last Admin: 04/13/17 09:28 Dose: 25 mg Rosuvastatin Calcium (Crestor) 20 mg PO HS [facility] Last Admin: 04/12/17 22:11 Dose: 20 mg Sevelamer Carbonate (Renvela) 0.8 gm PO TID [facility] Last Admin: 04/13/17 09:35 Dose: 0.8 gm Sitagliptin Phosphate (Januvia) 25 mg PO DAILY [facility] Last Admin: 04/13/17 09:28 Dose: 25 mg - Labs Labs: 04/12/17 06:28 04/12/17 06:28 PT 15.6 SECONDS (9.7-12.2) H 04/06/17 16:45 INR 1.4 04/06/17 16:45 APTT 33 SECONDS (21-34) 04/06/17 16:45 - Constitutional Appears: Well, Non-toxic - Head Exam Head Exam: ATRAUMATIC, NORMOCEPHALIC - Eye Exam Eye Exam: EOMI, PERRL - ENT Exam ENT Exam: Mucous Membranes Moist - Respiratory Exam Respiratory Exam: Clear to Ausculation Bilateral. absent: Rhonchi, Wheezes - Cardiovascular Exam Cardiovascular Exam: REGULAR RHYTHM, +S1, +S2 - GI/Abdominal Exam GI & Abdominal Exam: Soft. absent: Tenderness - Extremities Exam Extremities Exam: Full ROM. absent: Pedal Edema - Neurological Exam Neurological Exam: Alert, Awake, Oriented x3 - Psychiatric Exam Psychiatric exam: Normal Affect, Normal Mood Assessment and Plan (1) CAD (coronary artery disease), [place] coronary artery Status: Acute (2) Chronic congestive heart failure Status: Acute (3) End stage renal disease due to benign hypertension Status: Acute - Assessment and Plan (Free Text) Plan: maintain MWF dialysis HD saturday s/p angoiplasty overall stable
--- NOTE | 2017-04-13 14:12 | CP.PCM.PN ---
Subjective - Date & Time of Evaluation Date of Evaluation: 04/13/17 Time of Evaluation: 14:10 - Subjective Subjective: S/P ANGIOPLASTY NO FURTHER CARDIAC EVENTS P/E REMAINS SAME S/P DIALYSIS PT WAS COUNSELLED TO F/U FOR CARDIAC PROBLEMS Objective - Vital Signs/Intake and Output Vital Signs (last 24 hours): Temp Pulse Resp BP Pulse Ox 98.2 F 70 18 136/67 97 04/13/17 07:25 04/13/17 07:30 04/13/17 07:25 04/13/17 07:25 04/13/17 07:25 - Medications Medications: Current Medications Acetaminophen (Tylenol 325mg Tab) 650 mg PO Q6 PRN PRN Reason: Pain, moderate (4-7) Last Admin: 04/10/17 22:01 Dose: 650 mg Amlodipine Besylate (Norvasc) 10 mg PO DAILY [facility] Last Admin: 04/13/17 09:25 Dose: 10 mg Aspirin (Aspirin Chewable) 81 mg PO DAILY [facility] Last Admin: 04/13/17 09:23 Dose: 81 mg Benzonatate (Tessalon Perles) 100 mg PO Q6 PRN PRN Reason: Cough Last Admin: 04/12/17 18:06 Dose: 100 mg Clopidogrel Bisulfate (Plavix) 75 mg PO DAILY [facility] Last Admin: 04/13/17 09:23 Dose: 75 mg Hydralazine HCl (Apresoline) 50 mg PO Q8 [facility] Last Admin: 04/13/17 06:09 Dose: 50 mg Insulin Human Regular (Novolin R) 0 unit SC [facility] PRN Reason: Protocol Last Admin: 04/13/17 12:51 Dose: 1 unit Isosorbide Mononitrate (Imdur) 60 mg PO DAILY [facility] Last Admin: 04/13/17 09:28 Dose: 60 mg Labetalol HCl (Trandate) 100 mg PO Q8H [facility] Last Admin: 04/13/17 03:27 Dose: 100 mg Levetiracetam (Keppra) 500 mg PO BID [facility] Last Admin: 04/13/17 09:28 Dose: 500 mg Losartan Potassium (Cozaar) 25 mg PO DAILY [facility] Last Admin: 04/13/17 09:28 Dose: 25 mg Rosuvastatin Calcium (Crestor) 20 mg PO HS [facility] Last Admin: 04/12/17 22:11 Dose: 20 mg Sevelamer Carbonate (Renvela) 0.8 gm PO TID [facility] Last Admin: 04/13/17 09:35 Dose: 0.8 gm Sitagliptin Phosphate (Januvia) 25 mg PO DAILY [facility] Last Admin: 04/13/17 09:28 Dose: 25 mg - Labs Labs: 04/12/17 06:28 04/12/17 06:28 PT 15.6 SECONDS (9.7-12.2) H 04/06/17 16:45 INR 1.4 04/06/17 16:45 APTT 33 SECONDS (21-34) 04/06/17 16:45
--- NOTE | 2017-04-13 16:08 | CP.PCM.PN ---
Subjective - Date & Time of Evaluation Date of Evaluation: 04/13/17 Time of Evaluation: 16:07 - Subjective Subjective: pt is seen and examined for dr. yuly dailey, progress note is dictated # Objective - Vital Signs/Intake and Output Vital Signs (last 24 hours): Temp Pulse Resp BP Pulse Ox 97.8 F 67 20 119/52 L 97 04/13/17 15:00 04/13/17 15:00 04/13/17 15:00 04/13/17 15:00 04/13/17 15:00 - Medications Medications: Current Medications Acetaminophen (Tylenol 325mg Tab) 650 mg PO Q6 PRN PRN Reason: Pain, moderate (4-7) Last Admin: 04/10/17 22:01 Dose: 650 mg Amlodipine Besylate (Norvasc) 10 mg PO DAILY [facility] Last Admin: 04/13/17 09:25 Dose: 10 mg Aspirin (Aspirin Chewable) 81 mg PO DAILY [facility] Last Admin: 04/13/17 09:23 Dose: 81 mg Benzonatate (Tessalon Perles) 100 mg PO Q6 PRN PRN Reason: Cough Last Admin: 04/12/17 18:06 Dose: 100 mg Clopidogrel Bisulfate (Plavix) 75 mg PO DAILY [facility] Last Admin: 04/13/17 09:23 Dose: 75 mg Hydralazine HCl (Apresoline) 50 mg PO Q8 [facility] Last Admin: 04/13/17 06:09 Dose: 50 mg Insulin Human Regular (Novolin R) 0 unit SC ACHS [facility] PRN Reason: Protocol Last Admin: 04/13/17 12:51 Dose: 1 unit Isosorbide Mononitrate (Imdur) 60 mg PO DAILY [facility] Last Admin: 04/13/17 09:28 Dose: 60 mg Labetalol HCl (Trandate) 100 mg PO Q8H [facility] Last Admin: 04/13/17 03:27 Dose: 100 mg Levetiracetam (Keppra) 500 mg PO BID [facility] Last Admin: 04/13/17 09:28 Dose: 500 mg Losartan Potassium (Cozaar) 25 mg PO DAILY [facility] Last Admin: 04/13/17 09:28 Dose: 25 mg Rosuvastatin Calcium (Crestor) 20 mg PO HS [facility] Last Admin: 04/12/17 22:11 Dose: 20 mg Sevelamer Carbonate (Renvela) 0.8 gm PO TID [facility] Last Admin: 04/13/17 09:35 Dose: 0.8 gm Sitagliptin Phosphate (Januvia) 25 mg PO DAILY [facility] Last Admin: 04/13/17 09:28 Dose: 25 mg - Labs Labs: 04/12/17 06:28 04/12/17 06:28 PT 15.6 SECONDS (9.7-12.2) H 04/06/17 16:45 INR 1.4 04/06/17 16:45 APTT 33 SECONDS (21-34) 04/06/17 16:45
--- NOTE | 2017-04-14 00:27 | PN ---
DATE: 04/13/2017 SUBJECTIVE: The patient is feeling much better. Denies any complaints of chest pain, shortness of breath or wheezing. All other systems reviewed and were found to be negative. PHYSICAL EXAMINATION: GENERAL: Middle-aged male, lying in bed, in no acute distress. VITAL SIGNS: Blood pressure 136/67, pulse 68, respiration 18, temperature 98.2 degrees Fahrenheit, O2 sat is 97% on room air. HEENT: Pupils equal, round and reacting to light and accommodation. Extraocular muscles intact. No icterus. No pallor. No oral thrush. No pharyngeal congestion. NECK: Supple. No JVD. LUNGS: Bilateral vesicular breath sounds. No wheezing. No rhonchi. CVS: S1 and S2 present, regular. ABDOMEN: Soft and nontender. Bowel sounds present. No guarding. No rigidity. No rebound tenderness noted. HAND ALTERATIONS SEAMSTRESS: Alert, awake and oriented x3. No focal deficits noted. EXTREMITIES: No edema. Palpable peripheral pulses. MEDICATIONS: Include hydralazine 50 mg p.o. q. 8 hours, aspirin 81 mg daily, Cozaar 25 mg daily, Crestor 20 mg at bedtime, Imdur 60 mg daily, Januvia 25 mg daily, Keppra 500 mg b.i.d., Norvasc 10 mg daily, Plavix 75 mg daily, Renvela 800 mg p.o. t.i.d., and labetalol 100 mg p.o. q. 8 hours. LABORATORY DATA: Glucose 131, 101, 170,106, 151. ASSESSMENT AND PLAN: Middle-aged male with coronary artery disease, status post left anterior descending stent placement. Admitted for renal stenosis, status post drug eluting stent placement to left anterior descending, hypertension, hyperlipidemia, diabetes mellitus, end-stage renal disease on hemodialysis 3 times a week, Saturday, Saturday, and Saturday. Received hemodialysis yesterday. The patient is waiting for outpatient hemodialysis placement. The patient is otherwise hemodynamically stable and patient may be discharged to [place] outpatient hemodialysis as established by renal social worker. We will follow up with renal social worker for discharge planning. Umair Harmon MD
[2017-04-14] MEDS: (Novolin R) Insulin Human Regular 100 units/ml vial SC SCH ×4 (08:30→22:14)
[2017-04-14] MEDS: Sevelamer Carb 0.8 gm/Packet PO SCH ×3 (10:20→18:04)
--- NOTE | 2017-04-14 14:46 | CP.PCM.PN ---
Subjective - Date & Time of Evaluation Date of Evaluation: 04/14/17 Time of Evaluation: 14:45 - Subjective Subjective: CLINICALLY STABLE NO CP AWAITING PLACEMENT FOR OUT PT DIALYSIS HE WANTS TO MOVE BACK TO FROM [place] Objective - Vital Signs/Intake and Output Vital Signs (last 24 hours): Temp Pulse Resp BP Pulse Ox 97.5 F L 70 20 159/78 H 95 04/14/17 07:00 04/14/17 07:30 04/14/17 07:00 04/14/17 07:00 04/14/17 07:00 - Medications Medications: Current Medications Acetaminophen (Tylenol 325mg Tab) 650 mg PO Q6 PRN PRN Reason: Pain, moderate (4-7) Last Admin: 04/14/17 12:31 Dose: 650 mg Amlodipine Besylate (Norvasc) 10 mg PO DAILY [facility] Last Admin: 04/14/17 09:21 Dose: 10 mg Aspirin (Aspirin Chewable) 81 mg PO DAILY [facility] Last Admin: 04/14/17 09:21 Dose: 81 mg Benzonatate (Tessalon Perles) 100 mg PO Q6 PRN PRN Reason: Cough Last Admin: 04/12/17 18:06 Dose: 100 mg Clopidogrel Bisulfate (Plavix) 75 mg PO DAILY [facility] Last Admin: 04/14/17 09:21 Dose: 75 mg Heparin Sodium (Porcine) (Heparin) 5,000 units SC Q12 [facility] Last Admin: 04/14/17 09:22 Dose: 5,000 units Hydralazine HCl (Apresoline) 50 mg PO Q8 [facility] Last Admin: 04/14/17 13:35 Dose: 50 mg Insulin Human Regular (Novolin R) 0 unit SC [facility] PRN Reason: Protocol Last Admin: 04/14/17 13:36 Dose: Not Given Isosorbide Mononitrate (Imdur) 60 mg PO DAILY [facility] Last Admin: 04/14/17 09:21 Dose: 60 mg Labetalol HCl (Trandate) 100 mg PO Q8H [facility] Last Admin: 04/14/17 12:33 Dose: 100 mg Levetiracetam (Keppra) 500 mg PO BID [facility] Last Admin: 04/14/17 09:22 Dose: 500 mg Losartan Potassium (Cozaar) 25 mg PO DAILY [facility] Last Admin: 04/14/17 09:22 Dose: 25 mg Rosuvastatin Calcium (Crestor) 20 mg PO HS [facility] Last Admin: 04/13/17 22:03 Dose: 20 mg Sevelamer Carbonate (Renvela) 0.8 gm PO TID [facility] Last Admin: 04/14/17 13:36 Dose: 0.8 gm Sitagliptin Phosphate (Januvia) 25 mg PO DAILY [facility] Last Admin: 04/14/17 09:21 Dose: 25 mg - Labs Labs: 04/12/17 06:28 04/12/17 06:28 PT 15.6 SECONDS (9.7-12.2) H 04/06/17 16:45 INR 1.4 04/06/17 16:45 APTT 33 SECONDS (21-34) 04/06/17 16:45
--- NOTE | 2017-04-14 18:45 | CP.PCM.PN ---
Subjective - Date & Time of Evaluation Date of Evaluation: 04/14/17 Time of Evaluation: 18:45 - Subjective Subjective: pt is seen and examined, progress note is dictated #[id number] Objective - Vital Signs/Intake and Output Vital Signs (last 24 hours): Temp Pulse Resp BP Pulse Ox 97.5 F L 65 20 129/64 97 04/14/17 15:00 04/14/17 15:00 04/14/17 15:00 04/14/17 15:00 04/14/17 15:00 Intake and Output: 04/14/17 04/14/17 06:59 18:59 Intake Total 300 Balance 300 - Medications Medications: Current Medications Acetaminophen (Tylenol 325mg Tab) 650 mg PO Q6 PRN PRN Reason: Pain, moderate (4-7) Last Admin: 04/14/17 12:31 Dose: 650 mg Amlodipine Besylate (Norvasc) 10 mg PO DAILY [facility] Last Admin: 04/14/17 09:21 Dose: 10 mg Aspirin (Aspirin Chewable) 81 mg PO DAILY [facility] Last Admin: 04/14/17 09:21 Dose: 81 mg Benzonatate (Tessalon Perles) 100 mg PO Q6 PRN PRN Reason: Cough Last Admin: 04/12/17 18:06 Dose: 100 mg Clopidogrel Bisulfate (Plavix) 75 mg PO DAILY [facility] Last Admin: 04/14/17 09:21 Dose: 75 mg Heparin Sodium (Porcine) (Heparin) 5,000 units SC Q12 [facility] Last Admin: 04/14/17 09:22 Dose: 5,000 units Hydralazine HCl (Apresoline) 50 mg PO Q8 [facility] Last Admin: 04/14/17 13:35 Dose: 50 mg Insulin Human Regular (Novolin R) 0 unit SC ACHS [facility] PRN Reason: Protocol Last Admin: 04/14/17 17:30 Dose: 1 unit Isosorbide Mononitrate (Imdur) 60 mg PO DAILY [facility] Last Admin: 04/14/17 09:21 Dose: 60 mg Labetalol HCl (Trandate) 100 mg PO Q8H [facility] Last Admin: 04/14/17 12:33 Dose: 100 mg Levetiracetam (Keppra) 500 mg PO BID [facility] Last Admin: 04/14/17 18:04 Dose: 500 mg Losartan Potassium (Cozaar) 25 mg PO DAILY [facility] Last Admin: 04/14/17 09:22 Dose: 25 mg Rosuvastatin Calcium (Crestor) 20 mg PO HS [facility] Last Admin: 04/13/17 22:03 Dose: 20 mg Sevelamer Carbonate (Renvela) 0.8 gm PO TID [facility] Last Admin: 04/14/17 18:04 Dose: 0.8 gm Sitagliptin Phosphate (Januvia) 25 mg PO DAILY [facility] Last Admin: 04/14/17 09:21 Dose: 25 mg - Labs Labs: 04/12/17 06:28 04/12/17 06:28 PT 15.6 SECONDS (9.7-12.2) H 04/06/17 16:45 INR 1.4 04/06/17 16:45 APTT 33 SECONDS (21-34) 04/06/17 16:45
--- NOTE | 2017-04-14 20:00 | CARDCATH ---
PROCEDURE DATE: 04/09/2017 PROCEDURES: 1. Left heart catheterization. 2. Coronary angiogram. REFERRING PHYSICIANS: 1. Umair Harmon MD 2. Gloria Giron MD PERFORMING PHYSICIAN: Marin Lassiter MD CLINICAL INDICATIONS: 1. Angina. 2. Abnormal stress test. 3. History of coronary artery disease and LAD stent placement. 4. Hypertension. 5. Hyperlipidemia. 6. Chronic kidney disease, on hemodialysis. PROCEDURE: After informed consent, the patient was prepped and draped in the usual sterile fashion. A 2% lidocaine was given in the right groin for local anesthesia. Using micropuncture technique, a 6-[place] sheath was introduced into right common femoral artery. Using the usual diagnostic catheter, left heart catheterization and coronary angiogram was performed. The patient tolerated the procedure well. FINDINGS: 1. Left main coronary artery is patent. 2. Proximal LAD and distal LAD patent is patent. Mid LAD stent has in-stent restenosis. The severity is 95%. 3. Left circumflex coronary artery is patent. 4. Ramus has a 60% ostial stenosis. 5. Right coronary artery is dominant and patent. There were proximal right coronary artery has a 30% nonobstructive stenosis. 6. LV ejection fraction 60%. No wall motion abnormalities noted. EDP is 18. No gradient across the aortic valve. IMPRESSION: 1. Severe left anterior descending in-stent 90% stenosis. 2. Normal left ventricular systolic function. PLAN: Recommend LAD intervention. Marin Lassiter MD
--- NOTE | 2017-04-15 02:31 | PN ---
DATE: LOCATION: The patient is located in room 652, bed B. The patient is seen and examined and dictated for Umair Harmon MD SUBJECTIVE: Mr. Rendon is a 61 years old [place] male with a history of hypertension, diabetes, coronary artery disease, hyperlipidemia, and end-stage renal disease on hemodialysis, coronary artery disease status post stent. He was admitted with left arm pain and subsequently the patient underwent a cardiac catheterization and LAD stent placement. The patient is feeling much better, not in acute distress. Denies any headache or dizziness. Denies any chest pain or palpitations. Denies any fever or cough. No abdominal pain. No nausea, vomiting, or diarrhea. The patient is waiting for the outpatient hemodialysis unit placement and also for possible placement for him as the patient is homeless at this time. PHYSICAL EXAMINATION: VITAL SIGNS: As follows blood pressure 153/89, pulse 65, respirations 20, temperature 97.5, and saturation 97%. Height 5 feet 7 inches and weight is 168 pounds. GENERAL: Mr. Rendon is a 61 years old elderly male, moderately built, moderately nourished, not in acute distress. HEENT: Pupils normal, reactive to light and accommodation. Conjunctivae pink. Sclerae anicteric. Tongue is moist. Trachea is midline. LUNGS: Symmetric on both sides. Bilateral breath sounds present. Clear on auscultation. CARDIOVASCULAR: [place] at the fifth intercostal space, midclavicular. S1 and S2 audible. No murmur or gallop. ABDOMEN: Normal in appearance, soft, tympanic. No guarding. No hepatosplenomegaly. CENTRAL NERVOUS SYSTEM: The patient is alert, awake, and oriented x3. Nonfocal neuro examination. Cranial nerves II through XII grossly intact. Sensory and motor system is within normal limits. EXTREMITIES: No cyanosis. No clubbing. No edema. CURRENT MEDICATIONS: Include as follows: Hydralazine 50 mg p.o. q. 8 hours, aspirin 81 mg daily, losartan 25 mg daily, Crestor 20 mg p.o. at bedtime, subcutaneous heparin 5000 unit q. 12 hours, Imdur 60 mg p.o. daily, Januvia 25 mg p.o. daily, Keppra 500 mg p.o. b.i.d., amlodipine 10 mg daily, Novolin R per sliding scale, Plavix 75 mg daily, Renvela 800 mg p.o. t.i.d., Tessalon Perles 100 mg p.o. q. 6 hours p.r.n., labetalol 100 mg p.o. q. 8 hours, and Tylenol. LABORATORY DATA: No new labs are available. Accu-Cheks 117, 123, and 160. ASSESSMENT: In summary, Mr. Rendon is a 61 years old, elderly male with a history of hypertension, diabetes, coronary artery disease, hyperlipidemia, end-stage renal disease, and was admitted with pain on the left arm. Subsequently, the patient underwent cardiac catheterization and status post left anterior descending stent placement by Dr. Marin Lassiter. 1. End-stage renal disease. Continue hemodialysis 3 times a week, Saturday, Saturday, and Saturday. 2. Hypertension. Blood pressure is stable. Continue his current medications hydralazine, losartan, labetalol, and amlodipine. 3. Status post cardiac catheterization and left anterior descending stent placement. 4. Check hepatitis B and C serology in a.m. and follow with social service for outpatient hemodialysis placement and also for possible placement to leave temporary group home. The patient is seen and examined and dictated for Umair Harmon MD. Amanda Harmon MD
[2017-04-15] MEDS: (Novolin R) Insulin Human Regular 100 units/ml vial SC SCH ×5 (07:30→22:47)
[2017-04-15] MEDS: Sevelamer Carb 0.8 gm/Packet PO SCH ×3 (10:16→17:47)
--- NOTE | 2017-04-15 13:33 | CP.PCM.PN ---
Subjective - Date & Time of Evaluation Date of Evaluation: 04/15/17 Time of Evaluation: 13:32 - Subjective Subjective: NO CP /SOB AWAITING PLACEMENT CARDIAC status stable Objective - Vital Signs/Intake and Output Vital Signs (last 24 hours): Temp Pulse Resp BP Pulse Ox 97.4 F L 66 20 110/57 L 97 04/15/17 10:35 04/15/17 10:35 04/15/17 10:35 04/15/17 12:35 04/15/17 10:35 - Medications Medications: Current Medications Acetaminophen (Tylenol 325mg Tab) 650 mg PO Q6 PRN PRN Reason: Pain, moderate (4-7) Last Admin: 04/15/17 05:41 Dose: 650 mg Amlodipine Besylate (Norvasc) 10 mg PO DAILY [facility] Last Admin: 04/15/17 10:15 Dose: 10 mg Aspirin (Aspirin Chewable) 81 mg PO DAILY [facility] Last Admin: 04/15/17 10:14 Dose: 81 mg Benzonatate (Tessalon Perles) 100 mg PO Q6 PRN PRN Reason: Cough Last Admin: 04/12/17 18:06 Dose: 100 mg Clopidogrel Bisulfate (Plavix) 75 mg PO DAILY [facility] Last Admin: 04/15/17 10:15 Dose: 75 mg Heparin Sodium (Porcine) (Heparin) 5,000 units SC Q12 [facility] Last Admin: 04/15/17 10:15 Dose: Not Given Hydralazine HCl (Apresoline) 50 mg PO Q8 [facility] Last Admin: 04/15/17 05:39 Dose: 50 mg Insulin Human Regular (Novolin R) 0 unit SC ACHS [facility] PRN Reason: Protocol Last Admin: 04/15/17 11:54 Dose: Not Given Isosorbide Mononitrate (Imdur) 60 mg PO DAILY [facility] Last Admin: 04/15/17 10:15 Dose: 60 mg Labetalol HCl (Trandate) 100 mg PO Q8H [facility] Last Admin: 04/15/17 04:19 Dose: 100 mg Levetiracetam (Keppra) 500 mg PO BID [facility] Last Admin: 04/15/17 10:14 Dose: 500 mg Losartan Potassium (Cozaar) 25 mg PO DAILY [facility] Last Admin: 04/15/17 10:15 Dose: 25 mg Rosuvastatin Calcium (Crestor) 20 mg PO HS [facility] Last Admin: 04/14/17 22:12 Dose: 20 mg Sevelamer Carbonate (Renvela) 0.8 gm PO TID [facility] Last Admin: 04/15/17 10:16 Dose: 0.8 gm Sitagliptin Phosphate (Januvia) 25 mg PO DAILY [facility] Last Admin: 04/15/17 10:16 Dose: 25 mg - Labs Labs: 04/12/17 06:28 04/12/17 06:28 PT 15.6 SECONDS (9.7-12.2) H 04/06/17 16:45 INR 1.4 04/06/17 16:45 APTT 33 SECONDS (21-34) 04/06/17 16:45
--- NOTE | 2017-04-15 13:47 | CP.PCM.PN ---
Subjective - Date & Time of Evaluation Date of Evaluation: 04/15/17 Time of Evaluation: 13:44 - Subjective Subjective: seen at HD to UF 2500ml s/p LAD stent sleepy- no new compalint Objective - Vital Signs/Intake and Output Vital Signs (last 24 hours): Temp Pulse Resp BP Pulse Ox 97.4 F L 66 20 110/57 L 97 04/15/17 10:35 04/15/17 10:35 04/15/17 10:35 04/15/17 12:35 04/15/17 10:35 Intake and Output: 04/15/17 04/15/17 06:59 18:59 Intake Total 350 Output Total 100 Balance 250 - Medications Medications: Current Medications Acetaminophen (Tylenol 325mg Tab) 650 mg PO Q6 PRN PRN Reason: Pain, moderate (4-7) Last Admin: 04/15/17 05:41 Dose: 650 mg Amlodipine Besylate (Norvasc) 10 mg PO DAILY [facility] Last Admin: 04/15/17 10:15 Dose: 10 mg Aspirin (Aspirin Chewable) 81 mg PO DAILY [facility] Last Admin: 04/15/17 10:14 Dose: 81 mg Benzonatate (Tessalon Perles) 100 mg PO Q6 PRN PRN Reason: Cough Last Admin: 04/12/17 18:06 Dose: 100 mg Clopidogrel Bisulfate (Plavix) 75 mg PO DAILY [facility] Last Admin: 04/15/17 10:15 Dose: 75 mg Heparin Sodium (Porcine) (Heparin) 5,000 units SC Q12 [facility] Last Admin: 04/15/17 10:15 Dose: Not Given Hydralazine HCl (Apresoline) 50 mg PO Q8 [facility] Last Admin: 04/15/17 05:39 Dose: 50 mg Insulin Human Regular (Novolin R) 0 unit SC ACHS [facility] PRN Reason: Protocol Last Admin: 04/15/17 11:54 Dose: Not Given Isosorbide Mononitrate (Imdur) 60 mg PO DAILY [facility] Last Admin: 04/15/17 10:15 Dose: 60 mg Labetalol HCl (Trandate) 100 mg PO Q8H [facility] Last Admin: 04/15/17 04:19 Dose: 100 mg Levetiracetam (Keppra) 500 mg PO BID [facility] Last Admin: 04/15/17 10:14 Dose: 500 mg Losartan Potassium (Cozaar) 25 mg PO DAILY [facility] Last Admin: 04/15/17 10:15 Dose: 25 mg Rosuvastatin Calcium (Crestor) 20 mg PO HS [facility] Last Admin: 04/14/17 22:12 Dose: 20 mg Sevelamer Carbonate (Renvela) 0.8 gm PO TID [facility] Last Admin: 04/15/17 10:16 Dose: 0.8 gm Sitagliptin Phosphate (Januvia) 25 mg PO DAILY [facility] Last Admin: 04/15/17 10:16 Dose: 25 mg - Labs Labs: 04/12/17 06:28 04/12/17 06:28 PT 15.6 SECONDS (9.7-12.2) H 04/06/17 16:45 INR 1.4 04/06/17 16:45 APTT 33 SECONDS (21-34) 04/06/17 16:45 - Constitutional Appears: No Acute Distress, Chronically Ill - Head Exam Head Exam: ATRAUMATIC, NORMAL INSPECTION - Eye Exam Eye Exam: EOMI, Normal appearance - Neck Exam Neck Exam: Normal Inspection. absent: Tenderness - Respiratory Exam Respiratory Exam: Clear to Ausculation Bilateral, NORMAL BREATHING PATTERN - Cardiovascular Exam Cardiovascular Exam: REGULAR RHYTHM, +S1 - GI/Abdominal Exam GI & Abdominal Exam: Soft. absent: Tenderness - Extremities Exam Extremities Exam: Tenderness. absent: Pedal Edema - Neurological Exam Neurological Exam: Alert, CN II-XII Intact - Skin Skin Exam: Dry, Warm Assessment and Plan (1) Chest pain Status: Acute (2) Chronic congestive heart failure Status: Acute (3) End-stage renal disease Status: Acute (4) Fluid overload Status: Acute (5) CAD (coronary artery disease), viejas coronary artery Status: Acute - Assessment and Plan (Free Text) Plan: Same dialysis same meds cardiac follow up
--- NOTE | 2017-04-15 15:09 | CP.PCM.PN ---
Subjective - Date & Time of Evaluation Date of Evaluation: 04/15/17 Time of Evaluation: 15:00 Objective - Vital Signs/Intake and Output Vital Signs (last 24 hours): Temp Pulse Resp BP Pulse Ox 97.4 F L 66 20 123/69 97 04/15/17 10:35 04/15/17 10:35 04/15/17 10:35 04/15/17 14:05 04/15/17 10:35 Intake and Output: 04/15/17 04/15/17 06:59 18:59 Intake Total 350 Output Total 100 Balance 250 - Medications Medications: Current Medications Acetaminophen (Tylenol 325mg Tab) 650 mg PO Q6 PRN PRN Reason: Pain, moderate (4-7) Last Admin: 04/15/17 05:41 Dose: 650 mg Amlodipine Besylate (Norvasc) 10 mg PO DAILY [facility] Last Admin: 04/15/17 10:15 Dose: 10 mg Aspirin (Aspirin Chewable) 81 mg PO DAILY [facility] Last Admin: 04/15/17 10:14 Dose: 81 mg Benzonatate (Tessalon Perles) 100 mg PO Q6 PRN PRN Reason: Cough Last Admin: 04/12/17 18:06 Dose: 100 mg Clopidogrel Bisulfate (Plavix) 75 mg PO DAILY [facility] Last Admin: 04/15/17 10:15 Dose: 75 mg Heparin Sodium (Porcine) (Heparin) 5,000 units SC Q12 [facility] Last Admin: 04/15/17 10:15 Dose: Not Given Hydralazine HCl (Apresoline) 50 mg PO Q8 [facility] Last Admin: 04/15/17 05:39 Dose: 50 mg Insulin Human Regular (Novolin R) 0 unit SC ACHS [facility] PRN Reason: Protocol Last Admin: 04/15/17 11:54 Dose: Not Given Isosorbide Mononitrate (Imdur) 60 mg PO DAILY [facility] Last Admin: 04/15/17 10:15 Dose: 60 mg Labetalol HCl (Trandate) 100 mg PO Q8H [facility] Last Admin: 04/15/17 04:19 Dose: 100 mg Levetiracetam (Keppra) 500 mg PO BID [facility] Last Admin: 04/15/17 10:14 Dose: 500 mg Losartan Potassium (Cozaar) 25 mg PO DAILY [facility] Last Admin: 04/15/17 10:15 Dose: 25 mg Rosuvastatin Calcium (Crestor) 20 mg PO HS [facility] Last Admin: 04/14/17 22:12 Dose: 20 mg Sevelamer Carbonate (Renvela) 0.8 gm PO TID [facility] Last Admin: 04/15/17 10:16 Dose: 0.8 gm Sitagliptin Phosphate (Januvia) 25 mg PO DAILY [facility] Last Admin: 04/15/17 10:16 Dose: 25 mg - Labs Labs: 04/12/17 06:28 04/12/17 06:28 PT 15.6 SECONDS (9.7-12.2) H 04/06/17 16:45 INR 1.4 04/06/17 16:45 APTT 33 SECONDS (21-34) 04/06/17 16:45
[2017-04-15 16:19] VITALS: RESP 20
--- NOTE | 2017-04-16 05:47 | PN ---
DATE: 04/15/2017 SUBJECTIVE: The patient was seen and examined at bedside, offers no new complaints, awaiting for placement, underwent hemodialysis this morning. PHYSICAL EXAMINATION: GENERAL: On examination, a middle-aged male, lying in bed, in no acute distress. VITAL SIGNS: Blood pressure 126/69, pulse 72, respirations 20, temperature 98.6 degrees Fahrenheit, O2 saturation 97% on room air. HEENT: Pupils equal, round and reacting to light and accommodation. Extraocular muscles intact. No icterus. No pallor. No oral thrush. No pharyngeal congestion. NECK: Supple. No JVD. LUNGS: Bilateral vesicular breath sounds. No wheezing. No rhonchi. CARDIOVASCULAR SYSTEM: S1, S2 present. Regular. ABDOMEN: Soft, nontender. Bowel sounds present. No guarding. No rigidity. No rebound tenderness noted. CENTRAL NERVOUS SYSTEM: Alert, awake and oriented x3. No focal deficits noted. EXTREMITIES: No edema. MEDICATIONS: Include hydralazine 50 mg p.o. q. 8 hours, aspirin 81 mg daily, Cozaar 25 mg daily, Crestor 20 mg p.o. at bedtime, Imdur 60 mg daily, Januvia 25 mg daily, Keppra 500 mg b.i.d., Norvasc 10 mg daily, Plavix 75 mg daily, Renvela 800 mg p.o. t.i.d., labetalol 100 mg p.o. q. 8 hours. Hepatitis B surface antibody positive. Hep C negative. Glucose 209, 201, 168. ASSESSMENT AND PLAN: A middle-aged male with hypertension; diabetes mellitus; hyperlipidemia; coronary artery disease, status post catheterization, status post left anterior descending stent placement; end-stage renal disease, on hemodialysis. Awaiting for outpatient hemodialysis center placement. Discussed with child welfare social worker and case management. The patient is otherwise medically stable for discharge whenever bed available. Umair Harmon MD
[2017-04-16] MEDS: (Novolin R) Insulin Human Regular 100 units/ml vial SC SCH ×3 (07:30→17:02)
[2017-04-16] MEDS: Sevelamer Carb 0.8 gm/Packet PO SCH (10:17)
--- NOTE | 2017-04-16 10:30 | CP.PCM.PN ---
Subjective - Date & Time of Evaluation Date of Evaluation: 04/16/17 Time of Evaluation: 10:30 - Subjective Subjective: seen and examined no complaints. poor historian Objective - Vital Signs/Intake and Output Vital Signs (last 24 hours): Temp Pulse Resp BP Pulse Ox 98.1 F 71 20 136/64 94 L 04/16/17 07:00 04/16/17 07:30 04/16/17 07:00 04/16/17 07:00 04/16/17 07:00 Intake and Output: 04/16/17 04/16/17 06:59 18:59 Intake Total 300 Output Total 100 Balance 200 - Medications Medications: Current Medications Acetaminophen (Tylenol 325mg Tab) 650 mg PO Q6 PRN PRN Reason: Pain, moderate (4-7) Last Admin: 04/16/17 10:26 Dose: 650 mg Amlodipine Besylate (Norvasc) 10 mg PO DAILY [facility] Last Admin: 04/16/17 10:17 Dose: 10 mg Aspirin (Aspirin Chewable) 81 mg PO DAILY [facility] Last Admin: 04/16/17 10:16 Dose: 81 mg Benzonatate (Tessalon Perles) 100 mg PO Q6 PRN PRN Reason: Cough Last Admin: 04/12/17 18:06 Dose: 100 mg Clopidogrel Bisulfate (Plavix) 75 mg PO DAILY [facility] Last Admin: 04/16/17 10:17 Dose: 75 mg Heparin Sodium (Porcine) (Heparin) 5,000 units SC Q12 [facility] Last Admin: 04/15/17 22:46 Dose: 5,000 units Hydralazine HCl (Apresoline) 50 mg PO Q8 [facility] Last Admin: 04/15/17 22:46 Dose: 50 mg Insulin Human Regular (Novolin R) 0 unit SC ACHS [facility] PRN Reason: Protocol Last Admin: 04/16/17 07:30 Dose: Not Given Isosorbide Mononitrate (Imdur) 60 mg PO DAILY [facility] Last Admin: 04/16/17 10:17 Dose: 60 mg Labetalol HCl (Trandate) 100 mg PO Q8H [facility] Last Admin: 04/16/17 02:47 Dose: 100 mg Levetiracetam (Keppra) 500 mg PO BID [facility] Last Admin: 04/16/17 10:16 Dose: 500 mg Losartan Potassium (Cozaar) 25 mg PO DAILY [facility] Last Admin: 04/16/17 10:17 Dose: 25 mg Rosuvastatin Calcium (Crestor) 20 mg PO HS [facility] Last Admin: 04/15/17 22:45 Dose: 20 mg Sevelamer Carbonate (Renvela) 0.8 gm PO TID [facility] Last Admin: 04/16/17 10:17 Dose: 0.8 gm Sitagliptin Phosphate (Januvia) 25 mg PO DAILY [facility] Last Admin: 04/16/17 10:17 Dose: 25 mg - Labs Labs: 04/12/17 06:28 04/12/17 06:28 PT 15.6 SECONDS (9.7-12.2) H 04/06/17 16:45 INR 1.4 04/06/17 16:45 APTT 33 SECONDS (21-34) 04/06/17 16:45 - Constitutional Appears: No Acute Distress - Head Exam Head Exam: NORMAL INSPECTION - Eye Exam Eye Exam: Normal appearance - ENT Exam ENT Exam: Mucous Membranes Moist, Normal Exam - Neck Exam Neck Exam: Normal Inspection - Respiratory Exam Respiratory Exam: Clear to Ausculation Bilateral, NORMAL BREATHING PATTERN - Cardiovascular Exam Cardiovascular Exam: RRR - GI/Abdominal Exam GI & Abdominal Exam: Distended, Soft - Extremities Exam Extremities Exam: Normal Inspection Assessment and Plan (1) Chest pain Status: Acute (2) CVA (cerebrovascular accident) Status: Acute (3) ESRD needing dialysis Status: Acute (4) HTN (hypertension) Status: Chronic - Assessment and Plan (Free Text) Assessment: maintain hd tts bp controlled check labs w hd tomorrow
--- NOTE | 2017-04-16 11:29 | CP.PCM.PN ---
Subjective - Date & Time of Evaluation Date of Evaluation: 04/16/17 Time of Evaluation: 11:20 Objective - Vital Signs/Intake and Output Vital Signs (last 24 hours): Temp Pulse Resp BP Pulse Ox 98.1 F 71 20 136/64 94 L 04/16/17 07:00 04/16/17 07:30 04/16/17 07:00 04/16/17 07:00 04/16/17 07:00 Intake and Output: 04/16/17 04/16/17 06:59 18:59 Intake Total 300 Output Total 100 Balance 200 - Medications Medications: Current Medications Acetaminophen (Tylenol 325mg Tab) 650 mg PO Q6 PRN PRN Reason: Pain, moderate (4-7) Last Admin: 04/16/17 10:26 Dose: 650 mg Amlodipine Besylate (Norvasc) 10 mg PO DAILY [facility] Last Admin: 04/16/17 10:17 Dose: 10 mg Aspirin (Aspirin Chewable) 81 mg PO DAILY [facility] Last Admin: 04/16/17 10:16 Dose: 81 mg Benzonatate (Tessalon Perles) 100 mg PO Q6 PRN PRN Reason: Cough Last Admin: 04/12/17 18:06 Dose: 100 mg Clopidogrel Bisulfate (Plavix) 75 mg PO DAILY [facility] Last Admin: 04/16/17 10:17 Dose: 75 mg Heparin Sodium (Porcine) (Heparin) 5,000 units SC Q12 [facility] Last Admin: 04/15/17 22:46 Dose: 5,000 units Hydralazine HCl (Apresoline) 50 mg PO Q8 [facility] Last Admin: 04/15/17 22:46 Dose: 50 mg Insulin Human Regular (Novolin R) 0 unit SC ACHS [facility] PRN Reason: Protocol Last Admin: 04/16/17 07:30 Dose: Not Given Isosorbide Mononitrate (Imdur) 60 mg PO DAILY [facility] Last Admin: 04/16/17 10:17 Dose: 60 mg Labetalol HCl (Trandate) 100 mg PO Q8H [facility] Last Admin: 04/16/17 02:47 Dose: 100 mg Levetiracetam (Keppra) 500 mg PO BID [facility] Last Admin: 04/16/17 10:16 Dose: 500 mg Losartan Potassium (Cozaar) 25 mg PO DAILY [facility] Last Admin: 04/16/17 10:17 Dose: 25 mg Rosuvastatin Calcium (Crestor) 20 mg PO HS [facility] Last Admin: 04/15/17 22:45 Dose: 20 mg Sevelamer Carbonate (Renvela) 0.8 gm PO TID [facility] Last Admin: 04/16/17 10:17 Dose: 0.8 gm Sitagliptin Phosphate (Januvia) 25 mg PO DAILY [facility] Last Admin: 04/16/17 10:17 Dose: 25 mg - Labs Labs: 04/12/17 06:28 04/12/17 06:28 PT 15.6 SECONDS (9.7-12.2) H 04/06/17 16:45 INR 1.4 04/06/17 16:45 APTT 33 SECONDS (21-34) 04/06/17 16:45
--- NOTE | 2017-04-16 12:50 | CP.PCM.PN ---
Subjective - Date & Time of Evaluation Date of Evaluation: 04/16/17 Time of Evaluation: 12:49 - Subjective Subjective: AWAITING DIALYSIS PLACEMENT VS STABLE NO CP/SOB CONT DIALYSIS Objective - Vital Signs/Intake and Output Vital Signs (last 24 hours): Temp Pulse Resp BP Pulse Ox 98.1 F 71 20 136/64 94 L 04/16/17 07:00 04/16/17 07:30 04/16/17 07:00 04/16/17 07:00 04/16/17 07:00 - Medications Medications: Current Medications Acetaminophen (Tylenol 325mg Tab) 650 mg PO Q6 PRN PRN Reason: Pain, moderate (4-7) Last Admin: 04/16/17 10:26 Dose: 650 mg Amlodipine Besylate (Norvasc) 10 mg PO DAILY [facility] Last Admin: 04/16/17 10:17 Dose: 10 mg Aspirin (Aspirin Chewable) 81 mg PO DAILY [facility] Last Admin: 04/16/17 10:16 Dose: 81 mg Benzonatate (Tessalon Perles) 100 mg PO Q6 PRN PRN Reason: Cough Last Admin: 04/12/17 18:06 Dose: 100 mg Clopidogrel Bisulfate (Plavix) 75 mg PO DAILY [facility] Last Admin: 04/16/17 10:17 Dose: 75 mg Heparin Sodium (Porcine) (Heparin) 5,000 units SC Q12 [facility] Last Admin: 04/15/17 22:46 Dose: 5,000 units Hydralazine HCl (Apresoline) 50 mg PO Q8 [facility] Last Admin: 04/15/17 22:46 Dose: 50 mg Insulin Human Regular (Novolin R) 0 unit SC [facility] PRN Reason: Protocol Last Admin: 04/16/17 07:30 Dose: Not Given Isosorbide Mononitrate (Imdur) 60 mg PO DAILY [facility] Last Admin: 04/16/17 10:17 Dose: 60 mg Labetalol HCl (Trandate) 100 mg PO Q8H [facility] Last Admin: 04/16/17 02:47 Dose: 100 mg Levetiracetam (Keppra) 500 mg PO BID [facility] Last Admin: 04/16/17 10:16 Dose: 500 mg Losartan Potassium (Cozaar) 25 mg PO DAILY [facility] Last Admin: 04/16/17 10:17 Dose: 25 mg Rosuvastatin Calcium (Crestor) 20 mg PO HS [facility] Last Admin: 04/15/17 22:45 Dose: 20 mg Sevelamer Carbonate (Renvela) 0.8 gm PO TID [facility] Last Admin: 04/16/17 10:17 Dose: 0.8 gm Sitagliptin Phosphate (Januvia) 25 mg PO DAILY [facility] Last Admin: 04/16/17 10:17 Dose: 25 mg - Labs Labs: 04/12/17 06:28 04/12/17 06:28 PT 15.6 SECONDS (9.7-12.2) H 04/06/17 16:45 INR 1.4 04/06/17 16:45 APTT 33 SECONDS (21-34) 04/06/17 16:45
[2017-04-16 15:55] VITALS: BP 122/62; PULSE 63; TEMP 97.4; O2SAT 98
== END 2017-04-16 18:28 | disposition home or self-care (01) | DRG 246 ==
LOC: C.ER 16:06 → C.9E 17:14 → C.6T 17:56 → OBSVTOIN 04-08 18:30 → C.6T 04-11 09:40
PROVIDERS: ADMIT Internal Medicine; ATTEND Internal Medicine
PROC: 5A1D60Z (ICD-10-PCS; 2017-04-08)
PROC: 4A023N7 Measurement of Cardiac Sampling and Pressure, Left Heart, Percutaneous Approach (ICD-10-PCS; principal; 2017-04-09)
PROC: B201YZZ Plain Radiography of Multiple Coronary Arteries using Other Contrast (ICD-10-PCS; 2017-04-09)
PROC: B205YZZ Plain Radiography of Left Heart using Other Contrast (ICD-10-PCS; 2017-04-09)
PROC: 027034Z Dilation of Coronary Artery, One Artery with Drug-eluting Intraluminal Device, Percutaneous Approach (ICD-10-PCS; 2017-04-11)
DX: I25.110 Atherosclerotic heart disease of native coronary artery with unstable angina pectoris (principal); N18.6 End stage renal disease; I13.2 Hypertensive heart and chronic kidney disease with heart failure and with stage 5 chronic kidney disease, or end stage renal disease; E11.22 Type 2 diabetes mellitus with diabetic chronic kidney disease; I50.9 Heart failure, unspecified; E78.5 Hyperlipidemia, unspecified; G40.909 Epilepsy, unspecified, not intractable, without status epilepticus; D64.9 Anemia, unspecified; Z87.891 Personal history of nicotine dependence; Z88.0 Allergy status to penicillin; Z86.73 Personal history of transient ischemic attack (TIA), and cerebral infarction without residual deficits; Z95.5 Presence of coronary angioplasty implant and graft; Z99.2 Dependence on renal dialysis; Z79.4 Long term (current) use of insulin; Z59.0 Homelessness

== ENCOUNTER 2017-04-26 21:52 | Emergency (ER) | payer MEDICARE, OTHER ==
[2017-04-26 21:53] VITALS: BMI 28.6
--- NOTE | 2017-04-26 22:18 | C.PDOC ---
History Of Present Illness 61 year old male presents to the ED with complaints of weakness following dialysis yesterday. Patient states he normally feels weak but has been exerting more energy as of lately with increased walking. He denies fever, chills, nausea , or vomiting. Chief Complaint (Nursing): Weakness/Neurological Deficit History Per: Patient History/Exam Limitations: no limitations Onset/Duration Of Symptoms: Days (1 day ) Current Symptoms Are (Timing): Still Present Seizure Or Post-ictal Symptoms: None Fall Associated With With Symptoms: No Recent travel outside of the [place]: No Past Medical History Reviewed: Historical Data, Nursing Documentation, Vital Signs Vital Signs: Last Vital Signs Temp 99 F 04/26/17 21:54 Pulse 76 04/26/17 21:54 Resp 20 04/26/17 21:54 BP 138/67 04/26/17 21:54 Pulse Ox 98 04/27/17 00:11 - Medical History PMH: Anemia, CHF, Diabetes, Fractures, Gastritis, HTN, Hypercholesterolemia, End Stage Renal Disease (MWF), Chronic Kidney Disease, TIA Surgical History: Coronary Stent (12/2016) - [facility] Procedures APPLICATION OF SPLINT (03/15/14) CATARAC PHACOEMULS/ASPIR (03/08/15) DIALYSIS ARTERIOVENOSTOM (06/21/14) DILATION OF 1 COR ART WITH DRUG-ELUT INTRA, PERC APPROACH (04/08/17) EXCIS DEBRIDE OF WOUND, INFECT, OR BURN (06/21/14) FLUOROSCOPY OF LEFT HEART USING LOW OSMOLAR CONTRAST (01/08/17) FLUOROSCOPY OF MULT COR ART USING L OSM CONTRAST (01/08/17) HEMODIALYSIS (06/21/14) HOME MANAGEMENT TREATMENT USING ASSIST EQUIPMENT (08/15/16) INSERT LENS AT CATAR EXT (03/08/15) MEASURE OF CARDIAC SAMPL & PRESSURE, L HEART, PERC APPROACH (04/08/17) NONEXCIS DEBRID OF WOUND, INFECT, OR BURN (06/21/14) OTHER SKIN & SUBQ I D (06/21/14) PACKED CELL TRANSFUSION (06/21/14) PERFORMANCE OF URINARY FILTRATION, MULTIPLE (04/08/17) PERFORMANCE OF URINARY FILTRATION, SINGLE (11/23/16) PLAIN RADIOGRAPHY OF LEFT HEART USING OTHER CONTRAST (04/08/17) PLAIN RADIOGRAPHY OF MULT COR ART USING OTH CONTRAST (04/08/17) THERAPEUTIC EXERCISE TREATMENT OF MUSCULOSK LOW BACK/LE (08/15/16) TRANSFUSE NONAUT RED BLOOD CELLS IN PERIPH VEIN, PERC (10/27/16) VENOUS CATHETERIZATION FOR RENAL DIALYSIS (06/21/14) Family History: States: Unknown Family Hx - Social History Hx Tobacco Use: No Hx Alcohol Use: No Hx Substance Use: No - Immunization History Hx Tetanus Toxoid Vaccination: Yes Hx Influenza Vaccination: Yes Hx Pneumococcal Vaccination: Yes Review Of Systems Constitutional: Positive for: Weakness. Negative for: Fever, Chills Cardiovascular: Negative for: Chest Pain, Palpitations Respiratory: Negative for: Cough, Shortness of Breath Gastrointestinal: Negative for: Nausea, Vomiting Physical Exam - Physical Exam Appears: Non-toxic, No Acute Distress Skin: Warm, Dry Head: Atraumatic, Normacephalic Eye(s): bilateral: Normal Inspection, PERRL, EOMI Oral Mucosa: Moist Neck: Normal ROM, Supple Chest: Symmetrical, No Deformity Cardiovascular: Rhythm Regular, No Murmur Respiratory: Normal Breath Sounds, No Rales, No Rhonchi, No Wheezing Gastrointestinal/Abdominal: Soft, No Tenderness, No Distention, No Guarding, No Rebound Extremity: Normal ROM, No Tenderness Neurological/Psych: Oriented x3, Normal Speech, Normal Cognition, Normal Cranial Nerves, No Cerebellar Signs, Normal Motor, Normal Sensation, Other (No focal deficits) Gait: Steady ED Course And Treatment - Laboratory Results Result Diagrams: 04/26/17 22:44 04/26/17 22:44 ECG: Interpreted By Me, Viewed By Me ECG Rhythm: Sinus Rhythm, R BBB Rate From EC O2 Sat by Pulse Oximetry: 98 (RA) Progress Note: EKG and labs were ordered. Disposition Counseled Patient/Family Regarding: Diagnosis - Disposition Referrals: [facility] [Outside] Disposition: HOME/ ROUTINE Disposition Time: 00:16 Condition: STABLE Instructions: End Stage Kidney Disease (ED) Forms: [facility] (Scottish) - POA Present On Arrival: None - Clinical Impression Clinical Impression: ESRD (end stage renal disease) on dialysis - Scribe Statement The provider has reviewed the documentation as recorded by the Scribe Ginger Flores All medical record entries made by the Scribe were at my direction and personally dictated by me. I have reviewed the chart and agree that the record accurately reflects my personal performance of the history, physical exam, medical decision making, and the department course for this patient. I have also personally directed, reviewed, and agree with the discharge instructions and disposition.
[2017-04-26 22:48] LABS: BASO % 1.1 % (0.0-2.0); EOS # 0.2 K/uL (0.0-0.7); EOS % 4.7 % (0.0-4.0); HEMATOCRIT 32.4 % (35.0-51.0); LYMPH # 0.6 K/uL (1.0-4.3); LYMPH % 16.6 % (20.0-40.0); MEAN CELL VOLUME 90.5 fL (80.0-94.0); MEAN CORPUSCULAR HGB CONC 34.2 g/dL (33.0-37.0); MEAN PLATELET VOLUME 6.8 fL (7.2-11.7); MONO # 0.3 K/uL (0.0-0.8); MONO % 8.1 % (0.0-10.0); NRBC % 0.3 % (0.0-2.0); RED CELL DISTRIBUTION WIDTH 14.3 % (11.5-14.5); WHITE BLOOD COUNT 3.5 K/uL (4.8-10.8)
[2017-04-26 22:58] LABS: BILIRUBIN,TOTAL 0.6 mg/dL (0.2-1.3)
[2017-04-26 22:59] LABS: ALB/GLOB RATIO 1.4 (1.0-2.1); CALCIUM 9.3 mg/dl (8.6-10.4); TOTAL PROTEIN 7.5 g/dL (6.3-8.3)
[2017-04-26 23:10] LABS: TROPONIN I 0.017 ng/mL (0.00-0.120)
[2017-04-27 01:05] VITALS: BP 167/70; PULSE 73; RESP 16; TEMP 98.7; O2SAT 96
== END 2017-04-27 01:39 | disposition home or self-care (01) ==
LOC: C.ER 21:52
DX: I12.0 Hypertensive chronic kidney disease with stage 5 chronic kidney disease or end stage renal disease (principal); N18.6 End stage renal disease; Z99.2 Dependence on renal dialysis

== ENCOUNTER 2017-05-03 19:52 | Emergency (ER) | payer MEDICARE, OTHER ==
[2017-05-03 19:53] VITALS: BMI 28.6
[2017-05-03 20:53] LABS: BASO # 0.1 K/uL (0.0-0.2); BASO % 1.2 % (0.0-2.0); EOS # 0.3 K/uL (0.0-0.7); EOS % 5.7 % (0.0-4.0); HEMATOCRIT 27.9 % (35.0-51.0); LYMPH # 0.7 K/uL (1.0-4.3); LYMPH % 14.6 % (20.0-40.0); MEAN CELL VOLUME 88.2 fL (80.0-94.0); MEAN CORPUSCULAR HEMOGLOBIN 30.9 pg (27.0-31.0); MEAN PLATELET VOLUME 7.3 fL (7.2-11.7); MONO # 0.3 K/uL (0.0-0.8); MONO % 6.1 % (0.0-10.0); RED CELL DISTRIBUTION WIDTH 14.5 % (11.5-14.5); WHITE BLOOD COUNT 4.9 K/uL (4.8-10.8)
[2017-05-03 21:03] LABS: INR 1.2
--- NOTE | 2017-05-03 21:39 | CT ---
EXAM: CT Head Without Intravenous Contrast CLINICAL HISTORY: 61 years old, male; Signs and symptoms; Dizziness; Additional info: R/O ich TECHNIQUE: Axial computed tomography images of the head/brain without intravenous contrast. All CT scans at this facility use one or more dose reduction techniques, viz.: automated exposure control; ma/kV adjustment per patient size (including targeted exams where dose is matched to indication; i.e. head); or iterative reconstruction technique. COMPARISON: No relevant prior studies available. FINDINGS: Brain: No acute intracranial hemorrhage. Decreased attenuation within the right thalamus, findings suggesting prior cerebral infarction. Otherwise, age-appropriate periventricular white matter disease. No edema. Ventricles: Age-appropriate ventriculomegaly. Bones: No acute displaced fracture. Sinuses: Unremarkable as visualized. No acute sinusitis. Mastoid air cells: Unremarkable as visualized. No mastoid effusion. IMPRESSION: No acute intracranial hemorrhage, or suspicious mass effect.
[2017-05-03 22:16] LABS: POTASSIUM 3.9 mmol/L (3.6-5.2)
[2017-05-03 22:19] LABS: ALB/GLOB RATIO 1.1 (1.0-2.1); BILIRUBIN,TOTAL 0.6 mg/dL (0.2-1.3); CALCIUM 8.3 mg/dl (8.6-10.4)
[2017-05-03 22:31] LABS: TROPONIN I 0.041 ng/mL (0.00-0.120)
[2017-05-03 22:43] VITALS: BP 154/65; PULSE 67; RESP 17; TEMP 99.9; O2SAT 97
--- NOTE | 2017-05-04 00:59 | C.PDOC ---
History Of Present Illness 61 year old male who presents to the ER with a complaint of dizziness after hemo dialysis today. Patient has hemo dialysis Mondays, Wednesdays, and Fridays ; he states "they took too much off". Denies chest pain, SOB, or abdominal pain. Chief Complaint (Nursing): Dizziness/Lightheaded History Per: Patient History/Exam Limitations: no limitations Onset/Duration Of Symptoms: Hrs Current Symptoms Are (Timing): Still Present Activity At Onset Of Symptoms: Other (Finished hemo dialysis) Associated Symptoms Preceding Syncopal Episode: Other (None) Seizure Or Post-ictal Symptoms: None Possible Causative Factor(s): Other (Hemo dialysis) Fall Associated With With Symptoms: No Recent travel outside of the [place]: No - Symptoms Of CVA Associated Symptoms: denies: Impaired Speech, Seizure Activity, New Vision Deficit(Left), New Vision Deficit(Right), Decreased Ability To Walk, New Confusion Recent Head Trauma: No Past Medical History Reviewed: Historical Data, Nursing Documentation, Vital Signs Vital Signs: Last Vital Signs Temp 99.9 F H 05/03/17 22:41 Pulse 67 05/03/17 22:41 Resp 17 05/03/17 22:41 BP 154/65 H 05/03/17 22:41 Pulse Ox 97 05/04/17 01:38 - Medical History PMH: Anemia, CHF, Diabetes, Fractures, Gastritis, HTN, Hypercholesterolemia, End Stage Renal Disease (MWF), Chronic Kidney Disease, TIA Surgical History: Coronary Stent (12/2016) - [facility] Procedures APPLICATION OF SPLINT (03/15/14) CATARAC PHACOEMULS/ASPIR (03/08/15) DIALYSIS ARTERIOVENOSTOM (06/21/14) DILATION OF 1 COR ART WITH DRUG-ELUT INTRA, PERC APPROACH (04/08/17) EXCIS DEBRIDE OF WOUND, INFECT, OR BURN (06/21/14) FLUOROSCOPY OF LEFT HEART USING LOW OSMOLAR CONTRAST (01/08/17) FLUOROSCOPY OF MULT COR ART USING L OSM CONTRAST (01/08/17) HEMODIALYSIS (06/21/14) HOME MANAGEMENT TREATMENT USING ASSIST EQUIPMENT (08/15/16) INSERT LENS AT CATAR EXT (03/08/15) MEASURE OF CARDIAC SAMPL & PRESSURE, L HEART, PERC APPROACH (04/08/17) NONEXCIS DEBRID OF WOUND, INFECT, OR BURN (06/21/14) OTHER SKIN & SUBQ I D (06/21/14) PACKED CELL TRANSFUSION (06/21/14) PERFORMANCE OF URINARY FILTRATION, MULTIPLE (04/08/17) PERFORMANCE OF URINARY FILTRATION, SINGLE (11/23/16) PLAIN RADIOGRAPHY OF LEFT HEART USING OTHER CONTRAST (04/08/17) PLAIN RADIOGRAPHY OF MULT COR ART USING OTH CONTRAST (04/08/17) THERAPEUTIC EXERCISE TREATMENT OF MUSCULOSK LOW BACK/LE (08/15/16) TRANSFUSE NONAUT RED BLOOD CELLS IN PERIPH VEIN, PERC (10/27/16) VENOUS CATHETERIZATION FOR RENAL DIALYSIS (06/21/14) Family History: States: Unknown Family Hx - Social History Hx Tobacco Use: No Hx Alcohol Use: No Hx Substance Use: No - Immunization History Hx Tetanus Toxoid Vaccination: Yes Hx Influenza Vaccination: Yes Hx Pneumococcal Vaccination: Yes Review Of Systems Cardiovascular: Negative for: Chest Pain Respiratory: Negative for: Shortness of Breath Gastrointestinal: Negative for: Nausea, Vomiting, Abdominal Pain Neurological: Positive for: Dizziness Physical Exam - Physical Exam Appears: Non-toxic, No Acute Distress Skin: Warm, Dry, Pale (Baseline as per patient) Head: Atraumatic, Normacephalic Eye(s): bilateral: Normal Inspection, PERRL, EOMI Oral Mucosa: Moist Neck: Normal, Supple Chest: Symmetrical Cardiovascular: Rhythm Regular Respiratory: Normal Breath Sounds, No Rales, No Rhonchi, No Wheezing Gastrointestinal/Abdominal: Soft, No Tenderness Extremity: Other (AV graft to left upper extremity) Neurological/Psych: Oriented x3, Normal Speech, Normal Cognition ED Course And Treatment - Laboratory Results Result Diagrams: 05/03/17 20:47 05/03/17 22:04 ECG: Interpreted By Me, Viewed By Me ECG Rhythm: R BBB Rate From EC O2 Sat by Pulse Oximetry: 97 (room air) Pulse Ox Interpretation: Normal - Radiology CXR: Interpreted by Me, Viewed By Me CXR Interpretation: Yes: No Acute Disease - CT Scan/US CT Head Other Rad Studies (CT/US): Read By Radiologist, Radiology Report Reviewed CT/US Interpretation: EXAM: CT Head Without Intravenous Contrast. CLINICAL HISTORY: 61 years old, male; Signs and symptoms; Dizziness; Additional info: R/ O ich. TECHNIQUE: Axial computed tomography images of the head/brain without intravenous contrast. All CT scans at. this facility use one or more dose reduction techniques, viz.: automated exposure control; ma/kV. adjustment per patient size (including targeted exams where dose is matched to indication; i.e. head);. or iterative reconstruction technique. COMPARISON: No relevant prior studies available. FINDINGS: Brain: No acute intracranial hemorrhage. Decreased attenuation within the right thalamus, findings. suggesting prior cerebral infarction. Otherwise, age-appropriate periventricular white matter disease. No edema. Ventricles: Age-appropriate ventriculomegaly. Bones: No acute displaced fracture. Sinuses: Unremarkable as visualized. No acute sinusitis. Mastoid air cells: Unremarkable as visualized. No mastoid effusion. IMPRESSION: No acute intracranial hemorrhage, or suspicious mass effect. Progress Note: Blood work, CT head, EKG, CXR, and urinalysis ordered. Antivert administered. On reevaluation, patient's reports he feels better and is no longer dizzy; will discharge home with instructions to follow up with PMD. Disposition - Disposition Referrals: Lolay Vickie Gonzalez, [Non-Staff] - Disposition: HOME/ ROUTINE Disposition Time: 22:50 Condition: IMPROVED Additional Instructions: Thank you for letting us take care of you today. Your provider was Dr. Chen. You were treated for dizziness. The emergency medical care you received today was directed at your acute symptoms. If you were prescribed any medication, please fill it and take as directed. It may take several days for your symptoms to resolve. Return to the Emergency Department if your symptoms worsen, do not improve, or if you have any other problems. Please contact your doctor or call one of the physicians/clinics you have been referred to that are listed on the Patient Visit Information form that is included in your discharge packet. Bring any paperwork you were given at discharge with you along with any medications you are taking to your follow up visit. Our treatment cannot replace ongoing medical care by a primary care provider (PCP) outside of the emergency department. Thank you for allowing the [facility] team to be part of your care today. Follow up with doctor in 2-3 days for re-evaluation and further management. Instructions: Dialysis Diet (DC), End Stage Kidney Disease (ED) Forms: [employer] ([place]) - Clinical Impression Clinical Impression: ESRD needing dialysis, Dizziness - Scribe Statement The provider has reviewed the documentation as recorded by the Scribe Rayray Del Valle All medical record entries made by the Scribe were at my direction and personally dictated by me. I have reviewed the chart and agree that the record accurately reflects my personal performance of the history, physical exam, medical decision making, and the department course for this patient. I have also personally directed, reviewed, and agree with the discharge instructions and disposition.
--- NOTE | 2017-05-04 11:23 | RAD ---
PROCEDURE: CHEST RADIOGRAPH, 1 VIEW HISTORY: r/o infiltrate COMPARISON: Comparison is made to 04/06/2017 FINDINGS: LUNGS: Moderate pulmonary vascular congestion is noted more conspicuous compared to the previous exam. PLEURA: Right pleural effusion is also noted. CARDIOVASCULAR: The cardiac silhouette is mildly enlarged. OSSEOUS STRUCTURES: No significant abnormalities. VISUALIZED UPPER ABDOMEN: Normal. OTHER FINDINGS: None. IMPRESSION: Moderate pulmonary vascular congestion and small to moderate right pleural effusion. Findings suggestive of worsening CHF.
== END 2017-05-03 23:36 | disposition home or self-care (01) ==
LOC: C.ER 19:52
DX: R42 Dizziness and giddiness (principal); I12.0 Hypertensive chronic kidney disease with stage 5 chronic kidney disease or end stage renal disease; N18.6 End stage renal disease; Z99.2 Dependence on renal dialysis; E11.9 Type 2 diabetes mellitus without complications; E78.00 Pure hypercholesterolemia, unspecified

== ENCOUNTER 2017-05-06 23:06 | Emergency (ER) | payer MEDICARE, OTHER ==
[2017-05-06 23:06] VITALS: BMI 28.6
[2017-05-07 00:25] LABS: POTASSIUM 3.8 mmol/L (3.6-5.2)
[2017-05-07 00:26] LABS: BILIRUBIN,TOTAL 0.6 mg/dL (0.2-1.3)
[2017-05-07 00:27] LABS: ALB/GLOB RATIO 1.2 (1.0-2.1); PHOSPHOROUS 3.9 mg/dL (2.5-4.5); TOTAL PROTEIN 6.8 g/dL (6.3-8.3)
[2017-05-07 00:28] LABS: CALCIUM 7.7 mg/dl (8.6-10.4); MAGNESIUM 1.7 mg/dL (1.6-2.3)
[2017-05-07 00:39] LABS: TROPONIN I 0.022 ng/mL (0.00-0.120)
--- NOTE | 2017-05-07 00:40 | C.PDOC ---
History Of Present Illness Pt c/o generalized weakness. Time Seen by Provider: 05/06/17 23:16 History Per: Patient Onset/Duration Of Symptoms: Hrs (since after dialysis this evening) Current Symptoms Are (Timing): Still Present Current Symptoms: Generalized weakness Fall Associated With With Symptoms: Yes, No Injury As Result Of Fall Severity: Moderate Additional History Per: Prior Records - Symptoms Of CVA Recent Head Trauma: No Past Medical History Reviewed: Historical Data, Nursing Documentation, Vital Signs Vital Signs: Last Vital Signs Temp 98.1 F 05/06/17 23:08 Pulse 69 05/06/17 23:08 Resp 18 05/06/17 23:08 BP 150/54 L 05/06/17 23:08 Pulse Ox 97 05/07/17 00:41 - Medical History PMH: Anemia, CHF, Diabetes, Fractures, Gastritis, HTN, Hypercholesterolemia, End Stage Renal Disease (on dialysis MWF), Chronic Kidney Disease, TIA Surgical History: Coronary Stent (12/2016) - [facility] Procedures APPLICATION OF SPLINT (03/15/14) CATARAC PHACOEMULS/ASPIR (03/08/15) DIALYSIS ARTERIOVENOSTOM (06/21/14) DILATION OF 1 COR ART WITH DRUG-ELUT INTRA, PERC APPROACH (04/08/17) EXCIS DEBRIDE OF WOUND, INFECT, OR BURN (06/21/14) FLUOROSCOPY OF LEFT HEART USING LOW OSMOLAR CONTRAST (01/08/17) FLUOROSCOPY OF MULT COR ART USING L OSM CONTRAST (01/08/17) HEMODIALYSIS (06/21/14) HOME MANAGEMENT TREATMENT USING ASSIST EQUIPMENT (08/15/16) INSERT LENS AT CATAR EXT (03/08/15) MEASURE OF CARDIAC SAMPL & PRESSURE, L HEART, PERC APPROACH (04/08/17) NONEXCIS DEBRID OF WOUND, INFECT, OR BURN (06/21/14) OTHER SKIN & SUBQ I D (06/21/14) PACKED CELL TRANSFUSION (06/21/14) PERFORMANCE OF URINARY FILTRATION, MULTIPLE (04/08/17) PERFORMANCE OF URINARY FILTRATION, SINGLE (11/23/16) PLAIN RADIOGRAPHY OF LEFT HEART USING OTHER CONTRAST (04/08/17) PLAIN RADIOGRAPHY OF MULT COR ART USING OTH CONTRAST (04/08/17) THERAPEUTIC EXERCISE TREATMENT OF MUSCULOSK LOW BACK/LE (08/15/16) TRANSFUSE NONAUT RED BLOOD CELLS IN PERIPH VEIN, PERC (10/27/16) VENOUS CATHETERIZATION FOR RENAL DIALYSIS (06/21/14) Family History: States: Unknown Family Hx - Social History Hx Tobacco Use: No Hx Alcohol Use: No Hx Substance Use: No - Immunization History Hx Tetanus Toxoid Vaccination: No Hx Influenza Vaccination: Yes Hx Pneumococcal Vaccination: Yes Review Of Systems Except As Marked, All Systems Reviewed And Found Negative. Constitutional: Positive for: Weakness, Malaise. Negative for: Fever Cardiovascular: Negative for: Chest Pain Respiratory: Positive for: Shortness of Breath. Negative for: Hemoptysis Gastrointestinal: Negative for: Vomiting, Abdominal Pain, Diarrhea Musculoskeletal: Negative for: Neck Pain, Back Pain Neurological: Negative for: Weakness, Numbness, Seizures, Headache Physical Exam - Physical Exam Appears: No Acute Distress, Chronically Ill Skin: Warm, Dry Head: Atraumatic, Normacephalic Eye(s): bilateral: PERRL, EOMI Neck: Normal ROM, Supple Cardiovascular: Rhythm Regular Respiratory: Normal Breath Sounds, No Accessory Muscle Use Gastrointestinal/Abdominal: Soft, No Tenderness Extremity: Normal ROM, Pedal Edema Neurological/Psych: Oriented x3, Normal Motor, Normal Sensation ED Course And Treatment - Laboratory Results Result Diagrams: 05/07/17 00:09 ECG: Interpreted By Me, Viewed By Me ECG Rhythm: Sinus Rhythm, R BBB, Nonspecific Changes ECG Interpretation: No Changes From Prior Rate From EC O2 Sat by Pulse Oximetry: 97 Pulse Ox Interpretation: Normal - Radiology CXR: Interpreted by Me, Viewed By Me CXR Interpretation: Yes: Other (Right pleural effusion) Disposition - Disposition Disposition Time: 00:51 Condition: FAIR Instructions: Weakness (ED) - Clinical Impression Clinical Impression: Generalized weakness Physician Patient Turnover Patient Signed Over To: Ashok Cannon Handoff Comments: to f/up CBC and dispo pt.
[2017-05-07 01:03] LABS: BASO # 0.1 K/uL (0.0-0.2); BASO % 1.4 % (0.0-2.0); EOS # 0.2 K/uL (0.0-0.7); HEMATOCRIT 25.7 % (35.0-51.0); LYMPH # 0.8 K/uL (1.0-4.3); LYMPH % 22.4 % (20.0-40.0); MEAN CELL VOLUME 88.7 fL (80.0-94.0); MEAN CORPUSCULAR HEMOGLOBIN 30.8 pg (27.0-31.0); MEAN CORPUSCULAR HGB CONC 34.7 g/dL (33.0-37.0); MEAN PLATELET VOLUME 6.9 fL (7.2-11.7); MONO # 0.3 K/uL (0.0-0.8); MONO % 7.9 % (0.0-10.0); RED CELL DISTRIBUTION WIDTH 14.2 % (11.5-14.5); WHITE BLOOD COUNT 3.7 K/uL (4.8-10.8)
--- NOTE | 2017-05-07 05:06 | CT ---
EXAM: CT Head Without Intravenous Contrast CLINICAL HISTORY: 61 years old, male; Pain and signs and symptoms; Dizziness; Headache; Patient HX: 05-03-17 images sent already TECHNIQUE: Axial computed tomography images of the head/brain without intravenous contrast. All CT scans at this facility use one or more dose reduction techniques, viz.: automated exposure control; ma/kV adjustment per patient size (including targeted exams where dose is matched to indication; i.e. head); or iterative reconstruction technique. Coronal and sagittal reformatted images were created and reviewed. COMPARISON: CT - HEAD W/O CONTRAST 05/03/2017 9:22:24 PM FINDINGS: Brain: [id number] atrophy. No intracranial hemorrhage. No mass. Several scattered foci of decreased attenuation within periventricular/subcortical white matter. Probable chronic lacunar infarct within RIGHT centrum semiovale, RIGHT internal capsule/basal ganglia. No definite edema. Ventricles: No hydrocephalus. Bones/joints: No acute fracture. Soft tissues: Unremarkable. Vasculature: Atherosclerotic disease of intracranial arteries. Sinuses: Scattered minimal mucosal thickening. Mastoid air cells: No mastoid effusion. Orbits: Unremarkable as visualized. IMPRESSION: 1. Nonspecific white matter changes. Acute infarction may be CT occult within first 24 hours. If a focal deficit persists, consider followup CT or MRI for further evaluation. 2. Incidental/non-acute findings are described above.
[2017-05-07 05:16] VITALS: BP 173/71; PULSE 68; RESP 20; TEMP 98.4; O2SAT 96
--- NOTE | 2017-05-07 08:06 | RAD ---
PROCEDURE: CHEST RADIOGRAPH, 1 VIEW HISTORY: SOB, ESRD COMPARISON: Portable chest 05/03/2017. FINDINGS: LUNGS: Bilateral perihilar density appears slightly diminished which may indicate a mild improvement in pulmonary venous congestion. Underlying right basilar airspace disease is not excluded. PLEURA: Right pleural effusion is increased but remains mild in overall volume. No left pleural effusion. No interval pneumothorax. CARDIOVASCULAR: Stable mild cardiomegaly. OSSEOUS STRUCTURES: No significant abnormalities. VISUALIZED UPPER ABDOMEN: Normal. OTHER FINDINGS: None. IMPRESSION: Mild improvement in moderate pulmonary venous congestion with slight increase in mild right pleural effusion. Underlying airspace disease at the right base is not excluded. Stable cardiomegaly.
--- NOTE | 2017-05-08 22:40 | CARD ---
APPROVED REPORT EKG Measurement Heart [id number] <Conclusion> Normal sinus rhythm Right bundle branch block Abnormal ECG
== END 2017-05-07 06:09 | disposition home or self-care (01) ==
LOC: C.ER 23:06
DX: R53.1 Weakness (principal)

== ENCOUNTER 2017-05-08 23:37 | Emergency (ER) | payer MEDICARE, OTHER ==
[2017-05-08 23:37] VITALS: BMI 28.6
--- NOTE | 2017-05-09 01:04 | C.PDOC ---
History Of Present Illness Patient is a 61 y/o male who presents to the ED with a complaint of homelessness and requests a place to stay. Patient is asymptomatic and denies injury. Patient requests rehabilitation. No other physical complaints at this time. Chief Complaint (Nursing): Upper Extremity Problem/Injury History Per: Patient History/Exam Limitations: no limitations Recent travel outside of the [place]: No Additional History Per: Patient Past Medical History Reviewed: Historical Data, Nursing Documentation, Vital Signs Vital Signs: Last Vital Signs Temp 97.9 F 05/09/17 04:36 Pulse 65 05/09/17 04:36 Resp 16 05/09/17 04:36 BP 158/62 H 05/09/17 04:36 Pulse Ox 99 05/09/17 04:36 - Medical History PMH: Anemia, CHF, Diabetes, Fractures, Gastritis, HTN, Hypercholesterolemia, End Stage Renal Disease (on dialysis MWF), Chronic Kidney Disease, TIA Surgical History: Coronary Stent (12/2016) - [facility] Procedures APPLICATION OF SPLINT (03/15/14) CATARAC PHACOEMULS/ASPIR (03/08/15) DIALYSIS ARTERIOVENOSTOM (06/21/14) DILATION OF 1 COR ART WITH DRUG-ELUT INTRA, PERC APPROACH (04/08/17) EXCIS DEBRIDE OF WOUND, INFECT, OR BURN (06/21/14) FLUOROSCOPY OF LEFT HEART USING LOW OSMOLAR CONTRAST (01/08/17) FLUOROSCOPY OF MULT COR ART USING L OSM CONTRAST (01/08/17) HEMODIALYSIS (06/21/14) HOME MANAGEMENT TREATMENT USING ASSIST EQUIPMENT (08/15/16) INSERT LENS AT CATAR EXT (03/08/15) MEASURE OF CARDIAC SAMPL & PRESSURE, L HEART, PERC APPROACH (04/08/17) NONEXCIS DEBRID OF WOUND, INFECT, OR BURN (06/21/14) OTHER SKIN & SUBQ I D (06/21/14) PACKED CELL TRANSFUSION (06/21/14) PERFORMANCE OF URINARY FILTRATION, MULTIPLE (04/08/17) PERFORMANCE OF URINARY FILTRATION, SINGLE (11/23/16) PLAIN RADIOGRAPHY OF LEFT HEART USING OTHER CONTRAST (04/08/17) PLAIN RADIOGRAPHY OF MULT COR ART USING OTH CONTRAST (04/08/17) THERAPEUTIC EXERCISE TREATMENT OF MUSCULOSK LOW BACK/LE (08/15/16) TRANSFUSE NONAUT RED BLOOD CELLS IN PERIPH VEIN, PERC (10/27/16) VENOUS CATHETERIZATION FOR RENAL DIALYSIS (06/21/14) Family History: States: Unknown Family Hx - Social History Hx Tobacco Use: No Hx Alcohol Use: No Hx Substance Use: No - Immunization History Hx Tetanus Toxoid Vaccination: Yes Hx Influenza Vaccination: Yes Hx Pneumococcal Vaccination: Yes Review Of Systems Constitutional: Negative for: Fever, Chills Cardiovascular: Negative for: Chest Pain Respiratory: Negative for: Shortness of Breath Gastrointestinal: Negative for: Abdominal Pain Physical Exam - Physical Exam Appears: Well, Non-toxic, No Acute Distress Skin: Normal Color, Warm, Dry Head: Atraumatic, Normacephalic Oral Mucosa: Moist Chest: Symmetrical Cardiovascular: Rhythm Regular, No Murmur Respiratory: Normal Breath Sounds, No Rales, No Rhonchi, No Wheezing Gastrointestinal/Abdominal: Soft, No Tenderness Neurological/Psych: Oriented x3, Normal Speech, Normal Cognition, Other (no focal deficits) ED Course And Treatment O2 Sat by Pulse Oximetry: 97 (room air) Pulse Ox Interpretation: Normal Disposition Counseled Patient/Family Regarding: Diagnosis - Disposition Referrals: [facility] [Outside] Disposition Time: 05:45 Condition: STABLE Instructions: End Stage Kidney Disease (ED) Forms: [facility] (Chinese) - POA Present On Arrival: None - Clinical Impression Clinical Impression: ESRD (end stage renal disease) on dialysis, Homelessness - Scribe Statement The provider has reviewed the documentation as recorded by the Scribe Chioma Gonzalez All medical record entries made by the Scribe were at my direction and personally dictated by me. I have reviewed the chart and agree that the record accurately reflects my personal performance of the history, physical exam, medical decision making, and the department course for this patient. I have also personally directed, reviewed, and agree with the discharge instructions and disposition.
[2017-05-09 04:38] VITALS: BP 158/62; PULSE 65; RESP 16; TEMP 97.9
[2017-05-09 05:38] VITALS: O2SAT 97
== END 2017-05-09 05:40 | disposition home or self-care (01) ==
LOC: C.ER 23:37
DX: N18.6 End stage renal disease (principal); Z99.2 Dependence on renal dialysis; Z59.0 Homelessness

== ENCOUNTER 2017-05-23 23:46 | Emergency (ER) | payer MEDICARE, OTHER ==
[2017-05-23 23:46] VITALS: BMI 27.7
[2017-05-24 00:08] VITALS: O2SAT 97
--- NOTE | 2017-05-24 02:14 | CT ---
EXAM: CT Head Without Intravenous Contrast CLINICAL HISTORY: 61 years old, male; Pain; Headache; Additional info: R/O ich TECHNIQUE: Axial computed tomography images of the head/brain without intravenous contrast. All CT scans at this facility use one or more dose reduction techniques, viz.: automated exposure control; ma/kV adjustment per patient size (including targeted exams where dose is matched to indication; i.e. head); or iterative reconstruction technique. Coronal and sagittal reformatted images were created and reviewed. COMPARISON: CT - HEAD W/O CONTRAST 2017-05-07 04:13 FINDINGS: Brain: [id number] atrophy. No intracranial hemorrhage. No mass. Several scattered foci of decreased attenuation within periventricular/subcortical white matter. No definite edema. Probable chronic lacunar infarcts within RIGHT centrum semiovale, RIGHT internal capsule/basal ganglia/thalamus. No definite edema. Ventricles: No hydrocephalus. Bones/joints: No acute fracture. Soft tissues: Unremarkable. Vasculature: Atherosclerotic disease of intracranial arteries. Sinuses: Scattered minimal mucosal thickening. Mastoid air cells: No mastoid effusion. Orbits: Unremarkable as visualized. IMPRESSION: 1. Nonspecific white matter changes. Acute infarction may be CT occult within first 24 hours. If a focal deficit persists, consider followup CT or MRI for further evaluation. 2. Incidental/non-acute findings are described above.
[2017-05-24 03:47] VITALS: BP 149/76; PULSE 69; RESP 18; TEMP 97.8
--- NOTE | 2017-05-24 04:58 | C.PDOC ---
History Of Present Illness 61 y/o male presents to ED with complaints of dizziness that developed 1 hr [employer]. Patient has multiple visits to ED for same symptoms and currently denies chest pain, sob, abdominal pain, vision changes or any other complaints at this time. Chief Complaint (Nursing): Weakness/Neurological Deficit History Per: Patient History/Exam Limitations: no limitations Onset/Duration Of Symptoms: Days Current Symptoms Are (Timing): Still Present Past Medical History Reviewed: Historical Data, Nursing Documentation, Vital Signs Vital Signs: Last Vital Signs Temp 97.8 F 05/24/17 03:37 Pulse 69 05/24/17 03:37 Resp 18 05/24/17 03:37 BP 149/76 05/24/17 03:37 Pulse Ox 97 05/24/17 04:58 - Medical History PMH: Anemia, CHF, Diabetes, Fractures, Gastritis, HTN, Hypercholesterolemia, End Stage Renal Disease (on dialysis MWF), Chronic Kidney Disease, Seizures (3 X JUN 2016), TIA Surgical History: Coronary Stent (12/2016) - [facility] Procedures APPLICATION OF SPLINT (03/15/14) CATARAC PHACOEMULS/ASPIR (03/08/15) DIALYSIS ARTERIOVENOSTOM (06/21/14) DILATION OF 1 COR ART WITH DRUG-ELUT INTRA, PERC APPROACH (04/08/17) EXCIS DEBRIDE OF WOUND, INFECT, OR BURN (06/21/14) FLUOROSCOPY OF LEFT HEART USING LOW OSMOLAR CONTRAST (01/08/17) FLUOROSCOPY OF MULT COR ART USING L OSM CONTRAST (01/08/17) HEMODIALYSIS (06/21/14) HOME MANAGEMENT TREATMENT USING ASSIST EQUIPMENT (08/15/16) INSERT LENS AT CATAR EXT (03/08/15) MEASURE OF CARDIAC SAMPL & PRESSURE, L HEART, PERC APPROACH (04/08/17) NONEXCIS DEBRID OF WOUND, INFECT, OR BURN (06/21/14) OTHER SKIN & SUBQ I D (06/21/14) PACKED CELL TRANSFUSION (06/21/14) PERFORMANCE OF URINARY FILTRATION, MULTIPLE (04/08/17) PERFORMANCE OF URINARY FILTRATION, SINGLE (11/23/16) PLAIN RADIOGRAPHY OF LEFT HEART USING OTHER CONTRAST (04/08/17) PLAIN RADIOGRAPHY OF MULT COR ART USING OTH CONTRAST (04/08/17) THERAPEUTIC EXERCISE TREATMENT OF MUSCULOSK LOW BACK/LE (08/15/16) TRANSFUSE NONAUT RED BLOOD CELLS IN PERIPH VEIN, PERC (10/27/16) VENOUS CATHETERIZATION FOR RENAL DIALYSIS (06/21/14) Family History: States: No Known Family Hx - Social History Hx Tobacco Use: No Hx Alcohol Use: Yes Hx Substance Use: No - Immunization History Hx Tetanus Toxoid Vaccination: Yes Hx Influenza Vaccination: Yes Hx Pneumococcal Vaccination: Yes Review Of Systems Constitutional: Negative for: Fever, Chills Gastrointestinal: Negative for: Nausea, Vomiting Musculoskeletal: Negative for: Back Pain Skin: Negative for: Rash Neurological: Positive for: Dizziness. Negative for: Weakness, Numbness Physical Exam - Physical Exam Appears: Non-toxic, No Acute Distress Skin: Normal Color, Warm, Dry, No Rash Head: Atraumatic, Normacephalic Oral Mucosa: Moist Neck: Normal ROM, Supple Chest: Symmetrical Cardiovascular: Rhythm Regular Respiratory: Normal Breath Sounds, No Rales, No Rhonchi, No Wheezing Gastrointestinal/Abdominal: Soft, No Tenderness, No Guarding, No Rebound Extremity: Normal ROM, No Pedal Edema Neurological/Psych: Oriented x3 ED Course And Treatment ECG: Interpreted By Me, Viewed By Me ECG Rhythm: Sinus Rhythm, R BBB Rate From EC (bpm) O2 Sat by Pulse Oximetry: 97 (ra) Disposition - Disposition Referrals: [facility] Vickie Gonzalez, [Non-Staff] - Disposition: HOME/ ROUTINE Disposition Time: 03:30 Condition: IMPROVED Additional Instructions: Thank you for letting us take care of you today. Your provider was Dr. Chen. You were treated for vertigo. The emergency medical care you received today was directed at your acute symptoms. If you were prescribed any medication, please fill it and take as directed. It may take several days for your symptoms to resolve. Return to the Emergency Department if your symptoms worsen, do not improve, or if you have any other problems. Please contact your doctor or call one of the physicians/clinics you have been referred to that are listed on the Patient Visit Information form that is included in your discharge packet. Bring any paperwork you were given at discharge with you along with any medications you are taking to your follow up visit. Our treatment cannot replace ongoing medical care by a primary care provider (PCP) outside of the emergency department. Thank you for allowing the [facility] team to be part of your care today. Follow up with your doctor in 2-3 days for re-evaluation and further management. Prescriptions: Meclizine [Meclizine*] 25 mg PO Q6 PRN #20 tab PRN Reason: Dizziness Instructions: Vertigo (ED) Forms: [facility] (Mauritanian) - Clinical Impression Clinical Impression: Vertigo - Scribe Statement The provider has reviewed the documentation as recorded by the Sparkleibe Jani Gotti All medical record entries made by the Sparkleibnikky were at my direction and personally dictated by me. I have reviewed the chart and agree that the record accurately reflects my personal performance of the history, physical exam, medical decision making, and the department course for this patient. I have also personally directed, reviewed, and agree with the discharge instructions and disposition.
--- NOTE | 2017-05-24 09:38 | RAD ---
PROCEDURE: CHEST RADIOGRAPH, 1 VIEW HISTORY: chest pain COMPARISON: Comparison chest dated 05/07/2017 FINDINGS: LUNGS: Right lower lobe atelectasis and or infiltrate and suspected effusion. Minor left basilar atelectasis and suspected tiny left effusion or chronic pleural thickening. Underlying chronic interstitial changes -scarring both lung bases may be present. PLEURA: No pneumothorax or pleural fluid seen. CARDIOVASCULAR: Normal. Cardiomegaly. OSSEOUS STRUCTURES: No significant abnormalities. VISUALIZED UPPER ABDOMEN: Normal. OTHER FINDINGS: None. IMPRESSION: Right lower lobe atelectasis and or infiltrate and suspected effusion. Minor left basilar atelectasis and suspected tiny left effusion or chronic pleural thickening. Underlying chronic interstitial changes -scarring both lung bases may be present.
--- NOTE | 2017-05-24 18:40 | CARD ---
APPROVED REPORT EKG Measurement Heart [id number] <Conclusion> Normal sinus rhythm Right bundle branch block Abnormal ECG
== END 2017-05-24 05:01 | disposition home or self-care (01) ==
LOC: C.ER 23:46
DX: R42 Dizziness and giddiness (principal)